=== PATIENT | female | born 1935 | race Caucasian/White ===

== ENCOUNTER → 2016-04-25 | Outpatient (CLI) | payer OTHER ==
[~2016-04-25] MED LIST: ACET650T50 PO; ALBU1AER9 INH; ASPEC81 PO; ASTN; CALC-20 PO; CYCL0.052 OP; CYCL0.052 OPB; DOCU-94 PO; DOCU100C31 PO; FLNIN NAE; FSMD/70 PO; GABA-112 PO; LCTX PO; LEVO100T7 PO; LEVO88TA3 PO; LPR25 PO; LPT40 PO; LSN20 PO; LSX20 PO; MELO7.5T5 PO; MULTTAB58 PO; NF34 TOP; ONDA4TAB46 PO; OXGN; OXYC-57 PO; POLY335019 PO; PRT/40 PO; SENN-61 PO; SLO MAG PO; TRAZ50TA35 PO
== END | disposition home or self-care (01) ==
LOC: C.RDSM 13:45
PROVIDERS: ATTEND Physical Medicine & Rehabilitation Sports Medicine
DX: M17.11 Unilateral primary osteoarthritis, right knee (principal); Z96.651 Presence of right artificial knee joint

== ENCOUNTER → 2016-07-01 | Day surgery (SDC) | payer OTHER ==
[2016-06-16 09:21] VITALS: BMI 34.0
--- NOTE | 2016-06-16 09:58 | PAT Medication Instructions ---
Service Date June 16, 2016. Current Home Medication List Albuterol (Proair Hfa), 1 PUFF INH Q4 PRN for SOB/Wheezing Alendronate/Cholecalciferol (Fosamax+D 70MG/2800 Iu), 1 TABLET PO WK Aspirin (Aspirin EC Low Dose), 81 MG PO QAM Atorvastatin (Atorvastatin Calcium), 40 MG PO QAM Azelastine Hcl (Astelin Nasal [place]), 2 SPRAYS NA TID PRN for PRN Calcium Carbonate-Vitamin D (Calcium 600 + D), 1 TAB PO BID Clobetasol Propionate (Clobetasol Propionate), 1 APPLN TOP AMHS PRN for PRN Cyclosporine (Ophth) (Restasis), 1 DROP OP BID Fluticasone Propionate (Fluticasone Propionate), 2 SPRAYS YOANDY QAM Furosemide (Furosemide), 20 MG PO QAM Gabapentin (Neurontin), 200 MG PO TID Lactobacillus Acidophilus (Lactinex), 1 TAB PO TID Levothyroxine Sodium (Levothyroxine Sodium), 1 TAB PO QAM Lisinopril (Lisinopril), 20 MG PO QAM Meloxicam (Mobic), 7.5 MG PO QAM Metoprolol Tartrate (Lopressor), 12.5 MG PO BID Multiple Vitamin (Multivitamin), 1 TAB PO QAM Ondansetron Hcl (Zofran), 8 MG PO TID PRN for Nausea Oxygen (Oxygen), 2 LITERS NA HS Pantoprazole (Pantoprazole Sodium), 40 MG PO QAM Senna (Senokot), 1 TAB PO QAM Trazodone Hcl (Trazodone), 50 MG PO HS [Slo Mag], 2 TAB PO QAM Medication Instructions For Your Scheduled Surgery - Check with surgeon for instructions: Aspirin (Aspirin EC Low Dose), 81 MG PO QAM Meloxicam (Mobic), 7.5 MG PO QAM - Continue as directed: Alendronate/Cholecalciferol (Fosamax+D 70MG/2800 Iu), 1 TABLET PO WK (Fridays) - Hold the following medications 24 hours prior to surgery: Clobetasol Propionate (Clobetasol Propionate), 1 APPLN TOP AMHS PRN for PRN - Hold the following medications the morning of surgery: [Slo Mag], 2 TAB PO QAM Senna (Senokot), 1 TAB PO QAM Multiple Vitamin (Multivitamin), 1 TAB PO QAM Lisinopril (Lisinopril), 20 MG PO QAM Lactobacillus Acidophilus (Lactinex), 1 TAB PO TID Furosemide (Furosemide), 20 MG PO QAM Calcium Carbonate-Vitamin D (Calcium 600 + D), 1 TAB PO BID - Take the following medications the morning of surgery with a sip of water: Fluticasone Propionate (Fluticasone Propionate), 2 SPRAYS YOANDY QAM Cyclosporine (Ophth) (Restasis), 1 DROP OP BID Gabapentin (Neurontin), 200 MG PO TID Levothyroxine Sodium (Levothyroxine Sodium), 1 TAB PO QAM Atorvastatin (Atorvastatin Calcium), 40 MG PO QAM Azelastine Hcl (Astelin Nasal [place]), 2 SPRAYS NA TID PRN for PRN Pantoprazole (Pantoprazole Sodium), 40 MG PO QAM Albuterol (Proair Hfa), 1 PUFF INH Q4 PRN for SOB/Wheezing\ Metoprolol Tartrate (Lopressor), 12.5 MG PO BID Ondansetron Hcl (Zofran), 8 MG PO TID PRN for Nausea - Take the following medications as scheduled the night before surgery: Lactobacillus Acidophilus (Lactinex), 1 TAB PO TID Cyclosporine (Ophth) (Restasis), 1 DROP OP BID Gabapentin (Neurontin), 200 MG PO TID Calcium Carbonate-Vitamin D (Calcium 600 + D), 1 TAB PO BID Azelastine Hcl (Astelin Nasal [place]), 2 SPRAYS NA TID PRN for PRN Oxygen (Oxygen), 2 LITERS NA HS Albuterol (Proair Hfa), 1 PUFF INH Q4 PRN for SOB/Wheezing Metoprolol Tartrate (Lopressor), 12.5 MG PO BID Ondansetron Hcl (Zofran), 8 MG PO TID PRN for Nausea Trazodone Hcl (Trazodone), 50 MG PO HS If you have any questions please call us at [phone] (Lizzie Hastings PA-C) or [phone] or [phone]
--- NOTE | 2016-06-16 10:38 | DIAGNOSTIC IMAGING REPORT ---
CHEST PREADMISSION(PA/LAT) CLINICAL HISTORY: Preoperative chest COMPARISON STUDY: 08/14/2015 FINDINGS: The cardiac and mediastinal contours are normal. There is no evidence of focal pulmonary consolidation. There is no evidence of failure. No pleural effusions are visualized.[ There is a stable calcified right middle lobe granuloma. There are stable calcified hilar and mediastinal lymph nodes. IMPRESSION: No active disease in the chest. Electronically signed by: Julio Saravia M.D. 06/16/2016 10:36 AM Dictated Date/Time: 06/16/2016 10:36 AM
[2016-06-16 10:46] LABS: URINE APPEARANCE CLEAR (CLEAR); URINE BILIRUBIN NEG (NEG); URINE COLOR YELLOW; URINE NITRITE NEG (NEG); URINE PH 7.5 (4.5-7.5); UROBILINOGEN NEG (NEG)
[2016-06-16 10:49] LABS: MANUAL MICROSCOPIC REQUIRED? NO; REVIEW REQ? NO
[2016-06-16 11:26] LABS: BASO % 0.3 %; BASO ABS # 0.03 K/uL (0-0.2); COMPLETE YES; EOS % 1.5 %; HEMATOCRIT 40.8 % (37-47); IG% 0.4 %; LYMPH % 12.6 %; LYMPH ABS # 1.39 K/uL (1.2-3.4); MEAN CELL VOLUME 98.1 fL (80-100); MEAN CORPUSCULAR HGB CONC 32.6 g/dl (32-36); MONO % 6.7 %; NEUT % 78.5 %; PLATELET COUNT 207 K/uL (130-400); RED BLOOD COUNT 4.16 M/uL (4.2-5.4); WHITE BLOOD COUNT 11.03 K/uL (4.8-10.8)
[2016-06-16 11:32] LABS: CALCIUM 9.1 mg/dl (8.5-10.1); CREATININE 0.7 mg/dl (0.60-1.20); POTASSIUM 4.1 mmol/L (3.5-5.1)
[~2016-07-01] VITALS: Ht 162.6 cm; Wt 89.9 kg
[~2016-07-01] MED LIST changes: +ACETAMINOPHEN 325 MG TAB PO PRN; +ATROPINE SULFATE 0.1 MG/ML 5ML SYR IV PRN; +BACITRACIN 50000 UNIT VIAL ONE; +BUPIVACAINE/EPINEPHRINE 0.5% MPF 1:200,000 30 ML VIAL ONE; +CEFAZOLIN 2000 MG/60 ML D5W 60 ML IV SCH; -CYCL0.052 OPB; +DEXAMETHASONE SOD INJ 4 MG/ML VIAL ONE; -DOCU-94 PO; +EpHEDrine SULFATE 50MG/5ML SYR ONE; +FENTANYL CITRATE INJ 50 MCG/1 ML 2 ML VIAL ONE; +GLYCOPYRROLATE INJ 0.2 MG/ML VIAL ONE; +HYDROmorphone INJ 1 MG/ML SYR IV PRN; +LACTATED RINGER'S 1000ML 1,000 ML IV SCH; +LIDOCAINE HCL 2% 2 ML VIAL (20MG/ML) ONE; +MIDAZOLAM HCL 1 MG/ML 2ML VIAL ONE; +NEOSTIGMINE METHYLSULFATE 1 MG/ML 10ML VIAL ONE; +ONDANSETRON INJ 2 MG/ML 2 ML VIAL IV PRN; +ONDANSETRON INJ 2 MG/ML 2 ML VIAL ONE; +OXYCODONE HCL IR 5 MG TAB (IMMEDIATE RELEASE) PO PRN; +PANT40TA2 PO; +PHENYLEPHRINE 100MCG/ML 5ML SYR ONE; +PROMETHAZINE HCL INJ 12.5 MG in SODIUM CHLORIDE 0.9% 50ML 50 ML IV PRN; +PROMETHAZINE HCL INJ 6.25 MG in SODIUM CHLORIDE 0.9% 50ML 50 ML IV PRN; +PROPOFOL IV EMULSION 10 MG/ML 20 ML VIAL IV ONE; -PRT/40 PO; +ROCURONIUM BROMIDE 10 MG/ML 5 ML VIAL ONE; +SODIUM CHLORIDE 0.9% PF 50 ML VIAL ONE
[2016-07-01 06:36] VITALS: BP 112/68; PULSE 74; TEMP 36.8; O2SAT 93; Ht 162.6 cm; Wt 89.9 kg
--- NOTE | 2016-07-01 07:23 | History & Physical Bridge Note ---
H&P Re-Evaluation Bridge Note: I have examined the patient, reviewed the History & Physical and in the interval since the performance of the History & Physical I have noted the following changes of clinical significance: No changes noted
--- NOTE | 2016-07-01 07:24 | History and Physical ---
History & Physical Date July 01, 2016. Chief Complaint SI joint pain History of Present Illness The patient is a 81 year old female with complaints of Past Medical/Surgical History Medical Problems: (1) Allergic rhinitis (2) Bronchitis (3) Carotid bruit (4) Crohn's disease (5) Diabetes (6) Diabetes mellitus type 2 (7) Diverticular disease of colon (8) Dyslipidemia (9) Gastroesophageal reflux disease (10) History of adenomatous polyp of colon (11) History of diverticulitis (12) Hypertension (13) Hypertension (14) Hypothyroidism (15) Irritable colon (16) Nocturnal hypoxemia (17) Osteoarthritis (18) Osteoporosis (19) Stomach problems Surgical Problems: (1) s/p ACL repair (2) s/p appendectomy (3) s/p breast biopsy (4) s/p cholecystectomy (5) s/p colonoscopy (6) s/p hysterectomy (7) s/p repair bladder (8) s/p repair rectocele (9) s/p repair vagina (10) s/p rhinoplasty (11) s/p right TKA (12) s/p sinus surgery (13) s/p tonsillectomy (14) Status post phlebectomy Additional History Hepatic Disease: No Endocrine Disorder: No Kidney Disease: No Hypertension: No Heart Disease: No Bleeding Tendencies: No Infectious Diseases: No Allergies Coded Allergies: Dust (Verified Allergy, Intermediate, Dust mites- nasal congestion, 06/16/16 ) Sulfa Antibiotics (Verified Allergy, Intermediate, RINGS ON SKIN, 06/16/16) Simvastatin (Verified Allergy, Mild, RED CIRCLES-HAS TOLERATED LIPITOR, 06/16/16) Pyrilamine (Verified Allergy, Unknown, VOMITING, 06/16/16) Codeine (Verified Adverse Reaction, Mild, N/V, 06/16/16) Iodinated Diagnostic Agents (Verified Adverse Reaction, Mild, BURNING AT IV SITE AND UP VEIN, 06/16/16) Morphine and Related (Verified Adverse Reaction, Mild, VOMITING, 06/16/16) Home Medications Scheduled Alendronate/Cholecalciferol (Fosamax+D 70MG/2800 Iu), 1 TABLET PO WK Aspirin (Aspirin EC Low Dose), 81 MG PO QAM Atorvastatin (Atorvastatin Calcium), 40 MG PO QAM Calcium Carbonate-Vitamin D (Calcium 600 + D), 1 TAB PO BID Cyclosporine (Ophth) (Restasis), 1 DROP OP BID Fluticasone Propionate (Fluticasone Propionate), 2 SPRAYS YOANDY QAM Furosemide (Furosemide), 20 MG PO QAM Gabapentin (Neurontin), 200 MG PO TID Lactobacillus Acidophilus (Lactinex), 1 TAB PO TID Levothyroxine Sodium (Levothyroxine Sodium), 1 TAB PO QAM Lisinopril (Lisinopril), 20 MG PO QAM Meloxicam (Mobic), 7.5 MG PO QAM Metoprolol Tartrate (Lopressor), 12.5 MG PO BID Multiple Vitamin (Multivitamin), 1 TAB PO QAM Oxygen (Oxygen), 2 LITERS NA HS Pantoprazole (Pantoprazole Sodium), 40 MG PO QAM Senna (Senokot), 1 TAB PO QAM Trazodone Hcl (Trazodone), 50 MG PO HS [Slo Mag], 2 TAB PO QAM Scheduled PRN Albuterol (Proair Hfa), 1 PUFF INH Q4 PRN for SOB/Wheezing Azelastine Hcl (Astelin Nasal [place]), 2 SPRAYS NA TID PRN for PRN Clobetasol Propionate (Clobetasol Propionate), 1 APPLN TOP AMHS PRN for PRN Ondansetron Hcl (Zofran), 8 MG PO TID PRN for Nausea Physical Examination Skin: warm/dry, no rash Eyes: normal inspection, EOMI, sclerae normal ENT: normal ENT inspection, pharynx normal Head: normocephalic, atraumatic Neck: supple, no adenopathy, trachea midline Respiratory/Chest: lungs clear, normal breath sounds, no respiratory distress Cardiovascular: regular rate, rhythm, no edema, no murmur Abdomen / GI: normal bowel sounds, non tender Back: normal inspection Extremities: normal inspection, normal range of motion Neurologic/Psych: no motor/sensory deficits, alert, normal reflexes, oriented x 3 Diagnosis sacralilitis Plan of Treatment Right SI joint fusion
--- NOTE | 2016-07-01 08:58 | Discharge Instructions ---
Discharge Instructions Date of Service July 01, 2016. Admission Reason for Admission: Sacroiliac Joint Dysfunction Discharge Discharge Diagnosis / Problem: sacralilitis Discharge Goals Goal(s): Improve function Activity Recommendations Activity Limitations: per Instructions/Follow-up section Shower/Bathe: may shower/bathe in 3 days Weightbearing Status: Right toe touch . Instructions / Follow-Up Instructions / Follow-Up follow up 2 weeks walker to ambulate Current Hospital Diet Patient's current hospital diet: Discharge Diet Recommended Diet: Regular Diet Procedures Procedures Performed: Right Sacroiliac Joint Fusion Pending Studies Studies pending at discharge: no Medical Emergencies . Who to Call and When: Medical Emergencies: If at any time you feel your situation is an emergency, please call 911 immediately. . Non-Emergent Contact Non-Emergency issues call your: Primary Care Provider . "Provider Documentation" section prepared by Ti Blanco. . VTE Core Measure Inpt VTE Proph given/why not?: Shea Chandra, SCD's
[2016-07-01] MEDS: HYDROmorphone INJ 2 MG/ML SYR/VIAL IV PRN ×3 (09:18→09:30)
--- NOTE | 2016-07-01 09:33 | DIAGNOSTIC IMAGING REPORT ---
INTRAOPERATIVE RADIOGRAPHS CLINICAL HISTORY: Right sacroiliac joint fusion. Fluoroscopy time: 154 seconds. FINDINGS: 3 spot fluoroscopic views of the right sacroiliac joint are obtained. 3 cortical lag screws transfix the right sacroiliac joint. The orthopedic hardware appears intact. Lumbar spinal fusion hardware is partially imaged. IMPRESSION: Intraoperative images from right sacroiliac joint fusion as above. Electronically signed by: Wong Childress M.D. 07/01/2016 9:32 AM Dictated Date/Time: 07/01/2016 9:31 AM
[2016-07-01 10:00] VITALS: TEMP 36
--- NOTE | 2016-07-01 10:41 | OPERATIVE REPORT ---
DATE OF OPERATION: 07/01/2016 PREOPERATIVE DIAGNOSIS: Right sacroiliitis. POSTOPERATIVE DIAGNOSIS: Same. PROCEDURE PERFORMED: Right SI joint fusion. SURGEON: Dr. Ti Blanco. EVENT SALES ASSISTANT: Zaire Gomez PA-C. Due to the complex nature of the procedure, the entire surgery was performed with the family assistant of Zaire Gomez PA-C. The investment sales assistant, under direct supervision, was involved in the actual performance of all aspects of the surgical procedure including hemostasis, tissue retraction and incision, instrument management, patient positioning, and wound closure. ANESTHESIA: General. DISPOSITION: The patient awakened and taken to PACU in stable condition. HISTORY OF PATIENT'S PROBLEMS: An 81-year-old female well known to me that presents with the above-mentioned diagnosis. After failing an extensive course of nonoperative care, elected to undergo the above-mentioned procedure. Risks, benefits, pros, cons, and alternatives were outlined in detail preoperatively. OPERATION AND FINDINGS: PROCEDURE: The patient was met with preoperatively, case discussed and all questions were addressed. At that point the patient was taken back to the operative suite and after undergoing successful general intubation by the department of anesthesia was placed in prone position on chest pad, hip bolsters on the Fritz table. All bony prominences were well padded and the right upper extremity was prepped and draped in normal sterile fashion. With the assistance of fluoroscopy in AP and lateral inlet and outlet views, we identified the right SI joint. Utilizing incision along the sacral slope along the right upper buttock approximately 3 cm incision was made. Then using a guidewire we placed the guidewire in the proximal aspect of the sacrum verifying our position with fluoroscopy. We were able to drill across the guidewire and subsequently placed a 40 mm MCNALLY coated slotted screw filled with Nilam bone grafting locally harvested morselized autograft. We then using the outrigger I placed a second screw distal to this again verifying our position with fluoroscopy. This screw was again an MCNALLY coated slotted 35 mm screw. Lastly, we placed a third screw 30 mm in length MCNALLY coated slotted filled with Nilam bone grafting locally harvested morselized autograft across the SI joint. Again, we were able to visualize our position in all planes. After this was complete, the incision was copiously irrigated, closed with subcutaneous Vicryl and Monocryl for final skin closure. Steri-Strips and sterile dressing placed. The patient was awakened and taken to PACU in stable condition. I attest to the content of the Intraoperative Record and any orders documented therein. Any exceptio ns are noted below.
--- NOTE | 2016-07-01 10:56 | Anesthesiology Progress Note ---
Anesthesia Post Op Note Date & Time July 01, 2016 at 10:56 Vital Signs Pain Intensity: 1 Vital Signs Past 12 Hours Date Time Temp Pulse Resp B/P Pulse Ox O2 Delivery O2 Flow Rate FiO2 07/01/16 09:41 127/65 07/01/16 09:37 65 16 07/01/16 09:37 63 16 100 07/01/16 09:36 125/70 07/01/16 09:32 70 16 07/01/16 09:32 71 16 99 07/01/16 09:31 125/66 07/01/16 09:30 Nasal Cannula 3 07/01/16 09:30 67 17 07/01/16 09:30 67 17 98 07/01/16 09:27 107/52 07/01/16 09:25 71 20 100 07/01/16 09:25 71 20 07/01/16 09:21 127/63 07/01/16 09:20 78 13 99 07/01/16 09:20 75 13 07/01/16 09:16 127/64 07/01/16 09:15 72 18 07/01/16 09:15 73 18 100 07/01/16 09:11 127/81 07/01/16 09:10 36.0 76 13 127/81 100 Mask 10 07/01/16 09:10 78 27 100 07/01/16 09:10 78 27 07/01/16 06:36 36.8 74 20 112/68 93 Room Air Notes Mental Status: alert / awake / arousable, participated in evaluation Pt Amnestic to Procedure: Yes Nausea / Vomiting: adequately controlled Pain: adequately controlled Airway Patency, RR, SpO2: stable & adequate BP & HR: stable & adequate Hydration State: stable & adequate Anesthetic Complications: no major complications apparent
[2016-07-01 12:20] VITALS: BP 112/56; PULSE 75; O2SAT 98
== END | disposition home or self-care (01) ==
LOC: C.ACU 05:57
PROVIDERS: ATTEND Orthopaedic Surgery Orthopaedic Surgery of the Spine
DX: M46.1 Sacroiliitis, not elsewhere classified (principal); I10 Essential (primary) hypertension; E11.9 Type 2 diabetes mellitus without complications; E78.5 Hyperlipidemia, unspecified; K21.9 Gastro-esophageal reflux disease without esophagitis; E03.9 Hypothyroidism, unspecified; M19.90 Unspecified osteoarthritis, unspecified site; Z90.89 Acquired absence of other organs; Z90.49 Acquired absence of other specified parts of digestive tract; Z90.710 Acquired absence of both cervix and uterus; Z96.651 Presence of right artificial knee joint; Z98.41 Cataract extraction status, right eye; Z98.42 Cataract extraction status, left eye; Z88.2 Allergy status to sulfonamides; Z88.5 Allergy status to narcotic agent; Z79.82 Long term (current) use of aspirin; Z79.899 Other long term (current) drug therapy; E66.9 Obesity, unspecified; Z68.34 Body mass index [BMI] 34.0-34.9, adult

== ENCOUNTER → 2016-08-10 | Outpatient (CLI) | payer OTHER ==
[~2016-08-10] MED LIST changes: -ACETAMINOPHEN 325 MG TAB PO PRN; -ATROPINE SULFATE 0.1 MG/ML 5ML SYR IV PRN; -BACITRACIN 50000 UNIT VIAL ONE; -BUPIVACAINE/EPINEPHRINE 0.5% MPF 1:200,000 30 ML VIAL ONE; -CEFAZOLIN 2000 MG/60 ML D5W 60 ML IV SCH; -DEXAMETHASONE SOD INJ 4 MG/ML VIAL ONE; -EpHEDrine SULFATE 50MG/5ML SYR ONE; -FENTANYL CITRATE INJ 50 MCG/1 ML 2 ML VIAL ONE; -GLYCOPYRROLATE INJ 0.2 MG/ML VIAL ONE; -HYDROmorphone INJ 1 MG/ML SYR IV PRN; -LACTATED RINGER'S 1000ML 1,000 ML IV SCH; -LIDOCAINE HCL 2% 2 ML VIAL (20MG/ML) ONE; -MIDAZOLAM HCL 1 MG/ML 2ML VIAL ONE; -NEOSTIGMINE METHYLSULFATE 1 MG/ML 10ML VIAL ONE; -ONDANSETRON INJ 2 MG/ML 2 ML VIAL IV PRN; -ONDANSETRON INJ 2 MG/ML 2 ML VIAL ONE; -OXYC-57 PO; -OXYCODONE HCL IR 5 MG TAB (IMMEDIATE RELEASE) PO PRN; -PANT40TA2 PO; -PHENYLEPHRINE 100MCG/ML 5ML SYR ONE; -PROMETHAZINE HCL INJ 12.5 MG in SODIUM CHLORIDE 0.9% 50ML 50 ML IV PRN; -PROMETHAZINE HCL INJ 6.25 MG in SODIUM CHLORIDE 0.9% 50ML 50 ML IV PRN; -PROPOFOL IV EMULSION 10 MG/ML 20 ML VIAL IV ONE; +PRT/40 PO; -ROCURONIUM BROMIDE 10 MG/ML 5 ML VIAL ONE; -SODIUM CHLORIDE 0.9% PF 50 ML VIAL ONE
== END | disposition home or self-care (01) ==
LOC: C.LAB 17:00
PROVIDERS: ATTEND Nurse Practitioner Adult Health
DX: R30.0 Dysuria (principal)

== ENCOUNTER 2016-08-22 15:25 | Emergency (ER) | payer OTHER ==
[~2016-08-22] VITALS: Ht 160 cm; Wt 88.1 kg
[~2016-08-22 15:25] MED LIST changes: -ACET650T50 PO; -DOCU100C31 PO; -LEVO88TA3 PO; -POLY335019 PO
[2016-08-22] MEDS ORDERED: SODIUM CHLORIDE 0.9% 500ML 500 ML IV STA (15:35)
[2016-08-22 15:47] VITALS: TEMP 36.7; Ht 160 cm; Wt 88.1 kg
[2016-08-22 15:59] LABS: BASO % 0.2 %; BASO ABS # 0.02 K/uL (0-0.2); COMPLETE YES; EOS % 1.1 %; HEMATOCRIT 44.3 % (37-47); IG% 0.3 %; LYMPH % 9.2 %; LYMPH ABS # 1.01 K/uL (1.2-3.4); MEAN CELL VOLUME 95.5 fL (80-100); MEAN CORPUSCULAR HEMOGLOBIN 31.5 pg (25-34); MEAN PLATELET VOLUME 9.6 fL (7.4-10.4); MONO % 4.8 %; NEUT % 84.4 %; PLATELET COUNT 244 K/uL (130-400); RED BLOOD COUNT 4.64 M/uL (4.2-5.4); WHITE BLOOD COUNT 10.94 K/uL (4.8-10.8)
[2016-08-22] MEDS ORDERED: LEVO88TA3 PO (16:06)
[2016-08-22 16:21] LABS: ALT/SGPT 21 U/L (12-78); BLOOD UREA NITROGEN 17 mg/dl (7-18); BUN/CREATININE RATIO 22.1 (10-20); CALCIUM 9.4 mg/dl (8.5-10.1); CARBON DIOXIDE 26 mmol/L (21-32); CHLORIDE 101 mmol/L (98-107); CREATININE 0.75 mg/dl (0.60-1.20); GLUCOSE 128 mg/dl (70-99); POTASSIUM 3.9 mmol/L (3.5-5.1); SODIUM 137 mmol/L (136-145)
[2016-08-22 16:24] LABS: ALKALINE PHOSPHATASE 104 U/L (45-117); AST/SGOT 14 U/L (15-37)
[2016-08-22] MEDS ORDERED: ACET650T50 PO (16:24)
[2016-08-22] MEDS ORDERED: DOCU100C31 PO (16:27)
[2016-08-22] MEDS ORDERED: POLY335019 PO (16:30)
--- NOTE | 2016-08-22 17:02 | DIAGNOSTIC IMAGING REPORT ---
CT SCAN OF THE ABDOMEN AND PELVIS WITHOUT CONTRAST CLINICAL HISTORY: Left lower quadrant abdominal pain COMPARISON STUDY: 11/30/2015 TECHNIQUE: CT scan of the abdomen and pelvis was performed from the lung bases to the proximal femurs. Images are reviewed in the axial, sagittal, and coronal planes. IV contrast was not administered for this examination. CT DOSE: 801.78 mGy.cm FINDINGS: Lower chest: There is a calcified right middle lobe granuloma. There are dependent atelectatic changes. There is a small hiatal hernia Liver: The unenhanced liver is normal in size, contour, and attenuation. There is no intrahepatic biliary ductal dilatation. Gallbladder: Not visualized and presumed surgically absent Spleen: Normal in size and attenuation. Pancreas: Unremarkable. Adrenal glands: Unremarkable. Kidneys: No renal, ureteral, or bladder calculi are visualized. There is a 37 mm left renal cyst. Bowel: There are no transition zones indicate bowel obstruction. There is colonic diverticulosis. There are no acute peridiverticular inflammatory changes. There are postsurgical changes of a ventral hernia with Grimm repair. There is bowing of the mesh similar to the prior study. There are no findings to indicate acute appendicitis. Peritoneum: There is no intraperitoneal free air or abdominal ascites. Vasculature: The abdominal aorta is normal in course and caliber. Adenopathy: None. Pelvic viscera: The uterus is surgically absent. Skeletal structures: There are postsurgical changes of a lumbar spinal fusion. There is a grade 2/4 spondylolisthesis of L4 and L5. There are right-sided sacral bolts. IMPRESSION: 1. No evidence of bowel obstruction. No evidence of free air 2. Small hiatal hernia 3. Diverticulosis. No evidence of acute diverticulitis 4. No renal, ureteral, or bladder calculi identified. Electronically signed by: Julio Saravia M.D. 08/22/2016 5:01 PM Dictated Date/Time: 08/22/2016 4:55 PM
[2016-08-22 17:36] LABS: URINE APPEARANCE CLEAR (CLEAR); URINE BILIRUBIN NEG (NEG); URINE COLOR YELLOW; URINE NITRITE NEG (NEG); UROBILINOGEN NEG (NEG); ZZUR CULT IF INDIC CLEAN CATCH NO
[2016-08-22 17:40] LABS: MANUAL MICROSCOPIC REQUIRED? NO; REVIEW REQ? NO
--- NOTE | 2016-08-22 18:37 | EMERGENCY ROOM VISIT NOTE ---
History Report prepared by Carmenza: Jayde Gonsales Under the Supervision of: Dr. Gurjit Paul D.O. First contact with patient: 15:28 Chief Complaint: ABDOMINAL PAIN Stated Complaint: AB PAIN History of Present Illness The patient is a 81 year old female who presents to the Emergency Room with complaints of intermittent abdominal pain beginning early this morning. The patient states that about 1 hour before arriving in the ED she had multiple diarrhea episodes. The patient states that her pain resolves after an episode of diarrhea. She is nauseous.The patient has experienced these symptoms before and she was diagnosed with C. Diff. The patient finished an antibiotic course for a UTI 2 days ago. Pt denies headache, change in vision, fevers, chest pain, shortness of breath, vomiting, pain with urination, and melena. Source of History: patient Onset: early this morning Position: abdomen Timing: intermittent Associated Symptoms: + nausea, + diarrhea, No fevers, No vomiting Review of Systems See HPI for pertinent positives & negatives. A total of 10 systems reviewed and were otherwise negative. Past Medical & Surgical Medical Problems: (1) Allergic rhinitis (2) Bronchitis (3) Carotid bruit (4) Crohn's disease (5) Diabetes (6) Diabetes mellitus type 2 (7) Diverticular disease of colon (8) Dyslipidemia (9) Gastroesophageal reflux disease (10) History of adenomatous polyp of colon (11) History of diverticulitis (12) Hypertension (13) Hypertension (14) Hypothyroidism (15) Irritable colon (16) Nocturnal hypoxemia (17) Osteoarthritis (18) Osteoporosis (19) Stomach problems Surgical Problems: (1) s/p ACL repair (2) s/p appendectomy (3) s/p breast biopsy (4) s/p cholecystectomy (5) s/p colonoscopy (6) s/p hysterectomy (7) s/p repair bladder (8) s/p repair rectocele (9) s/p repair vagina (10) s/p rhinoplasty (11) s/p right TKA (12) s/p sinus surgery (13) s/p tonsillectomy (14) Status post phlebectomy Family History Cancer Diabetes mellitus Gallbladder disease Heart disease Hypertension Stroke Social History Smoking Status: Never Smoker Alcohol Use: occasionally Drug Use: none Marital Status: Housing Status: lives with family Occupation Status: retired Current/Historical Medications Scheduled Aspirin (Aspirin EC Low Dose), 81 MG PO QAM Atorvastatin (Atorvastatin Calcium), 40 MG PO QAM Calcium Carbonate-Vitamin D (Calcium 600 + D), 1 TAB PO BID Cyclosporine (Ophth) (Restasis), 1 DROP OP BID Docusate Sodium (Docusate Sodium), 100 MG PO BID Fluticasone Propionate (Fluticasone Propionate), 2 SPRAYS YOANDY QAM Furosemide (Furosemide), 20 MG PO QAM Gabapentin (Neurontin), 100 MG PO TID Lactobacillus Acidophilus (Lactinex), 1 TAB PO TIDM Levothyroxine Sodium (Levothyroxine Sodium), 100 MCG PO QAM Levothyroxine Sodium (Levothyroxine Sodium), 88 MCG PO DAILY Lisinopril (Lisinopril), 10 MG PO QAM Meloxicam (Mobic), 7.5 MG PO QAM Metoprolol Tartrate (Lopressor), 12.5 MG PO BID Multiple Vitamin (Multivitamin), 1 TAB PO QAM Pantoprazole (Pantoprazole Sodium), 40 MG PO QAM Trazodone Hcl (Trazodone), 50 MG PO HS Scheduled PRN Acetaminophen (Apap Arthritis), 650 MG PO Q6H PRN for Pain Albuterol (Proair Hfa), 1 PUFF INH Q4 PRN for SOB/Wheezing Azelastine Hcl (Astelin Nasal [place]), 2 SPRAYS NA TID PRN for PRN Clobetasol Propionate (Clobetasol Propionate), 1 APPLN TOP DAILY PRN for UNDECIDED Ondansetron Hcl (Zofran), 8 MG PO TID PRN for Nausea Polyethylene Glycol 3350 (Miralax), 17 GM PO DAILY PRN for Constipation Allergies Coded Allergies: Dust (Verified Allergy, Intermediate, Dust mites- nasal congestion, 06/16/16 ) Sulfa Antibiotics (Verified Allergy, Intermediate, RINGS ON SKIN, 06/16/16) Simvastatin (Verified Allergy, Mild, RED CIRCLES-HAS TOLERATED LIPITOR, 06/16/16) Pyrilamine (Verified Allergy, Unknown, VOMITING, 06/16/16) Codeine (Verified Adverse Reaction, Mild, N/V, 06/16/16) Iodinated Diagnostic Agents (Verified Adverse Reaction, Mild, BURNING AT IV SITE AND UP VEIN, 06/16/16) Morphine and Related (Verified Adverse Reaction, Mild, VOMITING, 06/16/16) Physical Exam Vital Signs Date Time Temp Pulse Resp B/P (MAP) Pulse Ox O2 Delivery O2 Flow Rate FiO2 08/22/16 16:47 77 08/22/16 15:47 36.7 88 18 160/81 95 Room Air Physical Exam GENERAL: sitting up in bed, alert, well appearing, well nourished, no distress, non-toxic EYE EXAM: normal conjunctiva OROPHARYNX: no exudate, no erythema, lips, buccal mucosa, and tongue normal and mucous membranes are moist NECK: supple, no nuchal rigidity, no adenopathy, non-tender LUNGS: Clear to auscultation. Normal chest wall mechanics HEART: no murmurs, S1 normal and S2 normal ABDOMEN: abdomen soft, minimal periumbilical tenderness, normo-active bowel sounds, no masses, no rebound or guarding. BACK: Back is symmetrical on inspection and there is no deformity, no midline tenderness, no CVA tenderness. SKIN: no rashes and no bruising UPPER EXTREMITIES: upper extremities are grossly normal. LOWER EXTREMITIES: No pitting edema. NEURO EXAM: Normal sensorium, cranial nerves II-XII grossly intact, normal speech, no gross weakness of arms, no gross weakness of legs. Medical Decision & Procedures ER Provider Diagnostic Interpretation: CT result as stated below per my review and the radiologist's interpretation: CT SCAN OF THE ABDOMEN AND PELVIS WITHOUT CONTRAST CLINICAL HISTORY: Left lower quadrant abdominal pain COMPARISON STUDY: 11/30/2015 TECHNIQUE: CT scan of the abdomen and pelvis was performed from the lung bases to the proximal femurs. Images are reviewed in the axial, sagittal, and coronal planes. IV contrast was not administered for this examination. CT DOSE: 801.78 mGy.cm FINDINGS: Lower chest: There is a calcified right middle lobe granuloma. There are dependent atelectatic changes. There is a small hiatal hernia Liver: The unenhanced liver is normal in size, contour, and attenuation. There is no intrahepatic biliary ductal dilatation. Gallbladder: Not visualized and presumed surgically absent Spleen: Normal in size and attenuation. Pancreas: Unremarkable. Adrenal glands: Unremarkable. Kidneys: No renal, ureteral, or bladder calculi are visualized. There is a 37 mm left renal cyst. Bowel: There are no transition zones indicate bowel obstruction. There is colonic diverticulosis. There are no acute peridiverticular inflammatory changes. There are postsurgical changes of a ventral hernia with Grimm repair. There is bowing of the mesh similar to the prior study. There are no findings to indicate acute appendicitis. Peritoneum: There is no intraperitoneal free air or abdominal ascites. Vasculature: The abdominal aorta is normal in course and caliber. Adenopathy: None. Pelvic viscera: The uterus is surgically absent. Skeletal structures: There are postsurgical changes of a lumbar spinal fusion. There is a grade 2/4 spondylolisthesis of L4 and L5. There are right-sided sacral bolts. IMPRESSION: 1. No evidence of bowel obstruction. No evidence of free air 2. Small hiatal hernia 3. Diverticulosis. No evidence of acute diverticulitis 4. No renal, ureteral, or bladder calculi identified. Electronically signed by: Julio Saravia M.D. 08/22/2016 5:01 PM Dictated Date/Time: 08/22/2016 4:55 PM Laboratory Results 08/22/16 15:45 Red Blood Count 4.64, Mean Corpuscular Volume 95.5, Mean Corpuscular Hemoglobin 31.5, Mean Corpuscular Hemoglobin Concent 33.0, Mean Platelet Volume 9.6, Neutrophils (%) (Auto) 84.4, Lymphocytes (%) (Auto) 9.2, Monocytes (%) (Auto) 4.8, Eosinophils (%) (Auto) 1.1, Basophils (%) (Auto) 0.2, Neutrophils # (Auto) 9.24, Lymphocytes # (Auto) 1.01, Monocytes # (Auto) 0.52, Eosinophils # (Auto) 0.12, Basophils # (Auto) 0.02 08/22/16 15:45 Test 08/22/16 15:45 08/22/16 17:04 White Blood Count 10.94 K/uL (4.8-10.8) Red Blood Count 4.64 M/uL (4.2-5.4) Hemoglobin 14.6 g/dL (12.0-16.0) Hematocrit 44.3 % (37-47) Mean Corpuscular Volume 95.5 fL (80-100) Mean Corpuscular Hemoglobin 31.5 pg (25-34) Mean Corpuscular Hemoglobin Concent 33.0 g/dl (32-36) Platelet Count 244 K/uL (130-400) Mean Platelet Volume 9.6 fL (7.4-10.4) Neutrophils (%) (Auto) 84.4 % Lymphocytes (%) (Auto) 9.2 % Monocytes (%) (Auto) 4.8 % Eosinophils (%) (Auto) 1.1 % Basophils (%) (Auto) 0.2 % Neutrophils # (Auto) 9.24 K/uL (1.4-6.5) Lymphocytes # (Auto) 1.01 K/uL (1.2-3.4) Monocytes # (Auto) 0.52 K/uL (0.11-0.59) Eosinophils # (Auto) 0.12 K/uL (0-0.5) Basophils # (Auto) 0.02 K/uL (0-0.2) RDW Standard Deviation 48.9 fL (36.4-46.3) RDW Coefficient of Variation 14.1 % (11.5-14.5) Immature Granulocyte % (Auto) 0.3 % Immature Granulocyte # (Auto) 0.03 K/uL (0.00-0.02) Anion Gap 10.0 mmol/L (3-11) Est Creatinine Clear Calc Drug Dose 63.0 ml/min Estimated GFR () 87.3 Estimated GFR (Non- 75.3 BUN/Creatinine Ratio 22.1 (10-20) Calcium Level 9.4 mg/dl (8.5-10.1) Total Bilirubin 0.5 mg/dl (0.2-1) Direct Bilirubin < 0.1 mg/dl (0-0.2) Aspartate Amino Transf (AST/SGOT) 14 U/L (15-37) Alanine Aminotransferase (ALT/SGPT) 21 U/L (12-78) Alkaline Phosphatase 104 U/L (45-117) Total Protein 7.4 gm/dl (6.4-8.2) Albumin 3.7 gm/dl (3.4-5.0) Lipase 173 U/L (73-393) Laboratory results per my review. Medications Administered Medications (Trade) Dose Ordered Sig/Shona Route Start Time Stop Time Status Last Admin Dose Admin Sodium Chloride 500 ml @ 999 mls/hr Q31M STAT IV 08/22/16 15:35 08/22/16 16:05 DC 08/22/16 15:45 999 MLS/HR ED Course ED COURSE: Vital signs were reviewed and showed hypertension. The patients medical record was reviewed The above diagnostic studies were performed and reviewed. ED treatments and interventions as stated above. 1528: The patient was evaluated in room C6. A complete history and physical examination was performed. 1535: Sodium Chloride 500 ml @ 999 mls/hr IV. 1700: The patient is back from CT. A urine sample will be collected. 1810: I checked on the patient and she is doing better. 1830: Upon reevaluation, the patient is hemodynamically stable.I discussed my findings with the patient and she understands and agrees with the treatment plan. Based on the patients age, coexisting illnesses, exam and lab findings the decision to treat as an outpatient was made. The patient remained stable while under my care. The patient appeared well at the time of discharge. Medical Decision Differential diagnoses includes but is not limited to gastritis, peptic ulcer disease, GERD, gallbladder disease, pancreatitis, small bowel obstruction, acute coronary syndrome, pericarditis, ischemic bowel, irritable bowel disease, irritable bowel syndrome, appendicitis, diverticulitis, malignancy, hernia, urinary tract infection, perforation, trauma, infectious. Medication Reconciliation: I attest that I have personally reviewed the patient' s current medication list. Blood pressure screening: Patient was found to have an elevated blood pressure and was referred to their primary doctor for recheck and further treatment. The patient is a 81 year old female who presents to the ED with complaints of abdominal pain associated with persistent diarrhea. She does have a history of C. difficile and is concerned for this. Labs show a white count of 10.9 thousand. BMP along with LFTs, bilirubin and lipase are negative. UA was negative. CT of the abdomen and pelvis was negative. Obtain a stool culture but this was not run in the lab initially upon presentation. Patient was discharged and will be called if positive result. On multiple re-evaluations patient had a benign abdomen without signs peritonitis. She is comfortable. She has had this once before in the past but not recently. My clinical suspicion is not high and consequently I did not start her on any antibiotics at this time. Patient was updated bedside and discharged to follow-up with PCP. Discussed with Pt concerning signs and symptoms to watch out for. Pt was instructed to follow up with their PCP and discussed with the patient their option to return to the ED at anytime for persistent or worsening symptoms. The appropriate anticipatory guidance and out-patient management, including indications for return to the emergency department, were explained at length to the patient and understood. Impression Primary Impression: Lower abdominal pain Additional Impression: Diarrhea Scribe Attestation The scribe's documentation has been prepared under my direction and personally reviewed by me in its entirety. I confirm that the note above accurately reflects all work, treatment, procedures, and medical decision making performed by me. Departure Information Dispostion Home / Self-Care Referrals Diann Angeles M.D. (PCP) Forms HOME CARE DOCUMENTATION FORM, IMPORTANT VISIT INFORMATION Patient Instructions Abdominal Pain - [facility], ED Diarrhea Viral, My [facility] Additional Instructions Please follow up with your primary care doctor with in the next 24 hours. Any worsening of your symptoms, please return to the ED immediately. This includes fevers greater than 100.4, bloody stool, passing out, persistent nausea vomiting , or any other concerning signs or symptoms from your standpoint. Problem Qualifiers Additional Impression: Diarrhea Diarrhea type: unspecified type Qualified Codes: R19.7 - Diarrhea, unspecified
[2016-08-22 19:01] VITALS: BP 148/62; PULSE 67; O2SAT 95
== END 2016-08-22 19:02 | disposition home or self-care (01) ==
LOC: EDBD 15:25 → C.EDC 15:27
DX: R10.30 Lower abdominal pain, unspecified (principal); R19.7 Diarrhea, unspecified; I10 Essential (primary) hypertension; E03.9 Hypothyroidism, unspecified; K21.9 Gastro-esophageal reflux disease without esophagitis; E78.5 Hyperlipidemia, unspecified; E11.9 Type 2 diabetes mellitus without complications; K58.9 Irritable bowel syndrome, unspecified; K57.92 Diverticulitis of intestine, part unspecified, without perforation or abscess without bleeding; K50.90 Crohn's disease, unspecified, without complications; M81.0 Age-related osteoporosis without current pathological fracture; M19.90 Unspecified osteoarthritis, unspecified site; Z87.19 Personal history of other diseases of the digestive system; Z90.710 Acquired absence of both cervix and uterus; Z90.49 Acquired absence of other specified parts of digestive tract; Z98.890 Other specified postprocedural states; Z79.82 Long term (current) use of aspirin; Z79.899 Other long term (current) drug therapy; Z88.2 Allergy status to sulfonamides; Z88.5 Allergy status to narcotic agent; Z88.8 Allergy status to other drugs, medicaments and biological substances; Z91.041 Radiographic dye allergy status; Z80.9 Family history of malignant neoplasm, unspecified; Z83.3 Family history of diabetes mellitus; Z83.79 Family history of other diseases of the digestive system; Z82.49 Family history of ischemic heart disease and other diseases of the circulatory system; Z82.3 Family history of stroke

== ENCOUNTER 2016-10-28 15:25 | Emergency (ER) | payer OTHER ==
[~2016-10-28] VITALS: Ht 160 cm; Wt 87.0 kg
[~2016-10-28 15:25] MED LIST changes: +ACET650T50 PO; +DOCU100C31 PO; -FSMD/70 PO; +LEVO88TA3 PO; -OXGN; +POLY335019 PO; -SENN-61 PO; -SLO MAG PO
[2016-10-28 15:31] VITALS: TEMP 36.6; Ht 160 cm; Wt 87.0 kg
--- NOTE | 2016-10-28 16:16 | DIAGNOSTIC IMAGING REPORT ---
LEFT ANKLE MIN 3 VIEWS ROUTINE CLINICAL HISTORY: 81 years-old Female presenting with left lat malleolus pain after fall. TECHNIQUE: Frontal, mortise, and lateral views of the left ankle were obtained. COMPARISON: 04/15/2009. FINDINGS: Cortical compression plate and screw fixation of the first metatarsal noted, which may across the first metatarsophalangeal joint. Ankle mortise intact. Osteopenia suggested, which limits detection of nondisplaced fracture. Allowing for this limitation, no acute fracture or subluxation. Soft tissue swelling greatest over the medial malleolus, although this appears chronic. Bone spur noted at the inferior calcaneus. Multiple phleboliths noted. IMPRESSION: No acute osseous injury of the left ankle. Osteopenia suspected. Electronically signed by: Rashid Ferguson M.D. 10/28/2016 4:15 PM Dictated Date/Time: 10/28/2016 4:13 PM
--- NOTE | 2016-10-28 16:32 | EMERGENCY ROOM VISIT NOTE ---
History Report prepared by Carmenza: Eduardo Devlin Under the Supervision of: Edmundo TatumO. First contact with patient: 15:29 Chief Complaint: ANKLE PAIN Stated Complaint: ANKLE PAIN History of Present Illness The patient is a 81 year old female who presents to the Emergency Room with complaints of constant left ankle pain starting around 1430 after stepping into a hole that she did not see and falling. The patient states that she cannot walk on it due to the pain. Source of History: patient Onset: 1430 Position: ankle (left) Timing: constant Modifying Factors (Worsening): other (walking) Review of Systems See HPI for pertinent positives & negatives. A total of 10 systems reviewed and were otherwise negative. Past Medical & Surgical Medical Problems: (1) Allergic rhinitis (2) Bronchitis (3) Carotid bruit (4) Crohn's disease (5) Diabetes (6) Diabetes mellitus type 2 (7) Diverticular disease of colon (8) Dyslipidemia (9) Gastroesophageal reflux disease (10) History of adenomatous polyp of colon (11) History of diverticulitis (12) Hypertension (13) Hypertension (14) Hypothyroidism (15) Irritable colon (16) Nocturnal hypoxemia (17) Osteoarthritis (18) Osteoporosis (19) Stomach problems Surgical Problems: (1) s/p ACL repair (2) s/p appendectomy (3) s/p breast biopsy (4) s/p cholecystectomy (5) s/p colonoscopy (6) s/p hysterectomy (7) s/p repair bladder (8) s/p repair rectocele (9) s/p repair vagina (10) s/p rhinoplasty (11) s/p right TKA (12) s/p sinus surgery (13) s/p tonsillectomy (14) Status post phlebectomy Family History Cancer Diabetes mellitus Gallbladder disease Heart disease Hypertension Stroke Social History Smoking Status: Never Smoker Alcohol Use: occasionally Drug Use: none Marital Status: Housing Status: lives with family Occupation Status: retired Current/Historical Medications Scheduled Aspirin (Aspirin EC Low Dose), 81 MG PO QAM Atorvastatin (Atorvastatin Calcium), 40 MG PO QAM Calcium Carbonate-Vitamin D (Calcium 600 + D), 1 TAB PO BID Cyclosporine (Ophth) (Restasis), 1 DROP OP BID Docusate Sodium (Docusate Sodium), 100 MG PO BID Fluticasone Propionate (Fluticasone Propionate), 2 SPRAYS YOANDY QAM Furosemide (Furosemide), 20 MG PO QAM Gabapentin (Neurontin), 100 MG PO TID Lactobacillus Acidophilus (Lactinex), 1 TAB PO TIDM Levothyroxine Sodium (Levothyroxine Sodium), 100 MCG PO QAM Levothyroxine Sodium (Levothyroxine Sodium), 88 MCG PO DAILY Lisinopril (Lisinopril), 10 MG PO QAM Meloxicam (Mobic), 7.5 MG PO QAM Metoprolol Tartrate (Lopressor), 12.5 MG PO BID Multiple Vitamin (Multivitamin), 1 TAB PO QAM Pantoprazole (Pantoprazole Sodium), 40 MG PO QAM Trazodone Hcl (Trazodone), 50 MG PO HS Scheduled PRN Acetaminophen (Apap Arthritis), 650 MG PO Q6H PRN for Pain Albuterol (Proair Hfa), 1 PUFF INH Q4 PRN for SOB/Wheezing Azelastine Hcl (Astelin Nasal Couch), 2 SPRAYS NA TID PRN for PRN Clobetasol Propionate (Clobetasol Propionate), 1 APPLN TOP DAILY PRN for UNDECIDED Ondansetron Hcl (Zofran), 8 MG PO TID PRN for Nausea Polyethylene Glycol 3350 (Miralax), 17 GM PO DAILY PRN for Constipation Allergies Coded Allergies: Dust (Verified Allergy, Intermediate, Dust mites- nasal congestion, 06/16/16 ) Sulfa Antibiotics (Verified Allergy, Intermediate, RINGS ON SKIN, 06/16/16) Simvastatin (Verified Allergy, Mild, RED CIRCLES-HAS TOLERATED LIPITOR, 06/16/16) Pyrilamine (Verified Allergy, Unknown, VOMITING, 06/16/16) Codeine (Verified Adverse Reaction, Mild, N/V, 06/16/16) Iodinated Diagnostic Agents (Verified Adverse Reaction, Mild, BURNING AT IV SITE AND UP VEIN, 06/16/16) Morphine and Related (Verified Adverse Reaction, Mild, VOMITING, 06/16/16) Physical Exam Vital Signs Date Time Temp Pulse Resp B/P (MAP) Pulse Ox O2 Delivery O2 Flow Rate FiO2 10/28/16 15:31 36.6 65 138/70 95 Room Air Physical Exam CONSTITUTIONAL/VITAL SIGNS: Reviewed / noted above. GENERAL: Non-toxic in appearance. INTEGUMENTARY: Warm, dry, and [place]. HEAD: Normocephalic. EYES: without scleral icterus or trauma. ENT/OROPHARYNX: clear and moist. LYMPHADENOPATHY/NECK: Is supple without lymphadenopathy or meningismus. RESPIRATORY: Lungs clear and equal. CARDIOVASCULAR: Regular rate and rhythm. GI/ABDOMEN: Soft and nontender. No organomegaly or pulsatile mass. No rebound or guarding. Normal bowel sounds. EXTREMITIES: Tenderness to the left lateral malleolus. Minimal lateral left ankle edema. Warm and well perfused. BACK: No CVA tenderness. NEUROLOGICAL: Intact without focal deficits. PSYCHIATRIC: normal affect. MUSCULOSKELETAL: Normally developed with good muscle tone. Medical Decision & Procedures ER Provider Diagnostic Interpretation: Radiology results as stated below per my review and radiologist interpretation: LEFT ANKLE MIN 3 VIEWS ROUTINE CLINICAL HISTORY: 81 years-old Female presenting with left lat malleolus pain after fall. TECHNIQUE: Frontal, mortise, and lateral views of the left ankle were obtained. COMPARISON: 04/15/2009. FINDINGS: Cortical compression plate and screw fixation of the first metatarsal noted, which may across the first metatarsophalangeal joint. Ankle mortise intact. Osteopenia suggested, which limits detection of nondisplaced fracture. Allowing for this limitation, no acute fracture or subluxation. Soft tissue swelling greatest over the medial malleolus, although this appears chronic. Bone spur noted at the inferior calcaneus. Multiple phleboliths noted. IMPRESSION: No acute osseous injury of the left ankle. Osteopenia suspected. Electronically signed by: Rashid Ferguson M.D. 10/28/2016 4:15 PM Dictated Date/Time: 10/28/2016 4:13 PM ED Course 1529: Previous medical records were reviewed. The patient was evaluated in room C12. A complete history and physical examination was performed. 1633: On reevaluation, the patient is feeling well. I discussed the results and findings with the patient. She verbalized agreement of the treatment plan. She was discharged home. Medical Decision Differential diagnoses include: fracture and dislocation. This is a 81-year-old female who presents with a chief complaint of rolling her ankle after she stepped in a hole while she was crossing her neighbors yard. The patient presents with a chief complaint of left ankle pain. Denies any other injuries. X-ray did not show any acute fractures. Exam reveals some mild tenderness to the left lateral malleolus. No evidence of foot injury. She was told the results. She was told to use a walker. Medication Reconcilliation Current Medication List: was personally reviewed by me Blood Pressure Screening Patient's blood pressure: Normal blood pressure Impression Primary Impression: Left ankle sprain Scribe Attestation The scribe's documentation has been prepared under my direction and personally reviewed by me in its entirety. I confirm that the note above accurately reflects all work, treatment, procedures, and medical decision making performed by me. Departure Information Dispostion Home / Self-Care Referrals Diann Angeles M.D. (PCP) Forms HOME CARE DOCUMENTATION FORM, IMPORTANT VISIT INFORMATION Patient Instructions Ankle Sprain, My [facility] Additional Instructions Use a walker for support until able to walk with out significant pain. Take Tylenol for pain.
[2016-10-28 17:04] VITALS: BP 128/68; PULSE 61; O2SAT 95
== END 2016-10-28 17:05 | disposition home or self-care (01) ==
LOC: EDBD 15:25 → C.EDC 15:25
DX: S93.402A Sprain of unspecified ligament of left ankle, initial encounter (principal); W19.XXXA Unspecified fall, initial encounter; K50.90 Crohn's disease, unspecified, without complications; E11.9 Type 2 diabetes mellitus without complications; E78.5 Hyperlipidemia, unspecified; K21.9 Gastro-esophageal reflux disease without esophagitis; Z86.010 Personal history of colon polyps; I10 Essential (primary) hypertension; E03.9 Hypothyroidism, unspecified; M81.0 Age-related osteoporosis without current pathological fracture; M19.90 Unspecified osteoarthritis, unspecified site; Z90.49 Acquired absence of other specified parts of digestive tract; Z90.710 Acquired absence of both cervix and uterus; Z96.651 Presence of right artificial knee joint; Z80.9 Family history of malignant neoplasm, unspecified; Z83.3 Family history of diabetes mellitus; Z82.49 Family history of ischemic heart disease and other diseases of the circulatory system; Z82.3 Family history of stroke; Z79.82 Long term (current) use of aspirin; Z79.899 Other long term (current) drug therapy

== ENCOUNTER → 2016-11-23 | Outpatient (CLI) | payer OTHER ==
[~2016-11-23] MED LIST changes: -ALBU1AER9 INH; -FLNIN NAE
== END | disposition home or self-care (01) ==
LOC: C.LAB 13:06
PROVIDERS: ATTEND Nurse Practitioner Family
DX: N39.0 Urinary tract infection, site not specified (principal)

== ENCOUNTER → 2016-12-22 | Outpatient (CLI) | payer OTHER ==
[~2016-12-22] MED LIST changes: +PANT40TA2 PO; -PRT/40 PO
--- NOTE | 2016-12-22 14:10 | DIAGNOSTIC IMAGING REPORT ---
R KNEE 3 VIEWS CLINICAL HISTORY: RIGHT KNEE PAIN COMPARISON STUDY: Right knee 04/25/2016. FINDINGS: AP standing view of the bilateral knees, lateral view the right knee, and sunrise view of the bilateral knees were performed. There is a right total knee arthroplasty. Mild periprosthetic lucency at the femoral component medially. This measures up to 2 mm. This remains unchanged. No fracture or dislocation within the knees. Mild osteoarthritis within the medial compartment of the left knee. No right knee effusion. No significant soft tissue swelling. IMPRESSION: 1. No change compared to the prior study. 2. Right total knee arthroplasty. Mild periprosthetic lucency adjacent to the medial aspect of the femoral component remains unchanged. This may represent mild loosening. 3. Mild osteoarthritis within the left knee. Electronically signed by: Anastacio Henry M.D. 12/22/2016 2:09 PM Dictated Date/Time: 12/22/2016 2:06 PM
== END | disposition home or self-care (01) ==
LOC: C.RDSM 13:39
PROVIDERS: ATTEND Physician Assistant
DX: M25.561 Pain in right knee (principal)

== ENCOUNTER → 2017-05-04 | Outpatient (CLI) | payer OTHER ==
[~2017-05-04] MED LIST changes: -ACET650T50 PO; +[UNRECOGNIZED DRUG - CODE] PO
== END | disposition home or self-care (01) ==
LOC: C.RDSM 13:11
PROVIDERS: ATTEND Physical Medicine & Rehabilitation Sports Medicine
DX: Z96.651 Presence of right artificial knee joint (principal)

== ENCOUNTER 2021-02-23 15:02 | Inpatient (IN) ==
--- NOTE | 2021-02-23 15:52 | Emergency Department Note ---
Impression & Plan Diverticulitis, Sepsis ED Provider Note CHIEF COMPLAINT: Weakness HISTORY OF PRESENT ILLNESS: Iwona Skaggs is an 85 year old female with history including but not limited to HTN, DLD, DM2, hypothyroidism, diverticulitis, GERD, osteoporosis among others listed below who presents to the Emergency Department via EMS for evaluation of generalized weakness which has been worsening over the past few weeks. Today, the patient states that she had taken a bath and when she was done she was unable to get up out of the tub by herself as she was too weak to do so. She denies having suffered a fall or injuring herself in any way. The patient's was unable to help her up so he called EMS for assistance. Upon their arrival, they noted that she was "unsteady" and recommended that she come to the ED to be checked out. The patient states that she did not want to come as she denied having any symptoms, but agreed due to their recommendations. She does state that she has had some abdominal discomfort due to a known hernia and some diarrhea but otherwise denies recent fevers, headaches, lightheadedness, dizziness, chest pain, palpitations, shortness of breath, nausea, vomiting, or urinary symptoms. No other acute complaints. REVIEW OF SYSTEMS: 10 systems were reviewed and were negative unless otherwise stated in HPI as above PHYSICAL EXAM: VITALS: Vitals are noted on the nurse's note and reviewed by myself. Hypertensive and tachycardic, additional vital signs stable. General: Resting in bed, no acute distress HEENT: Normocephalic, atraumatic, PERRL, EOMI, mucous membranes moist, oropharynx clear Neck: No cervical lymphadenopathy, ROM intact without pain Resp: Good inspiratory effort on room air, lung sounds clear bilaterally CV: Tachycardic rate regular rhythm, peripheral pulses palpated Back: No midline tenderness to the thoracic spine, no midline tenderness to the lumbar spine, no obvious step-offs or deformities Abd: Large ventral hernia, soft, mild generalized tenderness to palpation MSK: No obvious long bone deformities. Moving all extremities with strength 5/5 throughout, sensation and peripheral pulses intact Neuro: Awake, alert and oriented x 3, interacting and answering questions appropriately Differential diagnosis includes acute coronary syndrome, myocardial infarction, CVA, TIA, anemia, infection, pneumonia, UTI, pyelonephritis, poor nutrition, dehydration, electrolyte disturbance,hypoglycemia among others were considered EMERGENCY DEPARTMENT COURSE: Patient appears to have generalized weakness which has been worsening over the past few weeks as described above. She states that she was unable to get herself out of the bathtub today secondary to this weakness. She denies sustaining any falls or injuries. Physical exam and history were performed. Nursing triage notes, EMR, and medication list were personally reviewed. Vital signs were reviewed. She was noted to be hypertensive at 153/73 and tachycardic at 116. Afebrile at 36.8 C. Maintaining oxygen saturations at 95% on room air with respirations 16/min. EKG was obtained and reviewed by myself as below. This did show sinus tachycardia at 110 bpm with left axis deviation, age-indeterminate inferior infarct and possible age-indeterminate anterior infarct, changes are new compared to previous study on 08/05/2019. Chest x-ray was obtained and reviewed by radiology myself as below. This did show decreased inspiratory effort, otherwise no acute chest disease. Labs were obtained and reviewed by myself as below. Of note, she was noted to have leukocytosis with a WBC of 16.89 and neutropenic shift at 14.71. Slight anemia with hemoglobin 11.8. Mild hyponatremia at 132 and hypokalemia at 3.3. Renal indices stable. Glucose elevated at 150. Troponin not elevated at 0.03. Given the patient's leukocytosis in the setting of abdominal discomfort, diarrhea, weakness and tachycardia, I do feel that additional imaging is necessary to assess for infectious source. The patient did note an allergy to iodine contrast. She states that she remembers developing hives after receiving the dye, however no intraoral swelling or respiratory difficulties. She did agree to take Benadryl and Solu-Medrol prior to receiving the contrast to help prevent development of this. After given Benadryl 12.5 mg and Solu-Medrol 40 mg, the patient did undergo CT abdomen/pelvis with contrast. Images were reviewed by radiologist and myself as below. Images did show evidence for acute diverticulitis without evidence of perforation or abscess. I discussed the above results with the patient at bedside as well as my attending, Dr. Hamilton, who was involved throughout the patient's course of care. Given the above findings, we feel that she would benefit from continued care in the hospital. I did contact Dr. Varela of [facility] hospitalist group who agreed to evaluate the patient. I did discuss with him about starting specific antibiotics, however he stated that he would place orders for this. The patient verbalized understanding and agreement with the treatment plan as above. The chart was completed utilizing [employer] Speech Voice Recognition Software. Grammatical errors, random word insertions, pronoun errors, and incomplete sentences are an occasional consequence of this system due to software limitations, ambient noise, and hardware issues. Any formal questions or concerns about the content, text, or information contained within the body of this dictation should be directly addressed to the provider for clarification. Past Med/Surg History Medical History Arthritis Crohn's disease Cystitis 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 Dyslipidemia Gastroesophageal reflux disease History of adenomatous polyp of colon History of diverticulitis Hypercholesterolemia Hypertension Hypertension Hypothyroidism Osteoarthritis Osteoporosis Surgical History History of incisional hernia repair History of repair of rectocele S/P laparoscopic hernia repair Total knee replacement status Social History Smoking Status: Never smoker Hx Alcohol Use: Yes Alcohol type: wine Hx Substance Use: No Preferred Language: [place] Citizen Communication Ability: Effective Director Of Consumer Marketing Required: No Beliefs That Will Affect Care: None Current Living Situation: Spouse Other Information That Helps Us Care for You: No Feels Safe at Home: Yes Safety Concerns: Feels Safe At This Time Assistive Devices: Walker Allergies Allergies Allergy/AdvReac Type Severity Reaction Status Date / Time Sulfa (Sulfonamide Allergy Intermediate RINGS ON Verified 02/23/21 17:24 Antibiotics) SKIN simvastatin Allergy Mild RED Verified 02/23/21 17:24 CIRCLES-HAS TOLERATED LIPITOR pyrilamine Allergy Unknown VOMITING Verified 02/23/21 17:24 ether AdvReac Intermediate NAUSEA/VOMI Verified 02/23/21 17:24 TING tramadol AdvReac Intermediate NAUSEA/VOMI Verified 02/23/21 17:24 TING codeine AdvReac Mild N/V Verified 02/23/21 17:24 Iodinated Contrast Media AdvReac Mild HIVES/BURNING Verified 02/23/21 17:24 AT IV SITE AND UP VEIN morphine AdvReac Mild VOMITING Verified 02/23/21 17:24 Home Meds Home Medications Medication Instructions Recorded Confirmed Oxygen Home #1 ea 09/20/18 12/26/18 atorvastatin 40 mg tablet 40 mg PO DAILY tab 09/20/18 02/23/21 azelastine 137 mcg (0.1 %) nasal 2 sprays INTRANASAL BID PRN ml 09/20/18 02/23/21 spray aerosol clobetasol 0.05 % topical cream 1 appln TOPICAL UD PRN gm 09/20/18 02/23/21 fluticasone propionate 50 1 sprays INTRANASAL DAILY gm 09/20/18 02/23/21 mcg/actuation nasal spray,suspension furosemide 20 mg tablet 20 mg PO DAILY tab 09/20/18 02/23/21 levothyroxine 100 mcg tablet 100 mcg PO DAILY tab 09/20/18 02/23/21 meloxicam 7.5 mg tablet 7.5 mg PO DAILY tab 09/20/18 02/23/21 metoprolol tartrate 25 mg tablet 12.5 mg PO BID tab 09/20/18 02/23/21 multivitamin (One Daily 1 tab PO DAILY 09/20/18 02/23/21 Multivitamin) pantoprazole 40 mg tablet,delayed 40 mg PO DAILY tab 09/20/18 02/23/21 release trazodone 50 mg tablet 50 mg PO HS tab 09/20/18 02/23/21 Lactobacillus acidoph-L.bulgaricus 1 tab PO TIDM 01/22/19 02/23/21 1 million cell chewable tablet (Lactinex) alendronate 70 mg tablet (Fosamax) 70 mg PO WK 01/22/19 02/23/21 aspirin 81 mg tablet,delayed 81 mg PO DAILY 01/22/19 02/23/21 release (Aspirin Low Dose) budesonide-formoterol HFA 80 1 puff INHALATION BID PRN 01/22/19 02/23/21 mcg-4.5 mcg/actuation aerosol inhaler (Symbicort) loratadine 10 mg tablet (Claritin) 10 mg PO DAILY 01/22/19 02/23/21 losartan 25 mg tablet (Cozaar) 25 mg PO DAILY 01/22/19 02/23/21 montelukast 10 mg tablet 10 mg PO DAILY 01/22/19 02/23/21 (Singulair) polyethylene glycol 3350 17 17 g PO DAILY PRN 01/22/19 02/23/21 gram/dose oral powder (Miralax) sennosides 8.6 mg tablet (Senna 8.6 mg PO TID 01/22/19 02/23/21 Laxative) Prevagen 1 tab PO DAILY 02/23/21 02/23/21 Slow Magnesium/Calcium 1 tab PO DAILY 02/23/21 02/23/21 acetaminophen 325 mg tablet 650 mg PO Q6H PRN 02/23/21 02/23/21 (Tylenol) cyclosporine 0.05 % eye drops in a 1 drp OPHTHALMIC (EYE) Q12H 02/23/21 02/23/21 dropperette (Restasis) docusate sodium 100 mg capsule 100 mg PO BID 02/23/21 02/23/21 gabapentin 300 mg capsule 300 mg PO BID 02/23/21 02/23/21 hydrocortisone 2.5 % topical cream 1 applic TOPICAL BID PRN 02/23/21 02/23/21 meclizine 12.5 mg tablet 12.5 mg PO TID PRN 02/23/21 02/23/21 Results & Data (ED) Vital Signs Vital Signs - 24 hr 02/23/21 20:23 Pulse Rate [Apical] 79 Respiratory Rate 18 Blood Pressure [Right Arm] 182/86 H Blood Pressure Mean [Right Arm] 118 Pulse Oximetry 98 Laboratory Data Result diagrams: 02/24/21 05:47 02/24/21 05:47 Lab Results 02/23/21 02/23/21 02/23/21 Range/Units 16:20 16:41 16:41 WBC 16.89 H (4.8-10.8) K/uL RBC 3.78 L (4.2-5.4) M/uL Hgb 11.8 L (12.0-16.0) g/dL Hct 36.0 L (37-47) % MCV 95.2 (80-100) fL MCH 31.2 (25-34) pg MCHC 32.8 (32-36) g/dL RDW Std Deviation 51.2 H (36.4-46.3) fL RDW Coeff of Jluis 14.6 H (11.5-14.5) % Plt Count 284 (130-400) K/uL MPV 8.9 (7.4-10.4) fL Immature Gran % (Auto) 0.4 % Neut % (Auto) 87.1 % Lymph % (Auto) 4.7 % [place] % (Auto) 7.6 % Eos % (Auto) 0.1 % Baso % (Auto) 0.1 % Neut # (Auto) 14.71 H (1.4-6.5) K/uL Lymph # (Auto) 0.80 L (1.2-3.4) K/uL [place] # (Auto) 1.29 H (0.11-0.59) K/uL Eos # (Auto) 0.01 (0-0.5) K/uL Baso # (Auto) 0.02 (0-0.2) K/uL Immature Gran # (Auto) 0.06 H (0.00-0.02) K/uL Sodium 132 L (136-145) mmol/L Potassium 3.3 L (3.5-5.1) mmol/L Chloride 101 (98-107) mmol/L Carbon Dioxide 21 (21-32) mmol/L Anion Gap 10 (3-11) BUN 14 (6-23) mg/dl Creatinine 0.50 L (0.6-1.2) mg/dl Est Cr Clr Drug Dosing Not Reportable Est GFR ( Amer) 103.0 ml/min Est GFR (Non-Af Amer) 88.9 ml/min Fasting Glucose 130 H (70-99) mg/dl Calcium 8.5 (8.5-10.1) mg/dl Troponin I 0.03 (0-0.04) ng/ml Urine Color Dark Yellow Urine Appearance Clear (Clear) Urine pH 6.5 (4.5-7.5) Ur Specific [place] 1.017 (1.000-1.030) Urine Protein 1+ H (Negative) Urine Glucose (UA) Negative (Negative) Urine Ketones 2+ H (Negative) Urine Blood Trace H (Negative) Urine Nitrite Negative (Negative) Urine Bilirubin Negative (Negative) Urine Urobilinogen Negative (Negative) Ur Leukocyte Esterase Trace H (Negative) Urine WBC (Auto) 1-5 (0-5) /hpf Urine RBC (Auto) 0-4 (0-4) /hpf U Hyaline Cast (Auto) 1-5 (0-5) /lpf U Epithel Cells (Auto) >30 H (0-5) /lpf Urine Bacteria (Auto) 1+ H (Negative) SARS-CoV-2, RNA, NAAT (NEGATIVE) 02/23/21 Range/Units 18:11 WBC (4.8-10.8) K/uL RBC (4.2-5.4) M/uL Hgb (12.0-16.0) g/dL Hct (37-47) % MCV (80-100) fL MCH (25-34) pg MCHC (32-36) g/dL RDW Std Deviation (36.4-46.3) fL RDW Coeff of Jluis (11.5-14.5) % Plt Count (130-400) K/uL MPV (7.4-10.4) fL Immature Gran % (Auto) % Neut % (Auto) % Lymph % (Auto) % [place] % (Auto) % Eos % (Auto) % Baso % (Auto) % Neut # (Auto) (1.4-6.5) K/uL Lymph # (Auto) (1.2-3.4) K/uL [place] # (Auto) (0.11-0.59) K/uL Eos # (Auto) (0-0.5) K/uL Baso # (Auto) (0-0.2) K/uL Immature Gran # (Auto) (0.00-0.02) K/uL Sodium (136-145) mmol/L Potassium (3.5-5.1) mmol/L Chloride (98-107) mmol/L Carbon Dioxide (21-32) mmol/L Anion Gap (3-11) BUN (6-23) mg/dl Creatinine (0.6-1.2) mg/dl Est Cr Clr Drug Dosing Est GFR ( Amer) ml/min Est GFR (Non-Af Amer) ml/min Fasting Glucose (70-99) mg/dl Calcium (8.5-10.1) mg/dl Troponin I (0-0.04) ng/ml Urine Color Urine Appearance (Clear) Urine pH (4.5-7.5) Ur Specific [place] (1.000-1.030) Urine Protein (Negative) Urine Glucose (UA) (Negative) Urine Ketones (Negative) Urine Blood (Negative) Urine Nitrite (Negative) Urine Bilirubin (Negative) Urine Urobilinogen (Negative) Ur Leukocyte Esterase (Negative) Urine WBC (Auto) (0-5) /hpf Urine RBC (Auto) (0-4) /hpf U Hyaline Cast (Auto) (0-5) /lpf U Epithel Cells (Auto) (0-5) /lpf Urine Bacteria (Auto) (Negative) SARS-CoV-2, RNA, NAAT NEGATIVE (NEGATIVE) Administered Medications Alendronate Sodium (Alendronate Sodium 70 Mg Tab) 70 mg PO We TRUPTI Stop: 03/26/21 06:29 Last Admin: 02/24/21 05:40 Dose: 70 mg Documented by: [id number] Aspirin (Aspirin 81 Mg Ectab) 81 mg PO DAILY TRUPTI Stop: 03/26/21 08:59 Last Admin: 02/24/21 08:16 Dose: 81 mg Documented by: [id number] Atorvastatin Calcium (Atorvastatin 40 Mg Tab) 40 mg PO DAILY TRUPTI Stop: 03/26/21 08:59 Last Admin: 02/24/21 08:16 Dose: 40 mg Documented by: [id number] Fluticasone Propionate (Fluticasone Propionate Na Spr 16 Gm Btl) 1 sprays NA DAILY TRUPTI Stop: 03/26/21 08:59 Last Admin: 02/24/21 08:17 Dose: 1 sprays Documented by: [id number] Furosemide (Furosemide 20 Mg Tab) 20 mg PO DAILY TRUPTI Stop: 03/26/21 08:59 Last Admin: 02/24/21 08:16 Dose: 20 mg Documented by: [id number] Gabapentin (Gabapentin 300 Mg Cap) 300 mg PO BID TRUPTI Stop: 03/25/21 23:01 Last Admin: 02/24/21 08:16 Dose: 300 mg Documented by: [id number] Admin: 02/24/21 00:27 Dose: 300 mg Documented by: [id number] Piperacillin Sod/Tazobactam (Sod 3.375 gm/ Dextrose) 115 mls @ 28.75 mls/hr IV Q8H [facility], [facility]; Protocol Stop: 03/06/21 05:59 Last Admin: 02/24/21 13:23 Dose: 28.8 mls/hr Documented by: [id number] Infusion: 02/24/21 09:45 Dose: 0 mls/hr Documented by: [id number] Admin: 02/24/21 05:37 Dose: 28.8 mls/hr Documented by: [id number] Pantoprazole Sodium 40 mg/ (Syringe) 10 mls @ 5 mls/min IV DAILY@1100 [facility], [facility]–1983 Stop: 03/26/21 10:59 Last Admin: 02/24/21 11:51 Dose: 5 mls/min Documented by: [id number] Potassium Chloride/Sodium Chloride (Normal Saline W/20 Meq Kcl) 20 meq in 1,000 mls @ 75 mls/hr IV .[id number] [facility], 1928–1983; Protocol Stop: 02/25/21 13:39 Last Admin: 02/24/21 11:50 Dose: 75 mls/hr Documented by: [id number] Insulin Aspart (Insulin Aspart Per Unit) 0 units SC ACHS [facility], [facility]–1983 Stop: 03/26/21 05:59 Last Admin: 02/24/21 13:23 Dose: 1 units Documented by: [id number] Cosigned by: [id number] Lactobacillus Acidoph/Casei/Rhamnos (Advanced Probiotic 1250 Mg Capsule) 2 cap PO DAILY [facility], [facility]1983 Stop: 03/26/21 08:59 Last Admin: 02/24/21 08:16 Dose: 2 cap Documented by: [id number] Levothyroxine Sodium (Levothyroxine Sodium 100 Mcg Tablet) 100 mcg PO DAILYBB [facility], 1928–1983 Stop: 03/26/21 06:29 Last Admin: 02/24/21 05:40 Dose: 100 mcg Documented by: [id number] Loratadine (Loratadine 10 Mg Tab) 10 mg PO DAILY [facility]1983 Stop: 03/26/21 08:59 Last Admin: 02/24/21 08:16 Dose: 10 mg Documented by: [id number] Losartan Potassium (Losartan Potassium 25 Mg Tab) 25 mg PO DAILY [facility]1983 Stop: 03/26/21 08:59 Last Admin: 02/24/21 08:16 Dose: 25 mg Documented by: [id number] Metoprolol Tartrate (Metoprolol Tartrate 25 Mg Tab) 12.5 mg PO BID [facility]1983 Stop: 03/25/21 23:01 Last Admin: 02/24/21 08:17 Dose: 12.5 mg Documented by: [id number] Admin: 02/24/21 00:26 Dose: 12.5 mg Documented by: [id number] Miscellaneous (Restasis~Order Awaiting Action) 1 ea N/A QS [facility]–1983 Stop: 03/26/21 00:00 Last Admin: 02/24/21 15:02 Dose: Not Given Documented by: [id number] Admin: 02/24/21 07:02 Dose: Not Given Documented by: [id number] Admin: 02/24/21 00:49 Dose: Not Given Documented by: [id number] Montelukast Sodium (Montelukast Sodium 10 Mg Tablet) 10 mg PO DAILY TRUPTI Stop: 03/26/21 08:59 Last Admin: 02/24/21 08:17 Dose: 10 mg Documented by: [id number] Multivitamins (Multivitamin Tab) 1 tab PO QAM TRUPTI Stop: 03/26/21 08:59 Last Admin: 02/24/21 08:16 Dose: 1 tab Documented by: [id number] Discontinued Medications Diphenhydramine HCl (Diphenhydramine 50 Mg/Ml Vial) 12.5 mg IV NOW STA Stop: 02/23/21 18:20 Last Admin: 02/23/21 18:45 Dose: 12.5 mg Documented by: [id number] Dextrose/Sodium Chloride (D5w And Nss) 1,000 mls @ 75 mls/hr IV .[id number] [facility], [facility]–1983 Stop: 02/25/21 01:41 Last Infusion: 02/24/21 11:50 Dose: 0 mls/hr Documented by: [id number] Infusion: 02/24/21 00:19 Dose: 75 mls/hr Documented by: [id number] Infusion: 02/23/21 23:44 Dose: 0 mls/hr Documented by: [id number] Admin: 02/23/21 23:42 Dose: 75 mls/hr Documented by: [id number] Piperacillin Sod/Tazobactam (Sod 3.375 gm/ Dextrose) 115 mls @ 230 mls/hr IV ONE ONE; Protocol Stop: 02/24/21 00:14 Last Infusion: 02/24/21 01:03 Dose: 0 mls/hr Documented by: [id number] Admin: 02/24/21 00:20 Dose: 230 mls/hr Documented by: [id number] Potassium Chloride (K [place] / Wtr) 10 meq in 100 mls @ 100 mls/hr IV Q1H TRUPTI; Protocol Stop: 02/24/21 13:29 Last Infusion: 02/24/21 12:28 Dose: 0 mls/hr Documented by: [id number] Infusion: 02/24/21 12:18 Dose: 0 mls/hr Documented by: [id number] Admin: 02/24/21 11:49 Dose: 100 mls/hr Documented by: [id number] Insulin Aspart (Insulin Aspart Per Unit) 0 units SC Q6 TRUPTI Stop: 03/26/21 05:59 Last Admin: 02/24/21 06:20 Dose: Not Given Documented by: [id number] Ioversol (Optiray 320 100ml) 93 ml IV ONCE ONE Stop: 02/23/21 19:30 Last Admin: 02/23/21 19:32 Dose: 93 ml Documented by: [id number] Methylprednisolone (Methylprednisolone 40 Mg/Ml Vial) 40 mg IV NOW STA Stop: 02/23/21 18:20 Last Admin: 02/23/21 18:45 Dose: 40 mg Documented by: [id number] Potassium Chloride (Potassium Chloride Crtab 20 Meq Tabcr) 40 meq PO NOW STA Stop: 02/23/21 22:33 Last Admin: 02/23/21 23:27 Dose: 40 meq Documented by: [id number] Potassium Chloride (Potassium Chloride Crtab 20 Meq Tabcr) 20 meq PO ONE ONE Stop: 02/24/21 13:16 Last Admin: 02/24/21 13:23 Dose: 20 meq Documented by: [id number] Imaging Data Radiologist's Impression: Chest X-Ray 02/23/21 15:41 XR chest 1V portable CLINICAL HISTORY: Tachycardia. COMPARISON STUDY: 08/05/2019 TECHNIQUE: 1 view of the chest FINDINGS: Single frontal view of the chest demonstrates the cardiomediastinal silhouette to be within normal limits. There is a decreased inspiratory effort with el evation of the hemidiaphragms and crowding of the bronchovascular markings at the lung bases and centrally. The lungs are clear of alveolar opacities. There is no evidence for pleural effusion. There is no evidence for vascular congestion. There is no acute osseous pathology. IMPRESSION: There is a decreased inspiratory effort with otherwise no acute chest disease. ACT 112: Negative or not required by law. Electronically signed by: Karan Stark M.D. 02/23/2021 4:23 PM Abdomen/Pelvis CT 02/23/21 17:42 CT abd pelvis IV con only CLINICAL HISTORY: known hernia, abd pain, leukocytosis TECHNIQUE: Helical axial images of the abdomen and pelvis were obtained and displayed. Automated dose lowering techniques and/or adjustment according to patient size were utilized for this exam. This exam was performed with intravenous contrast. COMPARISON: Comparison is made to CT chest 08/05/2019 FINDINGS: Lower chest: No acute abnormality Liver: Unremarkable. No focal lesions are seen. Gallbladder and biliary tree: Patient is status post cholecystectomy. Physiologic prominence of the biliary ducts is noted. Pancreas: Unremarkable, no focal lesions. Spleen: Calcifications are noted in the spleen compatible with prior granulomatous disease. Adrenals: Unremarkable. Kidneys and ureters: Previously noted renal cysts are stable. Bladder: Unremarkable. Reproductive organs: Patient is status post hysterectomy. Bowel: Multiple diverticula are seen. There is wall thickening and fat stranding about the sigmoid colon. Lymph nodes Retroperitoneal: Unremarkable. Mesenteric: Unremarkable. Pelvic: Unremarkable. Peritoneum: Normal Vessels: Unremarkable. Abdominal wall: There is a hernia in the lower midline of the abdomen contains fat and loops of bowel without evidence of acute abnormality. Bones: Degenerative changes in the visualized spine. Postsurgical changes are seen in the lumbosacral spine and right sacroiliac joint. Cement arthroplasty is seen in the upper lumbar spine. IMPRESSION: 1. Findings are compatible with acute diverticulitis without evidence of perforation or abscess. 2. Additional findings as above. No evidence of obstruction in the region of the lower abdominal hernia. ACT 112: Negative or not required by law. Electronically signed by: Miguel Saavedra M.D. 02/23/2021 7:50 PM Discharge Plan Visit Data Chief Complaint: Weakness Stated Complaint: fall ED Provider: Handy Hamilton ED Midlevel Provider: Destiny Suarez Discharge Problem: Diverticulitis, Sepsis Patient Disposition: Admitted As Inpatient Discharge Instructions Interventions: ED Discharge Assessment Last Done: 02/23/21 22:26
--- NOTE | 2021-02-23 16:25 | XRay Report ---
XR chest 1V portable CLINICAL HISTORY: Tachycardia. COMPARISON STUDY: 08/05/2019 TECHNIQUE: 1 view of the chest FINDINGS: Single frontal view of the chest demonstrates the cardiomediastinal silhouette to be within normal li mits. There is a decreased inspiratory effort with elevation of the hemidiaphragms and crowding of th e bronchovascular markings at the lung bases and centrally. The lungs are clear of alveolar opacities . There is no evidence for pleural effusion. There is no evidence for vascular congestion. There is n o acute osseous pathology. IMPRESSION: There is a decreased inspiratory effort with otherwise no acute chest disease. ACT 112: Negative or not required by law. Electronically signed by: Karan Stark M.D. 02/23/2021 4:23 PM
[2021-02-23 16:43] LABS: Appearance Urine Clear (Clear); Bacteria Urine Automated 1+ (Negative); Bilirubin Urine Negative (Negative); Blood Urine Trace (Negative); Color Urine Dark Yellow; Epithelial Cell Urine Auto >30 /lpf (0-5); Glucose Urine UA Negative (Negative); Ketones Urine 2+ (Negative); Leukocyte Esterase Urine Trace (Negative); Nitrite Urine Negative (Negative); Protein Urine 1+ (Negative); RBC Urine Automated 0-4 /hpf (0-4); Specific Gravity Urine 1.017 (1.000-1.030); Urobilinogen Urine Negative (Negative); pH Urine 6.5 (4.5-7.5)
[2021-02-23 16:55] LABS: Basophils # (auto) 0.02 K/uL (0-0.2); Basophils % (auto) 0.1 %; Eosinophils # (auto) 0.01 K/uL (0-0.5); Eosinophils % (auto) 0.1 %; Hemoglobin 11.8 g/dL (12.0-16.0); Immature Granulocytes # (auto) 0.06 K/uL (0.00-0.02); Immature Granulocytes % (auto) 0.4 %; Lymphocytes % (auto) 4.7 %; Mean Corpuscular Hemoglobin 31.2 pg (25-34); Mean Corpuscular Hgb Conc 32.8 g/dL (32-36); Mean Corpuscular Volume 95.2 fL (80-100); Mean Platelet Volume 8.9 fL (7.4-10.4); Monocytes # (auto) 1.29 K/uL (0.11-0.59); Monocytes % (auto) 7.6 %; Neutrophils # (auto) 14.71 K/uL (1.4-6.5); Neutrophils % (auto) 87.1 %; Platelet Count 284 K/uL (130-400); RDW Coefficient of Variation 14.6 % (11.5-14.5); RDW Standard Deviation 51.2 fL (36.4-46.3); Red Blood Count 3.78 M/uL (4.2-5.4); White Blood Count 16.89 K/uL (4.8-10.8)
[2021-02-23 17:18] LABS: Troponin I 0.03 ng/ml (0-0.04)
[2021-02-23 17:23] LABS: Anion Gap 10 (3-11); Blood Urea Nitrogen 14 mg/dl (6-23); Calcium 8.5 mg/dl (8.5-10.1); Carbon Dioxide 21 mmol/L (21-32); Chloride 101 mmol/L (98-107); Est GFR (Non-African American) 88.9 ml/min; Glucose Fasting 130 mg/dl (70-99); Potassium 3.3 mmol/L (3.5-5.1); Sodium 132 mmol/L (136-145)
[2021-02-23] MEDS ORDERED: diphenhydrAMINE 50 MG/ML VIAL IV STA (18:19)
[2021-02-23] MEDS ORDERED: OPTIRAY 320 100ml IV ONE (19:29)
--- NOTE | 2021-02-23 19:52 | CT Scan Report ---
CT abd pelvis IV con only CLINICAL HISTORY: known hernia, abd pain, leukocytosis TECHNIQUE: Helical axial images of the abdomen and pelvis were obtained and displayed. Automated dose lowering techniques and/or adjustment according to patient size were utilized for this exam. This e xam was performed with intravenous contrast. COMPARISON: Comparison is made to CT chest 08/05/2019 FINDINGS: Lower chest: No acute abnormality Liver: Unremarkable. No focal lesions are seen. Gallbladder and biliary tree: Patient is status post cholecystectomy. Physiologic prominence of the b iliary ducts is noted. Pancreas: Unremarkable, no focal lesions. Spleen: Calcifications are noted in the spleen compatible with prior granulomatous disease. Adrenals: Unremarkable. Kidneys and ureters: Previously noted renal cysts are stable. Bladder: Unremarkable. Reproductive organs: Patient is status post hysterectomy. Bowel: Multiple diverticula are seen. There is wall thickening and fat stranding about the sigmoid co rima. Lymph nodes Retroperitoneal: Unremarkable. Mesenteric: Unremarkable. Pelvic: Unremarkable. Peritoneum: Normal Vessels: Unremarkable. Abdominal wall: There is a hernia in the lower midline of the abdomen contains fat and loops of bowel without evidence of acute abnormality. Bones: Degenerative changes in the visualized spine. Postsurgical changes are seen in the lumbosacral spine and right sacroiliac joint. Cement arthroplasty is seen in the upper lumbar spine. IMPRESSION: 1. Findings are compatible with acute diverticulitis without evidence of perforation or abscess. 2. Additional findings as above. No evidence of obstruction in the region of the lower abdominal her maria l. ACT 112: Negative or not required by law. Electronically signed by: Miguel Saavedra M.D. 02/23/2021 7:50 PM
[2021-02-23] MEDS ORDERED: POTASSIUM CHLORIDE CRTAB 20 MEQ TABCR PO STA (22:32)
[2021-02-23 22:53] LABS: Influenza A virus by PCR Negative (Neg); Influenza B virus by PCR Negative (Neg); RSV by PCR Negative (Neg); SARS CoV2 RNA(COVID-19) InHosp NEGATIVE (Negative)
[2021-02-23] MEDS ORDERED: POLYETHYLENE (MIRALAX) 17 GM PACK PO PRN (23:02)
[2021-02-23] MEDS ORDERED: MECLIZINE 12.5 MG TAB PO PRN (23:02)
[2021-02-23] MEDS ORDERED: PIPERACILL/TAZOBAC CONSULT ACTIVE PRN (23:02)
[2021-02-23] MEDS ORDERED: CLOBETASOL PROPIONATE 0.05% OINT 15 GM TUBE EXT PRN (23:02)
[2021-02-23] MEDS ORDERED: D5W AND NSS 1,000 ML IV SCH (23:02)
[2021-02-23] MEDS ORDERED: HYDROCORTISONE 2.5% CR 30 GM TUBE EXT PRN (23:02)
[2021-02-23] MEDS ORDERED: AZELASTINE HCL 0.1% NASAL 200 SPRAYS/27,400 MCG BTL PRN (23:02)
[2021-02-23] MEDS ORDERED: ONDANSETRON INJ 2 MG/ML 2 ML VIAL IV PRN (23:02)
[2021-02-23] MEDS ORDERED: ACETAMINOPHEN 325 MG TAB PO PRN (23:02)
[2021-02-23] MEDS ORDERED: FLUTICASONE/VILANTEROL 100/25MCG 14 PUFFS/INHALER INH PRN (23:17)
[2021-02-23] MEDS ORDERED: PIPERACILLIN/TAZOBACTAM 3.375 GM in DEXTROSE 5% 100 ML IV ONE (23:45)
--- NOTE | 2021-02-24 00:16 | History and Physical Report ---
DATE OF ADMISSION: 02/23/2021. CHIEF COMPLAINT: Weakness. HISTORY OF PRESENT ILLNESS: This is an 85-year-old female with past medical history significant for type 2 diabetes, hypothyroidism, hyperlipidemia, chronic seasonal allergic rhinitis, nocturnal hypoxemia, mild persistent asthma without complication, atherosclerosis of aorta, lymphedema, varicosities of lower extremities, hypertension, atherosclerotic cardiovascular disease, GERD, irritable bowel syndrome with both constipation and diarrhea, urinary incontinence, recurrent UTI, senile osteoporosis, trigger finger of the right hand, tenosynovitis, history of compression fracture of T12 vertebra, sensorineural hearing loss bilateral, history of diverticulitis, history of C. diff, history of incisional hernia without obstruction, who lives at home with her , comes because of weakness. Apparently, the patient was in the bath tub and she was not able to get up and EMS was called and she was weak and she was brought in here and found to have acute diverticulitis. The patient states she has a cough for the last few days, she has abdominal pain for the last couple of weeks and diarrhea for a couple of weeks and she says she noticed some blood in the stools, mucosy blood. Has some ongoing runny nose, cough for a couple of days. Denies any fever. Appetite is good. No dysphagia. No headache, no chest pain, no shortness of breath. No nausea currently. Has chronic lower extremity edema. Ambulates with a walker at home. She lives with her , daughter lives in the town. ALLERGIES: SULFA ANTIBIOTICS, SIMVASTATIN, PYRILAMINE, ETHER, TRAMADOL, CODEINE, IODINATED CONTRAST MEDIA, MORPHINE, DUST. PAST MEDICAL HISTORY: As mentioned above. PAST SURGICAL HISTORY: Right knee arthroplasty, left breast biopsy, colonoscopy, RGSV laser ablation of right lower extremity stab phlebectomies, esophagoscopy, foot and toe surgery, graft ear cartilage to ear, right incision of the tendon sheath, partial hysterectomy with removal of one ovary at age 31, reconstruction of nose septum, appendectomy, cholecystectomy, repair of bladder and vaginal cystocele, repair of incisional ventral hernia, repair of nasal septum, repair of vagina, repair of rectocele, sinus surgery, upper endoscopy. MEDICATIONS: The patient is on Tylenol 650 mg p.o. q. 6 hours p.r.n., Fosamax 70 mg p.o. weekly, aspirin 81 mg p.o. daily, atorvastatin 40 mg p.o. daily, azelastine 137 mcg nasal spray 2 sprays intranasal b.i.d. p.r.n., Symbicort 1 puff b.i.d., clobetasol topical p.r.n., cyclosporine one drop ophthalmic in eyes b.i.d., Colace 100 mg p.o. b.i.d., Flonase p.r.n., Lasix 20 mg p.o. daily, gabapentin 300 mg p.o. b.i.d., lactobacillus 1 tablet p.o. t.i.d., levothyroxine 100 mcg p.o. daily, loratadine 10 mg p.o. daily, Cozaar 25 mg p.o. daily, meclizine 12.5 mg p.o. t.i.d. p.r.n., meloxicam 7.5 mg p.o. daily, metoprolol tartrate 12.5 mg p.o. b.i.d., Singulair 10 mg p.o. daily, multivitamin one tablet daily, Protonix 40 mg daily, MiraLax 17 g daily p.r.n., Privigen one tablet p.o. daily, slow magnesium and calcium 1 tablet p.o. daily, trazodone 50 mg p.o. at bedtime. FAMILY HISTORY: Significant for father has hypertension, stroke, at age of 49; sister has sleep apnea; mother has dementia and diabetes; maternal grandfather had lung cancer, heavy smoker; maternal grandmother had breast cancer. SOCIAL HISTORY: , no smoking. Alcohol occasionally. No drug use. REVIEW OF SYSTEMS: As per HPI. Rest of the review of systems is negative. PHYSICAL EXAMINATION: GENERAL: The patient is old and frail, not in acute distress. VITAL SIGNS: Temperature 36.8, pulse 79, respiratory rate 18, blood pressure 182/86, oxygen 98% on room air. HEENT: Pupils equal, round and reactive to light. Oral mucosa moist. NECK: No JVD, no neck masses. CARDIOVASCULAR: S1 and S2 heard. Regular rate and rhythm. No murmur, no gallop. RESPIRATORY SYSTEM: Normal AP diameter. No accessory muscle use. No wheezing, no crackles. ABDOMEN: Soft, bowel sounds present. Tenderness in the umbilical hernia region. Mild guarding, no rigidity, no distention. CENTRAL NERVOUS SYSTEM: Cranial nerves II-XII grossly intact and nonfocal. Alert and oriented x3, somewhat difficult with the current date, but able to tell month and year. No facial droop. Obeys simple commands. Moves extremities. EXTREMITIES: Bilateral lower extremity edema present, no erythema seen. LABORATORY DATA: WBC 16.8, hemoglobin 11.8, hematocrit 36, platelets 284. Sodium 132, potassium 3.3, chloride 101, bicarbonate 21, BUN 14, creatinine 0.5, serum glucose 130, calcium 8.4, troponin 0.03. Urinalysis, trace leukocyte esterase, +1 urine bacteria. SARS-CoV-2 initial test negative. IMAGING DATA: CT of the abdomen and pelvis is showing compatibility with acute diverticulitis without evidence of perforation or abscess. Chest x-ray, no acute chest disease. EKG: Sinus tachycardia at a rate of 110, left axis deviation, nonspecific ST changes seen. ASSESSMENT AND PLAN: This is an 85-year-old female who presents with weakness and found to have acute diverticulitis. 1. Acute diverticulitis: The patient has history of diverticulitis, started on Zosyn, gentle fluids, surgical consult. With full liquid diet for now. Monitor in the medical floor. 2. History of Clostridium difficile colitis: Continue her home probiotics. Since the patient has some diarrhea, also check stool for C. diff. 3. History of asthma and allergic rhinitis: Continue her home medication and home inhalers. 4. History of hypertension: Continue losartan. Will monitor the blood pressure. 5. Hyperlipidemia: Continue statin. 6.Possible UTI. Abx as above. Follow cultures. 7. Blood in stool. Hemepositive stool. NPO, Fluids, GI consult. Follow labs. 8. Hypothyroidism: Continue Synthroid. 9. Gastroesophageal reflux disease: Continue Protonix. 10. Type 2 diabetes: Not on any medications. Will follow HbA1c levels. Follow the blood sugars. 11. Deep venous thrombosis prophylaxis: Heparin subcutaneously and sequential compression devices. DISPOSITION: Closely monitor in the medical floor. PT, OT prior to discharge. Social service to help with discharge planning. Level 1 full code. Job ID: [id number] [facility]
[2021-02-24] MEDS: METOPROLOL TARTRATE 25 MG TAB PO SCH ×3 (00:26→20:54)
[2021-02-24] MEDS: GABAPENTIN 300 MG CAP PO SCH ×3 (00:27→20:51)
[2021-02-24] MEDS: RESTASIS~ORDER AWAITING ACTION SCH ×4 (00:49→22:21)
[2021-02-24] MEDS ORDERED: Nursing to Pharmacy Communication SCH ×2 (04:30→10:00)
[2021-02-24] MEDS: PIPERACILLIN/TAZOBACTAM 3.375 GM in DEXTROSE 5% 100 ML IV SCH ×3 (05:37→22:15)
[2021-02-24] MEDS: LEVOTHYROXINE SODIUM 100 MCG TABLET PO SCH (05:40)
[2021-02-24] MEDS ORDERED: INSULIN ASPART PER UNIT SC SCH ×2 (06:00→07:30)
[2021-02-24 06:03] LABS: Basophils # (auto) 0.01 K/uL (0-0.2); Basophils % (auto) 0.1 %; Hematocrit (blood only) 37.4 % (37-47); Immature Granulocytes # (auto) 0.07 K/uL (0.00-0.02); Immature Granulocytes % (auto) 0.5 %; Lymphocytes # (auto) 0.67 K/uL (1.2-3.4); Lymphocytes % (auto) 4.8 %; Mean Corpuscular Hemoglobin 30.9 pg (25-34); Mean Corpuscular Hgb Conc 32.1 g/dL (32-36); Mean Corpuscular Volume 96.4 fL (80-100); Monocytes # (auto) 0.29 K/uL (0.11-0.59); Monocytes % (auto) 2.1 %; Neutrophils # (auto) 12.84 K/uL (1.4-6.5); Neutrophils % (auto) 92.5 %; Platelet Count 305 K/uL (130-400); RDW Coefficient of Variation 14.7 % (11.5-14.5); RDW Standard Deviation 52.1 fL (36.4-46.3); Red Blood Count 3.88 M/uL (4.2-5.4); White Blood Count 13.88 K/uL (4.8-10.8)
[2021-02-24 06:24] LABS: BUN Creatinine Ratio 21.8 (10-20); Calcium 8.5 mg/dl (8.5-10.1); Creatinine Clr Calc Pharmacy 76.4 ml/min; Est GFR (African American) 99.8 ml/min; Est GFR (Non-African American) 86.1 ml/min; Magnesium 1.9 mg/dl (1.7-2.4); Phosphorus 2.3 mg/dl (2.5-4.9); Potassium 3.4 mmol/L (3.5-5.1)
[2021-02-24] MEDS ORDERED: ALENDRONATE SODIUM 70 MG TAB PO SCH (06:30)
--- NOTE | 2021-02-24 07:00 | Gastrointestinal Consultation ---
Date of Consultation February 24, 2021 Assessment & Plan (1) Diverticulitis large intestine: Cont. broad spectrum antibiotics for a total of 10 days, on zosyn now, may change to Cipro/Flagyl po at time of discharge. Would defer f/u colonoscopy due to age and becuase she has undergone colonoscopy several times in the past, most recently April 2019. (2) Anal fissure: I spoke with pharmacy, We are unable to provide this med as an IP, but at the time of DC, please provide the pt with a prescription for tx of anal fissure, to be compounded/filled at [facility]: Cardizem 2% rectal ointment. Apply a small amt to anus BID. Avoid constipation. Supervising Physician Co-Signing Physician Notes Attg add (late entry): I interviewed and examined pt, reviewed chart and labs. Pt presented with weakness, found to have sigmoid tic-itis on CT. Cscopy 2020 unremarkable except for tics. She also has anal pain and scant blood. On exam, she has tenderness to light palp in LLQ without r/g. She has an acute appearing post midline fissure. RECS: abx for 7 days for tic-itis, diet as tolerated. No need repeat cscopy given recent unremrakable exam. Regarding fissure - miralax, sitz baths as inpt; cardizem ointment and surgery f/u as outpt. Please reconsult as needed. History of Present Illness Reason for Consultation: Rectal Bleed, hem + Requesting Physician: Dr. Varela Attending Physician: Heron Cameron MD History of Present Illness Ms. Iwona Skaggs is an 85 yr old female pt of Dr. Diann Angeles with a hx of DM-2, prior diverticulitis and other as below who presented to the ED yesterday for weakness. On arrival, CT with acute uncomplicated sigmoid diverticulitis. She reports having had anal pain on defecation, then blood tinged mucous on the toilet paper after passing BMs, but specifies that there has not been blood in the BMs. BM after arrival was documented as brown (though Hem positive) and her Hb is stable at 12, BUN also normal at 12. She denies any constipation or diarrhea and verifies that BMs are soft. Though she initially denied abd pain, she was moderately tender at the site of known ventral hernia (right mid abd) and very tender in the LLQ. Abd is soft, non distended. She is awake, alert, oriented, afebrile and hemodynamically stable. Her most recent colonoscopy was in April 2019 for rectal bleeding with findings of int/external hemorrhoids, sigmoid and descending colon diverticulosis- Non- thrombosed external hemorrhoids found on perianal exam. Two small polyps were also removed, largest 5mm. Regarding the pt report of Crohn's disease, this was not seen on her most recent colonoscopy. Pt tells me that she was told by GI prior to moving to [place] that she has Crohn's but she has never taken tx for the Crohn's. Allergies Allergy/AdvReac Type Severity Reaction Status Date / Time Sulfa (Sulfonamide Allergy Intermediate RINGS ON Verified 02/23/21 17:24 Antibiotics) SKIN simvastatin Allergy Mild RED Verified 02/23/21 17:24 CIRCLES-HAS TOLERATED LIPITOR pyrilamine Allergy Unknown VOMITING Verified 02/23/21 17:24 ether AdvReac Intermediate NAUSEA/VOMI Verified 02/23/21 17:24 TING tramadol AdvReac Intermediate NAUSEA/VOMI Verified 02/23/21 17:24 TING codeine AdvReac Mild N/V Verified 02/23/21 17:24 Iodinated Contrast Media AdvReac Mild HIVES/BURNING Verified 02/23/21 17:24 AT IV SITE AND UP VEIN morphine AdvReac Mild VOMITING Verified 02/23/21 17:24 Home Medications Medication Instructions Recorded Confirmed Type Oxygen Home #1 ea 09/20/18 12/26/18 History atorvastatin 40 mg tablet 40 mg PO DAILY tab 09/20/18 02/23/21 History azelastine 137 mcg (0.1 %) nasal 2 sprays INTRANASAL BID PRN ml 09/20/18 02/23/21 History spray aerosol clobetasol 0.05 % topical cream 1 appln TOPICAL UD PRN gm 09/20/18 02/23/21 History fluticasone propionate 50 1 sprays INTRANASAL DAILY gm 09/20/18 02/23/21 History mcg/actuation nasal spray,suspension furosemide 20 mg tablet 20 mg PO DAILY tab 09/20/18 02/23/21 History levothyroxine 100 mcg tablet 100 mcg PO DAILY tab 09/20/18 02/23/21 History meloxicam 7.5 mg tablet 7.5 mg PO DAILY tab 09/20/18 02/23/21 History metoprolol tartrate 25 mg tablet 12.5 mg PO BID tab 09/20/18 02/23/21 History multivitamin (One Daily 1 tab PO DAILY 09/20/18 02/23/21 History Multivitamin) pantoprazole 40 mg tablet,delayed 40 mg PO DAILY tab 09/20/18 02/23/21 History release trazodone 50 mg tablet 50 mg PO HS tab 09/20/18 02/23/21 History Lactobacillus acidoph-L.bulgaricus 1 tab PO TIDM 01/22/19 02/23/21 History 1 million cell chewable tablet (Lactinex) alendronate 70 mg tablet (Fosamax) 70 mg PO WK 01/22/19 02/23/21 History aspirin 81 mg tablet,delayed 81 mg PO DAILY 01/22/19 02/23/21 History release (Aspirin Low Dose) budesonide-formoterol HFA 80 1 puff INHALATION BID PRN 01/22/19 02/23/21 History mcg-4.5 mcg/actuation aerosol inhaler (Symbicort) loratadine 10 mg tablet (Claritin) 10 mg PO DAILY 01/22/19 02/23/21 History losartan 25 mg tablet (Cozaar) 25 mg PO DAILY 01/22/19 02/23/21 History montelukast 10 mg tablet 10 mg PO DAILY 01/22/19 02/23/21 History (Singulair) polyethylene glycol 3350 17 17 g PO DAILY PRN 01/22/19 02/23/21 History gram/dose oral powder (Miralax) sennosides 8.6 mg tablet (Senna 8.6 mg PO TID 01/22/19 02/23/21 History Laxative) Prevagen 1 tab PO DAILY 02/23/21 02/23/21 History Slow Magnesium/Calcium 1 tab PO DAILY 02/23/21 02/23/21 History acetaminophen 325 mg tablet 650 mg PO Q6H PRN 02/23/21 02/23/21 History (Tylenol) cyclosporine 0.05 % eye drops in a 1 drp OPHTHALMIC (EYE) Q12H 02/23/21 02/23/21 History dropperette (Restasis) docusate sodium 100 mg capsule 100 mg PO BID 02/23/21 02/23/21 History gabapentin 300 mg capsule 300 mg PO BID 02/23/21 02/23/21 History hydrocortisone 2.5 % topical cream 1 applic TOPICAL BID PRN 02/23/21 02/23/21 History meclizine 12.5 mg tablet 12.5 mg PO TID PRN 02/23/21 02/23/21 History Patient History Medical History Arthritis Crohn's disease Cystitis 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 Dyslipidemia Gastroesophageal reflux disease History of adenomatous polyp of colon History of diverticulitis Hypercholesterolemia Hypertension Hypertension Hypothyroidism Osteoarthritis Osteoporosis Surgical History History of incisional hernia repair History of repair of rectocele S/P laparoscopic hernia repair Total knee replacement status Social History Smoking Status: Never smoker Hx Alcohol Use: Yes Alcohol type: wine Hx Substance Use: No Preferred Language: Belarusian Communication Ability: Effective In Home Aide Required: No Beliefs That Will Affect Care: None Current Living Situation: Spouse Other Information That Helps Us Care for You: No Feels Safe at Home: Yes Safety Concerns: Feels Safe At This Time Assistive Devices: Oxygen - at Night and Walker Review of Systems Review of Systems: ROS: Gen: + weakness, No fevers, No unexplained weight loss Eyes: No eye redness, or pain, no recent vision changes Resp: No SOB, no cough Cardio: No palpitations/irregular beats, no chest pain GI: + abdominal pain; No nausea/vomiting : Denies pain on urination Skin: No jaundice, itching or new rashes Physical Exam Constitutional: well developed, + thin and cooperative Eyes: PERRL, conjunctivae normal, anicteric sclerae ENMT: external ear and nose normal, oropharynx normal Neck: trachea midline, no thyromegaly Respiratory: normal respiratory effort, lungs clear to auscultation Cardiovascular: RRR, no murmur, no edema Gastrointestinal (Abdomen): Percussion/Palpation: + abdomen tender (tender at the mid right abd reducible hernia; very tender in the LLQ) and abdomen soft; no guarding and abdomen not rigid anal exam with evidence of a small, superficial anal fissure, visbile or palpable hemorrhoids Skin: no rashes, warm and dry normal turgor Neurologic: PERRL, EOMI, accommodation nl, no face palsy, no dysarthria Psychiatric: A+Ox3, euthymic affect Lymphatic: no cervical or axillary lymphadenopathy Results & Data ([facility]) Vital Signs (Past 12 Hours) Vital Signs Temp Pulse Pulse Pulse Pulse Resp BP 02/23/21 23:07 36.6 C 95 H 16 02/23/21 22:46 36.6 C 95 H 20 02/23/21 22:26 83 18 146/76 H 02/23/21 20:23 79 18 BP Pulse Ox 02/23/21 23:07 159/77 H 96 02/23/21 22:46 159/77 H 96 02/23/21 22:26 96 02/23/21 20:23 182/86 H 98 Laboratory Results WBC 13.8, Hb 12, Hct 37, Plts 305, Na 135, K 3.4, Cl 103, BUN 12, Cr 0.5, glu cose 175. Diagnostic Findings CTAP w IV contrast 02/23/21: 1. Findings are compatible with acute diverticulitis without evidence of perforation or abscess. 2. Additional findings as above. No evidence of obstruction in the region of the lower abdominal hernia.
[2021-02-24 08:02] LABS: Estimated Average Glucose 140 mg/dl; Hemoglobin A1C 6.5 % (4.5-5.6)
--- NOTE | 2021-02-24 08:02 | Electrocardiogram Report ---
Test Reason : Blood Pressure : / mmHG Vent. Rate : 110 BPM Atrial Rate : 110 BPM P-R Int : 160 ms QRS Dur : 076 ms QT Int : 344 ms P-R-T Axes : 033 -34 050 degrees QTc Int : 465 ms Sinus tachycardia Incomplete right bundle branch block Left axis deviation Low voltage QRS Possible Old Inferior infarct Poor R wave progression, consider anterior NM vs. lead placement vs. LVH Abnormal ECG When compared with ECG of 05-AUG-2019 22:15, QRS axis Shifted left Loss of precordial R wave voltage Borderline Criteria for Inferior infarct now present Confirmed by Marco Golden ([id number]) on 02/24/2021 8:02:23 AM Referred By: REFERRED SELF Confirmed By:Marco Golden
--- NOTE | 2021-02-24 08:11 | Hospitalist Progress Note ---
Date of Service February 24, 2021 Assessment & Plan Admission and Anticipated Discharge Date Admission Date: February 23, 2021 Subjective DVT px Scds as hemepositive stool. thank you Results & Data Results & Data ([facility]) Vital Signs (Past 12 Hours) Vital Signs Temp Pulse Pulse Pulse Pulse Resp BP 02/24/21 07:11 36.6 C 72 12 02/23/21 23:07 36.6 C 95 H 16 02/23/21 22:46 36.6 C 95 H 20 02/23/21 22:26 83 18 146/76 H 02/23/21 20:23 79 18 BP Pulse Ox 02/24/21 07:11 136/72 93 02/23/21 23:07 159/77 H 96 02/23/21 22:46 159/77 H 96 02/23/21 22:26 96 02/23/21 20:23 182/86 H 98
[2021-02-24] MEDS: ATORVASTATIN 40 MG TAB PO SCH (08:16)
[2021-02-24] MEDS: MULTIVITAMIN TAB PO SCH (08:16)
[2021-02-24] MEDS: FUROSEMIDE 20 MG TAB PO SCH (08:16)
[2021-02-24] MEDS: ADVANCED PROBIOTIC 1250 MG CAPSULE PO SCH (08:16)
[2021-02-24] MEDS: LOSARTAN POTASSIUM 25 MG TAB PO SCH (08:16)
[2021-02-24] MEDS: ASPIRIN 81 MG ECTAB PO SCH (08:16)
[2021-02-24] MEDS: LORATADINE 10 MG TAB PO SCH (08:16)
[2021-02-24] MEDS: MONTELUKAST SODIUM 10 MG TABLET PO SCH (08:17)
[2021-02-24] MEDS: FLUTICASONE PROPIONATE NA SPR 16 GM BTL SCH (08:17)
--- NOTE | 2021-02-24 08:24 | Surgery Consultation ---
Date of Consultation February 24, 2021 Assessment & Plan (1) Diverticulitis large intestine: (2) Anal fissure: (3) History of incisional hernia repair: 85 year old female who presented to emergency department for weakness found to have uncomplicated sigmoid diverticulitis on CT scan as well as anal fissure on rectal examination for Hemoccult stools and pink/tinged bloody/mucous after bowel movements. Also has abdominal wall hernia containing bowel with no evidence of obstruction. Plan: No acute surgical intervention required at this time. Continue current management of her acute sigmiod diverticulitis with IV Zosyn, bowel rest, pain management as needed, IV fluids while NPO. GI recommendations for anal fissure and recommend deferring colonoscopy in 2 months given age and recent c-scope in 2019. Low fiber diet for next 4-6 weeks and then high fiber diet following for diverticulitis As for the recurrent incisional hernia, patient could follow up with Dr. Lopez as outpatient to discuss surgical correction if she is interested in this. will follow along Dr. Lopez has seen and examined pt, agrees with above. History of Present Illness Reason for Consultation: Diverticulitis Requesting Physician: Dr. Varela Attending Physician: Heron Cameron MD History of Present Illness Iwona is a 85 year old female with medical history of hypothyroidism, hypertension, hypercholesterolemia, GERD, DM II, Crohn's disease, allergic rhinitis, osteoporosis, who presented to emergency room yesterday with complaint of weakness. She has also had diarrhea and abdominal pain with some bloody/mucous stools. CT scan showed stable lower abdominal wall hernia con taining bowel but no evidence of obstruction and acute sigmoid diverticulitis without signs of perforation or abscess. Leukocytosis was 16k. Our services consulted for diverticulitis. She has had stool testing for c. diff which was negative but did have hemoccult positive stools. GI was consulted. Evaluation by GI showed anal fissure and recommended outpatient treatment with Cardizem ointment. They also would defer colonoscopy in 2 months given her age and recent colonoscopy in 2019. Iwona states she is still having abdominal pain. Mostly in the left lower abdomen. No nausea or vomiting. No fevers. States she has a large hernia in her right abdomen that has been stable for some time now. Believes this was repaired about [address] Sellers. Allergies Allergy/AdvReac Type Severity Reaction Status Date / Time Sulfa (Sulfonamide Allergy Intermediate RINGS ON Verified 02/23/21 17:24 Antibiotics) SKIN simvastatin Allergy Mild RED Verified 02/23/21 17:24 CIRCLES-HAS TOLERATED LIPITOR pyrilamine Allergy Unknown VOMITING Verified 02/23/21 17:24 ether AdvReac Intermediate NAUSEA/VOMI Verified 02/23/21 17:24 TING tramadol AdvReac Intermediate NAUSEA/VOMI Verified 02/23/21 17:24 TING codeine AdvReac Mild N/V Verified 02/23/21 17:24 Iodinated Contrast Media AdvReac Mild HIVES/BURNING Verified 02/23/21 17:24 AT IV SITE AND UP VEIN morphine AdvReac Mild VOMITING Verified 02/23/21 17:24 Home Medications Medication Instructions Recorded Confirmed Type Oxygen Home #1 ea 09/20/18 12/26/18 History atorvastatin 40 mg tablet 40 mg PO DAILY tab 09/20/18 02/23/21 History azelastine 137 mcg (0.1 %) nasal 2 sprays INTRANASAL BID PRN ml 09/20/18 02/23/21 History spray aerosol clobetasol 0.05 % topical cream 1 appln TOPICAL UD PRN gm 09/20/18 02/23/21 History fluticasone propionate 50 1 sprays INTRANASAL DAILY gm 09/20/18 02/23/21 History mcg/actuation nasal spray,suspension furosemide 20 mg tablet 20 mg PO DAILY tab 09/20/18 02/23/21 History levothyroxine 100 mcg tablet 100 mcg PO DAILY tab 09/20/18 02/23/21 History meloxicam 7.5 mg tablet 7.5 mg PO DAILY tab 09/20/18 02/23/21 History metoprolol tartrate 25 mg tablet 12.5 mg PO BID tab 09/20/18 02/23/21 History multivitamin (One Daily 1 tab PO DAILY 09/20/18 02/23/21 History Multivitamin) pantoprazole 40 mg tablet,delayed 40 mg PO DAILY tab 09/20/18 02/23/21 History release trazodone 50 mg tablet 50 mg PO HS tab 09/20/18 02/23/21 History Lactobacillus acidoph-L.bulgaricus 1 tab PO TIDM 01/22/19 02/23/21 History 1 million cell chewable tablet (Lactinex) alendronate 70 mg tablet (Fosamax) 70 mg PO WK 01/22/19 02/23/21 History aspirin 81 mg tablet,delayed 81 mg PO DAILY 01/22/19 02/23/21 History release (Aspirin Low Dose) budesonide-formoterol HFA 80 1 puff INHALATION BID PRN 01/22/19 02/23/21 History mcg-4.5 mcg/actuation aerosol inhaler (Symbicort) loratadine 10 mg tablet (Claritin) 10 mg PO DAILY 01/22/19 02/23/21 History losartan 25 mg tablet (Cozaar) 25 mg PO DAILY 01/22/19 02/23/21 History montelukast 10 mg tablet 10 mg PO DAILY 01/22/19 02/23/21 History (Singulair) polyethylene glycol 3350 17 17 g PO DAILY PRN 01/22/19 02/23/21 History gram/dose oral powder (Miralax) sennosides 8.6 mg tablet (Senna 8.6 mg PO TID 01/22/19 02/23/21 History Laxative) Prevagen 1 tab PO DAILY 02/23/21 02/23/21 History Slow Magnesium/Calcium 1 tab PO DAILY 02/23/21 02/23/21 History acetaminophen 325 mg tablet 650 mg PO Q6H PRN 02/23/21 02/23/21 History (Tylenol) cyclosporine 0.05 % eye drops in a 1 drp OPHTHALMIC (EYE) Q12H 02/23/21 02/23/21 History dropperette (Restasis) docusate sodium 100 mg capsule 100 mg PO BID 02/23/21 02/23/21 History gabapentin 300 mg capsule 300 mg PO BID 02/23/21 02/23/21 History hydrocortisone 2.5 % topical cream 1 applic TOPICAL BID PRN 02/23/21 02/23/21 History meclizine 12.5 mg tablet 12.5 mg PO TID PRN 02/23/21 02/23/21 History Patient History Medical History Arthritis Crohn's disease Cystitis 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 Dyslipidemia Gastroesophageal reflux disease History of adenomatous polyp of colon History of diverticulitis Hypercholesterolemia Hypertension Hypertension Hypothyroidism Osteoarthritis Osteoporosis Surgical History History of incisional hernia repair History of repair of rectocele S/P laparoscopic hernia repair Total knee replacement status Social History Smoking Status: Never smoker Hx Alcohol Use: Yes Alcohol type: wine Hx Substance Use: No Preferred Language: Yakut Communication Ability: Effective 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 Beliefs That Will Affect Care: None Current Living Situation: Spouse Other Information That Helps Us Care for You: No Feels Safe at Home: Yes Safety Concerns: Feels Safe At This Time Assistive Devices: Walker Review of Systems Review of Systems: All systems reviewed & are unremarkable except as noted in HPI & below Physical Exam Constitutional: WD/WN, vitals as above no acute distress and not ill appearing Neck: normal visual inspection and trachea midline Respiratory: normal respiratory effort; no respiratory distress, no labored breathing and no retractions Gastrointestinal (Abdomen): Inspection/Auscultation: + visible herniation (infraumbilical and to the right lower abdomen, soft mildly tender one exam.); abdomen not distended Percussion/Palpation: + abdomen tender (LLQ on deep palpation) and abdomen soft; no guarding and abdomen not rigid Skin: no rashes, warm and dry Psychiatric: Orientation: alert and oriented x 3 Results & Data ([facility]) Vital Signs (Past 12 Hours) Vital Signs Temp Pulse Pulse Pulse Resp BP BP 02/24/21 07:11 36.6 C 72 12 136/72 02/23/21 23:07 36.6 C 95 H 16 159/77 H 02/23/21 22:46 36.6 C 95 H 20 159/77 H 02/23/21 22:26 83 18 146/76 H Pulse Ox 02/24/21 07:11 93 02/23/21 23:07 96 02/23/21 22:46 96 02/23/21 22:26 96 Laboratory Results 02/24/21 02/24/21 02/24/21 Range/Units 06:19 05:47 05:47 WBC 13.88 H (4.8-10.8) K/uL RBC 3.88 L (4.2-5.4) M/uL Hgb 12.0 (12.0-16.0) g/dL Hct 37.4 (37-47) % MCV 96.4 (80-100) fL MCH 30.9 (25-34) pg MCHC 32.1 (32-36) g/dL RDW Std Deviation 52.1 H (36.4-46.3) fL RDW Coeff of Jluis 14.7 H (11.5-14.5) % Plt Count 305 (130-400) K/uL MPV 9.0 (7.4-10.4) fL Immature Gran % (Auto) 0.5 % Neut % (Auto) 92.5 % Lymph % (Auto) 4.8 % Mckean % (Auto) 2.1 % Eos % (Auto) 0.0 % Baso % (Auto) 0.1 % Neut # (Auto) 12.84 H (1.4-6.5) K/uL Lymph # (Auto) 0.67 L (1.2-3.4) K/uL Mckean # (Auto) 0.29 (0.11-0.59) K/uL Eos # (Auto) 0.00 (0-0.5) K/uL Baso # (Auto) 0.01 (0-0.2) K/uL Immature Gran # (Auto) 0.07 H (0.00-0.02) K/uL Sodium (136-145) mmol/L Potassium (3.5-5.1) mmol/L Chloride (98-107) mmol/L Carbon Dioxide (21-32) mmol/L Anion Gap (3-11) BUN (6-23) mg/dl Creatinine (0.6-1.2) mg/dl Est Cr Clr Drug Dosing Est GFR ( Amer) ml/min Est GFR (Non-Af Amer) ml/min BUN/Creatinine Ratio (10-20) Glucose (70-99) mg/dl POC Glucose 177 H (70-99) mg/dl Fasting Glucose (70-99) mg/dl Estimat Average Glucose 140 mg/dl Hemoglobin A1c 6.5 H (4.5-5.6) % Calcium (8.5-10.1) mg/dl Phosphorus (2.5-4.9) mg/dl Magnesium (1.7-2.4) mg/dl Troponin I (0-0.04) ng/ml Urine Color Urine Appearance (Clear) Urine pH (4.5-7.5) Ur Specific [place] (1.000-1.030) Urine Protein (Negative) Urine Glucose (UA) (Negative) Urine Ketones (Negative) Urine Blood (Negative) Urine Nitrite (Negative) Urine Bilirubin (Negative) Urine Urobilinogen (Negative) Ur Leukocyte Esterase (Negative) Urine WBC (Auto) (0-5) /hpf Urine RBC (Auto) (0-4) /hpf U Hyaline Cast (Auto) (0-5) /lpf U Epithel Cells (Auto) (0-5) /lpf Urine Bacteria (Auto) (Negative) Stool Occult Bld Scrn (Negative) Stl C. diff Tox B Gene (Neg) SARS-CoV-2 (PCR) (Negative) Influenza Type A (PCR) (Neg) Influenza Type B (PCR) (Neg) RSV (RT-PCR) (Neg) SARS-CoV-2, RNA, NAAT (NEGATIVE) 02/24/21 02/24/21 02/24/21 Range/Units 05:47 00:00 00:00 WBC (4.8-10.8) K/uL RBC (4.2-5.4) M/uL Hgb (12.0-16.0) g/dL Hct (37-47) % MCV (80-100) fL MCH (25-34) pg MCHC (32-36) g/dL RDW Std Deviation (36.4-46.3) fL RDW Coeff of Jluis (11.5-14.5) % Plt Count (130-400) K/uL MPV (7.4-10.4) fL Immature Gran % (Auto) % Neut % (Auto) % Lymph % (Auto) % Mckean % (Auto) % Eos % (Auto) % Baso % (Auto) % Neut # (Auto) (1.4-6.5) K/uL Lymph # (Auto) (1.2-3.4) K/uL Mckean # (Auto) (0.11-0.59) K/uL Eos # (Auto) (0-0.5) K/uL Baso # (Auto) (0-0.2) K/uL Immature Gran # (Auto) (0.00-0.02) K/uL Sodium 135 L (136-145) mmol/L Potassium 3.4 L (3.5-5.1) mmol/L Chloride 103 (98-107) mmol/L Carbon Dioxide 24 (21-32) mmol/L Anion Gap 8 (3-11) BUN 12 (6-23) mg/dl Creatinine 0.55 L (0.6-1.2) mg/dl Est Cr Clr Drug Dosing 76.4 Est GFR ( Amer) 99.8 ml/min Est GFR (Non-Af Amer) 86.1 ml/min BUN/Creatinine Ratio 21.8 H (10-20) Glucose 175 H (70-99) mg/dl POC Glucose (70-99) mg/dl Fasting Glucose (70-99) mg/dl Estimat Average Glucose mg/dl Hemoglobin A1c (4.5-5.6) % Calcium 8.5 (8.5-10.1) mg/dl Phosphorus 2.3 L (2.5-4.9) mg/dl Magnesium 1.9 (1.7-2.4) mg/dl Troponin I (0-0.04) ng/ml Urine Color Urine Appearance (Clear) Urine pH (4.5-7.5) Ur Specific [place] (1.000-1.030) Urine Protein (Negative) Urine Glucose (UA) (Negative) Urine Ketones (Negative) Urine Blood (Negative) Urine Nitrite (Negative) Urine Bilirubin (Negative) Urine Urobilinogen (Negative) Ur Leukocyte Esterase (Negative) Urine WBC (Auto) (0-5) /hpf Urine RBC (Auto) (0-4) /hpf U Hyaline Cast (Auto) (0-5) /lpf U Epithel Cells (Auto) (0-5) /lpf Urine Bacteria (Auto) (Negative) Stool Occult Bld Scrn Positive A (Negative) Stl C. diff Tox B Gene Negative Cdiff Gene (Neg) SARS-CoV-2 (PCR) (Negative) Influenza Type A (PCR) (Neg) Influenza Type B (PCR) (Neg) RSV (RT-PCR) (Neg) SARS-CoV-2, RNA, NAAT (NEGATIVE) 02/23/21 02/23/21 02/23/21 Range/Units 22:46 21:40 18:11 WBC (4.8-10.8) K/uL RBC (4.2-5.4) M/uL Hgb (12.0-16.0) g/dL Hct (37-47) % MCV (80-100) fL MCH (25-34) pg MCHC (32-36) g/dL RDW Std Deviation (36.4-46.3) fL RDW Coeff of Jluis (11.5-14.5) % Plt Count (130-400) K/uL MPV (7.4-10.4) fL Immature Gran % (Auto) % Neut % (Auto) % Lymph % (Auto) % Mckean % (Auto) % Eos % (Auto) % Baso % (Auto) % Neut # (Auto) (1.4-6.5) K/uL Lymph # (Auto) (1.2-3.4) K/uL Mckean # (Auto) (0.11-0.59) K/uL Eos # (Auto) (0-0.5) K/uL Baso # (Auto) (0-0.2) K/uL Immature Gran # (Auto) (0.00-0.02) K/uL Sodium (136-145) mmol/L Potassium (3.5-5.1) mmol/L Chloride (98-107) mmol/L Carbon Dioxide (21-32) mmol/L Anion Gap (3-11) BUN (6-23) mg/dl Creatinine (0.6-1.2) mg/dl Est Cr Clr Drug Dosing Est GFR ( Amer) ml/min Est GFR (Non-Af Amer) ml/min BUN/Creatinine Ratio (10-20) Glucose (70-99) mg/dl POC Glucose 150 H (70-99) mg/dl Fasting Glucose (70-99) mg/dl Estimat Average Glucose mg/dl Hemoglobin A1c (4.5-5.6) % Calcium (8.5-10.1) mg/dl Phosphorus (2.5-4.9) mg/dl Magnesium (1.7-2.4) mg/dl Troponin I (0-0.04) ng/ml Urine Color Urine Appearance (Clear) Urine pH (4.5-7.5) Ur Specific [place] (1.000-1.030) Urine Protein (Negative) Urine Glucose (UA) (Negative) Urine Ketones (Negative) Urine Blood (Negative) Urine Nitrite (Negative) Urine Bilirubin (Negative) Urine Urobilinogen (Negative) Ur Leukocyte Esterase (Negative) Urine WBC (Auto) (0-5) /hpf Urine RBC (Auto) (0-4) /hpf U Hyaline Cast (Auto) (0-5) /lpf U Epithel Cells (Auto) (0-5) /lpf Urine Bacteria (Auto) (Negative) Stool Occult Bld Scrn (Negative) Stl C. diff Tox B Gene (Neg) SARS-CoV-2 (PCR) NEGATIVE (Negative) Influenza Type A (PCR) Negative (Neg) Influenza Type B (PCR) Negative (Neg) RSV (RT-PCR) Negative (Neg) SARS-CoV-2, RNA, NAAT NEGATIVE (NEGATIVE) 02/23/21 02/23/21 02/23/21 Range/Units 16:41 16:41 16:20 WBC 16.89 H (4.8-10.8) K/uL RBC 3.78 L (4.2-5.4) M/uL Hgb 11.8 L (12.0-16.0) g/dL Hct 36.0 L (37-47) % MCV 95.2 (80-100) fL MCH 31.2 (25-34) pg MCHC 32.8 (32-36) g/dL RDW Std Deviation 51.2 H (36.4-46.3) fL RDW Coeff of Jluis 14.6 H (11.5-14.5) % Plt Count 284 (130-400) K/uL MPV 8.9 (7.4-10.4) fL Immature Gran % (Auto) 0.4 % Neut % (Auto) 87.1 % Lymph % (Auto) 4.7 % Mckean % (Auto) 7.6 % Eos % (Auto) 0.1 % Baso % (Auto) 0.1 % Neut # (Auto) 14.71 H (1.4-6.5) K/uL Lymph # (Auto) 0.80 L (1.2-3.4) K/uL Mckean # (Auto) 1.29 H (0.11-0.59) K/uL Eos # (Auto) 0.01 (0-0.5) K/uL Baso # (Auto) 0.02 (0-0.2) K/uL Immature Gran # (Auto) 0.06 H (0.00-0.02) K/uL Sodium 132 L (136-145) mmol/L Potassium 3.3 L (3.5-5.1) mmol/L Chloride 101 (98-107) mmol/L Carbon Dioxide 21 (21-32) mmol/L Anion Gap 10 (3-11) BUN 14 (6-23) mg/dl Creatinine 0.50 L (0.6-1.2) mg/dl Est Cr Clr Drug Dosing Not Reportable Est GFR ( Amer) 103.0 ml/min Est GFR (Non-Af Amer) 88.9 ml/min BUN/Creatinine Ratio (10-20) Glucose (70-99) mg/dl POC Glucose (70-99) mg/dl Fasting Glucose 130 H (70-99) mg/dl Estimat Average Glucose mg/dl Hemoglobin A1c (4.5-5.6) % Calcium 8.5 (8.5-10.1) mg/dl Phosphorus (2.5-4.9) mg/dl Magnesium (1.7-2.4) mg/dl Troponin I 0.03 (0-0.04) ng/ml Urine Color Dark Yellow Urine Appearance Clear (Clear) Urine pH 6.5 (4.5-7.5) Ur Specific [place] 1.017 (1.000-1.030) Urine Protein 1+ H (Negative) Urine Glucose (UA) Negative (Negative) Urine Ketones 2+ H (Negative) Urine Blood Trace H (Negative) Urine Nitrite Negative (Negative) Urine Bilirubin Negative (Negative) Urine Urobilinogen Negative (Negative) Ur Leukocyte Esterase Trace H (Negative) Urine WBC (Auto) 1-5 (0-5) /hpf Urine RBC (Auto) 0-4 (0-4) /hpf U Hyaline Cast (Auto) 1-5 (0-5) /lpf U Epithel Cells (Auto) >30 H (0-5) /lpf Urine Bacteria (Auto) 1+ H (Negative) Stool Occult Bld Scrn (Negative) Stl C. diff Tox B Gene (Neg) SARS-CoV-2 (PCR) (Negative) Influenza Type A (PCR) (Neg) Influenza Type B (PCR) (Neg) RSV (RT-PCR) (Neg) SARS-CoV-2, RNA, NAAT (NEGATIVE) Diagnostic Findings CT abd pelvis IV con only CLINICAL HISTORY: known hernia, abd pain, leukocytosis TECHNIQUE: Helical axial images of the abdomen and pelvis were obtained and displayed. Automated dose lowering techniques and/or adjustment according to patient size were utilized for this exam. This exam was performed with intravenous contrast. COMPARISON: Comparison is made to CT chest 08/05/2019 FINDINGS: Lower chest: No acute abnormality Liver: Unremarkable. No focal lesions are seen. Gallbladder and biliary tree: Patient is status post cholecystectomy. Physiologic prominence of the biliary ducts is noted. Pancreas: Unremarkable, no focal lesions. Spleen: Calcifications are noted in the spleen compatible with prior granulomatous disease. Adrenals: Unremarkable. Kidneys and ureters: Previously noted renal cysts are stable. Bladder: Unremarkable. Reproductive organs: Patient is status post hysterectomy. Bowel: Multiple diverticula are seen. There is wall thickening and fat stranding about the sigmoid colon. Lymph nodes Retroperitoneal: Unremarkable. Mesenteric: Unremarkable. Pelvic: Unremarkable. Peritoneum: Normal Vessels: Unremarkable. Abdominal wall: There is a hernia in the lower midline of the abdomen contains fat and loops of bowel without evidence of acute abnormality. Bones: Degenerative changes in the visualized spine. Postsurgical changes are seen in the lumbosacral spine and right sacroiliac joint. Cement arthroplasty is seen in the upper lumbar spine. IMPRESSION: 1. Findings are compatible with acute diverticulitis without evidence of perforation or abscess. 2. Additional findings as above. No evidence of obstruction in the region of the lower abdominal hernia.
[2021-02-24] MEDS ORDERED: PANTOprazole 40 MG TAB PO SCH (09:00)
[2021-02-24] MEDS ORDERED: NON-FORMULARY MEDICATION (Prevagen 1 TAB) PO SCH (09:00)
[2021-02-24] MEDS ORDERED: CALCIUM PO SCH (09:00)
[2021-02-24] MEDS ORDERED: HEPARIN SOD 5,000 UNIT/0.5 ML VIAL SQ SCH (09:00)
[2021-02-24] MEDS ORDERED: SLOW MAGNESIUM PO SCH (09:00)
[2021-02-24] MEDS ORDERED: PANTOprazole 40 MG in SYRINGE 0 ML IV SCH (11:00)
[2021-02-24] MEDS ORDERED: POTASSIUM CHLORIDE / WTR 10 MEQ/100 ML PLCT IV SCH (11:30)
[2021-02-24] MEDS: NSS + 20MEQ KCL 20 MEQ/1,000 ML BAG IV SCH (11:50)
[2021-02-24] MEDS ORDERED: DILTIAZEM 2% PR SCH (12:30)
[2021-02-24] MEDS ORDERED: POTASSIUM CHLORIDE CRTAB 20 MEQ TABCR PO ONE (13:15)
[2021-02-24] MEDS: INSULIN ASPART PER UNIT SC SCH ×3 (13:23→20:56)
--- NOTE | 2021-02-24 15:18 | Emergency Department Note ---
ED Visit Note Patient was seen and evaluated at the bedside w/ Roseline Suarez PA-C. Please see their note for history, physical, details, and disposition. Patient did present with weakness and abdominal discomfort. White count of 16. CT abdomen pelvis did show diverticulitis. Given patient's white count, source, and tachycardia was suggested the patient be admitted given she qualifies for sepsis. Patient was comfortable with this plan of care. Patient was subsequently admitted to the medicine service. .
--- NOTE | 2021-02-24 19:54 | Hospitalist Progress Note ---
Date of Service February 24, 2021 Assessment & Plan (1) Diverticulitis: Plan: Patient is an 85 yr female who presents with weakness and found to have acute diverticulitis. Acute diverticulitis: -CT ABD:Findings are compatible with acute diverticulitis without evidence of perforation or abscess. Additional findings as above. No evidence of obstruction in the region of the lower abdominal hernia. No acute surgical intervention needed as per surgery Continue IV Zosyn Received IV fluids Needs to complete 10-day course of antibiotics Appreciate GI input Anal Fissure Avoid constipation Management as per GI Recurrent incisional hernia Needs follow-up with surgery as outpatient H/O Clostridium difficile colitis: Continue her home probiotics. Check stool for C. diff. Asthma and allergic rhinitis: No signs of exacerbation Continue home medications Hypertension: Continue losartan. Hyperlipidemia: Continue statin. Possible UTI. Follow-up cultures Continue antibiotics as above Hemepositive stool Plan for colonoscopy currently Appreciate GI input Monitor CBC Hypothyroidism: Continue Levothyroxine GERD Continue Protonix. DM II HbA1c 6.5 Currently not on medications DVT Px: SCDs for now CODE STATUS Full code Admission and Anticipated Discharge Date Admission Date: February 23, 2021 Subjective Patient is seen and examined at bedside Reports chronic diarrhea Denies any significant abdominal pain Also denies any chest pain, shortness of breath, dizziness, nausea Review of Systems Review of Systems: All systems reviewed & are unremarkable except as noted in Subjective Physical Exam Physical Exam: Physical Exam: Vitals signs as noted above General Appearance:Moderately built and nourished, no apparent distress Head: normocephalic, Atraumatic Eyes: normal inspection, EOMI Neck: supple, Trachea midline Respiratory/Chest: Normal breath sounds, CTA Cardiovascular: S1, S2, No murmur Abdomen/GI:Soft, +Umbilical hernia, +tender, Bowel sounds present Extremities/Musculoskeletal:normal inspection, no edema Neurologic/Psych:AAOX3, grossly no focal neurological deficits Skin: normal color, warm Results & Data Results & Data ([facility]) Vital Signs (Past 12 Hours) Vital Signs Temp Pulse Resp BP Pulse Ox 02/24/21 15:36 36.4 C L 84 14 119/62 98 Laboratory Results Short CBC 02/24/21 Range/Units 05:47 WBC 13.88 H (4.8-10.8) K/uL Hgb 12.0 (12.0-16.0) g/dL Hct 37.4 (37-47) % Plt Count 305 (130-400) K/uL BMP 02/24/21 05:47 Sodium 135 L Potassium 3.4 L Chloride 103 Carbon Dioxide 24 BUN 12 Creatinine 0.55 L Glucose 175 H Calcium 8.5
[2021-02-24] MEDS: traZODone HCL 50 MG TAB PO SCH (20:51)
[2021-02-25] MEDS: NSS + 20MEQ KCL 20 MEQ/1,000 ML BAG IV SCH (02:16)
[2021-02-25] MEDS: PIPERACILLIN/TAZOBACTAM 3.375 GM in DEXTROSE 5% 100 ML IV SCH ×3 (06:01→21:59)
[2021-02-25] MEDS: LEVOTHYROXINE SODIUM 100 MCG TABLET PO SCH (06:02)
[2021-02-25 07:09] LABS: Hematocrit (blood only) 33.7 % (37-47); Hemoglobin 10.5 g/dL (12.0-16.0); Mean Corpuscular Hemoglobin 30.5 pg (25-34); Mean Corpuscular Hgb Conc 31.2 g/dL (32-36); Mean Platelet Volume 8.9 fL (7.4-10.4); Platelet Count 233 K/uL (130-400); RDW Coefficient of Variation 15.2 % (11.5-14.5); RDW Standard Deviation 54.5 fL (36.4-46.3); Red Blood Count 3.44 M/uL (4.2-5.4); White Blood Count 7.74 K/uL (4.8-10.8)
[2021-02-25] MEDS: RESTASIS~ORDER AWAITING ACTION SCH ×3 (07:22→22:02)
[2021-02-25 07:31] LABS: Calcium 7.8 mg/dl (8.5-10.1); Est GFR (Non-African American) 88.9 ml/min; Potassium 3.4 mmol/L (3.5-5.1)
[2021-02-25] MEDS: INSULIN ASPART PER UNIT SC SCH ×4 (08:24→20:49)
[2021-02-25] MEDS: ATORVASTATIN 40 MG TAB PO SCH (08:40)
[2021-02-25] MEDS: FUROSEMIDE 20 MG TAB PO SCH (08:40)
[2021-02-25] MEDS: GABAPENTIN 300 MG CAP PO SCH ×2 (08:40→19:54)
[2021-02-25] MEDS: METOPROLOL TARTRATE 25 MG TAB PO SCH ×2 (08:40→19:54)
[2021-02-25] MEDS: MONTELUKAST SODIUM 10 MG TABLET PO SCH (08:40)
[2021-02-25] MEDS: FLUTICASONE PROPIONATE NA SPR 16 GM BTL SCH (08:40)
[2021-02-25] MEDS: MULTIVITAMIN TAB PO SCH (08:40)
[2021-02-25] MEDS: LORATADINE 10 MG TAB PO SCH (08:40)
[2021-02-25] MEDS: LOSARTAN POTASSIUM 25 MG TAB PO SCH (08:40)
[2021-02-25] MEDS: ASPIRIN 81 MG ECTAB PO SCH (08:40)
[2021-02-25] MEDS: ADVANCED PROBIOTIC 1250 MG CAPSULE PO SCH (08:41)
[2021-02-25] MEDS: PANTOprazole 40 MG TAB PO SCH (10:34)
[2021-02-25] MEDS ORDERED: POTASSIUM CHLORIDE CRTAB 20 MEQ TABCR PO ONE (12:02)
--- NOTE | 2021-02-25 12:35 | Surgery Progress Note ---
Date of Service February 25, 2021 Assessment & Plan (1) Diverticulitis large intestine: (2) Anal fissure: (3) History of incisional hernia repair: Plan: 85 year old female who presented to emergency department for weakness found to have uncomplicated sigmoid diverticulitis on CT scan as well as anal fissure on rectal examination for Hemoccult stools and pink/tinged bloody/mucous after bowel movements. Also has abdominal wall hernia containing bowel with no evide nce of obstruction. 02/25/2021: afebrile, vss leukocytosis resolved LLQ pain improved now with RLQ pain on palpation, no rigidity or peritonitis Plan: No acute surgical intervention required at this time. Continue current management of her acute sigmiod diverticulitis with IV Zosyn, pain management as needed. Advance diet as tolerated to low fiber GI recommendations for anal fissure and recommend deferring colonoscopy in 2 months given age and recent c-scope in 2019. Low fiber diet for next 4-6 weeks and then high fiber diet following for diverticulitis As for the recurrent incisional hernia, patient could follow up with Dr. Lopez as outpatient to discuss surgical correction if she is interested in this. Dr. Lopez has seen patient and agrees with above. Admission and Anticipated Discharge Date Admission Date: February 23, 2021 Subjective feeling better in regards to abdominal pain, more pain on right side today but not at hernia site mostly pain in rectum due to fissure loose stool no n/v tolerated clear liquids Physical Exam Constitutional: WD/WN, vitals as above no acute distress and not ill appearing Neck: normal visual inspection and trachea midline Respiratory: normal respiratory effort; no respiratory distress, no labored breathing and no retractions Gastrointestinal (Abdomen): Inspection/Auscultation: + visible herniation (right mid abdomen, reducible, nontender) and + abdominal surgical scar (midline laparotomy scar); abdomen not distended Percussion/Palpation: + abdomen tender (RLQ on mild palpation, LLQ pain improved), + guarding (RLQ), abdomen soft and + hernia (right mid abdomen, reducible); abdomen not rigid Skin: no rashes, warm and dry Psychiatric: A+Ox3, euthymic affect Results & Data ([facility]) Vital Signs (Past 12 Hours) Vital Signs Temp Pulse Resp BP Pulse Ox 02/25/21 07:49 36.6 C 79 17 155/71 H 96 Laboratory Results 02/25/21 02/25/21 02/25/21 Range/Units 12:08 08:18 06:29 WBC (4.8-10.8) K/uL RBC (4.2-5.4) M/uL Hgb (12.0-16.0) g/dL Hct (37-47) % MCV (80-100) fL MCH (25-34) pg MCHC (32-36) g/dL RDW Std Deviation (36.4-46.3) fL RDW Coeff of Jluis (11.5-14.5) % Plt Count (130-400) K/uL MPV (7.4-10.4) fL Sodium 139 (136-145) mmol/L Potassium 3.4 L (3.5-5.1) mmol/L Chloride 110 H (98-107) mmol/L Carbon Dioxide 23 (21-32) mmol/L Anion Gap 6 (3-11) BUN 8 (6-23) mg/dl Creatinine 0.50 L (0.6-1.2) mg/dl Est Cr Clr Drug Dosing 84.0 ml/min Est GFR ( Amer) 103.0 ml/min Est GFR (Non-Af Amer) 88.9 ml/min BUN/Creatinine Ratio 16.0 (10-20) Glucose 113 H (70-99) mg/dl POC Glucose 127 H 114 H (70-99) mg/dl Calcium 7.8 L (8.5-10.1) mg/dl 02/25/21 02/24/21 02/24/21 Range/Units 06:29 20:34 17:32 WBC 7.74 (4.8-10.8) K/uL RBC 3.44 L (4.2-5.4) M/uL Hgb 10.5 L (12.0-16.0) g/dL Hct 33.7 L (37-47) % MCV 98.0 (80-100) fL MCH 30.5 (25-34) pg MCHC 31.2 L (32-36) g/dL RDW Std Deviation 54.5 H (36.4-46.3) fL RDW Coeff of Jluis 15.2 H (11.5-14.5) % Plt Count 233 (130-400) K/uL MPV 8.9 (7.4-10.4) fL Sodium (136-145) mmol/L Potassium (3.5-5.1) mmol/L Chloride (98-107) mmol/L Carbon Dioxide (21-32) mmol/L Anion Gap (3-11) BUN (6-23) mg/dl Creatinine (0.6-1.2) mg/dl Est Cr Clr Drug Dosing ml/min Est GFR ( Amer) ml/min Est GFR (Non-Af Amer) ml/min BUN/Creatinine Ratio (10-20) Glucose (70-99) mg/dl POC Glucose 203 H 104 H (70-99) mg/dl Calcium (8.5-10.1) mg/dl
--- NOTE | 2021-02-25 16:22 | Hospitalist Progress Note ---
Date of Service February 25, 2021 Assessment & Plan (1) Diverticulitis: Plan: This is an 85-year-old female with past medical history significant for type 2 diabetes, hypothyroidism, hyperlipidemia, chronic seasonal allergic rhinitis, nocturnal hypoxemia, mild persistent asthma without complication, atherosclerosis of aorta, lymphedema, varicosities of lower extremities, hypertension, atherosclerotic cardiovascular disease, GERD, irritable bowel syndrome with both constipation and diarrhea, urinary incontinence, recurrent UTI, senile osteoporosis, trigger finger of the right hand, tenosynovitis, history of compression fracture of T12 vertebra, sensorineural hearing loss bilateral, history of diverticulitis, history of C. diff, history of incisional hernia without obstruction, who lives at home with her , comes because of weakness. Found to have acute diverticulitis. Acute diverticulitis CT ABD:Findings are compatible with acute diverticulitis without evidence of perforation or abscess. No evidence of obstruction in the region of the lower abdominal hernia. No acute surgical intervention needed as per surgery Continue IV Zosyn, Needs to complete 10-day course of antibiotics Received IV fluids Tolerating clear liquids, will advance diet today. Low fiber diet for next 4-6 weeks and then high fiber diet following for diverticulitis Per GI - Would defer f/u colonoscopy due to age and because she has undergone colonoscopy several times in the past, most recently April 2019. Anal Fissure Avoid constipation Per GI - provide the pt with a prescription for tx of anal fissure, to be compounded/filled at [facility]: Cardizem 2% rectal ointment. Apply a small amt to anus BID. Recurrent incisional hernia Needs follow-up with surgery as outpatient Abnormal UA Urine culture negative Hemepositive stool In the setting of anal fissure and diverticulitis No plan for colonoscopy at this time Hgb stable 10.5 H/O Clostridium difficile colitis: Continue her home probiotics. Stool negative for C. difficile Asthma and allergic rhinitis: No signs of exacerbation Continue home medications Hypertension: BP controlled, continue losartan, metoprolol, furosemide Hyperlipidemia: Continue statin. Hypothyroidism: Continue Levothyroxine GERD Continue Protonix. DM II HbA1c 6.5 Currently not on medications, would allow for more labile control due to advanced age DVT Px: SCDs due to heme positive stool Dispo -likely discharge home tomorrow Admission and Anticipated Discharge Date Admission Date: February 23, 2021 Supervising Physician Co-Signing Physician Notes Patient is seen and examined at bedside. States having diarrhea, anal fissure pain. Denies any nausea, vomiting, abdominal pain, chest pain, dyspnea. Tolerating diet. On exam patient is moderately built and nourished, no apparent distress, normocephalic atraumatic, EOMI, normal breath sounds, clear to auscultation, S1-S2, no murmur, abdomen soft, left lower quadrant tender,+ umbilical hernia, no pedal edema, grossly no focal deficits. Continue IV Zosyn for acute diverticulitis. Advance diet as tolerated. Needs follow-up with GI and surgery upon discharge. Stool for C. difficile is negative. Continue probiotics. I personally reviewed the record. Patient is interviewed and examined at bedside. Patient's care is coordinated with Halina Davis NP. Please refer to the documentation above for details of patient's presentation and for discussion of other issues. Subjective Patient seen and examined. Follow-up for diverticulitis and anal fissure. Patient reports she is tolerating clear liquids. No nausea abdominal pain. Stools are soft/loose. Denies chest pain and shortness of breath. Remains afebrile. Review of Systems Review of Systems: ROS per HPI, all other systems reviewed and negative Physical Exam Constitutional: no acute distress Respiratory: normal respiratory effort, lungs clear to auscultation Cardiovascular: Rate/Rhythm: regular rate and regular rhythm Vessels: normal peripheral pulses Extremities: no edema Gastrointestinal (Abdomen): Inspection/Auscultation: abdomen not distended Percussion/Palpation: abdomen soft; abdomen nontender Skin: no rashes, warm and dry Neurologic: no focal motor deficits Psychiatric: A+Ox3, euthymic affect Results & Data Results & Data ([facility]) Vital Signs (Past 12 Hours) Vital Signs Temp Pulse Resp BP Pulse Ox 02/25/21 15:16 36.7 C 101 H 17 125/74 98 02/25/21 07:49 36.6 C 79 17 155/71 H 96 Laboratory Results Short CBC 02/25/21 Range/Units 06:29 WBC 7.74 (4.8-10.8) K/uL Hgb 10.5 L (12.0-16.0) g/dL Hct 33.7 L (37-47) % Plt Count 233 (130-400) K/uL BMP 02/25/21 06:29 Sodium 139 Potassium 3.4 L Chloride 110 H Carbon Dioxide 23 BUN 8 Creatinine 0.50 L Glucose 113 H Calcium 7.8 L
[2021-02-25] MEDS: traZODone HCL 50 MG TAB PO SCH (19:54)
[2021-02-26] MEDS: LEVOTHYROXINE SODIUM 100 MCG TABLET PO SCH (05:56)
[2021-02-26] MEDS: PIPERACILLIN/TAZOBACTAM 3.375 GM in DEXTROSE 5% 100 ML IV SCH (05:57)
[2021-02-26 08:21] LABS: Hemoglobin 11.6 g/dL (12.0-16.0); Mean Corpuscular Hemoglobin 30.6 pg (25-34); Mean Corpuscular Hgb Conc 31.4 g/dL (32-36); Mean Corpuscular Volume 97.6 fL (80-100); Mean Platelet Volume 9.1 fL (7.4-10.4); Platelet Count 265 K/uL (130-400); RDW Coefficient of Variation 15.2 % (11.5-14.5); RDW Standard Deviation 54.5 fL (36.4-46.3); Red Blood Count 3.79 M/uL (4.2-5.4)
[2021-02-26] MEDS: FLUTICASONE PROPIONATE NA SPR 16 GM BTL SCH (08:33)
[2021-02-26] MEDS: INSULIN ASPART PER UNIT SC SCH ×4 (08:33→20:51)
[2021-02-26] MEDS: LACTOBACILLUS ACIDOPHILUS 1 GM PACK PO SCH ×3 (08:34→17:23)
[2021-02-26] MEDS: RESTASIS~ORDER AWAITING ACTION SCH ×2 (08:34→17:22)
[2021-02-26] MEDS: METOPROLOL TARTRATE 25 MG TAB PO SCH ×2 (08:34→19:25)
[2021-02-26] MEDS: GABAPENTIN 300 MG CAP PO SCH ×2 (08:34→19:24)
[2021-02-26] MEDS: PANTOprazole 40 MG TAB PO SCH (08:35)
[2021-02-26] MEDS: ASPIRIN 81 MG ECTAB PO SCH (08:35)
[2021-02-26] MEDS: MULTIVITAMIN TAB PO SCH (08:36)
[2021-02-26] MEDS: ATORVASTATIN 40 MG TAB PO SCH (08:36)
[2021-02-26] MEDS: LOSARTAN POTASSIUM 25 MG TAB PO SCH (08:36)
[2021-02-26] MEDS: FUROSEMIDE 20 MG TAB PO SCH (08:36)
[2021-02-26] MEDS: MONTELUKAST SODIUM 10 MG TABLET PO SCH (08:36)
[2021-02-26] MEDS: LORATADINE 10 MG TAB PO SCH (08:36)
[2021-02-26 08:42] LABS: BUN Creatinine Ratio 10.6 (10-20); Calcium 7.9 mg/dl (8.5-10.1); Creatinine Clr Calc Pharmacy 89.3 ml/min; Est GFR (African American) 105.1 ml/min; Est GFR (Non-African American) 90.7 ml/min; Potassium 3.2 mmol/L (3.5-5.1)
--- NOTE | 2021-02-26 09:58 | Surgery Progress Note ---
Date of Service February 26, 2021 Assessment & Plan (1) Diverticulitis large intestine: (2) Anal fissure: (3) History of incisional hernia repair: Plan: 85 year old female who presented to emergency department for weakness found to have uncomplicated sigmoid diverticulitis on CT scan as well as anal fissure on rectal examination for Hemoccult stools and pink/tinged bloody/mucous after bowel movements. Also has abdominal wall hernia containing bowel with no evide nce of obstruction. 02/26/2021: afebrile, vss leukocytosis resolved abdominal pain more in RLQ only on examination Plan: No acute surgical intervention required at this time. Transition to oral abx on discharge GI recommendations for anal fissure and recommend deferring colonoscopy in 2 months given age and recent c-scope in 2019. Low fiber diet for next 4-6 weeks and then high fiber diet following for diverticulitis As for the recurrent incisional hernia, patient could follow up with Dr. Lopez as outpatient to discuss surgical correction if she is interested in this. our services signing off Dr. Lopez has seen patient and agrees with above. Admission and Anticipated Discharge Date Admission Date: February 23, 2021 Subjective feeling better today pain in abdomen only when pressed upon, no pain with sitting, moving diet advanced to low fiber and tolerated well no n,v pain complaint in the rectal/anal pain from fissure Physical Exam Constitutional: WD/WN, vitals as above no acute distress and not ill appearing Neck: normal visual inspection and trachea midline Respiratory: normal respiratory effort; no respiratory distress, no labored breathing and no retractions Gastrointestinal (Abdomen): Inspection/Auscultation: abdomen normal to inspection, + visible herniation and + abdominal surgical scar; abdomen not distended Percussion/Palpation: + abdomen tender (RLQ and at site of hernia but hernia reducible), abdomen soft and + hernia (lower abdominal hernia, reducible); no guarding and abdomen not rigid Skin: no rashes, warm and dry Psychiatric: Orientation: alert and oriented x 3 Results & Data ([facility]) Vital Signs (Past 12 Hours) Vital Signs Temp Pulse Resp BP Pulse Ox 02/26/21 07:44 36.4 C L 85 18 145/74 H 97 02/25/21 22:02 36.6 C 78 19 123/71 96 Laboratory Results 02/26/21 02/26/2122 Range/Units 08:05 08:00 08:00 WBC 8.10 (4.8-10.8) K/uL RBC 3.79 L (4.2-5.4) M/uL Hgb 11.6 L (12.0-16.0) g/dL Hct 37.0 (37-47) % MCV 97.6 (80-100) fL MCH 30.6 (25-34) pg MCHC 31.4 L (32-36) g/dL RDW Std Deviation 54.5 H (36.4-46.3) fL RDW Coeff of Jluis 15.2 H (11.5-14.5) % Plt Count 265 (130-400) K/uL MPV 9.1 (7.4-10.4) fL Sodium 138 (136-145) mmol/L Potassium 3.2 L (3.5-5.1) mmol/L Chloride 106 (98-107) mmol/L Carbon Dioxide 26 (21-32) mmol/L Anion Gap 6 (3-11) BUN 5 L (6-23) mg/dl Creatinine 0.47 L (0.6-1.2) mg/dl Est Cr Clr Drug Dosing 89.3 ml/min Est GFR ( Amer) 105.1 ml/min Est GFR (Non-Af Amer) 90.7 ml/min BUN/Creatinine Ratio 10.6 (10-20) Glucose 108 H (70-99) mg/dl POC Glucose 96 (70-99) mg/dl Calcium 7.9 L (8.5-10.1) mg/dl 02/25/21 02/25/21 02/25/21 Range/Units 20:22 17:07 12:08 WBC (4.8-10.8) K/uL RBC (4.2-5.4) M/uL Hgb (12.0-16.0) g/dL Hct (37-47) % MCV (80-100) fL MCH (25-34) pg MCHC (32-36) g/dL RDW Std Deviation (36.4-46.3) fL RDW Coeff of Jluis (11.5-14.5) % Plt Count (130-400) K/uL MPV (7.4-10.4) fL Sodium (136-145) mmol/L Potassium (3.5-5.1) mmol/L Chloride (98-107) mmol/L Carbon Dioxide (21-32) mmol/L Anion Gap (3-11) BUN (6-23) mg/dl Creatinine (0.6-1.2) mg/dl Est Cr Clr Drug Dosing ml/min Est GFR ( Amer) ml/min Est GFR (Non-Af Amer) ml/min BUN/Creatinine Ratio (10-20) Glucose (70-99) mg/dl POC Glucose 152 H 188 H 127 H (70-99) mg/dl Calcium (8.5-10.1) mg/dl
[2021-02-26] MEDS ORDERED: POTASSIUM CHLORIDE CRTAB 20 MEQ TABCR PO STA (09:59)
--- NOTE | 2021-02-26 14:14 | Hospitalist Progress Note ---
Date of Service February 26, 2021 Assessment & Plan (1) Diverticulitis: Plan: This is an 85-year-old female with past medical history significant for type 2 diabetes, hypothyroidism, hyperlipidemia, chronic seasonal allergic rhinitis, nocturnal hypoxemia, mild persistent asthma without complication, atherosclerosis of aorta, lymphedema, varicosities of lower extremities, hypertension, atherosclerotic cardiovascular disease, GERD, irritable bowel syndrome with both constipation and diarrhea, urinary incontinence, recurrent UTI, senile osteoporosis, trigger finger of the right hand, tenosynovitis, history of compression fracture of T12 vertebra, sensorineural hearing loss bilateral, history of diverticulitis, history of C. diff, history of incisional hernia without obstruction, who lives at home with her , comes because of weakness. Found to have acute diverticulitis. Acute diverticulitis CT ABD:Findings are compatible with acute diverticulitis without evidence of perforation or abscess. No evidence of obstruction in the region of the lower abdominal hernia. No acute surgical intervention needed as per surgery Received IV Zosyn 02/24 - 02/26 Due to reports of nausea, abdominal cramping, diarrhea, will transition patient to p.o. Augmentin today. Will need a 10-day course of antibiotics. Probiotic started yesterday. Change diet back to clear liquids. Recheck for C. difficile. Received IV fluids Low fiber diet for next 4-6 weeks and then high fiber diet following for diverticulitis Per GI - Would defer f/u colonoscopy due to age and because she has undergone colonoscopy several times in the past, most recently April 2019. Anal Fissure Avoid constipation Per GI - provide the pt with a prescription for tx of anal fissure, to be compounded/filled at [facility]: Cardizem 2% rectal ointment. Apply a small amt to anus BID. Recurrent incisional hernia Needs follow-up with surgery as outpatient Abnormal UA Urine culture negative Hemepositive stool In the setting of anal fissure and diverticulitis No plan for colonoscopy at this time Hgb stable 11.6 H/O Clostridium difficile colitis: Continue her home probiotics. Stool negative for C. difficile Asthma and allergic rhinitis: No signs of exacerbation Continue home medications Hypertension: BP controlled, continue losartan, metoprolol, furosemide Hyperlipidemia: Continue statin. Hypothyroidism: Continue Levothyroxine GERD Continue Protonix. DM II HbA1c 6.5 Currently not on medications, would allow for more labile control due to advanced age DVT Px: SCDs due to heme positive stool Dispo -likely discharge home tomorrow Admission and Anticipated Discharge Date Admission Date: February 23, 2021 Supervising Physician Co-Signing Physician Notes Patient is seen and examined at bedside. Patient states having abdominal discomfort associated with diarrhea today. Diet changed to clear liquid today. On exam patient is moderately built and nourished, no apparent distress, normocephalic atraumatic, EOMI, normal breath sounds, clear to auscultation, S1- S2, no murmur, abdomen soft, left lower quadrant tender,+ umbilical hernia, no pedal edema, grossly no focal deficits. We will recheck stool for C. difficile if continues to have diarrhea. Consider changing IV antibiotics to p.o. Needs follow-up with GI and surgery upon discharge. Continue probiotics. I personally reviewed the record. Patient is interviewed and examined at bedside. Patient's care is coordinated with Halina Davis CALL OUT OPERATOR. Please refer to the documentation above for details of patient's presentation and for discussion of other issues. Subjective Patient seen and examined. Follow-up for acute diverticulitis and anal fissure. Patient reports increased abdominal cramping and diarrhea this morning. Also has some mild associated nausea, no vomiting. Denies chest pain and shortness of breath. Remains afebrile. Review of Systems Review of Systems: ROS per HPI, all other systems reviewed and negative Physical Exam Constitutional: Appears uncomfortable however in no acute distress Respiratory: normal respiratory effort, lungs clear to auscultation Cardiovascular: Rate/Rhythm: regular rate and regular rhythm Vessels: normal peripheral pulses Extremities: no edema Gastrointestinal (Abdomen): Inspection/Auscultation: abdomen not distended Percussion/Palpation: + abdomen tender (Generalized tenderness to palpation) and abdomen soft Skin: no rashes, warm and dry Neurologic: no focal motor deficits Psychiatric: A+Ox3, euthymic affect Results & Data Results & Data ([facility]) Vital Signs (Past 12 Hours) Vital Signs Temp Pulse Resp BP Pulse Ox 02/26/21 07:44 36.4 C L 85 18 145/74 H 97 Laboratory Results Short CBC 02/26/21 Range/Units 08:00 WBC 8.10 (4.8-10.8) K/uL Hgb 11.6 L (12.0-16.0) g/dL Hct 37.0 (37-47) % Plt Count 265 (130-400) K/uL BMP 02/26/21 08:00 Sodium 138 Potassium 3.2 L Chloride 106 Carbon Dioxide 26 BUN 5 L Creatinine 0.47 L Glucose 108 H Calcium 7.9 L
[2021-02-26] MEDS ORDERED: AMOXICILLIN/CLAVULANATE 875 MG TAB PO SCH (16:00)
[2021-02-26] MEDS ORDERED: PIPERACILL/TAZOBAC CONSULT ACTIVE PRN (17:57)
[2021-02-26] MEDS ORDERED: PIPERACILLIN/TAZOBACTAM 3.375 GM in DEXTROSE 5% 100 ML IV SCH (18:00)
[2021-02-26] MEDS ORDERED: PIPERACILLIN/TAZOBACTAM 3.375 GM in DEXTROSE 5% 100 ML IV ONE (18:15)
[2021-02-26] MEDS: traZODone HCL 50 MG TAB PO SCH (19:25)
[2021-02-27] MEDS: RESTASIS~ORDER AWAITING ACTION SCH ×2 (00:03→08:11)
[2021-02-27] MEDS: PIPERACILLIN/TAZOBACTAM 3.375 GM in DEXTROSE 5% 100 ML IV SCH ×2 (00:25→08:02)
[2021-02-27] MEDS: LEVOTHYROXINE SODIUM 100 MCG TABLET PO SCH (05:42)
[2021-02-27 06:42] LABS: Hematocrit (blood only) 34.3 % (37-47); Mean Corpuscular Hemoglobin 30.9 pg (25-34); Mean Corpuscular Hgb Conc 32.1 g/dL (32-36); Mean Corpuscular Volume 96.3 fL (80-100); Mean Platelet Volume 9.1 fL (7.4-10.4); Platelet Count 244 K/uL (130-400); RDW Coefficient of Variation 14.9 % (11.5-14.5); RDW Standard Deviation 53.1 fL (36.4-46.3); Red Blood Count 3.56 M/uL (4.2-5.4); White Blood Count 9.64 K/uL (4.8-10.8)
[2021-02-27 07:19] LABS: BUN Creatinine Ratio 9.3 (10-20); Calcium 7.8 mg/dl (8.5-10.1); Creatinine Clr Calc Pharmacy 97.7 ml/min; Est GFR (African American) 108.3 ml/min; Est GFR (Non-African American) 93.4 ml/min; Magnesium 1.3 mg/dl (1.7-2.4); Potassium 3.2 mmol/L (3.5-5.1)
[2021-02-27] MEDS: ATORVASTATIN 40 MG TAB PO SCH (08:10)
[2021-02-27] MEDS: LORATADINE 10 MG TAB PO SCH (08:12)
[2021-02-27] MEDS: METOPROLOL TARTRATE 25 MG TAB PO SCH (08:12)
[2021-02-27] MEDS: FUROSEMIDE 20 MG TAB PO SCH (08:12)
[2021-02-27] MEDS: MULTIVITAMIN TAB PO SCH (08:12)
[2021-02-27] MEDS: ASPIRIN 81 MG ECTAB PO SCH (08:12)
[2021-02-27] MEDS: MONTELUKAST SODIUM 10 MG TABLET PO SCH (08:12)
[2021-02-27] MEDS: PANTOprazole 40 MG TAB PO SCH (08:12)
[2021-02-27] MEDS: LOSARTAN POTASSIUM 25 MG TAB PO SCH (08:13)
[2021-02-27] MEDS: GABAPENTIN 300 MG CAP PO SCH (08:13)
[2021-02-27] MEDS: FLUTICASONE PROPIONATE NA SPR 16 GM BTL SCH (08:13)
[2021-02-27] MEDS: LACTOBACILLUS ACIDOPHILUS 1 GM PACK PO SCH ×2 (08:34→13:17)
[2021-02-27] MEDS ORDERED: POTASSIUM CHLORIDE CRTAB 20 MEQ TABCR PO ONE (09:11)
[2021-02-27] MEDS ORDERED: MAGNESIUM CHLORIDE 64MG DELAYED REL TAB PO SCH (09:15)
[2021-02-27] MEDS: INSULIN ASPART PER UNIT SC SCH ×2 (09:46→13:19)
--- NOTE | 2021-02-27 14:11 | Hospitalist Progress Note ---
Date of Service February 27, 2021 Assessment & Plan (1) Diverticulitis: Plan: This is an 85-year-old female with past medical history significant for type 2 diabetes, hypothyroidism, hyperlipidemia, chronic seasonal allergic rhinitis, nocturnal hypoxemia, mild persistent asthma without complication, atherosclerosis of aorta, lymphedema, varicosities of lower extremities, hypertension, atherosclerotic cardiovascular disease, GERD, irritable bowel syndrome with both constipation and diarrhea, urinary incontinence, recurrent UTI, senile osteoporosis, trigger finger of the right hand, tenosynovitis, history of compression fracture of T12 vertebra, sensorineural hearing loss bilateral, history of diverticulitis, history of C. diff, history of incisional hernia without obstruction, who lives at home with her , comes because of weakness. Found to have acute diverticulitis. Acute diverticulitis CT ABD:Findings are compatible with acute diverticulitis without evidence of perforation or abscess. No evidence of obstruction in the region of the lower abdominal hernia. No acute surgical intervention needed as per surgery Received IV Zosyn 02/24 - 02/27 Due to reports of nausea, abdominal cramping, diarrhea, will transition patient to p.o. Augmentin today. Will need a 10-day course of antibiotics. Recheck for C. difficile--negative Received IV fluids Tolerated low fiber diet Per GI - Would defer f/u colonoscopy due to age and because she has undergone colonoscopy several times in the past, most recently April 2019. Transition to Augmentin upon discharge Anal Fissure Avoid constipation Per GI - provide the pt with a prescription for tx of anal fissure, to be compounded/filled at [facility]: Cardizem 2% rectal ointment. Apply a small amt to anus BID. Recurrent incisional hernia Needs follow-up with surgery as outpatient Abnormal UA Urine culture negative Hemepositive stool In the setting of anal fissure and diverticulitis No plan for colonoscopy at this time Hgb stable H/O Clostridium difficile colitis: Continue her home probiotics. Stool negative for C. difficile X 2 Asthma and allergic rhinitis: No signs of exacerbation Continue home medications Hypertension: BP controlled, continue losartan, metoprolol, furosemide Hyperlipidemia: Continue statin. Hypothyroidism: Continue Levothyroxine GERD Continue Protonix. DM II HbA1c 6.5 Currently not on medications, would allow for more labile control due to advanced age DVT Px: SCDs due to heme positive stool Dispo -home Admission and Anticipated Discharge Date Admission Date: February 23, 2021 Subjective Patient seen and examined at bedside States feeling well today Diarrhea much improved Tolerated low fiber diet Denies any abdominal pain, chest pain and shortness of breath. No other complaints Review of Systems Review of Systems: All systems reviewed & are unremarkable except as noted in Subjective Physical Exam Physical Exam: Physical Exam: Vitals signs as noted above General Appearance:Moderately built and nourished, no apparent distress Head: normocephalic, Atraumatic Eyes: normal inspection, EOMI Neck: supple, Trachea midline Respiratory/Chest: Normal breath sounds, CTA Cardiovascular: S1, S2, No murmur Abdomen/GI:Soft, +Umbilical hernia, non tender, Bowel sounds present Extremities/Musculoskeletal:normal inspection, no edema Neurologic/Psych:AAOX3, grossly no focal neurological deficits Skin: normal color, warm Results & Data Results & Data ([facility]) Vital Signs (Past 12 Hours) Vital Signs Temp Pulse Resp BP Pulse Ox 02/27/21 07:10 36.7 C 81 18 147/73 H 96 Laboratory Results Short CBC 02/27/21 Range/Units 06:02 WBC 9.64 (4.8-10.8) K/uL Hgb 11.0 L (12.0-16.0) g/dL Hct 34.3 L (37-47) % Plt Count 244 (130-400) K/uL BMP 02/27/21 06:02 Sodium 138 Potassium 3.2 L Chloride 104 Carbon Dioxide 28 BUN 4 L Creatinine 0.43 L Glucose 112 H Calcium 7.8 L
--- NOTE | 2021-02-27 14:43 | Discharge Summary ---
Date of Service February 27, 2021 Admission HPI Per Admitting Provider CHIEF COMPLAINT: Weakness. 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 diff, history of incisional hernia without obstruction, who lives at home with her , comes because of weakness. Apparently, the patient was in the bath tub and she was not able to get up and EMS was called and she was weak and she was brought in here and found to have acute diverticulitis. The patient states she has a cough for the last few days, she has abdominal pain for the last couple of weeks and diarrhea for a couple of weeks and she says she noticed some blood in the stools, mucosy blood. Has some ongoing runny nose, cough for a couple of days. Denies any fever. Appetite is good. No dysphagia. No headache, no chest pain, no shortness of breath. No nausea currently. Has chronic lower extremity edema. Ambulates with a walker at home. She lives with her , daughter lives in the town. Admission Exam Per Admitting Provider PHYSICAL EXAMINATION: GENERAL: The patient is old and frail, not in acute distress. VITAL SIGNS: Temperature 36.8, pulse 79, respiratory rate 18, blood pressure 182/86, oxygen 98% on room air. HEENT: Pupils equal, round and reactive to light. Oral mucosa moist. NECK: No JVD, no neck masses. CARDIOVASCULAR: S1 and S2 heard. Regular rate and rhythm. No murmur, no gallop. RESPIRATORY SYSTEM: Normal AP diameter. No accessory muscle use. No wheezing, no crackles. ABDOMEN: Soft, bowel sounds present. Tenderness in the umbilical hernia region. Mild guarding, no rigidity, no distention. CENTRAL NERVOUS SYSTEM: Cranial nerves II-XII grossly intact and nonfocal. Alert and oriented x3, somewhat difficult with the current date, but able to tell month and year. No facial droop. Obeys simple commands. Moves extremities. EXTREMITIES: Bilateral lower extremity edema present, no erythema seen. Principal Diagnosis Acute diverticulitis Anal Fissure Recurrent incisional hernia Discharge Data Allergies Allergy/AdvReac Type Severity Reaction Status Date / Time Sulfa (Sulfonamide Allergy Intermediate RINGS ON Verified 02/23/21 17:24 Antibiotics) SKIN simvastatin Allergy Mild RED Verified 02/23/21 17:24 CIRCLES-HAS TOLERATED LIPITOR pyrilamine Allergy Unknown VOMITING Verified 02/23/21 17:24 ether AdvReac Intermediate NAUSEA/VOMI Verified 02/23/21 17:24 TING tramadol AdvReac Intermediate NAUSEA/VOMI Verified 02/23/21 17:24 TING codeine AdvReac Mild N/V Verified 02/23/21 17:24 Iodinated Contrast Media AdvReac Mild HIVES/BURNING Verified 02/23/21 17:24 AT IV SITE AND UP VEIN morphine AdvReac Mild VOMITING Verified 02/23/21 17:24 Consultations 02/23/21 20:48 ED Decision to Admit Stat 02/24/21 08:00 Consult Gastroenterology Routine Consult General Surgery Routine Ordered Studies 02/23/21 17:42 CT abd pelvis IV con only Stat Hospital Course (1) Diverticulitis: This is an 85-year-old female with past medical history significant for type 2 diabetes, hypothyroidism, hyperlipidemia, chronic seasonal allergic rhinitis, nocturnal hypoxemia, mild persistent asthma without complication, atherosclerosis of aorta, lymphedema, varicosities of lower extremities, hypertension, atherosclerotic cardiovascular disease, GERD, irritable bowel syndrome with both constipation and diarrhea, urinary incontinence, recurrent UTI, senile osteoporosis, trigger finger of the right hand, tenosynovitis, history of compression fracture of T12 vertebra, sensorineural hearing loss bilateral, history of diverticulitis, history of C. diff, history of incisional hernia without obstruction, who lives at home with her , comes because of weakness. Found to have acute diverticulitis. Acute diverticulitis CT ABD:Findings are compatible with acute diverticulitis without evidence of perforation or abscess. No evidence of obstruction in the region of the lower abdominal hernia. No acute surgical intervention needed as per surgery Received IV Zosyn 02/24 - 02/27 Due to reports of nausea, abdominal cramping, diarrhea, will transition patient to p.o. Augmentin today. Will need a 10-day course of antibiotics. Recheck for C. difficile--negative Received IV fluids Tolerated low fiber diet Per GI - Would defer f/u colonoscopy due to age and because she has undergone colonoscopy several times in the past, most recently April 2019. Transition to Augmentin upon discharge Anal Fissure Avoid constipation Per GI - provide the pt with a prescription for tx of anal fissure, to be compounded/filled at [facility]: Cardizem 2% rectal ointment. Apply a small amt to anus BID. Recurrent incisional hernia Needs follow-up with surgery as outpatient Abnormal UA Urine culture negative Hemepositive stool In the setting of anal fissure and diverticulitis No plan for colonoscopy at this time Hgb stable H/O Clostridium difficile colitis: Continue her home probiotics. Stool negative for C. difficile X 2 Asthma and allergic rhinitis: No signs of exacerbation Continue home medications Hypertension: BP controlled, continue losartan, metoprolol, furosemide Hyperlipidemia: Continue statin. Hypothyroidism: Continue Levothyroxine GERD Continue Protonix. DM II HbA1c 6.5 Currently not on medications, would allow for more labile control due to advanced age DVT Px: SCDs due to heme positive stool Dispo -home Total Time Total Time Spent Total Time Spent (In Minutes): 45 minutes Discharge Plan Discharge Items Patient Disposition: Home - Self-Care Reason For Visit: WEAKNESS, DIARRHEA Discharge Diagnosis: Acute diverticulitis Anal Fissure Recurrent incisional hernia Activity: Per Instructions section Exercise/Sports: Wait until after follow-up appointment Non-emergency contact: Primary Care Provider, Surgeon and Evaluation Advisor Call non-emergency contact if: you have any medication questions, your symptoms worsen, your pain is concerning for you and you have a fever Follow-up/Referrals: [facility] [Other] (The [facility] will call you with an appointment date and time. [facility] [address] [place] [address] ) Diann Angeles MD [Primary Care Provider] - (Date & Time 03/03/2021 10:00 AM Provider Diann Angeles MD Department General Internal Medicine [facility] ) Joy Lopez MD [Physician] - (Date & Time 03/01/2021 3:00 PM Provider Joy Lopez MD Department General Surgery, [facility] ) Diet: Heart Healthy and Low Fiber Addtl Attending Provider Instructions: Follow-up with your primary care physician on 03/03/2021 10:00 AM Follow-up with your surgeon on 03/01/2021 3:00 PM Follow-up with your conduit bender as advised. Please call for appointment. --- Complete antibiotic course as prescribed. --Continue Low fiber diet for next 4-6 weeks until follow up with your surgeon. Further recommendations as per your surgeon. --Do not take group of medications belonging to NSAIDs group -can increase your risk for bleeding List Of these medications includes but not limited to: Diclofenac Ibuprofen, Motrin, Advil Toradol,ketorolac Naproxen, Aleve, Naprosyn You can take Tylenol as needed for pain or fever When buying [id number] pain medications please consult with pharmacy if you are not sure regarding ingredients, as a lot of the pain medications have combination of NSAIDs and Tylenol. Seek immediate medical attention if your symptoms reoccur or worsen Please take all medications as instructed on discharge list below. Please call if you have any questions or problems. You can reach a [facility] hospitalist on duty at [facility] 24 hours a day by calling [phone] Pending Studies at Discharge: No Stand-Alone Forms: My [facility], Smoking Cessation Medications and DC Order Prescriptions: New amoxicillin-pot clavulanate [Augmentin] 875-125 mg Tablet 1 tab PO BIDM Qty: 14 RF: 0 magnesium chloride 64 mg magnesium tablet 64 mg PO BID Qty: 60 RF: 0 Continued azelastine 137 mcg (0.1 %) aerosol,spray 2 sprays intranasal BID PRN (Reason: Congestion) RF: 0 atorvastatin 40 mg tablet 40 mg PO DAILY RF: 0 clobetasol 0.05 % cream 1 appln topical UD PRN (Reason: Itching) RF: 0 fluticasone propionate 50 mcg/actuation spray,suspension 1 sprays intranasal DAILY RF: 0 furosemide 20 mg tablet 20 mg PO DAILY RF: 0 levothyroxine 100 mcg tablet 100 mcg PO DAILY RF: 0 metoprolol tartrate 25 mg tablet 12.5 mg PO BID RF: 0 multivitamin [One Daily Multivitamin] tablet 1 tab PO DAILY RF: 0 (DME) Oxygen Home Liters Per Minute See Dose Instructions .ROUTE .MEDSUPPLY Qty: 1 RF: 0 pantoprazole 40 mg tablet,delayed release (DR/EC) 40 mg PO DAILY RF: 0 trazodone 50 mg tablet 50 mg PO HS RF: 0 alendronate [Fosamax] 70 mg tablet 70 mg PO WK RF: 0 aspirin [Aspirin Low Dose] 81 mg Tablet,Delayed Release (Dr/Ec) 81 mg PO DAILY RF: 0 losartan [Cozaar] 25 mg tablet 25 mg PO DAILY RF: 0 montelukast [Singulair] 10 mg tablet 10 mg PO DAILY RF: 0 loratadine [Claritin] 10 mg tablet 10 mg PO DAILY RF: 0 budesonide-formoterol [Symbicort] 80-4.5 mcg/actuation HFA aerosol inhaler 1 puff INHALATION BID PRN (Reason: Shortness Of Breath) RF: 0 Lactinex 1 million cell Tablet,Chewable 1 tab PO TIDM RF: 0 sennosides [Senna Laxative] 8.6 mg tablet 8.6 mg PO TID RF: 0 polyethylene glycol 3350 [Miralax] 17 gram/dose Powder 17 g PO DAILY PRN (Reason: Constipation) RF: 0 acetaminophen [Tylenol] 325 mg Tablet 650 mg PO Q6H PRN (Reason: Pain) RF: 0 meclizine 12.5 mg Tablet 12.5 mg PO TID PRN (Reason: Dizziness) RF: 0 docusate sodium 100 mg Capsule 100 mg PO BID RF: 0 gabapentin 300 mg capsule 300 mg PO BID RF: 0 hydrocortisone 2.5 % Cream 1 applic TOPICAL BID PRN (Reason: Hemorrhoids) RF: 0 Restasis 0.05 % Dropperette 1 drp OPHTHALMIC (EYE) Q12H RF: 0 Prevagen 1 tab PO DAILY RF: 0 Discontinued meloxicam 7.5 mg tablet 7.5 mg PO DAILY RF: 0 Slow Magnesium/Calcium 1 tab PO DAILY RF: 0 Discharge Orders: Discharge Order (Routine); Ordered 02/27/21 Ordered By: Heron lAvarez/Other Patient Handouts: Low-Fiber Diet Admission Data Admit Date/Time: 02/23/21 21:36 Attending Provider: Heron Cameron Admit Provider: Fuentes Varela Primary Care Provider: Diann Angeles Other Providers: Fuentes Varela ; Matt Chavez ; Sam Santiago ; Lani Apodaca ; Stacia Van ; Ramez Singh ; Zaire Harrison ; Fay Kraus ; Lakshmi Estrada ; Francesco Pierre Jr ; Joy Lopez ; Nole Gould ; Marie Peacock ; Joy Webber
== END 2021-02-27 17:28 | disposition home or self-care (01) | DRG 378 ==
LOC: ED 15:02 → 3N 21:36

== ENCOUNTER 2021-03-27 09:56 | Inpatient (IN) ==
--- NOTE | 2021-03-27 10:59 | Emergency Department Note ---
History of Present Illness General Chief complaint: Rectal Pain Source: patient Mode of arrival: EMS Limitations: no limitations History of Present Illness Provider Complaint: + other (rectal mass) Onset (ago): month(s) Pain Consistency: + constant Severity: moderate Maximum Pain Intensity: 6 Context: + other (tumor? rectal fistula) Associated symptoms: + other (weakness, per home health unable to care for self.) Treatments Prior to Arrival: + none (gabapentin, Sitz bath) HPI Narrative: h/o rectal mass and fistula incontinent of liquidy stool, no blood. weak and unable to continue to care for self, 88 yo . 1 daughter in the area, not much contact. 1 daughter in [place] that homehealth contacted. Pt states she is not longer able to be at home but her can't be there alone, he is unwilling to go to a SNF. Pt states "just let me rest" after cleaning her up after rectal exam. No pain meds except gabapentin as "allergic to everything." Home Medications Medication Instructions Recorded Confirmed Type Oxygen Home #1 ea 09/20/18 12/26/18 History atorvastatin 40 mg tablet 40 mg PO HS tab 09/20/18 03/27/21 History azelastine 137 mcg (0.1 %) nasal 2 sprays INTRANASAL BID ml 09/20/18 03/27/21 History spray aerosol furosemide 20 mg tablet 20 mg PO DAILY tab 09/20/18 03/27/21 History levothyroxine 100 mcg tablet 100 mcg PO DAILYBB tab 09/20/18 03/27/21 History metoprolol tartrate 25 mg tablet 25 mg PO BID tab 09/20/18 03/27/21 History pantoprazole 40 mg tablet,delayed 40 mg PO DAILY tab 09/20/18 03/27/21 History release trazodone 50 mg tablet 50 mg PO HS tab 09/20/18 03/27/21 History Lactobacillus acidoph-L.bulgaricus 1 tab PO TIDM 01/22/19 03/27/21 History 1 million cell chewable tablet (Lactinex) alendronate 70 mg tablet (Fosamax) 70 mg PO WK 01/22/19 03/27/21 History loratadine 10 mg tablet (Claritin) 10 mg PO QAM 01/22/19 03/27/21 History losartan 25 mg tablet (Cozaar) 25 mg PO DAILY 01/22/19 03/27/21 History montelukast 10 mg tablet 10 mg PO HS 01/22/19 03/27/21 History (Singulair) acetaminophen 325 mg tablet 650 mg PO Q6H PRN 02/23/21 03/27/21 History (Tylenol) cyclosporine 0.05 % eye drops in a 1 drp OPHTHALMIC (EYE) Q12H 02/23/21 03/27/21 History dropperette (Restasis) gabapentin 300 mg capsule 300 mg PO BID 02/23/21 03/27/21 History magnesium chloride 64 mg PO BID #60 tab 02/27/21 03/27/21 Rx aspirin 81 mg tablet,delayed 81 mg PO DAILY 03/27/21 03/27/21 History release Allergies Allergy/AdvReac Type Severity Reaction Status Date / Time Iodinated Contrast Media Allergy Intermediate HIVES/BURNING Verified 03/27/21 15:25 AT IV SITE AND UP VEIN pyrilamine Allergy Intermediate VOMITING Verified 03/27/21 15:25 Sulfa (Sulfonamide Allergy Intermediate RINGS ON Verified 03/27/21 15:25 Antibiotics) SKIN simvastatin Allergy Mild RED Verified 03/27/21 15:25 CIRCLES-HAS TOLERATED LIPITOR amoxicillin AdvReac Intermediate CAUSED Verified 03/27/21 15:25 DIARRHEA PER [facility] MED LIST codeine AdvReac Intermediate N/V Verified 03/27/21 15:25 ether AdvReac Intermediate NAUSEA/VOMI Verified 03/27/21 15:25 TING morphine AdvReac Intermediate VOMITING Verified 03/27/21 15:25 tramadol AdvReac Intermediate NAUSEA/VOMI Verified 03/27/21 15:25 TING Past Med/Surg History Medical History Arthritis Crohn's disease Cystitis 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 Dyslipidemia Gastroesophageal reflux disease History of adenomatous polyp of colon History of diverticulitis Hypercholesterolemia Hypertension Hypertension Hypothyroidism Osteoarthritis Osteoporosis Surgical History History of incisional hernia repair History of repair of rectocele S/P laparoscopic hernia repair Total knee replacement status Family History Father , 48 Hypertension Stroke Social History Smoking Status: Never smoker Second Hand Exposure: No; Do You Dip or Chew Tobacco: No; Tobacco Cessation Education Requested by Patient: No Hx Alcohol Use: Yes Alcohol type: wine Hx Substance Use: No Preferred Language: Congolese Communication Ability: Effective Prosthetic Lab Technician Required: No Beliefs That Will Affect Care: None marital status: Current Living Situation: Spouse How many Children do You have: 1 Other Information That Helps Us Care for You: No Feels Safe at Home: Yes Safety Concerns: Feels Safe At This Time Assistive Devices: Cane and Walker Review of Systems See HPI for pertinent positives & negatives. and A total of 10 systems reviewed and were otherwise negative Physical Exam Vital Signs: Vital Signs - 24 hr 03/27/21 09:47 03/27/21 10:11 03/27/21 10:20 Temperature 36.7 C Temperature Source Oral Pulse Rate 86 90 88 Pulse Rate from Sp O2 Sensor 90 88 Pulse Rhythm Regular Pulse Strength Normal Respiratory Rate 20 25 H 28 H Respiratory Effort / Characteristics Non-Labored Respiratory Depth Normal Blood Pressure 157/68 H Blood Pressure Luma n 97 Pulse Oximetry 97 93 96 Oxygen Delivery Me thod Room Air Sepsis Recent Feve r Within 48 Hours No Sepsis New/Unexpla ined Change in Men wally Status N/A Sepsis Action Take n by Nursing No Action Required 03/27/21 10:30 03/27/21 10:40 03/27/21 12:49 Temperature Temperature Source Pulse Rate 86 86 Pulse Rate from Sp O2 Sensor 87 87 Pulse Rhythm Pulse Strength Respiratory Rate 29 H 27 H Respiratory Effort / Characteristics Respiratory Depth Blood Pressure 154/68 H Blood Pressure Luma n 96 Pulse Oximetry 97 96 95 Oxygen Delivery Me thod Room Air Sepsis Recent Feve r Within 48 Hours Sepsis New/Unexpla ined Change in Men wally Status Sepsis Action Take n by Nursing Physical Exam: Vital signs reviewed. General: Chronically ill-appearing 85-year-old female, in no significant distress. HEENT: No scleral icterus, PERRLA, neck supple. Atraumatic. Cardiovascular: Regular rate and rhythm, no extra sounds. Pulmonary: Clear to auscultation bilaterally, normal work of breathing. Abdomen: Soft, nontender, nondistended, positive bowel sounds. Musculoskeletal: Atraumatic, no peripheral edema. Rectal: Perirectal excoriation with exquisite tenderness. Patient was unable to tolerate internal exam. There is no bleeding appreciated or external hemorrhoids. Liquidy/mucousy brown stool that is guaiac negative, patient incontinent. Neurologic: Patient awake alert and oriented x 3 Skin: Warm, dry, see above. Course Administered Medications Acetaminophen (Acetaminophen 325 Mg Tab) 650 mg PO Q4H PRN PRN Reason: pain/fever Stop: 04/26/21 16:52 Last Admin: 03/28/21 01:12 Dose: 650 mg Documented by: [id number] Admin: 03/27/21 17:56 Dose: 650 mg Documented by: [id number] Aspirin (Aspirin 81 Mg Ectab) 81 mg PO DAILY TRUPTI Stop: 04/27/21 08:59 Last Admin: 03/28/21 08:49 Dose: 81 mg Documented by: [id number] Atorvastatin Calcium (Atorvastatin 40 Mg Tab) 40 mg PO HS TRUPTI Stop: 04/26/21 20:59 Last Admin: 03/27/21 21:35 Dose: 40 mg Documented by: [id number] Azelastine HCl (Azelastine Hcl 0.1% Nasal 200 Sprays/27,400 Mcg Btl) 2 sprays NA BID TRUPTI Stop: 04/26/21 20:59 Last Admin: 03/28/21 08:54 Dose: 2 sprays Documented by: [id number] Admin: 03/27/21 21:34 Dose: 2 sprays Documented by: [id number] Petrolatum 45 appln/Hydrocortisone 45 appln/ Al Hydrox/Mg Hydrox/Simethicone 15 ml/ BARCODE IDENTIFIER 1 ea 0 appln TOP QS TRUPTI Stop: 04/26/21 15:59 Last Admin: 03/28/21 08:49 Dose: 1 appln Documented by: [id number] Admin: 03/27/21 23:59 Dose: 1 appln Documented by: [id number] Admin: 03/27/21 19:42 Dose: 1 appln Documented by: [id number] Furosemide (Furosemide 20 Mg Tab) 20 mg PO DAILY TRUPTI Stop: 04/27/21 08:59 Last Admin: 03/28/21 08:53 Dose: Not Given Documented by: [id number] Gabapentin (Gabapentin 300 Mg Cap) 300 mg PO BID TURPTI Stop: 04/26/21 20:59 Last Admin: 03/28/21 08:49 Dose: 300 mg Documented by: [id number] Admin: 03/27/21 21:34 Dose: 300 mg Documented by: [id number] Ciprofloxacin (Cipro / D5w) 400 mg in 200 mls @ 100 mls/hr IV Q12H [facility]; Protocol Stop: 04/06/21 19:29 Last Infusion: 03/28/21 11:13 Dose: 0 mls/hr Documented by: [id number] Admin: 03/28/21 08:50 Dose: 100 mls/hr Documented by: [id number] Infusion: 03/27/21 22:25 Dose: 0 mls/hr Documented by: [id number] Admin: 03/27/21 20:17 Dose: 100 mls/hr Documented by: [id number] Lactobacillus Acidophilus (Advanced Probiotic 1250 Mg Capsule) 2 cap PO DAILY [facility] Stop: 04/27/21 12:29 Last Admin: 03/28/21 13:41 Dose: 2 cap Documented by: [id number] Levothyroxine Sodium (Levothyroxine Sodium 100 Mcg Tablet) 100 mcg PO DAILYBB [facility] Stop: 04/27/21 06:29 Last Admin: 03/28/21 05:58 Dose: 100 mcg Documented by: [id number] Loratadine (Loratadine 10 Mg Tab) 10 mg PO QAM [facility] Stop: 04/27/21 08:59 Last Admin: 03/28/21 08:49 Dose: 10 mg Documented by: [id number] Losartan Potassium (Losartan Potassium 25 Mg Tab) 25 mg PO DAILY [facility] Stop: 04/27/21 08:59 Last Admin: 03/28/21 08:53 Dose: Not Given Documented by: [id number] Magnesium Chloride (Magnesium Chloride 64mg Delayed Rel Tab) 64 mg PO BID [facility] Stop: 04/26/21 20:59 Last Admin: 03/28/21 08:49 Dose: 64 mg Documented by: [id number] Admin: 03/27/21 21:34 Dose: 64 mg Documented by: [id number] Metoprolol Tartrate (Metoprolol Tartrate 25 Mg Tab) 25 mg PO BID [facility] Stop: 04/26/21 20:59 Last Admin: 03/28/21 08:53 Dose: Not Given Documented by: [id number] Admin: 03/27/21 21:53 Dose: Not Given Documented by: [id number] Metronidazole (Metronidazole 500 Mg Tab) 500 mg PO Q8 [facility] Stop: 04/06/21 19:14 Last Admin: 03/28/21 13:42 Dose: 500 mg Documented by: [id number] Admin: 03/28/21 05:58 Dose: 500 mg Documented by: [id number] Admin: 03/27/21 21:33 Dose: 500 mg Documented by: [id number] Miscellaneous (Restasis: Order Awaiting Action) 1 ea N/A QS [facility] Stop: 04/27/21 00:00 Last Admin: 03/28/21 08:52 Dose: Not Given Documented by: [id number] Admin: 03/27/21 23:29 Dose: Not Given Documented by: [id number] Montelukast Sodium (Montelukast Sodium 10 Mg Tablet) 10 mg PO [facility] Stop: 04/26/21 20:59 Last Admin: 03/27/21 21:34 Dose: 10 mg Documented by: [id number] Pantoprazole Sodium (Pantoprazole 40 Mg Tab) 40 mg PO DAILY [facility] Stop: 04/27/21 08:59 Last Admin: 03/28/21 08:49 Dose: 40 mg Documented by: [id number] Trazodone HCl (Trazodone Hcl 50 Mg Tab) 50 mg PO HS [facility] Stop: 04/26/21 20:59 Last Admin: 03/27/21 21:34 Dose: 50 mg Documented by: [id number] Discontinued Medications Sodium Chloride (Nss 1000ml) 1,000 mls @ 125 mls/hr IV .Q8H [facility] Stop: 03/27/21 19:44 Last Infusion: 03/27/21 17:29 Dose: 0 mls/hr Documented by: [id number] Admin: 03/27/21 12:37 Dose: 125 mls/hr Documented by: [id number] Potassium Chloride (K Carmelo / Wtr) 10 meq in 100 mls @ 100 mls/hr IV Q1H [facility]; Protocol Stop: 03/27/21 15:29 Last Infusion: 03/27/21 23:58 Dose: 0 mls/hr Documented by: [id number] Admin: 03/27/21 21:35 Dose: 50 mls/hr Documented by: [id number] Infusion: 03/27/21 15:32 Dose: 0 mls/hr Documented by: [id number] Admin: 03/27/21 14:12 Dose: 100 mls/hr Documented by: [id number] Magnesium Sulfate/Dextrose (Magnesium Sulfate / D5w) 1 gm in 100 mls @ 100 mls/hr IV NOW STA Stop: 03/27/21 16:11 Last Infusion: 03/27/21 21:25 Dose: 0 mls/hr Documented by: [id number] Admin: 03/27/21 18:53 Dose: 100 mls/hr Documented by: [id number] Potassium Chloride (K Carmelo / Wtr) 10 meq in 100 mls @ 100 mls/hr IV Q1H [facility]; Protocol Stop: 03/27/21 17:14 Last Infusion: 03/27/21 21:53 Dose: 0 mls/hr Documented by: [id number] Admin: 03/27/21 19:58 Dose: 100 mls/hr Documented by: [id number] Infusion: 03/27/21 19:53 Dose: 50 mls/hr Documented by: [id number] Admin: 03/27/21 18:53 Dose: 100 mls/hr Documented by: [id number] Sodium Chloride (Nss 1000ml) 1,000 mls @ 125 mls/hr IV .Q8H [facility] Stop: 03/28/21 03:14 Last Infusion: 03/28/21 06:25 Dose: 0 mls/hr Documented by: [id number] Infusion: 03/27/21 23:27 Dose: 125 mls/hr Documented by: [id number] Infusion: 03/27/21 19:49 Dose: 50 mls/hr Documented by: [id number] Admin: 03/27/21 19:41 Dose: 125 mls/hr Documented by: [id number] Ketorolac Tromethamine (Ketorolac Tromethamine 15 Mg/Ml Vial) 15 mg IV NOW ONE Stop: 03/27/21 18:51 Last Admin: 03/27/21 19:41 Dose: 15 mg Documented by: [id number] Lidocaine HCl (Lidocaine 2% Jelly 5 Ml Tube) 20 ml EXT NOW ONE Stop: 03/27/21 14:25 Last Admin: 03/27/21 14:53 Dose: 5 ml Documented by: [id number] Loperamide HCl (Loperamide Hcl 2 Mg Cap) 2 mg PO NOW STA Stop: 03/27/21 18:52 Last Admin: 03/27/21 19:41 Dose: 2 mg Documented by: [id number] Nystatin (Nystatin Powder 15gm Btl) 1 appln EXT NOW STA Stop: 03/27/21 11:44 Last Admin: 03/27/21 14:11 Dose: 1 appln Documented by: [id number] Potassium Chloride (Potassium Chloride Crtab 20 Meq Tabcr) 40 meq PO NOW STA Stop: 03/27/21 13:30 Last Admin: 03/27/21 14:08 Dose: 40 meq Documented by: [id number] Potassium Chloride (Potassium Chloride Crtab 20 Meq Tabcr) 40 meq PO ONE ONE Stop: 03/27/21 16:01 Last Admin: 03/27/21 18:54 Dose: 40 meq Documented by: [id number] Potassium Chloride (Potassium Chloride Crtab 20 Meq Tabcr) 40 meq PO ONE ONE Stop: 03/28/21 12:24 Last Admin: 03/28/21 13:41 Dose: 40 meq Documented by: [id number] Medical Decision Making Differential Diagnosis Infection, dehydration, metabolic abnormality, hypo/hyperglycemia, electrolyte disturbance, anemia, hypoxia, cardiac sources, intracerebral event, toxicologic, neurologic, as well as other pathologies. Medical Records Attestation: I reviewed the patient's medical records. Home Medications Current Medication List: was personally reviewed by me Laboratory Data Attestation: I reviewed the patient's lab results. Result diagrams: 03/27/21 12:40 03/28/21 09:42 Lab Results 03/27/21 03/27/21 03/27/21 Range/Units 12:15 12:40 12:40 WBC 8.33 (4.8-10.8) K/uL RBC 3.34 L (4.2-5.4) M/uL Hgb 10.0 L (12.0-16.0) g/dL Hct 31.6 L (37-47) % MCV 94.6 (80-100) fL MCH 29.9 (25-34) pg MCHC 31.6 L (32-36) g/dL RDW Std Deviation 53.8 H (36.4-46.3) fL RDW Coeff of Jluis 15.7 H (11.5-14.5) % Plt Count 252 (130-400) K/uL MPV 9.1 (7.4-10.4) fL Immature Gran % (Auto) 0.2 % Neut % (Auto) 78.8 % Lymph % (Auto) 6.4 % [place] % (Auto) 14.3 % Eos % (Auto) 0.2 % Baso % (Auto) 0.1 % Neut # (Auto) 6.56 H (1.4-6.5) K/uL Lymph # (Auto) 0.53 L (1.2-3.4) K/uL [place] # (Auto) 1.19 H (0.11-0.59) K/uL Eos # (Auto) 0.02 (0-0.5) K/uL Baso # (Auto) 0.01 (0-0.2) K/uL Immature Gran # (Auto) 0.02 (0.00-0.02) K/uL Sodium 135 L (136-145) mmol/L Potassium 2.5 L* (3.5-5.1) mmol/L Chloride 100 (98-107) mmol/L Carbon Dioxide 28 (21-32) mmol/L Anion Gap 7 (3-11) BUN 10 (6-23) mg/dl Creatinine 0.46 L (0.6-1.2) mg/dl Est Cr Clr Drug Dosing Not Reportable Est GFR ( Amer) 105.9 ml/min Est GFR (Non-Af Amer) 91.3 ml/min BUN/Creatinine Ratio 21.7 H (10-20) Glucose 134 H (70-99(Fasting)) mg/dl Calcium 8.0 L (8.5-10.1) mg/dl Magnesium 1.7 (1.7-2.4) mg/dl Total Bilirubin 0.9 (0.2-1.0) mg/dl AST 14 (13-39) U/L ALT 12 (7-52) U/L Alkaline Phosphatase 63 (34-104) U/L Troponin I 0.04 (0-0.04) ng/ml Total Protein 5.7 L (6.0-8.3) gm/dl Albumin 2.9 L (3.4-5.0) gm/dl Globulin 2.8 (2.5-4.0) gm/dl Albumin/Globulin Ratio 1.0 (0.9-2) TSH (0.300-4.500) uIu/ml Stl C. cayetanensis PCR (NotDetected) Stool Rotavirus A PCR (NotDetected) Stl Adenov F 40/41 PCR (NotDetected) Stool Astrovirus (PCR) (NotDetected) Stool Campylobacter PCR (NotDetected) Stl C. diff Tox A/B PCR (NotDetected) Stool Cryptosporidium PCR (NotDetected) Stl E.coli Shiga Tox PCR (NotDetected) Stl Enterotoxigenic E PCR (NotDetected) Stool EPEC (PCR) (NotDetected) Stool EAEC (PCR) (NotDetected) Stl E. histolytica PCR (NotDetected) Stool Giardia Lamblia PCR (NotDetected) Stool Salmonella PCR (NotDetected) Stool Sapovirus (PCR) (NotDetected) Stl P. shigelloides PCR (NotDetected) Stl Shigella/EIEC PCR (NotDetected) St Y.enterocolitica PCR (NotDetected) Stool Vibrio (PCR) (NotDetected) Stl Vibrio cholerae PCR (NotDetected) Stl Norovirus GI/GII PCR (NotDetected) SARS-CoV-2, RNA, NAAT NEGATIVE (NEGATIVE) 03/27/21 03/27/21 Range/Units 12:40 13:35 WBC (4.8-10.8) K/uL RBC (4.2-5.4) M/uL Hgb (12.0-16.0) g/dL Hct (37-47) % MCV (80-100) fL MCH (25-34) pg MCHC (32-36) g/dL RDW Std Deviation (36.4-46.3) fL RDW Coeff of Jluis (11.5-14.5) % Plt Count (130-400) K/uL MPV (7.4-10.4) fL Immature Gran % (Auto) % Neut % (Auto) % Lymph % (Auto) % [place] % (Auto) % Eos % (Auto) % Baso % (Auto) % Neut # (Auto) (1.4-6.5) K/uL Lymph # (Auto) (1.2-3.4) K/uL [place] # (Auto) (0.11-0.59) K/uL Eos # (Auto) (0-0.5) K/uL Baso # (Auto) (0-0.2) K/uL Immature Gran # (Auto) (0.00-0.02) K/uL Sodium (136-145) mmol/L Potassium (3.5-5.1) mmol/L Chloride (98-107) mmol/L Carbon Dioxide (21-32) mmol/L Anion Gap (3-11) BUN (6-23) mg/dl Creatinine (0.6-1.2) mg/dl Est Cr Clr Drug Dosing Est GFR ( Amer) ml/min Est GFR (Non-Af Amer) ml/min BUN/Creatinine Ratio (10-20) Glucose (70-99(Fasting)) mg/dl Calcium (8.5-10.1) mg/dl Magnesium (1.7-2.4) mg/dl Total Bilirubin (0.2-1.0) mg/dl AST (13-39) U/L ALT (7-52) U/L Alkaline Phosphatase (34-104) U/L Troponin I (0-0.04) ng/ml Total Protein (6.0-8.3) gm/dl Albumin (3.4-5.0) gm/dl Globulin (2.5-4.0) gm/dl Albumin/Globulin Ratio (0.9-2) TSH 1.480 (0.300-4.500) uIu/ml Stl C. cayetanensis PCR Not Detected (NotDetected) Stool Rotavirus A PCR Not Detected (NotDetected) Stl Adenov F 40/41 PCR Not Detected (NotDetected) Stool Astrovirus (PCR) Not Detected (NotDetected) Stool Campylobacter PCR Not Detected (NotDetected) Stl C. diff Tox A/B PCR Not Detected (NotDetected) Stool Cryptosporidium PCR Not Detected (NotDetected) Stl E.coli Shiga Tox PCR Not Detected (NotDetected) Stl Enterotoxigenic E PCR Not Detected (NotDetected) Stool EPEC (PCR) Not Detected (NotDetected) Stool EAEC (PCR) Not Detected (NotDetected) Stl E. histolytica PCR Not Detected (NotDetected) Stool Giardia Lamblia PCR Not Detected (NotDetected) Stool Salmonella PCR Not Detected (NotDetected) Stool Sapovirus (PCR) Not Detected (NotDetected) Stl P. shigelloides PCR Not Detected (NotDetected) Stl Shigella/EIEC PCR Not Detected (NotDetected) St Y.enterocolitica PCR Not Detected (NotDetected) Stool Vibrio (PCR) Not Detected (NotDetected) Stl Vibrio cholerae PCR Not Detected (NotDetected) Stl Norovirus GI/GII PCR Not Detected (NotDetected) SARS-CoV-2, RNA, NAAT (NEGATIVE) Imaging Data Radiologist's Impression: Chest X-Ray 03/27/21 11:42 XR chest 1V portable HISTORY: weakness COMPARISON: Chest 02/23/2021. FINDINGS: No pneumothorax. No pleural effusions. The cardiac silhouette remains mildly enlarged. Vertebroplasty is noted within the lower thoracic spine. This remains unchanged. Calcified granuloma again noted within the right lung base. Mild chronic interstitial thickening remains unchanged. No new focal lung cons olidations to suggest pneumonia. No evidence for pulmonary edema. Calcified right hilar lymph nodes. Advanced degenerative changes within the shoulders. IMPRESSION: No significant change compared to the prior study. No acute process. ACT 112: Negative or not required by law. Electronically signed by: Anastacio Henry M.D. 03/27/2021 12:30 PM Blood Pressure Blood Pressure Findings: Normal blood pressure Blood Pressure Disposition: did not require urgent referral MDM Narrative This patient was evaluated and appeared to be in no significant distress. IV access was obtained and laboratory work was drawn. Patient was placed on environmental monitoring specialist and noted to be in a normal sinus rhythm. Physical examination was performed and the patient has a large amount of excoriation to the buttocks and is incontinent of a mucousy/watery stool. There is no gross blood and Hemoccult is negative. Patient seems to have significant pain to any palpation of the peroneal area. She states she is unable to care for herself at home, which is reiterated by her home health service. She also states that her is not able to be at home by himself but they do not have any support. She does not believe that her will be willing to go into a alf. Case management was engaged and asked to contact the patient's daughter. The hospitalist service has been contacted for admission and further management. Impression & Plan Unable to care for self, Rectal mass, Rectal pain, Fecal incontinence, Irritation of perirectal skin Discharge Plan Visit Data Chief Complaint: Rectal Pain ED Provider: Siobhan Zambrano Discharge Problem: Unable to care for self, Rectal mass, Rectal pain, Fecal incontinence, I rritation of perirectal skin Patient Disposition: Admitted As Inpatient Discharge Instructions Interventions: ED Discharge Assessment Last Done: 03/27/21 15:43 Discharge Problem: Fecal incontinence Qualifiers: Fecal incontinence type: unspecified Qualified Code(s): R15.9 - Full incontinence of feces
[2021-03-27] MEDS ORDERED: NYSTATIN POWDER 15GM BTL EXT STA (11:43)
[2021-03-27] MEDS ORDERED: SODIUM CHLORIDE 0.9% 1000ML 1,000 ML IV SCH ×2 (11:45→19:15)
--- NOTE | 2021-03-27 12:31 | XRay Report ---
XR chest 1V portable HISTORY: weakness COMPARISON: Chest 02/23/2021. FINDINGS: No pneumothorax. No pleural effusions. The cardiac silhouette remains mildly enlarged. Vert ebroplasty is noted within the lower thoracic spine. This remains unchanged. Calcified granuloma agai n noted within the right lung base. Mild chronic interstitial thickening remains unchanged. No new fo leela lung consolidations to suggest pneumonia. No evidence for pulmonary edema. Calcified right hilar lymph nodes. Advanced degenerative changes within the shoulders. IMPRESSION: No significant change compared to the prior study. No acute process. ACT 112: Negative or not required by law. Electronically signed by: Anastacio Henry M.D. 03/27/2021 12:30 PM
[2021-03-27 12:50] LABS: Basophils # (auto) 0.01 K/uL (0-0.2); Basophils % (auto) 0.1 %; Eosinophils # (auto) 0.02 K/uL (0-0.5); Eosinophils % (auto) 0.2 %; Hematocrit (blood only) 31.6 % (37-47); Immature Granulocytes # (auto) 0.02 K/uL (0.00-0.02); Immature Granulocytes % (auto) 0.2 %; Lymphocytes # (auto) 0.53 K/uL (1.2-3.4); Lymphocytes % (auto) 6.4 %; Mean Corpuscular Hemoglobin 29.9 pg (25-34); Mean Corpuscular Hgb Conc 31.6 g/dL (32-36); Mean Corpuscular Volume 94.6 fL (80-100); Mean Platelet Volume 9.1 fL (7.4-10.4); Monocytes # (auto) 1.19 K/uL (0.11-0.59); Monocytes % (auto) 14.3 %; Neutrophils # (auto) 6.56 K/uL (1.4-6.5); Neutrophils % (auto) 78.8 %; Platelet Count 252 K/uL (130-400); RDW Coefficient of Variation 15.7 % (11.5-14.5); RDW Standard Deviation 53.8 fL (36.4-46.3); Red Blood Count 3.34 M/uL (4.2-5.4); White Blood Count 8.33 K/uL (4.8-10.8)
[2021-03-27 13:19] LABS: Alanine Aminotransferase 12 U/L (7-52); Albumin Level 2.9 gm/dl (3.4-5.0); Alkaline Phosphatase 63 U/L (34-104); Anion Gap 7 (3-11); Aspartate Aminotransferase 14 U/L (13-39); BUN Creatinine Ratio 21.7 (10-20); Bilirubin,Total 0.9 mg/dl (0.2-1.0); Blood Urea Nitrogen 10 mg/dl (6-23); Carbon Dioxide 28 mmol/L (21-32); Chloride 100 mmol/L (98-107); Est GFR (African American) 105.9 ml/min; Est GFR (Non-African American) 91.3 ml/min; Globulin 2.8 gm/dl (2.5-4.0); Glucose 134 mg/dl (70-99(Fasting)); Magnesium 1.7 mg/dl (1.7-2.4); Potassium 2.5 mmol/L (3.5-5.1); Sodium 135 mmol/L (136-145); Total Protein 5.7 gm/dl (6.0-8.3); Troponin I 0.04 ng/ml (0-0.04)
[2021-03-27] MEDS ORDERED: POTASSIUM CHLORIDE CRTAB 20 MEQ TABCR PO STA (13:29)
--- NOTE | 2021-03-27 14:04 | History & Physical Report ---
Date of Service March 27, 2021 History of Present Illness Primary Care Provider: Diann Angeles MD Iwona is an 85-year-old female with past medical history of chronic anemia, diverticulitis, hypertension, laparoscopic hernia repair, total knee replacement , hypothyroidism, hyper cholesterolemia, adenomatous colon polyps, GERD, DM2, Crohn's disease, dermatitis who presents on referral from home health nursing for inability to care at home and requiring placement. On admission she is noted to have a potassium of 2.5 with a history of rectal fistula Allergies Allergy/AdvReac Type Severity Reaction Status Date / Time Iodinated Contrast Media Allergy Intermediate HIVES/BURNING Verified 03/23/21 16:13 AT IV SITE AND UP VEIN pyrilamine Allergy Intermediate VOMITING Verified 03/23/21 16:13 Sulfa (Sulfonamide Allergy Intermediate RINGS ON Verified 03/23/21 16:13 Antibiotics) SKIN simvastatin Allergy Mild RED Verified 03/23/21 16:13 CIRCLES-HAS TOLERATED LIPITOR amoxicillin AdvReac Intermediate CAUSED Verified 03/23/21 16:13 DIARRHEA PER [facility] MED LIST codeine AdvReac Intermediate N/V Verified 03/23/21 16:13 ether AdvReac Intermediate NAUSEA/VOMI Verified 03/23/21 16:13 TING morphine AdvReac Intermediate VOMITING Verified 03/23/21 16:13 tramadol AdvReac Intermediate NAUSEA/VOMI Verified 03/23/21 16:13 TING Home Medications Medication Instructions Recorded Confirmed Type Oxygen Home #1 ea 09/20/18 12/26/18 History atorvastatin 40 mg tablet 40 mg PO HS tab 09/20/18 03/23/21 History azelastine 137 mcg (0.1 %) nasal 2 sprays INTRANASAL BID ml 09/20/18 03/23/21 History spray aerosol furosemide 20 mg tablet 20 mg PO DAILY tab 09/20/18 03/23/21 History levothyroxine 100 mcg tablet 100 mcg PO DAILYBB tab 09/20/18 03/23/21 History metoprolol tartrate 25 mg tablet 25 mg PO BID tab 09/20/18 03/23/21 History pantoprazole 40 mg tablet,delayed 40 mg PO DAILY tab 09/20/18 03/23/21 History release trazodone 50 mg tablet 50 mg PO HS tab 09/20/18 03/23/21 History Lactobacillus acidoph-L.bulgaricus 1 tab PO TIDM 01/22/19 03/23/21 History 1 million cell chewable tablet (Lactinex) alendronate 70 mg tablet (Fosamax) 70 mg PO WK 01/22/19 03/23/21 History loratadine 10 mg tablet (Claritin) 10 mg PO QAM 01/22/19 03/23/21 History losartan 25 mg tablet (Cozaar) 25 mg PO DAILY 01/22/19 03/23/21 History montelukast 10 mg tablet 10 mg PO HS 01/22/19 03/23/21 History (Singulair) sennosides 8.6 mg tablet (Senna 8.6 mg PO BID 01/22/19 03/23/21 History Laxative) acetaminophen 325 mg tablet 650 mg PO Q6H PRN 02/23/21 03/23/21 History (Tylenol) cyclosporine 0.05 % eye drops in a 1 drp OPHTHALMIC (EYE) Q12H 02/23/21 03/23/21 History dropperette (Restasis) gabapentin 300 mg capsule 300 mg PO BID 02/23/21 03/23/21 History magnesium chloride 64 mg PO BID #60 tab 02/27/21 03/23/21 Rx cefdinir 300 mg capsule 300 mg PO BID 7 Days #14 cap 03/23/21 Rx Past Med/Surg History Medical History Arthritis Crohn's disease Cystitis 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 Dyslipidemia Gastroesophageal reflux disease History of adenomatous polyp of colon History of diverticulitis Hypercholesterolemia Hypertension Hypertension Hypothyroidism Osteoarthritis Osteoporosis Surgical History History of incisional hernia repair History of repair of rectocele S/P laparoscopic hernia repair Total knee replacement status Social History Smoking Status: Never smoker Hx Alcohol Use: Yes Alcohol type: wine Hx Substance Use: No Preferred Language: Bolivian Communication Ability: Effective Tablet Tester Required: No Beliefs That Will Affect Care: None Current Living Situation: Spouse Feels Safe at Home: Yes Assistive Devices: Walker Results & Data Results & Data ([facility]) Vital Signs (Past 12 Hours) Vital Signs Temp Pulse Resp BP Pulse Ox 03/27/21 12:49 95 03/27/21 10:40 86 27 H 96 03/27/21 10:30 86 29 H 154/68 H 97 03/27/21 10:20 88 28 H 96 03/27/21 10:11 90 25 H 93 03/27/21 09:47 36.7 C 86 20 157/68 H 97 PG Care Time/CCT Total # of Minutes Spent Total Time Spent with Patient: Total time spent is greater than 50% in coordination of care (as documented) at patient's floor/unit and/or counseling patient: Coding
[2021-03-27] MEDS: POTASSIUM CHLORIDE / WTR 10 MEQ/100 ML PLCT IV SCH ×4 (14:12→21:35)
[2021-03-27] MEDS ORDERED: LIDOCAINE 2% JELLY 5 ML TUBE EXT ONE (14:24)
[2021-03-27] MEDS ORDERED: MAGNESIUM SULFATE / D5W 1 GM/100 ML BAG IV STA (15:12)
--- NOTE | 2021-03-27 15:26 | History & Physical Report ---
Date of Service March 27, 2021 Assessment & Plan (1) Rectal mass: (2) Bloody diarrhea: (3) Hypokalemia: (4) Ambulatory dysfunction: (5) Fall: (6) Diabetes mellitus type 2 in nonobese: (7) Rectal pain: (8) Colitis: Plan: This is a 85-year-old female who has significant past medical history of T2DM, HTN, HLD, mild persistent asthma, arteriosclerotic cardiovascular disease, GERD, IBS, history of diverticulitis, history of C. difficile, lymphedema, incisional hernia who presents to ED due to inability to care for self at home. Recent admission 02/24-02/27 for acute diveriticulitis, ? anal fissure Persistent rectal pain, liquid brown/blood stool Seen and evaluated by Dr. Hanh Lainez General Surgery, WENDY revealing concern for circumferential rectal mass, plan for anoscopy and biopsy under anesthesia on 03/26 which patient canceled Continues to have persistent rectal pain, stool incontinence with bloody brown liquid fecal discharge/diarrhea Since being discharged home has been followed by home health, found today covered in feces and feels unable to care for self at home so sent to ED. Ambulatory dysfunction Unable to care for self at home Fall w/o known injury admit to med/surg consult PT/OT case management consulted Rectal Mass Blood diarrhea Known Large Incisional Hernia hx of Cdiff seen and evaluated by OP general surgery, rectal mass noted on WENDY, pt needs to reschedule anoscopy and biopsy if wishes to pursue Stool sample obtained in ED for enteric pathogens and cdiff obtain CT a/p w/o contrast will hold on formal gen surg/GI consults but consider depending on hospital course hold on further antibiotics at this point, afebrile, wbc wnl, hx of cdiff hx of c-scope 04/2019 Hypokalemia replete, repeat at 20:00 and in a.m. Anemia hgb stable at 10.0 monitor hgb likely in setting of chronic loss if + rectal mass/blood diarrhea Perineal Excoriation 2/2 to incontinence Desitin cream bid consult wound nurse HTN Continue losartan, Toprol, Lasix BP stable HLD Continue statin Hypothyroidism Continue levothyroxine T2DM A1c 6.5 on 02/24/2021 Accu-Cheks, hold on sliding scale this time Monitor blood sugar, if consistently greater than 180 will add coverage Otherwise liberal control given age Nocturnal Hypoxemia O2 at HS GERD Continue PPI DVT prophylaxis: SCD/teds 2/2 to reported blood rectal drainage/diarrhea DNR/DNI Dispo: med/surg, CM consulted, likely to need placement PCP: Dr. Angeles Pt was seen and examined in collaboration with Dr. Enamorado, please see addendum The chart was completed utilizing [email or web address] Speech voice recognition software. Grammatical errors, random word insertions, pronoun errors, and incomplete sentences are an occasional consequence of this system due to software limitations, ambient noise, and hardware issues. Any formal questions or concerns about the content, text, or information contained within the body of this dictation should be directly addressed to the provider for clarification. History of Present Illness Chief Complaint: Unable to care for self at home. Primary Care Provider: Diann Angeles MD This is a 85-year-old female who has significant past medical history of T2DM, HTN, HLD, mild persistent asthma, arteriosclerotic cardiovascular disease, GERD, IBS, history of diverticulitis, history of C. difficile, lymphedema, incisional hernia who presents to ED due to inability to care for self at home. [facility] patient was recently hospitalized on 02/24-02/27 secondary to acute diverticulitis. During her hospitalization she was seen by general surgery and GI. She continued to complain of rectal pain along with bloody diarrhea. It was felt to be secondary to diverticulitis as well as possible anal fissure. She was prescribed Cardizem topical compound, but does not remember if she picked this up. She was seen and evaluated by her PCP who set her up with general surgery. She was seen and evaluated on 03/22 and digital rectal exam was concerning for fixed and hard anus with irregular mass nearly circumferentially which was incredibly painful. 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 She has had testing for diarrhea which was negative for C. difficile. She comes in the ER today after being seen by [facility] and feels to be unsafe at home. She was found covered in feces and urine. She was seen and evaluated twice by home health and was felt unsafe and sent in via EMS. She currently lives at home with her who is, "88." Currently she complains of constant rectal pain. Pain currently is a 7 out of 10. She also complains of frequent liquid bloody stool and diarrhea. She states she has 2 episodes a day. She is incontinent of stool and occasional urine. She also has occasional abdominal pain secondary to hernia but denies any abdominal pain at this point in time. She denies any fever, chills, sweats, lightheadedness, dizziness, chest pain, shortness of breath, cough, nausea, vomiting. She is unsure if she has been eating and drinking well. She is u nsure if she is any change in her weight. She does have chronic lower extremity swelling is unsure if this is changed. She states she did have a fall 2 days ago at the edge of her bed in which her had to help pull her up. She denies striking her head or losing consciousness. She also denies any injury. In ED patient remained hemodynamically stable. Per discussion with provider in ED patient was covered in feces and she helped clean patient up. Patient screamed and was very unpleasant. Labwork notable for significant hypokalemia at 2.5. Her hemoglobin is stable at 10.0 and 31.6. Given unable to return home due to unable to care for self patient is recommended for admission, PT OT evaluation and possible placement. Does have 2 daughters, 1 that lives in [place] and 1 that lives in [place] who apparently is not involved in patient's care. Allergies Allergy/AdvReac Type Severity Reaction Status Date / Time Iodinated Contrast Media Allergy Intermediate HIVES/BURNING Verified 03/27/21 15:25 AT IV SITE AND UP VEIN pyrilamine Allergy Intermediate VOMITING Verified 03/27/21 15:25 Sulfa (Sulfonamide Allergy Intermediate RINGS ON Verified 03/27/21 15:25 Antibiotics) SKIN simvastatin Allergy Mild RED Verified 03/27/21 15:25 CIRCLES-HAS TOLERATED LIPITOR amoxicillin AdvReac Intermediate CAUSED Verified 03/27/21 15:25 DIARRHEA PER [facility] MED LIST codeine AdvReac Intermediate N/V Verified 03/27/21 15:25 ether AdvReac Intermediate NAUSEA/VOMI Verified 03/27/21 15:25 TING morphine AdvReac Intermediate VOMITING Verified 03/27/21 15:25 tramadol AdvReac Intermediate NAUSEA/VOMI Verified 03/27/21 15:25 TING Home Medications Medication Instructions Recorded Confirmed Type Oxygen Home #1 ea 09/20/18 12/26/18 History atorvastatin 40 mg tablet 40 mg PO HS tab 09/20/18 03/27/21 History azelastine 137 mcg (0.1 %) nasal 2 sprays INTRANASAL BID ml 09/20/18 03/27/21 History spray aerosol furosemide 20 mg tablet 20 mg PO DAILY tab 09/20/18 03/27/21 History levothyroxine 100 mcg tablet 100 mcg PO DAILYBB tab 09/20/18 03/27/21 History metoprolol tartrate 25 mg tablet 25 mg PO BID tab 09/20/18 03/27/21 History pantoprazole 40 mg tablet,delayed 40 mg PO DAILY tab 09/20/18 03/27/21 History release trazodone 50 mg tablet 50 mg PO HS tab 09/20/18 03/27/21 History Lactobacillus acidoph-L.bulgaricus 1 tab PO TIDM 01/22/19 03/27/21 History 1 million cell chewable tablet (Lactinex) alendronate 70 mg tablet (Fosamax) 70 mg PO WK 01/22/19 03/27/21 History loratadine 10 mg tablet (Claritin) 10 mg PO QAM 01/22/19 03/27/21 History losartan 25 mg tablet (Cozaar) 25 mg PO DAILY 01/22/19 03/27/21 History montelukast 10 mg tablet 10 mg PO HS 01/22/19 03/27/21 History (Singulair) acetaminophen 325 mg tablet 650 mg PO Q6H PRN 02/23/21 03/27/21 History (Tylenol) cyclosporine 0.05 % eye drops in a 1 drp OPHTHALMIC (EYE) Q12H 02/23/21 03/27/21 History dropperette (Restasis) gabapentin 300 mg capsule 300 mg PO BID 02/23/21 03/27/21 History magnesium chloride 64 mg PO BID #60 tab 02/27/21 03/27/21 Rx aspirin 81 mg tablet,delayed 81 mg PO DAILY 03/27/21 03/27/21 History release Past Med/Surg History Medical History Arthritis Crohn's disease Cystitis 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 Dyslipidemia Gastroesophageal reflux disease History of adenomatous polyp of colon History of diverticulitis Hypercholesterolemia Hypertension Hypertension Hypothyroidism Osteoarthritis Osteoporosis Surgical History History of incisional hernia repair History of repair of rectocele S/P laparoscopic hernia repair Total knee replacement status Family History Father , 48 Hypertension Stroke Social History (Updated 03/27/21 @ 15:22 by Cheryl Vivas PA-C) Smoking Status: Never smoker Second Hand Exposure: No; Do You Dip or Chew Tobacco: No; Tobacco Cessation Education Requested by Patient: No Hx Alcohol Use: Yes Alcohol type: wine Hx Substance Use: No Preferred Language: Slovenian Communication Ability: Effective Assistance Representative Required: No Beliefs That Will Affect Care: None marital status: Current Living Situation: Spouse Other Information That Helps Us Care for You: No Feels Safe at Home: Yes Safety Concerns: Feels Safe At This Time Assistive Devices: Walker Review of Systems Review of Systems: All systems reviewed & are unremarkable except as noted in HPI & below Physical Exam Physical Exam: Constitutional: Elderly, female, alert and oriented x3 to basics, answers questions appropriately, WN, vitals as above, NAD, sitting up in bed, Head: Normocephalic, Atraumatic Eyes: PERRL, conjunctivae normal, anicteric sclerae ENMT: external ear and nose normal, oropharynx normal Neck: trachea midline, no thyromegaly normal visual inspection Respiratory: normal respiratory effort, lungs clear to auscultation, no wheeze, rales, rhonchi. Normal insp/exp effort, no accessory muscle use Cardiovascular: RRR, 1/6 JOAO noted RUSB, bilateral lower extremity lymphedema, no surrounding erythema, negative Homans Vessels: no JVD or carotid bruit Chest: normal inspection of chest Abdomen: Large umbilical hernia noted, no pain to palpation, normal bowel sounds, soft, nontender, no hepatosplenomegaly Musculoskeletal: no cyanosis or clubbing, e Skin: no rashes, warm and dry normal turgor Neurologic: PERRL, EOMI, accommodation nl, no face palsy, no dysarthria CN's II-XI intact bilaterally and moves all extremities Psychiatric: A+Ox3 to basics dysthymic affect Lymphatic: no cervical or axillary lymphadenopathy : deferred Results & Data Results & Data ([facility]) Vital Signs (Past 12 Hours) Vital Signs Temp Pulse Pulse Resp BP BP Pulse Ox 03/27/21 14:33 92 H 16 134/57 L 99 03/27/21 14:17 891 H 16 146/57 H 99 03/27/21 12:49 95 03/27/21 10:40 86 27 H 96 03/27/21 10:30 86 29 H 154/68 H 97 03/27/21 10:20 88 28 H 96 03/27/21 10:11 90 25 H 93 03/27/21 09:47 36.7 C 86 20 157/68 H 97 Diagnostic Findings Chest X-Ray 03/27/21 11:42 XR chest 1V portable HISTORY: weakness COMPARISON: Chest 02/23/2021. FINDINGS: No pneumothorax. No pleural effusions. The cardiac silhouette remains mildly enlarged. Vertebroplasty is noted within the lower thoracic spine. This remains unchanged. Calcified granuloma again noted within the right lung base. Mild chronic interstitial thickening remains unchanged. No new focal lung consol idations to suggest pneumonia. No evidence for pulmonary edema. Calcified right hilar lymph nodes. Advanced degenerative changes within the shoulders. IMPRESSION: No significant change compared to the prior study. No acute process. ACT 112: Negative or not required by law. Electronically signed by: Anastacio Henry M.D. 03/27/2021 12:[address] a/p from 03/13/21: IMPRESSION: 1. Colonic diverticulosis. Wall thickening of the sigmoid colon with mild pericolonic stranding is similar to the prior study. Findings may represent acute diverticulitis versus a nonspecific colitis. Correlation with colonoscopy is recommended to exclude a mucosal lesion. 2. No evidence of perforation or abscess. 3. Mildly prominent subcentimeter lymph nodes of the sigmoid mesocolon. 4. Additional findings as above. Medications Administered Medication List Sodium Chloride (Nss 1000ml) 1,000 mls @ 125 mls/hr IV .Q8H TRUPTI Stop: 03/27/21 19:44 Last Admin: 03/27/21 12:37 Dose: 125 mls/hr Documented by: [id number] Potassium Chloride (K Carmelo / Wtr) 10 meq in 100 mls @ 100 mls/hr IV Q1H TRUPTI; Protocol Stop: 03/27/21 15:29 Last Admin: 03/27/21 14:12 Dose: 100 mls/hr Documented by: [id number] Discontinued Medications Lidocaine HCl (Lidocaine 2% Jelly 5 Ml Tube) 20 ml EXT NOW ONE Stop: 03/27/21 14:25 Last Admin: 03/27/21 14:53 Dose: 5 ml Documented by: [id number] Nystatin (Nystatin Powder 15gm Btl) 1 appln EXT NOW STA Stop: 03/27/21 11:44 Last Admin: 03/27/21 14:11 Dose: 1 appln Documented by: [id number] Potassium Chloride (Potassium Chloride Crtab 20 Meq Tabcr) 40 meq PO NOW STA Stop: 03/27/21 13:30 Last Admin: 03/27/21 14:08 Dose: 40 meq Documented by: [id number] COVID-19 Results Results COVID-19 Adm Lab Results: RBC 3.34 M/uL (4.2-5.4) L 03/27/21 WBC 8.33 K/uL (4.8-10.8) 03/27/21 Hgb 10.0 g/dL (12.0-16.0) L 03/27/21 Hct 31.6 % (37-47) L 03/27/21 Plt Count 252 K/uL (130-400) 03/27/21 Neutrophils (%) (Auto) 78.8 % 03/27/21 Lymphocytes (%) (Auto) 6.4 % 03/27/21 Monocytes # (Auto) 1.19 K/uL (0.11-0.59) H 03/27/21 Eosinophils # (Auto) 0.02 K/uL (0-0.5) 03/27/21 Immature Granulocyte % (Auto) 0.2 % 03/27/21 Neutrophils # (Auto) 6.56 K/uL (1.4-6.5) H 03/27/21 Lymphocytes # (Auto) 0.53 K/uL (1.2-3.4) L 03/27/21 Monocytes # (Auto) 1.19 K/uL (0.11-0.59) H 03/27/21 Eosinophils # (Auto) 0.02 K/uL (0-0.5) 03/27/21 Basophils # (Auto) 0.01 K/uL (0-0.2) 03/27/21 Immature Granulocyte # (Auto) 0.02 K/uL (0.00-0.02) 03/27/21 Na 134 mmol/L (136-145) L 03/27/21 K 3.2 mmol/L (3.5-5.1) L 03/27/21 Cl 100 mmol/L (98-107) 03/27/21 CO2 26 mmol/L (21-32) 03/27/21 Anion Gap 8 (3-11) 03/27/21 BUN 10 mg/dl (6-23) 03/27/21 Creatinine 0.38 mg/dl (0.6-1.2) L 03/27/21 BUN/Creatinine Ratio 26.3 (10-20) H 03/27/21 Glucose Level 134 mg/dl (70-99(Fasting)) H 03/27/21 Ca 7.8 mg/dl (8.5-10.1) L 03/27/21 Total Bilirubin 0.9 mg/dl (0.2-1.0) 03/27/21 AST/SGOT 14 U/L (13-39) 03/27/21 ALT/SGPT 12 U/L (7-52) 03/27/21 Alkaline Phosphatase 63 U/L (34-104) 03/27/21 Total Protein 5.7 gm/dl (6.0-8.3) L 03/27/21 Albumin 2.9 gm/dl (3.4-5.0) L 03/27/21 Globulin 2.8 gm/dl (2.5-4.0) 03/27/21 Albumin/Globulin Ratio 1.0 (0.9-2) 03/27/21 Troponin I 0.04 ng/ml (0-0.04) 03/27/21 SARS-CoV-2, RNA, NAAT NEGATIVE (NEGATIVE) 03/27/21 Chest X-Ray 03/27/21 Code Status & VTE Plan Code Status DNR/DNI VTE Prophylaxis Plan VTE Prophylaxis will be ordered: Yes Supervising Physician Co-Signing Physician Notes I have seen and examined the patient and have discussed the case with the provider above. I agree with the assessment and plan as stated. 85 yo F presented to the hospital after being sent in by her home health nurse. Daughter is at bedside and states she was unaware the state of mental and physi leela health that both her parents were in, and she hasn't been told about various health issues from her mother. She states that mom's memory is failing and she hasn't been taking any of her prescribed pills since the home health nurse found them still in the pill sorter box. It is doubtful that she took the remaining 7 days of Augmentin which she was sent home with from the hospital a couple of weeks ago to complete the treatment for her diverticulitis. She presents today with rectal pain with significant excoriation of the rectal area, a red jelly appearance to the stool, stool and urinary incontinence, diarrhea. She hasn't been eating much 2/2 low appetite. She has some tenderness in her anterior hernia. She is asking for broth and does feel dehydrated so IVF were started overnight. K was 2.5 and replacement was given today. Physical reveals an elderly WNWD female in NAD. Although she is answering questions appropriately, she has flashes of anger and will grit her teeth. This will be immediately followed by a smiling and agreeable reaction one minute later. She is able to answer orientation questions roughly and is upset that she is being asked. She feels the dessitin butt paste is starting to help some of her pain. Abdominal tenderness in suprapubic area is noted on exam. She has clear lungs to auscultation throughout and a 3/6 JOAO with S1/2 heard and no peripheral edema. She has a normal WBC count, however, this was 17K on 03/23 when she came into the ER with bloody diarrhea and a UTI and she took a couple doses of antibiotics since that time. She has anemia likely related to the acute GI blood loss. K 2.5 and repeat after replacement was 3.2. Stool culture and c diff toxin were negative. CT a/p without contrast showing nonspecific colitis of signoid colon and the rectum. Agree with plans to involve GI at this point with a partially treated colitis vs diverticulitis. Pt also states she has a h/o Chrons disease and is not on treatment because she cannot tolerate it. She was placed on cipro/flagyl. ne dose of imodium given. Cont clear liquid diet and DEssitin for her rectal discomfort. Was supposed to see CRC in [facility] for biopsy of her rectal mass yesterday, however, she missed her appointment. Daughter is requesting SNF [facility]amorado [facility]
[2021-03-27 15:37] LABS: Appearance Urine Clear (Clear); Bacteria Urine Automated Negative (Negative); Bilirubin Urine Negative (Negative); Blood Urine Negative (Negative); Color Urine Dark Yellow; Glucose Urine UA Negative (Negative); Ketones Urine 1+ (Negative); Leukocyte Esterase Urine Negative (Negative); Nitrite Urine Negative (Negative); Protein Urine 2+ (Negative); Specific Gravity Urine 1.016 (1.000-1.030); Urobilinogen Urine Negative (Negative)
[2021-03-27 15:43] LABS: Adenovirus F 40/41 PCR Not Detected (NotDetected); Astrovirus PCR Not Detected (NotDetected); Campylobacter PCR Not Detected (NotDetected); Clostridium diff Toxin A/B PCR Not Detected (NotDetected); Cryptosporidium PCR Not Detected (NotDetected); Cyclospora cayetanensis PCR Not Detected (NotDetected); Entamoeba histolytica PCR Not Detected (NotDetected); Enteroaggregative E.coli(EAEC) Not Detected (NotDetected); Enteropathogenic E.coli (EPEC) Not Detected (NotDetected); Enterotoxigenic E.coli (ETEC) Not Detected (NotDetected); Giardia lamblia PCR Not Detected (NotDetected); Norovirus GI/GII PCR Not Detected (NotDetected); Plesiomonas shigelloides PCR Not Detected (NotDetected); Rotavirus A PCR Not Detected (NotDetected); Salmonella PCR Not Detected (NotDetected); Sapovirus PCR Not Detected (NotDetected); Shiga-like Toxin E.coli (STEC) Not Detected (NotDetected); Shigella/Enteroinvasive E.coli Not Detected (NotDetected); Vibrio cholerae PCR Not Detected (NotDetected); Vibrio species PCR Not Detected (NotDetected); Yersinia enterocolitica PCR Not Detected (NotDetected)
[2021-03-27] MEDS ORDERED: POTASSIUM CHLORIDE CRTAB 20 MEQ TABCR PO ONE (16:00)
[2021-03-27] MEDS ORDERED: GLUCOSE 10 TABS/TUBE PO PRN (16:53)
[2021-03-27] MEDS ORDERED: ALUMINUM/MAGNESIUM SUSP 30 ML UDC PO PRN (16:53)
[2021-03-27] MEDS ORDERED: GLUCAGON FOR INJ 1 MG VIAL SQ PRN (16:53)
[2021-03-27] MEDS ORDERED: ONDANSETRON INJ 2 MG/ML 2 ML VIAL IV PRN (16:53)
[2021-03-27] MEDS ORDERED: CARBOHYDRATES FOR HYPOGLYCEMIA PO PRN (16:53)
[2021-03-27] MEDS ORDERED: DEXTROSE 50% 50 ML SYRINGE IV PRN (16:53)
[2021-03-27] MEDS ORDERED: GLUCOSE 40% GEL 15 GM TUBE PO PRN (16:53)
[2021-03-27] MEDS ORDERED: MAGNESIUM HYDROXIDE SUSP 30 ML UDC PO PRN (16:53)
[2021-03-27] MEDS ORDERED: [UNRECOGNIZED DRUG - OTHER] PO SCH (17:00)
[2021-03-27] MEDS: ACETAMINOPHEN 325 MG TAB PO PRN (17:56)
--- NOTE | 2021-03-27 18:32 | CT Scan Report ---
ABDOMEN AND PELVIS CT WITHOUT CONTRAST CT DOSE: 579.42 mGy.cm HISTORY: Rectal pain. TECHNIQUE: Multiaxial CT images of the abdomen and pelvis were performed without contrast. A dose lo wering technique was utilized adhering to the principles of ALARA. COMPARISON STUDY: Abdomen and pelvis CT 03/13/2021. FINDINGS: Calcific granuloma within the right middle lobe and mild chronic interstitial thickening ag ain noted at the lung bases. No pneumoperitoneum. No pneumatosis. Right sacroiliac bolts are again no kenia. Posterior fusion hardware seen within the lower lumbar spine. Vertebroplasty is noted at the low er thoracic spine. Coronary artery and mitral annulus calcifications. There is a small hiatus hernia. Prior mesh repair of a ventral hernia. Calcified granulomas noted within the liver and spleen. Prior cholecystectomy. The unenhanced pancreas and adrenal glands are unremarkable. No renal stones or hyd ronephrosis. Bilateral renal hypodense lesions remain stable and favor cysts. Calcified plaque within the normal caliber abdominal aorta. No retroperitoneal lymphadenopathy. No bladder wall thickening. Prior hysterectomy. Inej-zk-chrovxyd bowel wall thickening involving the sigmoid colon and rectum. Th is has slightly progressed. There are few prominent pericolonic lymph nodes and mild pericolonic fat stranding at these locations. Trace pelvic free fluid. Multiple colonic diverticula are noted within the sigmoid colon. Moderate well-formed stool within the proximal colon. No dilated loops of small amado wel to suggest an obstruction. The appendix is surgically absent. IMPRESSION: 1. Slight progression of the the [id number] bowel wall thickening involving the sigmoid colon a nd rectum with pericolonic fat stranding and a few prominent pericolonic lymph nodes. No perforation or abscess identified at this time. This could represent a nonspecific colitis or diverticulitis. 2. Additional findings as described above. ACT 112: Negative or not required by law. Electronically signed by: Anastacio Henry M.D. 03/27/2021 6:30 PM
[2021-03-27] MEDS ORDERED: KETOROLAC TROMETHAMINE 15 MG/ML VIAL IV ONE (18:50)
[2021-03-27] MEDS ORDERED: LOPERAMIDE HCL 2 MG CAP PO STA (18:51)
[2021-03-27] MEDS ORDERED: PROMETHAZINE HCL 25 MG TAB PO PRN (19:16)
[2021-03-27] MEDS: ZINC OXIDE 16% 45 APPLN, HYDROCORTISONE 1% 45 APPLN, ALUMINUM/MAGNESIUM SUSP 15 ML, BAR... TOP SCH ×2 (19:42→23:59)
[2021-03-27 20:15] LABS: BUN Creatinine Ratio 26.3 (10-20); Calcium 7.8 mg/dl (8.5-10.1); Creatinine Clr Calc Pharmacy 106.2 ml/min; Est GFR (African American) 112.7 ml/min; Est GFR (Non-African American) 97.3 ml/min; Potassium 3.2 mmol/L (3.5-5.1)
[2021-03-27] MEDS: CIPROFLOXACIN / D5W 400 MG/200 ML BAG IV SCH (20:17)
[2021-03-27] MEDS ORDERED: ZINC OXIDE 16% 45 APPLN, HYDROCORTISONE 1% 45 APPLN, ALUMINUM/MAGNESIUM SUSP 15 ML, BAR... TOP SCH (21:00)
[2021-03-27] MEDS ORDERED: AZELASTINE HCL 0.1% NASAL 200 SPRAYS/27,400 MCG BTL SCH (21:00)
[2021-03-27] MEDS: metroNIDAZOLE 500 MG TAB PO SCH (21:33)
[2021-03-27] MEDS: MONTELUKAST SODIUM 10 MG TABLET PO SCH (21:34)
[2021-03-27] MEDS: GABAPENTIN 300 MG CAP PO SCH (21:34)
[2021-03-27] MEDS: MAGNESIUM CHLORIDE 64MG DELAYED REL TAB PO SCH (21:34)
[2021-03-27] MEDS: AZELASTINE HCL 0.1% NASAL 200 SPRAYS/27,400 MCG BTL SCH (21:34)
[2021-03-27] MEDS: traZODone HCL 50 MG TAB PO SCH (21:34)
[2021-03-27] MEDS: ATORVASTATIN 40 MG TAB PO SCH (21:35)
[2021-03-27] MEDS: METOPROLOL TARTRATE 25 MG TAB PO SCH (21:53)
[2021-03-27] MEDS: RESTASIS: ORDER AWAITING ACTION SCH (23:29)
[2021-03-28] MEDS: ACETAMINOPHEN 325 MG TAB PO PRN ×3 (01:12→22:37)
[2021-03-28] MEDS ORDERED: traMADol HCL 50 MG TABLET PO PRN (01:24)
[2021-03-28] MEDS: LEVOTHYROXINE SODIUM 100 MCG TABLET PO SCH (05:58)
[2021-03-28] MEDS: metroNIDAZOLE 500 MG TAB PO SCH ×3 (05:58→21:52)
[2021-03-28] MEDS: MAGNESIUM CHLORIDE 64MG DELAYED REL TAB PO SCH ×2 (08:49→21:54)
[2021-03-28] MEDS: LORATADINE 10 MG TAB PO SCH (08:49)
[2021-03-28] MEDS: PANTOprazole 40 MG TAB PO SCH (08:49)
[2021-03-28] MEDS: ZINC OXIDE 16% 45 APPLN, HYDROCORTISONE 1% 45 APPLN, ALUMINUM/MAGNESIUM SUSP 15 ML, BAR... TOP SCH ×2 (08:49→16:24)
[2021-03-28] MEDS: GABAPENTIN 300 MG CAP PO SCH ×2 (08:49→21:52)
[2021-03-28] MEDS: CIPROFLOXACIN / D5W 400 MG/200 ML BAG IV SCH ×2 (08:50→19:12)
[2021-03-28] MEDS: RESTASIS: ORDER AWAITING ACTION SCH ×2 (08:52→16:25)
[2021-03-28] MEDS: METOPROLOL TARTRATE 25 MG TAB PO SCH ×2 (08:53→21:53)
[2021-03-28] MEDS: AZELASTINE HCL 0.1% NASAL 200 SPRAYS/27,400 MCG BTL SCH ×2 (08:54→21:51)
[2021-03-28] MEDS ORDERED: ASPIRIN 81 MG ECTAB PO SCH (09:00)
[2021-03-28] MEDS ORDERED: LOSARTAN POTASSIUM 25 MG TAB PO SCH (09:00)
[2021-03-28] MEDS ORDERED: FUROSEMIDE 20 MG TAB PO SCH (09:00)
[2021-03-28 10:17] LABS: BUN Creatinine Ratio 22.2 (10-20); Calcium 7.5 mg/dl (8.5-10.1); Creatinine Clr Calc Pharmacy 89.7 ml/min; Est GFR (African American) 106.6 ml/min; Potassium 3.3 mmol/L (3.5-5.1)
--- NOTE | 2021-03-28 12:08 | Gastrointestinal Consultation ---
Date of Consultation March 28, 2021 Assessment & Plan (1) Rectal mass: Plan for Flex sig tomorrow to evaluate and biopsy the anorectal area and ? colitis seen on CT scan, DDx Malignancy Vs inflammation. NPO after midnight. Continue Cipro/Flagyl. Give tap water enema tomorrow at 6 AM. (2) Rectal pain: (3) Bloody diarrhea: (4) Colitis: History of Present Illness Reason for Consultation: Anorectal mass and bloody diarrhea Attending Physician: Heron Cameron MD History of Present Illness 85 years old female patient admitted due to bloody diarrhea. Patient started having anorectal pain few weeks ago, seen by general surgery then [place] [facility] [place] found to have an anorectal mass and planned for exam with biopsy under sedation last week but got canceled due to fever and runny nose with concern for COVID however later her COVID test came back negative. She now presented with worsening anal pain and diarrhea with intermittent rectal bleeding. Stool culture and c diff toxin were negative. CT a/p without contrast showing nonspecific colitis of sigmoid colon and the rectum. She denies any abdo emery pain, nausea or vomiting. No fever or chills. Last few weeks was given ABx for ?diverticulitis. Last colonoscopy 2 years ago by showed diverticulosis and hemorrhoids. Allergies Allergy/AdvReac Type Severity Reaction Status Date / Time Iodinated Contrast Media Allergy Intermediate HIVES/BURNING Verified 03/27/21 15 :25 AT IV SITE AND UP VEIN pyrilamine Allergy Intermediate VOMITING Verified 03/27/21 15:25 Sulfa (Sulfonamide Allergy Intermediate RINGS ON Verified 03/27/21 15:25 Antibiotics) SKIN simvastatin Allergy Mild RED Verified 03/27/21 15:25 CIRCLES-HAS TOLERATED LIPITOR amoxicillin AdvReac Intermediate CAUSED Verified 03/27/21 15:25 DIARRHEA PER [facility] MED LIST codeine AdvReac Intermediate N/V Verified 03/27/21 15:25 ether AdvReac Intermediate NAUSEA/VOMI Verified 03/27/21 15:25 TING morphine AdvReac Intermediate VOMITING Verified 03/27/21 15:25 tramadol AdvReac Intermediate NAUSEA/VOMI Verified 03/27/21 15:25 TING Home Medications Medication Instructions Recorded Confirmed Type Oxygen Home #1 ea 09/20/18 12/26/18 History atorvastatin 40 mg tablet 40 mg PO HS tab 09/20/18 03/27/21 History azelastine 137 mcg (0.1 %) nasal 2 sprays INTRANASAL BID ml 09/20/18 03/27/21 History spray aerosol furosemide 20 mg tablet 20 mg PO DAILY tab 09/20/18 03/27/21 History levothyroxine 100 mcg tablet 100 mcg PO DAILYBB tab 09/20/18 03/27/21 History metoprolol tartrate 25 mg tablet 25 mg PO BID tab 09/20/18 03/27/21 History pantoprazole 40 mg tablet,delayed 40 mg PO DAILY tab 09/20/18 03/27/21 History release trazodone 50 mg tablet 50 mg PO HS tab 09/20/18 03/27/21 History Lactobacillus acidoph-L.bulgaricus 1 tab PO TIDM 01/22/19 03/27/21 History 1 million cell chewable tablet (Lactinex) alendronate 70 mg tablet (Fosamax) 70 mg PO WK 01/22/19 03/27/21 History loratadine 10 mg tablet (Claritin) 10 mg PO QAM 01/22/19 03/27/21 History losartan 25 mg tablet (Cozaar) 25 mg PO DAILY 01/22/19 03/27/21 History montelukast 10 mg tablet 10 mg PO HS 01/22/19 03/27/21 History (Singulair) acetaminophen 325 mg tablet 650 mg PO Q6H PRN 02/23/21 03/27/21 History (Tylenol) cyclosporine 0.05 % eye drops in a 1 drp OPHTHALMIC (EYE) Q12H 02/23/21 03/27/21 History dropperette (Restasis) gabapentin 300 mg capsule 300 mg PO BID 02/23/21 03/27/21 History magnesium chloride 64 mg PO BID #60 tab 02/27/21 03/27/21 Rx aspirin 81 mg tablet,delayed 81 mg PO DAILY 03/27/21 03/27/21 History release Patient History Medical History Arthritis Crohn's disease Cystitis 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 Dyslipidemia Gastroesophageal reflux disease History of adenomatous polyp of colon History of diverticulitis Hypercholesterolemia Hypertension Hypertension Hypothyroidism Osteoarthritis Osteoporosis Surgical History History of incisional hernia repair History of repair of rectocele S/P laparoscopic hernia repair Total knee replacement status Family History Father , 48 Hypertension Stroke Social History Smoking Status: Never smoker Second Hand Exposure: No; Do You Dip or Chew Tobacco: No; Tobacco Cessation Education Requested by Patient: No Hx Alcohol Use: Yes Alcohol type: wine Hx Substance Use: No Preferred Language: Estonian Communication Ability: Effective 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 Beliefs That Will Affect Care: None marital status: Current Living Situation: Spouse Other Information That Helps Us Care for You: No Feels Safe at Home: Yes Safety Concerns: Feels Safe At This Time Assistive Devices: Oxygen - at Night and Walker Review of Systems Constitutional: no fever, no chills, no fatigue and no weight loss Eyes: no eye pain and no worsening vision Ear, Nose, Mouth, Throat: no tinnitus, no dizziness, no nasal discharge and no epistaxis Respiratory: no cough, no dyspnea, no dyspnea on exertion and no wheezing Cardiovascular: no chest pain, no orthopnea, no palpitations and no edema Gastrointestinal: as per Subjective / HPI Genitourinary: no dysuria, no urinary frequency, no urinary incontinence and no hematuria Musculoskeletal: no stiffness and no myalgia Neurologic: no localized weakness, no paralysis, no tremor(s) and no headache(s) Endocrine: no polydipsia and no polyuria Hematologic / Lymphatic: no easy bleeding and no night sweats Physical Exam Constitutional: + well hydrated, cooperative and comfortable Eyes: PERRL, conjunctivae normal, anicteric sclerae ENMT: external ear and nose normal, oropharynx normal Neck: normal visual inspection and trachea midline Respiratory: normal respiratory effort, lungs clear to auscultation Auscultation: no wheezes Cardiovascular: RRR, no murmur, no edema Gastrointestinal (Abdomen): normal bowel sounds, soft, nontender, no hepatosplenomegaly Musculoskeletal: no cyanosis or clubbing, extremities motor strength 5/5 Skin: no rashes, warm and dry Neurologic: awake; no focal motor deficits Motor/Sensory: no tremor Results & Data ([facility] [place]) Vital Signs (Past 12 Hours) Vital Signs Temp Pulse Resp BP Pulse Ox 03/28/21 07:29 36.9 C 89 18 93/50 L 97 Laboratory Results Laboratory Results - last 24 hr 03/27/21 03/27/21 03/27/21 12:15 12:40 12:40 WBC 8.33 RBC 3.34 L Hgb 10.0 L Hct 31.6 L MCV 94.6 MCH 29.9 MCHC 31.6 L RDW Std Deviation 53.8 H RDW Coeff of Jluis 15.7 H Plt Count 252 MPV 9.1 Immature Gran % (Auto) 0.2 Neut % (Auto) 78.8 Lymph % (Auto) 6.4 [place] % (Auto) 14.3 Eos % (Auto) 0.2 Baso % (Auto) 0.1 Neut # (Auto) 6.56 H Lymph # (Auto) 0.53 L [place] # (Auto) 1.19 H Eos # (Auto) 0.02 Baso # (Auto) 0.01 Immature Gran # (Auto) 0.02 Sodium 135 L Potassium 2.5 L* Chloride 100 Carbon Dioxide 28 Anion Gap 7 BUN 10 Creatinine 0.46 L Est Cr Clr Drug Dosing Not Reportable Est GFR ( Amer) 105.9 Est GFR (Non-Af Amer) 91.3 BUN/Creatinine Ratio 21.7 H Glucose 134 H POC Glucose Calcium 8.0 L Magnesium 1.7 Total Bilirubin 0.9 AST 14 ALT 12 Alkaline Phosphatase 63 Troponin I 0.04 Total Protein 5.7 L Albumin 2.9 L Globulin 2.8 Albumin/Globulin Ratio 1.0 TSH Urine Color Urine Appearance Urine pH Ur Specific [place] Urine Protein Urine Glucose (UA) Urine Ketones Urine Blood Urine Nitrite Urine Bilirubin Urine Urobilinogen Ur Leukocyte Esterase Urine WBC (Auto) Urine RBC (Auto) U Hyaline Cast (Auto) U Epithel Cells (Auto) Urine Bacteria (Auto) Stl C. cayetanensis PCR Stool Rotavirus A PCR Stl Adenov F 40/ PCR Stool Astrovirus (PCR) Stool Campylobacter PCR Stl C. diff Tox A/B PCR Stool Cryptosporidium PCR Stl E.coli Shiga Tox PCR Stl Enterotoxigenic E PCR Stool EPEC (PCR) Stool EAEC (PCR) Stl E. histolytica PCR Stool Giardia Lamblia PCR Stool Salmonella PCR Stool Sapovirus (PCR) Stl P. shigelloides PCR Stl Shigella/EIEC PCR St Y.enterocolitica PCR Stool Vibrio (PCR) Stl Vibrio cholerae PCR Stl Norovirus GI/GII PCR SARS-CoV-2, RNA, NAAT NEGATIVE 03/27/21 03/27/21 03/27/21 12:40 13:35 15:00 WBC RBC Hgb Hct MCV MCH MCHC RDW Std Deviation RDW Coeff of Jluis Plt Count MPV Immature Gran % (Auto) Neut % (Auto) Lymph % (Auto) [place] % (Auto) Eos % (Auto) Baso % (Auto) Neut # (Auto) Lymph # (Auto) [place] # (Auto) Eos # (Auto) Baso # (Auto) Immature Gran # (Auto) Sodium Potassium Chloride Carbon Dioxide Anion Gap BUN Creatinine Est Cr Clr Drug Dosing Est GFR ( Amer) Est GFR (Non-Af Amer) BUN/Creatinine Ratio Glucose POC Glucose Calcium Magnesium Total Bilirubin AST ALT Alkaline Phosphatase Troponin I Total Protein Albumin Globulin Albumin/Globulin Ratio TSH 1.480 Urine Color Dark Yellow Urine Appearance Clear Urine pH 7.0 Ur Specific [place] 1.016 Urine Protein 2+ H Urine Glucose (UA) Negative Urine Ketones 1+ H Urine Blood Negative Urine Nitrite Negative Urine Bilirubin Negative Urine Urobilinogen Negative Ur Leukocyte Esterase Negative Urine WBC (Auto) 1-5 Urine RBC (Auto) 5-10 H U Hyaline Cast (Auto) 1-5 U Epithel Cells (Auto) 10-20 H Urine Bacteria (Auto) Negative Stl C. cayetanensis PCR Not Detected Stool Rotavirus A PCR Not Detected Stl Adenov F 40/41 PCR Not Detected Stool Astrovirus (PCR) Not Detected Stool Campylobacter PCR Not Detected Stl C. diff Tox A/B PCR Not Detected Stool Cryptosporidium PCR Not Detected Stl E.coli Shiga Tox PCR Not Detected Stl Enterotoxigenic E PCR Not Detected Stool EPEC (PCR) Not Detected Stool EAEC (PCR) Not Detected Stl E. histolytica PCR Not Detected Stool Giardia Lamblia PCR Not Detected Stool Salmonella PCR Not Detected Stool Sapovirus (PCR) Not Detected Stl P. shigelloides PCR Not Detected Stl Shigella/EIEC PCR Not Detected St Y.enterocolitica PCR Not Detected Stool Vibrio (PCR) Not Detected Stl Vibrio cholerae PCR Not Detected Stl Norovirus GI/GII PCR Not Detected SARS-CoV-2, RNA, NAAT 02/12/22 02/12/22 02/12/22 16:51 19:45 20:46 WBC RBC Hgb Hct MCV MCH MCHC RDW Std Deviation RDW Coeff of Jluis Plt Count MPV Immature Gran % (Auto) Neut % (Auto) Lymph % (Auto) [place] % (Auto) Eos % (Auto) Baso % (Auto) Neut # (Auto) Lymph # (Auto) [place] # (Auto) Eos # (Auto) Baso # (Auto) Immature Gran # (Auto) Sodium 134 L Potassium 3.2 L D Chloride 100 Carbon Dioxide 26 Anion Gap 8 BUN 10 Creatinine 0.38 L Est Cr Clr Drug Dosing 106.2 Est GFR ( Amer) 112.7 Est GFR (Non-Af Amer) 97.3 BUN/Creatinine Ratio 26.3 H Glucose 134 H POC Glucose 118 H 246 H Calcium 7.8 L Magnesium Total Bilirubin AST ALT Alkaline Phosphatase Troponin I Total Protein Albumin Globulin Albumin/Globulin Ratio TSH Urine Color Urine Appearance Urine pH Ur Specific [place] Urine Protein Urine Glucose (UA) Urine Ketones Urine Blood Urine Nitrite Urine Bilirubin Urine Urobilinogen Ur Leukocyte Esterase Urine WBC (Auto) Urine RBC (Auto) U Hyaline Cast (Auto) U Epithel Cells (Auto) Urine Bacteria (Auto) Stl C. cayetanensis PCR Stool Rotavirus A PCR Stl Adenov F 40/41 PCR Stool Astrovirus (PCR) Stool Campylobacter PCR Stl C. diff Tox A/B PCR Stool Cryptosporidium PCR Stl E.coli Shiga Tox PCR Stl Enterotoxigenic E PCR Stool EPEC (PCR) Stool EAEC (PCR) Stl E. histolytica PCR Stool Giardia Lamblia PCR Stool Salmonella PCR Stool Sapovirus (PCR) Stl P. shigelloides PCR Stl Shigella/EIEC PCR St Y.enterocolitica PCR Stool Vibrio (PCR) Stl Vibrio cholerae PCR Stl Norovirus GI/GII PCR SARS-CoV-2, RNA, NAAT 03/28/21 03/28/21 08:11 09:42 WBC RBC Hgb Hct MCV MCH MCHC RDW Std Deviation RDW Coeff of Jluis Plt Count MPV Immature Gran % (Auto) Neut % (Auto) Lymph % (Auto) [place] % (Auto) Eos % (Auto) Baso % (Auto) Neut # (Auto) Lymph # (Auto) [place] # (Auto) Eos # (Auto) Baso # (Auto) Immature Gran # (Auto) Sodium 133 L Potassium 3.3 L Chloride 103 Carbon Dioxide 24 Anion Gap 6 BUN 10 Creatinine 0.45 L Est Cr Clr Drug Dosing 89.7 Est GFR ( Amer) 106.6 Est GFR (Non-Af Amer) 92.0 BUN/Creatinine Ratio 22.2 H Glucose 245 H POC Glucose 116 H Calcium 7.5 L Magnesium Total Bilirubin AST ALT Alkaline Phosphatase Troponin I Total Protein Albumin Globulin Albumin/Globulin Ratio TSH Urine Color Urine Appearance Urine pH Ur Specific [place] Urine Protein Urine Glucose (UA) Urine Ketones Urine Blood Urine Nitrite Urine Bilirubin Urine Urobilinogen Ur Leukocyte Esterase Urine WBC (Auto) Urine RBC (Auto) U Hyaline Cast (Auto) U Epithel Cells (Auto) Urine Bacteria (Auto) Stl C. cayetanensis PCR Stool Rotavirus A PCR Stl Adenov F 40/ PCR Stool Astrovirus (PCR) Stool Campylobacter PCR Stl C. diff Tox A/B PCR Stool Cryptosporidium PCR Stl E.coli Shiga Tox PCR Stl Enterotoxigenic E PCR Stool EPEC (PCR) Stool EAEC (PCR) Stl E. histolytica PCR Stool Giardia Lamblia PCR Stool Salmonella PCR Stool Sapovirus (PCR) Stl P. shigelloides PCR Stl Shigella/EIEC PCR St Y.enterocolitica PCR Stool Vibrio (PCR) Stl Vibrio cholerae PCR Stl Norovirus GI/GII PCR SARS-CoV-2, RNA, NAAT
[2021-03-28] MEDS ORDERED: POTASSIUM CHLORIDE CRTAB 20 MEQ TABCR PO ONE (12:23)
[2021-03-28] MEDS: ADVANCED PROBIOTIC 1250 MG CAPSULE PO SCH (13:41)
[2021-03-28] MEDS ORDERED: SODIUM CHLORIDE 0.9% 1000ML 1,000 ML IV ONE (15:21)
--- NOTE | 2021-03-28 15:35 | Hospitalist Progress Note ---
Date of Service March 28, 2021 Assessment & Plan (1) Rectal mass: (2) Bloody diarrhea: (3) Hypokalemia: (4) Ambulatory dysfunction: (5) Fall: (6) Diabetes mellitus type 2 in nonobese: (7) Rectal pain: (8) Colitis: Plan: Patient is an 85 yr female with H/O DM II, HTN, HLD, mild persistent asthma, arteriosclerotic cardiovascular disease, GERD, IBS, history of diverticulitis, history of C. difficile, lymphedema, incisional hernia who presents to ED due to inability to care for self at home. Recent admission 02/24-02/27 for acute diveriticulitis, ? anal fissure. Patient did not complete antibiotic course upon discharge as advised (Due to memory issues as per patient) Persistent rectal pain, liquid brown/blood stool Seen and evaluated by Dr. Hanh Lainez [facility], [facility] revealing concern for circumferential rectal mass, plan for anoscopy and biopsy under anesthesia on 03/26 which patient canceled Continues to have persistent rectal pain, stool incontinence with bloody brown liquid fecal discharge/diarrhea Since being discharged home has been followed by home health, found today covered in feces and feels unable to care for self at home so sent to ED. Rectal Mass R/O Malignancy Vs Colitis/Diverticulitis Suspected GI Bleed H/O Large Incisional Hernia H/O Cdiff --CT ABD:light progression of the the [id number] bowel wall thickening involving the sigmoid colon and rectum with pericolonic fat stranding and a few prominent pericolonic lymph nodes. No perforation or abscess identified at this time. This could represent a nonspecific colitis or diverticulitis. -Stool Studies: Negative Continue Flag Nelliyl Appreciate GI input Plan for flexible sigmoidoscopy tomorrow Up after midnight Consider surgical evaluation if needed Hypokalemia replete as needed Ambulatory dysfunction Unable to care for self at home Fall w/o known injury admit to med/surg PT/OT Case management to help with discharge planning Anemia of chronic disease hgb stable monitor CBC Perineal Excoriation Secondary to Stool incontinence Desitin cream bid consult wound nurse HTN BP low today Hold losartan, Lasix Continue Metoprolol with holding parameters HLD Continue statin Hypothyroidism Continue levothyroxine DM II A1c 6.5 on 02/24/2021 Accu-Cheks, hold on sliding scale this time Monitor blood sugar, if consistently greater than 180 will add coverage Otherwise liberal control given age Nocturnal Hypoxemia O2 at HS GERD Continue PPI DVT prophylaxis: SCD/teds due to reported bloody rectal drainage Code Status DNR/DNI Disposition PT/OT prior to discharge Admission and Anticipated Discharge Date Admission Date: March 27, 2021 Subjective Patient is seen and examined at bedside States having rectal pain associated with diarrhea Also has right lower quadrant abdominal tenderness Offers no other complaints Denies any chest pain, shortness of breath, nausea, vomiting, dizziness Discussed with GI today Review of Systems Review of Systems: All systems reviewed & are unremarkable except as noted in Subjective Physical Exam Physical Exam: Physical Exam: Vitals signs as noted above General Appearance:Moderately built and nourished, no apparent distress Head: normocephalic, Atraumatic Eyes: normal inspection, EOMI Neck: supple, Trachea midline Respiratory/Chest: Normal breath sounds, CTA Cardiovascular: S1, S2, No murmur Abdomen/GI:Soft, +Umbilical hernia, RLQ tender, Bowel sounds present Extremities/Musculoskeletal:normal inspection, B/L LE edema Neurologic/Psych:AAOX3, grossly no focal neurological deficits Skin: normal color, warm Results & Data Results & Data ([facility]) Vital Signs (Past 12 Hours) Vital Signs Temp Pulse Resp BP Pulse Ox 03/28/21 07:29 36.9 C 89 18 93/50 L 97 Laboratory Results [facility] 03/27/21 03/28/21 19:45 09:42 Sodium 134 L 133 L Potassium 3.2 L D 3.3 L Chloride 100 103 Carbon Dioxide 26 24 BUN 10 10 Creatinine 0.38 L 0.45 L Glucose 134 H 245 H Calcium 7.8 L 7.5 L Urine 03/27/21 Range/Units 15:00 Urine Color Dark Yellow Urine Appearance Clear (Clear) Urine pH 7.0 (4.5-7.5) Ur Specific [place] 1.016 (1.000-1.030) Urine Protein 2+ H (Negative) Urine Glucose (UA) Negative (Negative)
[2021-03-28] MEDS ORDERED: SODIUM CHLORIDE 0.9% 250 ML IV PRN (17:48)
--- NOTE | 2021-03-28 17:50 | Communication Note ---
Date of Service: March 28, 2021 RN reported that patient had passed large blood clots. Will monitor H&H and transfuse PRBCs as needed. Will keep her NPO.
[2021-03-28 18:17] LABS: Hematocrit (blood only) 33.6 % (37-47); Hemoglobin 10.7 g/dL (12.0-16.0)
[2021-03-28] MEDS: MONTELUKAST SODIUM 10 MG TABLET PO SCH (21:53)
[2021-03-28] MEDS: traZODone HCL 50 MG TAB PO SCH (21:53)
[2021-03-28] MEDS: ATORVASTATIN 40 MG TAB PO SCH (21:54)
[2021-03-29] MEDS: ZINC OXIDE 16% 45 APPLN, HYDROCORTISONE 1% 45 APPLN, ALUMINUM/MAGNESIUM SUSP 15 ML, BAR... TOP SCH ×3 (00:02→17:49)
[2021-03-29] MEDS: RESTASIS: ORDER AWAITING ACTION SCH ×3 (00:04→17:49)
[2021-03-29 00:28] LABS: Hematocrit (blood only) 24.4 % (37-47); Hemoglobin 7.7 g/dL (12.0-16.0)
[2021-03-29] MEDS ORDERED: SODIUM CHLORIDE 0.9% 250 ML IV PRN (01:09)
[2021-03-29] MEDS: LEVOTHYROXINE SODIUM 100 MCG TABLET PO SCH (05:59)
[2021-03-29] MEDS: metroNIDAZOLE 500 MG TAB PO SCH ×3 (05:59→21:15)
[2021-03-29 06:26] LABS: Hematocrit (blood only) 31.8 % (37-47); Hemoglobin 10.1 g/dL (12.0-16.0); Mean Corpuscular Hemoglobin 29.8 pg (25-34); Mean Corpuscular Hgb Conc 31.8 g/dL (32-36); Mean Corpuscular Volume 93.8 fL (80-100); Mean Platelet Volume 9.4 fL (7.4-10.4); Platelet Count 250 K/uL (130-400); RDW Coefficient of Variation 15.9 % (11.5-14.5); RDW Standard Deviation 54.9 fL (36.4-46.3); Red Blood Count 3.39 M/uL (4.2-5.4); White Blood Count 13.24 K/uL (4.8-10.8)
[2021-03-29 06:46] LABS: BUN Creatinine Ratio 21.6 (10-20); Calcium 7.1 mg/dl (8.5-10.1); Creatinine Clr Calc Pharmacy 107.3 ml/min; Est GFR (African American) 113.7 ml/min; Est GFR (Non-African American) 98.1 ml/min; Magnesium 1.7 mg/dl (1.7-2.4); Potassium 3.5 mmol/L (3.5-5.1)
--- NOTE | 2021-03-29 08:17 | Gastroenterology Progress Note ---
Date of Service March 29, 2021 Assessment & Plan (1) Rectal mass: Plan: 85 year old female NPO for flexsig for evaluation of anorectal area and ? colitis seen on CT scan, DDx Malignancy Vs inflammation. Tap water enema Continue Cipro/Flagyl FlexSig today Thank you for allowing us to participate in the care of this patient. Please call with any acute changes, questions or concerns. Please see addendum below with additional recommendation from my supervising physician. (2) Rectal pain: (3) Bloody diarrhea: (4) Colitis: Admission and Anticipated Discharge Date Admission Date: March 27, 2021 Supervising Physician Co-Signing Physician Notes I saw and evaluated the patient. Based on the patient's history and imaging I wonder if we may be best off doing a full colonoscopy for evaluation of her imaging findings. Would recommend a liquid diet today and bowel preparation this afternoon and evening for a colonoscopy tomorrow. Subjective Pt was seen and evaluated, chart reviewed. NPO for FlexSig. Notes intermittent hematochezia Review of Systems Review of Systems: All systems reviewed & are unremarkable except as noted in HPI & below Physical Exam Constitutional: WD/WN, vitals as above Neck: trachea midline, no thyromegaly Respiratory: normal respiratory effort, lungs clear to auscultation Cardiovascular: Rate/Rhythm: regular rate and regular rhythm Gastrointestinal (Abdomen): normal bowel sounds, soft, nontender, no hepatosplenomegaly Skin: no rashes, warm and dry Results & Data ([facility]) Vital Signs (Past 12 Hours) Vital Signs Temp Pulse Pulse Resp BP BP Pulse Ox 03/29/21 07:55 37.1 C 101 H 18 149/74 H 99 03/29/21 04:24 36.5 C 88 18 111/62 97 03/29/21 03:58 36.5 C 85 22 106/60 97 03/29/21 02:58 36.5 C 90 25 H 102/60 97 03/29/21 02:28 36.5 C 92 H 20 110/76 97 03/29/21 02:13 36.5 C 78 18 95/55 L 97 03/29/21 01:55 37.0 C 82 20 109/59 L 94 03/29/21 00:07 36.7 C 87 20 101/60 97 03/28/21 21:50 36.4 C L 97 H 20 119/69 97 Laboratory Results 03/29/21 03/29/21 03/29/21 Range/Units 07:22 05:52 05:52 WBC 13.24 H (4.8-10.8) K/uL RBC 3.39 L (4.2-5.4) M/uL Hgb 10.1 L (12.0-16.0) g/dL Hct 31.8 L (37-47) % MCV 93.8 (80-100) fL MCH 29.8 (25-34) pg MCHC 31.8 L (32-36) g/dL RDW Std Deviation 54.9 H (36.4-46.3) fL RDW Coeff of Jluis 15.9 H (11.5-14.5) % Plt Count 250 (130-400) K/uL MPV 9.4 (7.4-10.4) fL Sodium 131 L (136-145) mmol/L Potassium 3.5 (3.5-5.1) mmol/L Chloride 104 (98-107) mmol/L Carbon Dioxide 23 (21-32) mmol/L Anion Gap 4 (3-11) BUN 8 (6-23) mg/dl Creatinine 0.37 L (0.6-1.2) mg/dl Est Cr Clr Drug Dosing 107.3 ml/min Est GFR ( Amer) 113.7 ml/min Est GFR (Non-Af Amer) 98.1 ml/min BUN/Creatinine Ratio 21.6 H (10-20) Glucose 130 H (70-99(Fasting)) mg/dl POC Glucose 132 H (70-99) mg/dl Calcium 7.1 L (8.5-10.1) mg/dl Magnesium 1.7 (1.7-2.4) mg/dl Blood Type Antibody Screen Crossmatch 03/28/21 03/28/21 03/28/21 Range/Units 23:36 22:33 17:59 WBC (4.8-10.8) K/uL RBC (4.2-5.4) M/uL Hgb 7.7 L D (12.0-16.0) g/dL Hct 24.4 L (37-47) % MCV (80-100) fL MCH (25-34) pg MCHC (32-36) g/dL RDW Std Deviation (36.4-46.3) fL RDW Coeff of Jluis (11.5-14.5) % Plt Count (130-400) K/uL MPV (7.4-10.4) fL Sodium (136-145) mmol/L Potassium (3.5-5.1) mmol/L Chloride (98-107) mmol/L Carbon Dioxide (21-32) mmol/L Anion Gap (3-11) BUN (6-23) mg/dl Creatinine (0.6-1.2) mg/dl Est Cr Clr Drug Dosing ml/min Est GFR ( Amer) ml/min Est GFR (Non-Af Amer) ml/min BUN/Creatinine Ratio (10-20) Glucose (70-99(Fasting)) mg/dl POC Glucose 143 H (70-99) mg/dl Calcium (8.5-10.1) mg/dl Magnesium (1.7-2.4) mg/dl Blood Type O Negative Antibody Screen NEGATIVE Crossmatch See Detail 03/28/21 03/28/21 03/28/21 Range/Units 17:59 16:51 12:08 WBC (4.8-10.8) K/uL RBC (4.2-5.4) M/uL Hgb 10.7 L (12.0-16.0) g/dL Hct 33.6 L (37-47) % MCV (80-100) fL MCH (25-34) pg MCHC (32-36) g/dL RDW Std Deviation (36.4-46.3) fL RDW Coeff of Jluis (11.5-14.5) % Plt Count (130-400) K/uL MPV (7.4-10.4) fL Sodium (136-145) mmol/L Potassium (3.5-5.1) mmol/L Chloride (98-107) mmol/L Carbon Dioxide (21-32) mmol/L Anion Gap (3-11) BUN (6-23) mg/dl Creatinine (0.6-1.2) mg/dl Est Cr Clr Drug Dosing ml/min Est GFR ( Amer) ml/min Est GFR (Non-Af Amer) ml/min BUN/Creatinine Ratio (10-20) Glucose (70-99(Fasting)) mg/dl POC Glucose 93 151 H (70-99) mg/dl Calcium (8.5-10.1) mg/dl Magnesium (1.7-2.4) mg/dl Blood Type Antibody Screen Crossmatch 03/28/21 03/28/21 Range/Units 09:42 08:11 WBC (4.8-10.8) K/uL RBC (4.2-5.4) M/uL Hgb (12.0-16.0) g/dL Hct (37-47) % MCV (80-100) fL MCH (25-34) pg MCHC (32-36) g/dL RDW Std Deviation (36.4-46.3) fL RDW Coeff of Jluis (11.5-14.5) % Plt Count (130-400) K/uL MPV (7.4-10.4) fL Sodium 133 L (136-145) mmol/L Potassium 3.3 L (3.5-5.1) mmol/L Chloride 103 (98-107) mmol/L Carbon Dioxide 24 (21-32) mmol/L Anion Gap 6 (3-11) BUN 10 (6-23) mg/dl Creatinine 0.45 L (0.6-1.2) mg/dl Est Cr Clr Drug Dosing 89.7 ml/min Est GFR ( Amer) 106.6 ml/min Est GFR (Non-Af Amer) 92.0 ml/min BUN/Creatinine Ratio 22.2 H (10-20) Glucose 245 H (70-99(Fasting)) mg/dl POC Glucose 116 H (70-99) mg/dl Calcium 7.5 L (8.5-10.1) mg/dl Magnesium (1.7-2.4) mg/dl Blood Type Antibody Screen Crossmatch
[2021-03-29] MEDS: METOPROLOL TARTRATE 25 MG TAB PO SCH ×2 (08:42→21:16)
[2021-03-29] MEDS: CIPROFLOXACIN / D5W 400 MG/200 ML BAG IV SCH (08:44)
[2021-03-29] MEDS: AZELASTINE HCL 0.1% NASAL 200 SPRAYS/27,400 MCG BTL SCH ×2 (10:14→21:12)
[2021-03-29] MEDS: GABAPENTIN 300 MG CAP PO SCH ×2 (10:16→21:14)
[2021-03-29] MEDS: ADVANCED PROBIOTIC 1250 MG CAPSULE PO SCH (10:17)
[2021-03-29] MEDS: LORATADINE 10 MG TAB PO SCH (10:17)
[2021-03-29] MEDS: PANTOprazole 40 MG TAB PO SCH (10:18)
[2021-03-29] MEDS: MAGNESIUM CHLORIDE 64MG DELAYED REL TAB PO SCH ×2 (10:18→21:16)
[2021-03-29] MEDS ORDERED: POTASSIUM CHLORIDE CRTAB 20 MEQ TABCR PO STA (12:38)
[2021-03-29] MEDS: MAGNESIUM SULFATE / D5W 1 GM/100 ML BAG IV SCH ×2 (13:35→15:37)
--- NOTE | 2021-03-29 13:43 | Hospitalist Progress Note ---
Date of Service March 29, 2021 Assessment & Plan (1) Rectal mass: Plan: -plan for colonoscopy tomorrow (2) Bloody diarrhea: Plan: s/p 1 unit pRBC 03/28 with appropriate response -Hb remains stable since -per nursing no further recurrence in bloody BM (3) Hypokalemia: Plan: replete PRN (4) Ambulatory dysfunction: (5) Fall: (6) Diabetes mellitus type 2 in nonobese: Plan: continue basal/bolus insulin as ordered (7) Rectal pain: (8) Colitis: Plan: -stool studies negative Plan: DVT PPX -SCD. No AC for now with recent lower GI bleed Disposition -will need PT evaluation after colonoscopy Admission and Anticipated Discharge Date Admission Date: March 27, 2021 Subjective Procedure got deferred to tomorrow for full colonoscopy Patient reports ongoing diarrhea, about 2-3 times today so far Feels tired from frequent stools "I feel washed out" Physical Exam Constitutional: no acute distress, non toxic, appears fatigued and tired ENMT: mucous membrane dry Respiratory: breathing comfortably on room air, no wheezing/rhonchi/rales Cardiovascular: regular rate and rhythm, no murmurs/rubs/s/gallops Gastrointestinal (Abdomen): soft, hyperactive Musculoskeletal: no edema Neurologic: awake, alert, spontaneously moving extremities Results & Data Results & Data ([facility]) Vital Signs (Past 12 Hours) Vital Signs Temp Pulse Pulse Resp BP BP Pulse Ox 03/29/21 11:02 37.8 C H 97 H 16 139/87 97 03/29/21 07:55 37.1 C 101 H 18 149/74 H 99 03/29/21 04:24 36.5 C 88 18 111/62 97 03/29/21 03:58 36.5 C 85 22 106/60 97 03/29/21 02:58 36.5 C 90 25 H 102/60 97 03/29/21 02:28 36.5 C 92 H 20 110/76 97 03/29/21 02:13 36.5 C 78 18 95/55 L 97 03/29/21 01:55 37.0 C 82 20 109/59 L 94 Laboratory Results Short CBC 03/28/21 03/28/21 03/29/21 Range/Units 17:59 23:36 05:52 WBC 13.24 H (4.8-10.8) K/uL Hgb 10.7 L 7.7 L D 10.1 L (12.0-16.0) g/dL Hct 33.6 L 24.4 L 31.8 L (37-47) % Plt Count 250 (130-400) K/uL [facility] 03/29/21 05:52 Sodium 131 L Potassium 3.5 Chloride 104 Carbon Dioxide 23 BUN 8 Creatinine 0.37 L Glucose 130 H Calcium 7.1 L Medications Administered Current Inpatient Medications Acetaminophen (Acetaminophen 325 Mg Tab) 650 mg PO Q4H PRN PRN Reason: pain/fever Stop: 04/26/21 16:52 Last Admin: 03/28/21 22:37 Dose: 650 mg Documented by: Al Hydrox/Mg Hydrox/Simethicone (Aluminum/Magnesium Susp 30 Ml Udc) 30 ml PO Q6H PRN PRN Reason: Dyspepsia Stop: 04/26/21 16:52 Aspirin (Aspirin 81 Mg Ectab) 81 mg PO DAILY TRUPTI Stop: 04/27/21 08:59 Last Admin: 03/28/21 08:49 Dose: 81 mg Documented by: Atorvastatin Calcium (Atorvastatin 40 Mg Tab) 40 mg PO HS TRUPTI Stop: 04/26/21 20:59 Last Admin: 03/28/21 21:54 Dose: 40 mg Documented by: Azelastine HCl (Azelastine Hcl 0.1% Nasal 200 Sprays/27,400 Mcg Btl) 2 sprays NA BID TRUPTI Stop: 04/26/21 20:59 Last Admin: 03/29/21 10:14 Dose: 2 sprays Documented by: Petrolatum 45 appln/Hydrocortisone 45 appln/ Al Hydrox/Mg Hydrox/Simethicone 15 ml/ BARCODE IDENTIFIER 1 ea 0 appln TOP QS TRUPTI Stop: 04/26/21 15:59 Last Admin: 03/29/21 10:13 Dose: 1 appln Documented by: Dextrose (Dextrose 50% 50 Ml Syringe) 25 - 50 ml IV UD PRN; Protocol PRN Reason: Hypoglycemia Protocol Stop: 04/26/21 16:52 Furosemide (Furosemide 20 Mg Tab) 20 mg PO DAILY TRUPTI Stop: 04/27/21 08:59 Last Admin: 03/28/21 08:53 Dose: Not Given Documented by: Gabapentin (Gabapentin 300 Mg Cap) 300 mg PO BID TRUPTI Stop: 04/26/21 20:59 Last Admin: 03/29/21 10:16 Dose: 300 mg Documented by: Glucagon (Glucagon For Inj 1 Mg Vial) 1 mg SQ UD PRN; Protocol PRN Reason: Hypoglycemia Protocol Stop: 04/26/21 16:52 Glucose (Glucose 10 Tabs/Tube) 4 - 8 tabs PO UD PRN; Protocol PRN Reason: Hypoglycemia Protocol Stop: 04/26/21 16:52 Glucose (Glucose 40% Gel 15 Gm Tube) 15 - 30 gm PO UD PRN; Protocol PRN Reason: Hypoglycemia Protocol Stop: 04/26/21 16:52 Ciprofloxacin (Cipro / D5w) 400 mg in 200 mls @ 100 mls/hr IV Q12H TRUPTI; Protocol Stop: 04/06/21 19:29 Last Infusion: 03/29/21 10:44 Dose: Infused Documented by: Magnesium Sulfate/Dextrose (Magnesium Sulfate / D5w) 1 gm in 100 mls @ 50 mls/hr IV Q2H TRUPTI Stop: 03/29/21 16:44 Last Admin: 03/29/21 13:35 Dose: 50 mls/hr Documented by: Lactobacillus Acidophilus (Advanced Probiotic 1250 Mg Capsule) 2 cap PO DAILY TRUPTI Stop: 04/27/21 12:29 Last Admin: 03/29/21 10:17 Dose: 2 cap Documented by: Levothyroxine Sodium (Levothyroxine Sodium 100 Mcg Tablet) 100 mcg PO DAILYBB [facility] Stop: 04/27/21 06:29 Last Admin: 03/29/21 05:59 Dose: 100 mcg Documented by: Loratadine (Loratadine 10 Mg Tab) 10 mg PO QAM TRUPTI Stop: 04/27/21 08:59 Last Admin: 03/29/21 10:17 Dose: 10 mg Documented by: Losartan Potassium (Losartan Potassium 25 Mg Tab) 25 mg PO DAILY TRUPTI Stop: 04/27/21 08:59 Last Admin: 03/28/21 08:53 Dose: Not Given Documented by: Magnesium Chloride (Magnesium Chloride 64mg Delayed Rel Tab) 64 mg PO BID [facility] Stop: 04/26/21 20:59 Last Admin: 03/29/21 10:18 Dose: 64 mg Documented by: Magnesium Hydroxide (Magnesium Hydroxide Susp 30 Ml Udc) 30 ml PO Q6H PRN PRN Reason: Constipation Stop: 04/26/21 16:52 Metoprolol Tartrate (Metoprolol Tartrate 25 Mg Tab) 25 mg PO BID [facility] Stop: 04/26/21 20:59 Last Admin: 03/29/21 08:42 Dose: 25 mg Documented by: Metronidazole (Metronidazole 500 Mg Tab) 500 mg PO Q8 [facility] Stop: 04/06/21 19:14 Last Admin: 03/29/21 05:59 Dose: 500 mg Documented by: Miscellaneous (Carbohydrates For Hypoglycemia ) 15 - 30 gm PO UD PRN PRN Reason: Hypoglycemia Protocol Stop: 04/26/21 16:52 Miscellaneous (Restasis: Order Awaiting Action) 1 ea N/A QS [facility] Stop: 04/27/21 00:00 Last Admin: 03/29/21 10:13 Dose: Not Given Documented by: Montelukast Sodium (Montelukast Sodium 10 Mg Tablet) 10 mg PO HS [facility] Stop: 04/26/21 20:59 Last Admin: 03/28/21 21:53 Dose: 10 mg Documented by: Pantoprazole Sodium (Pantoprazole 40 Mg Tab) 40 mg PO DAILY TRUPTI Stop: 04/27/21 08:59 Last Admin: 03/29/21 10:18 Dose: 40 mg Documented by: Polyethylene Glycol/Electrolytes (Lavage Solution 4000ml) 1 dose PO TODAY@1600 [facility] Stop: 04/28/21 15:59 Promethazine HCl (Promethazine Hcl 25 Mg Tab) 25 mg PO Q6H PRN PRN Reason: Nausea And Vomiting Stop: 04/26/21 19:15 Tramadol HCl (Tramadol Hcl 50 Mg Tablet) 25 - 50 mg PO Q4H PRN PRN Reason: Pain Stop: 04/27/21 01:23 Trazodone HCl (Trazodone Hcl 50 Mg Tab) 50 mg PO HS [facility] Stop: 04/26/21 20:59 Last Admin: 03/28/21 21:53 Dose: 50 mg Documented by:
[2021-03-29] MEDS: ceFAZolin 2000MG 2,000 MG/15 ML SYR IV SCH ×2 (15:48→23:47)
[2021-03-29] MEDS: LAVAGE SOLUTION 4000ML PO SCH (17:46)
[2021-03-29] MEDS: ATORVASTATIN 40 MG TAB PO SCH (21:14)
[2021-03-29] MEDS: MONTELUKAST SODIUM 10 MG TABLET PO SCH (21:15)
[2021-03-29] MEDS: ACETAMINOPHEN 325 MG TAB PO PRN (21:19)
[2021-03-29] MEDS: traZODone HCL 50 MG TAB PO SCH (21:19)
--- NOTE | 2021-03-29 21:38 | Electrocardiogram Report ---
Test Reason : Blood Pressure : / mmHG Vent. Rate : 090 BPM Atrial Rate : 090 BPM P-R Int : 168 ms QRS Dur : 078 ms QT Int : 382 ms P-R-T Axes : 037 000 054 degrees QTc Int : 467 ms Sinus rhythm with Premature atrial complexes Nonspecific ST abnormality Abnormal ECG When compared with ECG of 23-MAR-2021 17:19, Premature atrial complexes are now Present No significant change Confirmed by Bienvenido Cleveland ([id number]) on 03/29/2021 9:38:15 PM Referred By: REFERRED SELF Confirmed By:Bienvenido Cleveland
[2021-03-30] MEDS: RESTASIS: ORDER AWAITING ACTION SCH ×3 (01:05→15:07)
[2021-03-30] MEDS: ZINC OXIDE 16% 45 APPLN, HYDROCORTISONE 1% 45 APPLN, ALUMINUM/MAGNESIUM SUSP 15 ML, BAR... TOP SCH ×3 (01:06→15:08)
[2021-03-30 05:32] LABS: Hematocrit (blood only) 29.6 % (37-47); Hemoglobin 9.4 g/dL (12.0-16.0); Mean Corpuscular Hgb Conc 31.8 g/dL (32-36); Mean Corpuscular Volume 94.6 fL (80-100); Mean Platelet Volume 8.8 fL (7.4-10.4); Platelet Count 248 K/uL (130-400); RDW Standard Deviation 54.9 fL (36.4-46.3); Red Blood Count 3.13 M/uL (4.2-5.4); White Blood Count 9.81 K/uL (4.8-10.8)
[2021-03-30] MEDS: metroNIDAZOLE 500 MG TAB PO SCH ×3 (06:10→21:18)
[2021-03-30] MEDS: LEVOTHYROXINE SODIUM 100 MCG TABLET PO SCH (06:11)
[2021-03-30 06:14] LABS: BUN Creatinine Ratio 13.5 (10-20); Creatinine Clr Calc Pharmacy 107.3 ml/min; Est GFR (African American) 113.7 ml/min; Est GFR (Non-African American) 98.1 ml/min; Potassium 3.3 mmol/L (3.5-5.1)
[2021-03-30 06:24] LABS: Magnesium 1.9 mg/dl (1.7-2.4); Phosphorus 1.4 mg/dl (2.5-4.9)
[2021-03-30] MEDS ORDERED: POTASSIUM PHOS 3 MMOL/1 ML INFUSION IV STA (06:44)
[2021-03-30] MEDS ORDERED: POTASSIUM CHLORIDE CRTAB 20 MEQ TABCR PO STA ×2 (06:45→14:04)
[2021-03-30] MEDS ORDERED: MAGNESIUM SULFATE / D5W 1 GM/100 ML BAG IV ONE (06:45)
[2021-03-30] MEDS ORDERED: POTASSIUM PHOSPHATE 30 MMOL in SODIUM CHLORIDE 0.9% 500 ML IV ONE (07:30)
[2021-03-30] MEDS: METOPROLOL TARTRATE 25 MG TAB PO SCH ×2 (08:15→20:19)
[2021-03-30] MEDS ORDERED: PROPOFOL IV EMULSION 10 MG/ML 20 ML VIAL IV ONE (08:18)
[2021-03-30] MEDS: ceFAZolin 2000MG 2,000 MG/15 ML SYR IV SCH ×3 (08:22→23:50)
--- NOTE | 2021-03-30 08:30 | Anesthesiology Consultation ---
Date of Service March 30, 2021 Assessment & Plan (1) Encounter for pre-operative examination: Chart Review Chart Review: Acceptable Risk for Surgery History Surgery Operation Date: 03/29/21 17:00 Proposed Procedures p Flexible Sigmoidoscopy Dr Rehan Van, DO s Colonoscopy Dr Rehan Van, Operation Date: 03/30/21 16:30 Proposed Procedures p Flexible Sigmoidoscopy Dr Rehan Van, DO s Colonoscopy Dr Rehan Van, DO Height/Weight Height: 5 ft 3 in Weight: 72.3 kg Allergies Allergy/AdvReac Type Severity Reaction Status Date / Time Iodinated Contrast Media Allergy Intermediate HIVES/BURNING Verified 03/27/21 15:25 AT IV SITE AND UP VEIN pyrilamine Allergy Intermediate VOMITING Verified 03/27/21 15:25 Sulfa (Sulfonamide Allergy Intermediate RINGS ON Verified 03/27/21 15:25 Antibiotics) SKIN simvastatin Allergy Mild RED Verified 03/27/21 15:25 CIRCLES-HAS TOLERATED LIPITOR amoxicillin AdvReac Intermediate CAUSED Verified 03/27/21 15:25 DIARRHEA PER [facility] MED LIST codeine AdvReac Intermediate N/V Verified 03/27/21 15:25 ether AdvReac Intermediate NAUSEA/VOMI Verified 03/27/21 15:25 TING morphine AdvReac Intermediate VOMITING Verified 03/27/21 15:25 tramadol AdvReac Intermediate NAUSEA/VOMI Verified 03/27/21 15:25 TING Medications Home Medications Medication Instructions Recorded Confirmed Last Taken Oxygen Home #1 ea 09/20/18 12/26/18 Unknown atorvastatin 40 mg tablet 40 mg PO HS tab 09/20/18 03/27/21 03/22/21 azelastine 137 mcg (0.1 %) nasal 2 sprays INTRANASAL BID ml 09/20/18 03/27/21 03/23/21 08:00 spray aerosol furosemide 20 mg tablet 20 mg PO DAILY tab 09/20/18 03/27/21 03/23/21 levothyroxine 100 mcg tablet 100 mcg PO DAILYBB tab 09/20/18 03/27/21 03/23/21 metoprolol tartrate 25 mg tablet 25 mg PO BID tab 09/20/18 03/27/21 03/23/21 08:00 pantoprazole 40 mg tablet,delayed 40 mg PO DAILY tab 09/20/18 03/27/21 03/23/21 release trazodone 50 mg tablet 50 mg PO HS tab 09/20/18 03/27/21 03/22/21 Lactobacillus acidoph-L.bulgaricus 1 tab PO TIDM 01/22/19 03/27/21 03/23/21 12:00 1 million cell chewable tablet (Lactinex) alendronate 70 mg tablet (Fosamax) 70 mg PO WK 01/22/19 03/27/21 03/17/21 loratadine 10 mg tablet (Claritin) 10 mg PO QAM 01/22/19 03/27/21 03/23/21 losartan 25 mg tablet (Cozaar) 25 mg PO DAILY 01/22/19 03/27/21 03/23/21 montelukast 10 mg tablet 10 mg PO HS 01/22/19 03/27/21 03/22/21 (Singulair) acetaminophen 325 mg tablet 650 mg PO Q6H PRN 02/23/21 03/27/21 Unknown (Tylenol) cyclosporine 0.05 % eye drops in a 1 drp OPHTHALMIC (EYE) Q12H 02/23/21 03/27/21 03/23/21 08:00 dropperette (Restasis) gabapentin 300 mg capsule 300 mg PO BID 02/23/21 03/27/21 03/23/21 08:00 magnesium chloride 64 mg PO BID #60 tab 02/27/21 03/27/21 03/23/21 08:00 aspirin 81 mg tablet,delayed 81 mg PO DAILY 03/27/21 03/27/21 Unknown release Active Medications Generic Name Dose Route Start Last Admin Trade Name Freq PRN Reason Stop Dose Admin Acetaminophen 650 mg 03/27/21 16:53 03/29/21 21:19 Acetaminophen 325 Mg Tab PO 04/26/21 16:52 650 mg Q4H PRN Administration pain/fever Aspirin 81 mg 03/28/21 09:00 03/28/21 08:49 Aspirin 81 Mg Ectab PO 04/27/21 08:59 81 mg DAILY TRUPTI Administration Atorvastatin Calcium 40 mg 03/27/21 21:00 03/29/21 21:14 Atorvastatin 40 Mg Tab PO 04/26/21 20:59 40 mg HS TRUPTI Administration Azelastine HCl 2 sprays 03/27/21 21:00 03/29/21 21:12 Azelastine Hcl 0.1% Nasal 200 Sprays/27,400 Mcg Btl NA 04/26/21 20:59 2 sprays BID TRUPTI Administration Petrolatum 45 appln/ 0 appln 03/27/21 16:00 03/30/21 01:06 Hydrocortisone 45 appln/ Al TOP 04/26/21 15:59 1 appln Hydrox/Mg Hydrox/Simethicone QS TRUPTI Administration 15 ml/ BARCODE IDENTIFIER 1 ea Furosemide 20 mg 03/28/21 09:00 03/28/21 08:53 Furosemide 20 Mg Tab PO 04/27/21 08:59 Not Given DAILY TRUPTI Gabapentin 300 mg 03/27/21 21:00 03/29/21 21:14 Gabapentin 300 Mg Cap PO 04/26/21 20:59 300 mg BID TRUPTI Administration Cefazolin Sodium 2,000 mg in 15 mls @ 3.75 mls/min 03/29/21 15:00 03/30/21 08:22 Ancef 2000mg IV 04/08/21 14:59 3.75 mls/min Q8H TRUPTI Administration Magnesium Sulfate/Dextrose 1 gm in 100 mls @ 50 mls/hr 03/30/21 06:45 08:15 Magnesium Sulfate / D5w IV 03/30/21 08:44 50 mls/hr ONE ONE Administration Lactobacillus Acidophilus 2 cap 03/28/21 12:30 03/29/21 10:17 Advanced Probiotic 1250 Mg Capsule PO 04/27/21 12:29 2 cap DAILY TRUPTI Administration Levothyroxine Sodium 100 mcg 03/28/21 06:30 03/30/21 06:11 Levothyroxine Sodium 100 Mcg Tablet PO 04/27/21 06:29 100 mcg DAILYBB TRUPTI Administration Loratadine 10 mg 03/28/21 09:00 03/29/21 10:17 Loratadine 10 Mg Tab PO 04/27/21 08:59 10 mg QAM TRUPTI Administration Losartan Potassium 25 mg 03/28/21 09:00 03/28/21 08:53 Losartan Potassium 25 Mg Tab PO 04/27/21 08:59 Not Given DAILY TRUPTI Magnesium Chloride 64 mg 03/27/21 21:00 03/29/21 21:16 Magnesium Chloride 64mg Delayed Rel Tab PO 04/26/21 20:59 64 mg BID TRUPTI Administration Metoprolol Tartrate 25 mg 03/27/21 21:00 03/30/21 08:15 Metoprolol Tartrate 25 Mg Tab PO 04/26/21 20:59 25 mg BID TRUPTI Administration Metronidazole 500 mg 03/27/21 19:15 03/30/21 06:10 Metronidazole 500 Mg Tab PO 04/06/21 19:14 500 mg Q8 TRUPTI Administration Miscellaneous 1 ea 03/28/21 00:00 03/30/21 01:05 Restasis: Order Awaiting Action N/A 04/27/21 00:00 Not Given QS TRUPTI Montelukast Sodium 10 mg 03/27/21 21:00 03/29/21 21:15 Montelukast Sodium 10 Mg Tablet PO 04/26/21 20:59 10 mg HS TRUPTI Administration Pantoprazole Sodium 40 mg 03/28/21 09:00 03/29/21 10:18 Pantoprazole 40 Mg Tab PO 04/27/21 08:59 40 mg DAILY TRUPTI Administration Polyethylene Glycol/Electrolytes 1 dose 03/29/21 16:00 03/29/21 17:46 Lavage Solution 4000ml PO 04/28/21 15:59 1 dose TODAY@1600 TRUPTI Administration Trazodone HCl 50 mg 03/27/21 21:00 03/29/21 21:19 Trazodone Hcl 50 Mg Tab PO 04/26/21 20:59 50 mg HS TRUPTI Administration Past Medical History Medical History (Updated 03/30/21 @ 08:29 by Mook Mcclendon MD) Anemia Arthritis Crohn's disease Cystitis 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 Dyslipidemia Gastroesophageal reflux disease History of adenomatous polyp of colon History of diverticulitis Hypercholesterolemia Hypertension Hypertension Hypothyroidism Osteoarthritis Osteoporosis Past Family History Family History Father , 48 Hypertension Stroke Past Surgical History Surgical History History of incisional hernia repair History of repair of rectocele S/P laparoscopic hernia repair Total knee replacement status Social History Smoking Status: Never smoker Do You Dip or Chew Tobacco: No Hx Alcohol Use: Yes Alcohol type: wine alcohol intake frequency: holidays/special occasions only Hx Substance Use: No Physical Exam Vital Signs Last Vital Signs Temp 37.3 C 03/30/21 07:26 Pulse 101 H 03/30/21 07:26 Resp 18 02/15/22 07:26 BP 118/66 03/30/21 07:26 Pulse Ox 99 03/30/21 07:26 Testing Laboratory Results 03/30/21 05:21 03/30/21 05:21 Urine Color Dark Yellow 03/27/21 15:00 Urine Appearance Clear (Clear) 03/27/21 15:00 Urine pH 7.0 (4.5-7.5) 03/27/21 15:00 Ur Specific [place] 1.016 (1.000-1.030) 03/27/21 15:00 Urine Protein 2+ (Negative) H 03/27/21 15:00 Urine Glucose (UA) Negative (Negative) 03/27/21 15:00 Urine Ketones 1+ (Negative) H 03/27/21 15:00 Urine Nitrite Negative (Negative) 03/27/21 15:00 Ur Leukocyte Esterase Negative (Negative) 03/27/21 15:00 Urine WBC (Auto) 1-5 /hpf (0-5) 03/27/21 15:00 Urine RBC (Auto) 5-10 /hpf (0-4) H 03/27/21 15:00 U Hyaline Cast (Auto) 1-5 /lpf (0-5) 03/27/21 15:00 U Epithel Cells (Auto) 10-20 /lpf (0-5) H 03/27/21 15:00 Urine Bacteria (Auto) Negative (Negative) 03/27/21 15:00 Blood Type O Negative 03/28/21 17:59 Antibody Screen NEGATIVE 03/28/21 17:59 03/30/21 03/29/21 07:31 20:33 POC Glucose 114 H 152 H Electrocardiogram Date: 03/27/21 Findings: + NSR @ (90) and + NSST changes
--- NOTE | 2021-03-30 08:44 | History & Physical Report ---
Date of Service March 30, 2021 Assessment & Plan (1) Abnormal abdominal CT scan: Plan: stable for colo Admission and Anticipated Discharge Date Admission Date: March 27, 2021 History of Present Illness Chief Complaint: abnormal CT Primary Care Provider: Diann Angeles MD pt needs colo for abnormal CT Allergies Allergy/AdvReac Type Severity Reaction Status Date / Time Iodinated Contrast Media Allergy Intermediate HIVES/BURNING Verified 03/27/21 15:25 AT IV SITE AND UP VEIN pyrilamine Allergy Intermediate VOMITING Verified 03/27/21 15:25 Sulfa (Sulfonamide Allergy Intermediate RINGS ON Verified 03/27/21 15:25 Antibiotics) SKIN simvastatin Allergy Mild RED Verified 03/27/21 15:25 CIRCLES-HAS TOLERATED LIPITOR amoxicillin AdvReac Intermediate CAUSED Verified 03/27/21 15:25 DIARRHEA PER [facility] MED LIST codeine AdvReac Intermediate N/V Verified 03/27/21 15:25 ether AdvReac Intermediate NAUSEA/VOMI Verified 03/27/21 15:25 TING morphine AdvReac Intermediate VOMITING Verified 03/27/21 15:25 tramadol AdvReac Intermediate NAUSEA/VOMI Verified 03/27/21 15:25 TING Home Medications Medication Instructions Recorded Confirmed Type Oxygen Home #1 ea 09/20/18 12/26/18 History atorvastatin 40 mg tablet 40 mg PO HS tab 09/20/18 03/27/21 History azelastine 137 mcg (0.1 %) nasal 2 sprays INTRANASAL BID ml 09/20/18 03/27/21 History spray aerosol furosemide 20 mg tablet 20 mg PO DAILY tab 09/20/18 03/27/21 History levothyroxine 100 mcg tablet 100 mcg PO DAILYBB tab 09/20/18 03/27/21 History metoprolol tartrate 25 mg tablet 25 mg PO BID tab 09/20/18 03/27/21 History pantoprazole 40 mg tablet,delayed 40 mg PO DAILY tab 09/20/18 03/27/21 History release trazodone 50 mg tablet 50 mg PO HS tab 09/20/18 03/27/21 History Lactobacillus acidoph-L.bulgaricus 1 tab PO TIDM 01/22/19 03/27/21 History 1 million cell chewable tablet (Lactinex) alendronate 70 mg tablet (Fosamax) 70 mg PO WK 01/22/19 03/27/21 History loratadine 10 mg tablet (Claritin) 10 mg PO QAM 01/22/19 03/27/21 History losartan 25 mg tablet (Cozaar) 25 mg PO DAILY 01/22/19 03/27/21 History montelukast 10 mg tablet 10 mg PO HS 01/22/19 03/27/21 History (Singulair) acetaminophen 325 mg tablet 650 mg PO Q6H PRN 02/23/21 03/27/21 History (Tylenol) cyclosporine 0.05 % eye drops in a 1 drp OPHTHALMIC (EYE) Q12H 02/23/21 03/27/21 History dropperette (Restasis) gabapentin 300 mg capsule 300 mg PO BID 02/23/21 03/27/21 History magnesium chloride 64 mg PO BID #60 tab 02/27/21 03/27/21 Rx aspirin 81 mg tablet,delayed 81 mg PO DAILY 03/27/21 03/27/21 History release Past Med/Surg History Medical History (Updated 03/30/21 @ 08:43 by Chidi Polanco MD) Anemia Arthritis Crohn's disease Cystitis 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 Dyslipidemia Gastroesophageal reflux disease History of adenomatous polyp of colon History of diverticulitis Hypercholesterolemia Hypertension Hypertension Hypothyroidism Osteoarthritis Osteoporosis Surgical History History of incisional hernia repair History of repair of rectocele S/P laparoscopic hernia repair Total knee replacement status Family History Father , 48 Hypertension Stroke Social History Smoking Status: Never smoker Second Hand Exposure: No; Do You Dip or Chew Tobacco: No; Tobacco Cessation Education Requested by Patient: No Hx Alcohol Use: Yes Alcohol type: wine Hx Substance Use: No Preferred Language: Slovak Communication Ability: Effective 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 Beliefs That Will Affect Care: None marital status: Current Living Situation: Spouse How many Children do You have: 1 Other Information That Helps Us Care for You: No Feels Safe at Home: Yes Safety Concerns: Feels Safe At This Time Assistive Devices: None Physical Exam Constitutional: WD/WN, vitals as above Respiratory: normal respiratory effort, lungs clear to auscultation Cardiovascular: RRR, no murmur, no edema Gastrointestinal (Abdomen): normal bowel sounds, soft, nontender, no hepatosplenomegaly Results & Data ([facility]) Vital Signs (Past 12 Hours) Vital Signs Temp Pulse Pulse Resp BP Pulse Ox 03/30/21 07:26 37.3 C 101 H 18 118/66 99 03/29/21 23:54 37.3 C 92 H 16 120/62 98 03/29/21 23:15 92 H 03/29/21 21:11 100 H 155/80 H Code Status & VTE Plan VTE Prophylaxis Plan VTE Prophylaxis will be ordered: Yes
--- NOTE | 2021-03-30 09:41 | GI REPORT ---
Patient Name: Iwona Skaggs Procedure Date: 03/30/2021 8:46 AM Date of : 1935 Admit Type: Inpatient Age: 85 Gender: Female Attending MD: Chidi Polanco MD Procedure: Colonoscopy Providers: Chidi Polanco MD Referring MD: Trevon Sin Md, Shanda Van DO Indications: Abnormal CT of the GI tract Medicines: See the Anesthesia note for documentation of the administered medications Complications: No immediate complications. Estimated Blood Loss: Estimated blood loss was minimal. Procedure: Pre-Anesthesia Assessment: - Prior to the procedure, a History and Physical was performed, and patient medications, allergies and sensitivities were reviewed. The patient's tolerance of previous anesthesia was reviewed. - The risks and benefits of the procedure and the sedation options and risks were discussed with the patient. All questions were answered and informed consent was obtained. - Patient identification and proposed procedure were verified prior to the procedure by the physician and the nurse. The procedure was verified in the pre-procedure area. - Pre-procedure physical examination revealed no contraindications to sedation. - After reviewing the risks and benefits, the patient was deemed in satisfactory condition to undergo the procedure. After I obtained informed consent, the scope was passed under direct vision. Throughout the procedure, the patient's blood pressure, pulse, and oxygen saturations were monitored continuously. The Colonoscope was introduced through the anus with the intention of advancing to the cecum. The scope was advanced to the descending colon before the procedure was aborted. Medications were given. The colonoscopy was performed without difficulty. The patient tolerated the procedure well. The quality of the bowel preparation was poor. Findings: Hemorrhoids were found on perianal exam. Multiple ulcers were found in the sigmoid colon. No bleeding was present. Biopsies were taken with a cold forceps for histology. Verification of patient identification for the specimen was done by the physician and nurse using the patient's name and medical record number. Estimated blood loss was minimal. The exam was otherwise without abnormality. Impression: - Preparation of the colon was poor. - Scope only advanced to about 40 cms due to stool. - Hemorrhoids found on perianal exam. - Multiple punched out ulcers in the sigmoid colon and descending colon of unclear etiology ( viral,ischemic,inflammatory). Biopsied. - The examination was otherwise normal. Recommendation: - Await pathology results. - [facility] patient to [facility] for ongoing care. Chidi Polanco M.D. Chidi Polanco MD 03/30/2021 9:41:39 AM This report has been signed electronically. Note Initiated On: 03/30/2021 8:46 AM Number of Addenda: 0 I attest to the content of the Intraoperative Record and orders documented therein, exceptions below {[id number]}
--- NOTE | 2021-03-30 10:08 | Anesthesiology Progress Note ---
Date of Service March 30, 2021 Anesthesia Post Procedure Vital Signs Vital Signs: Temp Pulse Pulse Pulse Resp BP Pulse Ox 03/30/21 09:50 89 16 136/60 95 03/30/21 09:38 91 H 16 135/63 97 03/30/21 09:22 36.7 C 87 12 112/65 96 03/30/21 08:42 37 C 90 18 155/69 H 97 03/30/21 07:41 100 H 03/30/21 07:26 37.3 C 101 H 18 118/66 99 03/29/21 23:54 37.3 C 92 H 16 120/62 98 03/29/21 23:15 92 H 03/29/21 21:11 100 H 155/80 H 03/29/21 20:05 37.4 C 98 H 18 149/78 H 97 03/29/21 15:32 37.3 C 103 H 16 149/78 H 98 03/29/21 11:02 37.8 C H 97 H 16 139/87 97 Pain Intensity Rectal: Pain Intensity: 6 Transfer of Care Handoff Completed per policy Notes Mental Status: alert / awake / arousable Patient Amnestic to Procedure: Yes Nausea / Vomiting: adequately controlled Pain: adequately controlled Airway Patency, RR, SpO2: stable & adequate BP & HR: stable & adequate Hydration State: stable & adequate Anesthetic Complications: no major complications apparent Notes: continues to cough as preop, helped a little with water
[2021-03-30] MEDS: AZELASTINE HCL 0.1% NASAL 200 SPRAYS/27,400 MCG BTL SCH ×2 (10:42→20:20)
[2021-03-30] MEDS: MAGNESIUM CHLORIDE 64MG DELAYED REL TAB PO SCH ×2 (10:43→20:18)
[2021-03-30] MEDS: PANTOprazole 40 MG TAB PO SCH (10:43)
[2021-03-30] MEDS: LORATADINE 10 MG TAB PO SCH (10:43)
[2021-03-30] MEDS: GABAPENTIN 300 MG CAP PO SCH ×2 (10:43→20:19)
[2021-03-30] MEDS: ADVANCED PROBIOTIC 1250 MG CAPSULE PO SCH (10:47)
[2021-03-30] MEDS: LAVAGE SOLUTION 4000ML PO SCH (15:07)
[2021-03-30] MEDS: POT PHOSPHATE MONOBASIC W/ SOD TAB PO SCH ×2 (17:19→20:19)
--- NOTE | 2021-03-30 18:26 | Hospitalist Progress Note ---
Date of Service March 30, 2021 Assessment & Plan (1) Rectal mass: Plan: -felt during rectal exam previously -colonoscopy today negative for mass but showed hemorrhoids and ulcerations. Ulcerations were biopsied (2) Bloody diarrhea: Plan: s/p 1 unit pRBC 03/28 with appropriate response -Hb remains stable since -infectious workup negative so far. will discontinue further antibiotics -can give imodium PRN for ongoing diarrhea (3) Hypokalemia: Plan: replete PRN (4) Ambulatory dysfunction: Plan: -will need rehab at discharge (5) Fall: (6) Diabetes mellitus type 2 in nonobese: Plan: continue basal/bolus insulin as ordered (7) Rectal pain: (8) Colitis: Plan: -stool studies negative. will discontinue antibiotics Plan: DVT PPX -SCD. No AC for now with recent lower GI bleed Admission and Anticipated Discharge Date Admission Date: March 27, 2021 Subjective Went for colonoscopy today Denies abdominal pain or chest pain Some loose stools Physical Exam Physical Exam: Appears weak, no acute distress, pleasant Respiratory: breathing comfortably on room air, no wheezing/rhonchi Cardiovascular: regular rate and rhythm, no murmurs/rubs/gallops Gastrointestinal (Abdomen): soft, non tender Musculoskeletal: no edema Neurologic: awake, spontaneously moving extremities Results & Data Results & Data ([facility]) Vital Signs (Past 12 Hours) Vital Signs Temp Pulse Pulse Pulse Resp BP Pulse Ox 03/30/21 16:00 36.9 C 90 16 130/64 98 03/30/21 10:51 37.2 C 94 H 19 147/76 H 97 03/30/21 09:50 89 16 136/60 95 03/30/21 09:38 91 H 16 135/63 97 03/30/21 09:22 36.7 C 87 12 112/65 96 03/30/21 08:42 37 C 90 18 155/69 H 97 03/30/21 07:41 100 H 03/30/21 07:26 37.3 C 101 H 18 118/66 99 Laboratory Results Short CBC 03/30/21 Range/Units 05:21 WBC 9.81 (4.8-10.8) K/uL Hgb 9.4 L (12.0-16.0) g/dL Hct 29.6 L (37-47) % Plt Count 248 (130-400) K/uL [facility] 03/30/21 05:21 Sodium 134 L Potassium 3.3 L Chloride 105 Carbon Dioxide 24 BUN 5 L Creatinine 0.37 L Glucose 131 H Calcium 7.0 L Medications Administered Current Inpatient Medications Acetaminophen (Acetaminophen 325 Mg Tab) 650 mg PO Q4H PRN PRN Reason: pain/fever Stop: 04/26/21 16:52 Last Admin: 03/29/21 21:19 Dose: 650 mg Documented by: Aspirin (Aspirin 81 Mg Ectab) 81 mg PO DAILY [facility] Stop: 04/27/21 08:59 Last Admin: 03/28/21 08:49 Dose: 81 mg Documented by: Atorvastatin Calcium (Atorvastatin 40 Mg Tab) 40 mg PO HS [facility] Stop: 04/26/21 20:59 Last Admin: 03/29/21 21:14 Dose: 40 mg Documented by: Azelastine HCl (Azelastine Hcl 0.1% Nasal 200 Sprays/27,400 Mcg Btl) 2 sprays NA BID [facility] Stop: 04/26/21 20:59 Last Admin: 03/30/21 10:42 Dose: Not Given Documented by: Petrolatum 45 appln/Hydrocortisone 45 appln/ Al Hydrox/Mg Hydrox/Simethicone 15 ml/ BARCODE IDENTIFIER 1 ea 0 appln TOP QS [facility] Stop: 04/26/21 15:59 Last Admin: 03/30/21 15:08 Dose: 1 appln Documented by: Dextrose (Dextrose 50% 50 Ml Syringe) 25 - 50 ml IV UD PRN; Protocol PRN Reason: Hypoglycemia Protocol Stop: 04/26/21 16:52 Furosemide (Furosemide 20 Mg Tab) 20 mg PO DAILY [facility] Stop: 04/27/21 08:59 Last Admin: 03/28/21 08:53 Dose: Not Given Documented by: Gabapentin (Gabapentin 300 Mg Cap) 300 mg PO BID [facility] Stop: 04/26/21 20:59 Last Admin: 03/30/21 10:43 Dose: 300 mg Documented by: Glucagon (Glucagon For Inj 1 Mg Vial) 1 mg SQ UD PRN; Protocol PRN Reason: Hypoglycemia Protocol Stop: 04/26/21 16:52 Glucose (Glucose 10 Tabs/Tube) 4 - 8 tabs PO UD PRN; Protocol PRN Reason: Hypoglycemia Protocol Stop: 04/26/21 16:52 Glucose (Glucose 40% Gel 15 Gm Tube) 15 - 30 gm PO UD PRN; Protocol PRN Reason: Hypoglycemia Protocol Stop: 04/26/21 16:52 Cefazolin Sodium (Ancef 2000mg) 2,000 mg in 15 mls @ 3.75 mls/min IV Q8H [facility] Stop: 04/08/21 14:59 Last Admin: 03/30/21 15:07 Dose: 3.75 mls/min Documented by: Lactobacillus Acidophilus (Advanced Probiotic 1250 Mg Capsule) 2 cap PO DAILY [facility] Stop: 04/27/21 12:29 Last Admin: 03/30/21 10:47 Dose: Not Given Documented by: Levothyroxine Sodium (Levothyroxine Sodium 100 Mcg Tablet) 100 mcg PO DAILYBB [facility] Stop: 04/27/21 06:29 Last Admin: 03/30/21 06:11 Dose: 100 mcg Documented by: Loratadine (Loratadine 10 Mg Tab) 10 mg PO QAM [facility] Stop: 04/27/21 08:59 Last Admin: 03/30/21 10:43 Dose: 10 mg Documented by: Losartan Potassium (Losartan Potassium 25 Mg Tab) 25 mg PO DAILY [facility] Stop: 04/27/21 08:59 Last Admin: 03/28/21 08:53 Dose: Not Given Documented by: Magnesium Chloride (Magnesium Chloride 64mg Delayed Rel Tab) 64 mg PO BID [facility] Stop: 04/26/21 20:59 Last Admin: 03/30/21 10:43 Dose: 64 mg Documented by: Metoprolol Tartrate (Metoprolol Tartrate 25 Mg Tab) 25 mg PO BID [facility] Stop: 04/26/21 20:59 Last Admin: 03/30/21 08:15 Dose: 25 mg Documented by: Metronidazole (Metronidazole 500 Mg Tab) 500 mg PO Q8 [facility] Stop: 04/06/21 19:14 Last Admin: 03/30/21 15:07 Dose: 500 mg Documented by: Miscellaneous (Carbohydrates For Hypoglycemia ) 15 - 30 gm PO UD PRN PRN Reason: Hypoglycemia Protocol Stop: 04/26/21 16:52 Miscellaneous (Restasis: Order Awaiting Action) 1 ea N/A QS [facility] Stop: 04/27/21 00:00 Last Admin: 03/30/21 15:07 Dose: Not Given Documented by: Montelukast Sodium (Montelukast Sodium 10 Mg Tablet) 10 mg PO HS [facility] Stop: 04/26/21 20:59 Last Admin: 03/29/21 21:15 Dose: 10 mg Documented by: Pantoprazole Sodium (Pantoprazole 40 Mg Tab) 40 mg PO DAILY [facility] Stop: 04/27/21 08:59 Last Admin: 03/30/21 10:43 Dose: 40 mg Documented by: Polyethylene Glycol/Electrolytes (Lavage Solution 4000ml) 1 dose PO TODAY@1600 [facility] Stop: 04/28/21 15:59 Last Admin: 03/30/21 15:07 Dose: Not Given Documented by: Potassium Phosphate (Pot Phosphate Monobasic W/ Sod Tab) 2 tab PO QID [facility] Stop: 04/01/21 16:59 Last Admin: 03/30/21 17:19 Dose: 2 tab Documented by: Promethazine HCl (Promethazine Hcl 25 Mg Tab) 25 mg PO Q6H PRN PRN Reason: Nausea And Vomiting Stop: 04/26/21 19:15 Tramadol HCl (Tramadol Hcl 50 Mg Tablet) 25 - 50 mg PO Q4H PRN PRN Reason: Pain Stop: 04/27/21 01:23 Trazodone HCl (Trazodone Hcl 50 Mg Tab) 50 mg PO [facility] Stop: 04/26/21 20:59 Last Admin: 03/29/21 21:19 Dose: 50 mg Documented by:
[2021-03-30] MEDS: MONTELUKAST SODIUM 10 MG TABLET PO SCH (20:18)
[2021-03-30] MEDS: ATORVASTATIN 40 MG TAB PO SCH (20:18)
[2021-03-30] MEDS: LOPERAMIDE HCL 2 MG CAP PO PRN (21:18)
[2021-03-30] MEDS: traZODone HCL 50 MG TAB PO SCH (21:18)
[2021-03-31] MEDS: RESTASIS: ORDER AWAITING ACTION SCH ×3 (01:03→15:48)
[2021-03-31] MEDS: ZINC OXIDE 16% 45 APPLN, HYDROCORTISONE 1% 45 APPLN, ALUMINUM/MAGNESIUM SUSP 15 ML, BAR... TOP SCH ×3 (01:04→16:34)
[2021-03-31 05:46] LABS: Hematocrit (blood only) 30.5 % (37-47); Hemoglobin 9.5 g/dL (12.0-16.0); Mean Corpuscular Hemoglobin 29.7 pg (25-34); Mean Corpuscular Hgb Conc 31.1 g/dL (32-36); Mean Corpuscular Volume 95.3 fL (80-100); Mean Platelet Volume 9.2 fL (7.4-10.4); Platelet Count 224 K/uL (130-400); RDW Coefficient of Variation 16.3 % (11.5-14.5); RDW Standard Deviation 56.6 fL (36.4-46.3); White Blood Count 6.86 K/uL (4.8-10.8)
[2021-03-31] MEDS: LEVOTHYROXINE SODIUM 100 MCG TABLET PO SCH (06:00)
[2021-03-31] MEDS: metroNIDAZOLE 500 MG TAB PO SCH (06:01)
[2021-03-31] MEDS: ceFAZolin 2000MG 2,000 MG/15 ML SYR IV SCH (06:03)
[2021-03-31 06:09] LABS: BUN Creatinine Ratio 15.6 (10-20); Creatinine Clr Calc Pharmacy 121.9 ml/min; Est GFR (African American) 119.3 ml/min; Est GFR (Non-African American) 102.9 ml/min; Potassium 3.9 mmol/L (3.5-5.1)
[2021-03-31] MEDS: LORATADINE 10 MG TAB PO SCH (08:20)
[2021-03-31] MEDS: ADVANCED PROBIOTIC 1250 MG CAPSULE PO SCH (08:20)
[2021-03-31] MEDS: POT PHOSPHATE MONOBASIC W/ SOD TAB PO SCH ×4 (08:41→20:15)
[2021-03-31] MEDS: AZELASTINE HCL 0.1% NASAL 200 SPRAYS/27,400 MCG BTL SCH ×2 (08:42→20:11)
[2021-03-31] MEDS: METOPROLOL TARTRATE 25 MG TAB PO SCH ×2 (08:42→20:15)
[2021-03-31] MEDS: GABAPENTIN 300 MG CAP PO SCH ×2 (08:42→20:15)
[2021-03-31] MEDS: MAGNESIUM CHLORIDE 64MG DELAYED REL TAB PO SCH ×2 (08:42→20:11)
[2021-03-31] MEDS: PANTOprazole 40 MG TAB PO SCH (08:42)
--- NOTE | 2021-03-31 09:41 | Hospitalist Progress Note ---
Date of Service March 31, 2021 Assessment & Plan (1) Rectal mass: Plan: -felt during rectal exam previously -colonoscopy 03/30 negative for mass but showed hemorrhoids and ulcerations. Ulcerations were biopsied (2) Bloody diarrhea: Plan: -patient with self reported history of Crohn's disease but not on medications s/p 1 unit pRBC 03/28 with appropriate response -Hb remains stable since -infectious workup negative so far. will discontinue further antibiotics -can give imodium PRN for ongoing diarrhea -check ESR, CRP with AM labs -discussed with GI, will await labwork (3) Hypokalemia: Plan: replete PRN Hypophosphatemia -repleted (4) Ambulatory dysfunction: Plan: -will need rehab at discharge (5) Fall: (6) Diabetes mellitus type 2 in nonobese: Plan: continue basal/bolus insulin as ordered (7) Rectal pain: (8) Colitis: Plan: -stool studies negative. will discontinue antibiotics Plan: DVT PPX -SCD. No AC previously due to episodes of bloody BM over the weekend -she is at increased risk for VTE with her prolonged hospital course. will start SQ heparin and monitor closely Admission and Anticipated Discharge Date Admission Date: March 27, 2021 Subjective "i feel so tired" Did not sleep well bc of neighbor Still having diarrhea Remains afebrile Physical Exam Physical Exam: appears weak, tired Respiratory: breathing comfortably on room air, no wheezing/rhonchi Cardiovascular: regular rate and rhythm, no murmurs/rubs/gallops Gastrointestinal (Abdomen): soft, non tender Musculoskeletal: no edema Neurologic: awake, alert, generalized weakness Results & Data Results & Data ([facility]) Vital Signs (Past 12 Hours) Vital Signs Temp Pulse Pulse Resp BP BP Pulse Ox 03/31/21 07:50 36.9 C 94 H 18 154/77 H 97 03/31/21 04:22 37.2 C 93 H 22 137/70 100 03/31/21 00:45 83 03/31/21 00:05 36.7 C 90 18 147/73 H 100 Laboratory Results Short CBC 03/31/21 Range/Units 05:26 WBC 6.86 (4.8-10.8) K/uL Hgb 9.5 L (12.0-16.0) g/dL Hct 30.5 L (37-47) % Plt Count 224 (130-400) K/uL BMP 03/31/21 05:26 Sodium 135 L Potassium 3.9 Chloride 105 Carbon Dioxide 25 BUN 5 L Creatinine 0.32 L Glucose 111 H Calcium 7.0 L Medications Administered Current Inpatient Medications Acetaminophen (Acetaminophen 325 Mg Tab) 650 mg PO Q4H PRN PRN Reason: pain/fever Stop: 04/26/21 16:52 Last Admin: 03/29/21 21:19 Dose: 650 mg Documented by: Aspirin (Aspirin 81 Mg Ectab) 81 mg PO DAILY [facility] Stop: 04/27/21 08:59 Last Admin: 03/28/21 08:49 Dose: 81 mg Documented by: Atorvastatin Calcium (Atorvastatin 40 Mg Tab) 40 mg PO HS [facility] Stop: 04/26/21 20:59 Last Admin: 03/30/21 20:18 Dose: 40 mg Documented by: Azelastine HCl (Azelastine Hcl 0.1% Nasal 200 Sprays/27,400 Mcg Btl) 2 sprays NA BID [facility] Stop: 04/26/21 20:59 Last Admin: 03/31/21 08:42 Dose: 2 sprays Documented by: Petrolatum 45 appln/Hydrocortisone 45 appln/ Al Hydrox/Mg Hydrox/Simethicone 15 ml/ BARCODE IDENTIFIER 1 ea 0 appln TOP QS [facility] Stop: 04/26/21 15:59 Last Admin: 03/31/21 08:19 Dose: 1 appln Documented by: Dextrose (Dextrose 50% 50 Ml Syringe) 25 - 50 ml IV UD PRN; Protocol PRN Reason: Hypoglycemia Protocol Stop: 04/26/21 16:52 Furosemide (Furosemide 20 Mg Tab) 20 mg PO DAILY [facility] Stop: 04/27/21 08:59 Last Admin: 03/28/21 08:53 Dose: Not Given Documented by: Gabapentin (Gabapentin 300 Mg Cap) 300 mg PO BID [facility] Stop: 04/26/21 20:59 Last Admin: 03/31/21 08:42 Dose: 300 mg Documented by: Glucagon (Glucagon For Inj 1 Mg Vial) 1 mg SQ UD PRN; Protocol PRN Reason: Hypoglycemia Protocol Stop: 04/26/21 16:52 Glucose (Glucose 10 Tabs/Tube) 4 - 8 tabs PO UD PRN; Protocol PRN Reason: Hypoglycemia Protocol Stop: 04/26/21 16:52 Glucose (Glucose 40% Gel 15 Gm Tube) 15 - 30 gm PO UD PRN; Protocol PRN Reason: Hypoglycemia Protocol Stop: 04/26/21 16:52 Lactobacillus Acidophilus (Advanced Probiotic 1250 Mg Capsule) 2 cap PO DAILY [facility] Stop: 04/27/21 12:29 Last Admin: 03/31/21 08:20 Dose: 2 cap Documented by: Levothyroxine Sodium (Levothyroxine Sodium 100 Mcg Tablet) 100 mcg PO DAILYBB [facility] Stop: 04/27/21 06:29 Last Admin: 03/31/21 06:00 Dose: 100 mcg Documented by: Loperamide HCl (Loperamide Hcl 2 Mg Cap) 2 mg PO Q2HWA PRN PRN Reason: Diarrhea Stop: 04/29/21 18:29 Last Admin: 03/30/21 21:18 Dose: 2 mg Documented by: Loratadine (Loratadine 10 Mg Tab) 10 mg PO QAM [facility] Stop: 04/27/21 08:59 Last Admin: 03/31/21 08:20 Dose: 10 mg Documented by: Losartan Potassium (Losartan Potassium 25 Mg Tab) 25 mg PO DAILY [facility] Stop: 04/27/21 08:59 Last Admin: 03/28/21 08:53 Dose: Not Given Documented by: Magnesium Chloride (Magnesium Chloride 64mg Delayed Rel Tab) 64 mg PO BID [facility] Stop: 04/26/21 20:59 Last Admin: 03/31/21 08:42 Dose: 64 mg Documented by: Metoprolol Tartrate (Metoprolol Tartrate 25 Mg Tab) 25 mg PO BID [facility] Stop: 04/26/21 20:59 Last Admin: 03/31/21 08:42 Dose: 25 mg Documented by: Miscellaneous (Carbohydrates For Hypoglycemia ) 15 - 30 gm PO UD PRN PRN Reason: Hypoglycemia Protocol Stop: 04/26/21 16:52 Miscellaneous (Restasis: Order Awaiting Action) 1 ea N/A QS [facility] Stop: 04/27/21 00:00 Last Admin: 03/31/21 08:51 Dose: Not Given Documented by: Montelukast Sodium (Montelukast Sodium 10 Mg Tablet) 10 mg PO HS [facility] Stop: 04/26/21 20:59 Last Admin: 03/30/21 20:18 Dose: 10 mg Documented by: Pantoprazole Sodium (Pantoprazole 40 Mg Tab) 40 mg PO DAILY [facility] Stop: 04/27/21 08:59 Last Admin: 03/31/21 08:42 Dose: 40 mg Documented by: Polyethylene Glycol/Electrolytes (Lavage Solution 4000ml) 1 dose PO TODAY@1600 [facility] Stop: 04/28/21 15:59 Last Admin: 03/30/21 15:07 Dose: Not Given Documented by: Potassium Phosphate (Pot Phosphate Monobasic W/ Sod Tab) 2 tab PO QID [facility] Stop: 04/01/21 16:59 Last Admin: 03/31/21 08:41 Dose: 2 tab Documented by: Promethazine HCl (Promethazine Hcl 25 Mg Tab) 25 mg PO Q6H PRN PRN Reason: Nausea And Vomiting Stop: 04/26/21 19:15 Tramadol HCl (Tramadol Hcl 50 Mg Tablet) 25 - 50 mg PO Q4H PRN PRN Reason: Pain Stop: 04/27/21 01:23 Trazodone HCl (Trazodone Hcl 50 Mg Tab) 50 mg PO HS [facility] Stop: 04/26/21 20:59 Last Admin: 03/30/21 21:18 Dose: 50 mg Documented by:
[2021-03-31] MEDS: LOPERAMIDE HCL 2 MG CAP PO PRN (16:01)
[2021-03-31] MEDS: ACETAMINOPHEN 325 MG TAB PO PRN ×2 (16:01→20:16)
[2021-03-31] MEDS ORDERED: DIPHENOXYLATE/ATROPINE 2.5/0.025MG TAB PO PRN (16:10)
[2021-03-31] MEDS ORDERED: SODIUM CHLORIDE 0.9% 500 ML IV SCH (16:15)
[2021-03-31] MEDS: LOPERAMIDE HCL 2 MG CAP PO SCH ×2 (17:58→20:21)
[2021-03-31] MEDS: HEPARIN SOD 5,000 UNIT/0.5 ML VIAL SQ SCH (20:12)
[2021-03-31] MEDS: traZODone HCL 50 MG TAB PO SCH (20:15)
[2021-03-31] MEDS: ATORVASTATIN 40 MG TAB PO SCH (20:15)
[2021-03-31] MEDS: MONTELUKAST SODIUM 10 MG TABLET PO SCH (20:16)
[2021-03-31] MEDS: SODIUM CHLORIDE 0.9% 1000ML 1,000 ML IV SCH (21:41)
[2021-04-01] MEDS: ZINC OXIDE 16% 45 APPLN, HYDROCORTISONE 1% 45 APPLN, ALUMINUM/MAGNESIUM SUSP 15 ML, BAR... TOP SCH ×3 (01:12→17:26)
[2021-04-01] MEDS: RESTASIS: ORDER AWAITING ACTION SCH ×3 (01:13→17:25)
[2021-04-01] MEDS: LEVOTHYROXINE SODIUM 100 MCG TABLET PO SCH (06:03)
[2021-04-01] MEDS: SODIUM CHLORIDE 0.9% 1000ML 1,000 ML IV SCH ×2 (07:45→17:24)
[2021-04-01 07:46] LABS: Basophils # (auto) 0.01 K/uL (0-0.2); Basophils % (auto) 0.1 %; Eosinophils # (auto) 0.09 K/uL (0-0.5); Eosinophils % (auto) 1.3 %; Hematocrit (blood only) 30.9 % (37-47); Hemoglobin 9.6 g/dL (12.0-16.0); Immature Granulocytes # (auto) 0.07 K/uL (0.00-0.02); Lymphocytes # (auto) 0.63 K/uL (1.2-3.4); Lymphocytes % (auto) 9.3 %; Mean Corpuscular Hemoglobin 29.4 pg (25-34); Mean Corpuscular Hgb Conc 31.1 g/dL (32-36); Mean Corpuscular Volume 94.8 fL (80-100); Mean Platelet Volume 9.3 fL (7.4-10.4); Monocytes # (auto) 0.68 K/uL (0.11-0.59); Neutrophils # (auto) 5.33 K/uL (1.4-6.5); Neutrophils % (auto) 78.3 %; Platelet Count 210 K/uL (130-400); RDW Coefficient of Variation 16.2 % (11.5-14.5); RDW Standard Deviation 56.5 fL (36.4-46.3); Red Blood Count 3.26 M/uL (4.2-5.4); White Blood Count 6.81 K/uL (4.8-10.8)
[2021-04-01 08:07] LABS: BUN Creatinine Ratio 14.3 (10-20); C Reactive Protein 4.97 mg/dl (0-0.5); Calcium 7.1 mg/dl (8.5-10.1); Creatinine Clr Calc Pharmacy 111.7 ml/min; Est GFR (African American) 115.8 ml/min; Est GFR (Non-African American) 99.9 ml/min; Magnesium 1.7 mg/dl (1.7-2.4); Phosphorus 2.4 mg/dl (2.5-4.9); Potassium 3.3 mmol/L (3.5-5.1)
[2021-04-01] MEDS: AZELASTINE HCL 0.1% NASAL 200 SPRAYS/27,400 MCG BTL SCH ×2 (08:51→22:06)
[2021-04-01] MEDS: GABAPENTIN 300 MG CAP PO SCH ×2 (08:55→22:07)
[2021-04-01] MEDS: LORATADINE 10 MG TAB PO SCH (08:55)
[2021-04-01] MEDS: ADVANCED PROBIOTIC 1250 MG CAPSULE PO SCH (08:55)
[2021-04-01] MEDS: HEPARIN SOD 5,000 UNIT/0.5 ML VIAL SQ SCH ×2 (08:55→22:09)
[2021-04-01] MEDS: POT PHOSPHATE MONOBASIC W/ SOD TAB PO SCH ×4 (08:56→22:10)
[2021-04-01] MEDS: PANTOprazole 40 MG TAB PO SCH (08:56)
[2021-04-01] MEDS: MAGNESIUM CHLORIDE 64MG DELAYED REL TAB PO SCH (08:56)
[2021-04-01] MEDS: METOPROLOL TARTRATE 25 MG TAB PO SCH ×2 (08:56→22:08)
[2021-04-01] MEDS: LOPERAMIDE HCL 2 MG CAP PO SCH ×4 (08:57→22:10)
--- NOTE | 2021-04-01 09:19 | Communication Note ---
Date of Service: April 01, 2021 GI asked to review pathology. Pt was seen and evaluated, chart reviewed. Continued rectal pain and diarrhea. She notes history of crohn's disease dating back 20+ years diagnosed in [place]. Pathology 2021: Ulcer. Non-specific chronic active colitis. No viral cytopathic effect is identified. Cytomegalovirus and HSV 1/2 immunohistochemistry stains ar e negative. Discussed with attending, Dr. Polanco. Given her history of crohn's disease, will start therapy with PO prednisone 40 mg daily x 2 weeks then decrease by 5 mg weekly. She will need OP follow up with colorectal for evaluation and OP GI follow up. As she is being discharged to [facility], can arrange telephonic or televideo in 1-2 weeks Thank you for allowing us to participate in the care of this patient. Please call with any acute changes, questions or concerns. Please see addendum below with additional recommendation from my supervising physician.
[2021-04-01] MEDS ORDERED: MAGNESIUM SULFATE / D5W 1 GM/100 ML BAG IV ONE (12:30)
[2021-04-01] MEDS: predniSONE 20 MG TAB PO SCH (13:15)
[2021-04-01] MEDS: POTASSIUM CHLORIDE 20 MEQ/15 ML UDC PO SCH ×2 (13:15→22:10)
--- NOTE | 2021-04-01 13:52 | Hospitalist Progress Note ---
Date of Service April 01, 2021 Assessment & Plan (1) Bloody diarrhea: Plan: Acute blood loss anemia -patient with self reported history of Crohn's disease but not on medications s/p 1 unit pRBC 03/28 with appropriate response -Hb remains stable since -infectious workup negative so far. antibiotics discontinued -results of pathology reviewed. Discussed with GI--will start steroids. -patient will need to follow up with colorectal surgery and GI outpatient -diarrhea improved with imodium--will continue TID, also continue lomotil PRN -CRP elevated (2) Hypokalemia: Plan: replete PRN Hypophosphatemia -repleted (3) Ambulatory dysfunction: Plan: -will need rehab at discharge (4) Fall: (5) Diabetes mellitus type 2 in nonobese: Plan: continue basal/bolus insulin as ordered (6) Rectal pain: (7) Colitis: Plan: -stool studies negative. will discontinue antibiotics Plan: DVT PPX -SQ heparin resumed 03/31 Anticipate patient will be medically stable for discharge to SNF 04/02 Admission and Anticipated Discharge Date Admission Date: March 27, 2021 Anticipated date of discharge: 04/02/21 Subjective Diarrhea improved. Still feels very weak Physical Exam Physical Exam: Laying in bed, appears weak but no acute distress ENMT: normocephalic, atraumatic Respiratory: breathing comfortably on room air, no wheezing/rhonchi/rales Cardiovascular: regular rate and rhythm, no murmurs/rubs/gallops Gastrointestinal (Abdomen): soft,non tender Musculoskeletal: no edema Neurologic: awake, forgetful, spontaneously moving extremities Results & Data Results & Data ([facility]) Vital Signs (Past 12 Hours) Vital Signs Temp Pulse Pulse Resp BP BP Pulse Ox 04/01/21 11:03 36.9 C 94 H 18 147/73 H 100 04/01/21 07:36 37.2 C 95 H 20 153/77 H 100 04/01/21 07:27 92 H 04/01/21 04:11 36.7 C 85 18 132/66 99 Laboratory Results Short CBC 04/01/21 Range/Units 07:12 WBC 6.81 (4.8-10.8) K/uL Hgb 9.6 L (12.0-16.0) g/dL Hct 30.9 L (37-47) % Plt Count 210 (130-400) K/uL BMP 04/01/21 07:12 Sodium 136 Potassium 3.3 L Chloride 106 Carbon Dioxide 27 BUN 5 L Creatinine 0.35 L Glucose 104 H Calcium 7.1 L Medications Administered Current Inpatient Medications Acetaminophen (Acetaminophen 325 Mg Tab) 650 mg PO Q4H PRN PRN Reason: pain/fever Stop: 04/26/21 16:52 Last Admin: 03/31/21 20:16 Dose: 650 mg Documented by: Aspirin (Aspirin 81 Mg Ectab) 81 mg PO DAILY [facility] Stop: 04/27/21 08:59 Last Admin: 03/28/21 08:49 Dose: 81 mg Documented by: Atorvastatin Calcium (Atorvastatin 40 Mg Tab) 40 mg PO HS [facility] Stop: 04/26/21 20:59 Last Admin: 03/31/21 20:15 Dose: 40 mg Documented by: Azelastine HCl (Azelastine Hcl 0.1% Nasal 200 Sprays/27,400 Mcg Btl) 2 sprays NA BID [facility] Stop: 04/26/21 20:59 Last Admin: 04/01/21 08:51 Dose: 2 sprays Documented by: Petrolatum 45 appln/Hydrocortisone 45 appln/ Al Hydrox/Mg Hydrox/Simethicone 15 ml/ BARCODE IDENTIFIER 1 ea 0 appln TOP QS [facility] Stop: 04/26/21 15:59 Last Admin: 04/01/21 08:50 Dose: 1 appln Documented by: Dextrose (Dextrose 50% 50 Ml Syringe) 25 - 50 ml IV UD PRN; Protocol PRN Reason: Hypoglycemia Protocol Stop: 04/26/21 16:52 Diphenoxylate HCl/Atropine (Diphenoxylate/Atropine 2.5/0.025mg Tab) 1 tab PO TID PRN PRN Reason: Diarrhea Stop: 04/30/21 16:09 Furosemide (Furosemide 20 Mg Tab) 20 mg PO DAILY [facility] Stop: 04/27/21 08:59 Last Admin: 03/28/21 08:53 Dose: Not Given Documented by: Gabapentin (Gabapentin 300 Mg Cap) 300 mg PO BID [facility] Stop: 04/26/21 20:59 Last Admin: 04/01/21 08:55 Dose: 300 mg Documented by: Glucagon (Glucagon For Inj 1 Mg Vial) 1 mg SQ UD PRN; Protocol PRN Reason: Hypoglycemia Protocol Stop: 04/26/21 16:52 Glucose (Glucose 10 Tabs/Tube) 4 - 8 tabs PO UD PRN; Protocol PRN Reason: Hypoglycemia Protocol Stop: 04/26/21 16:52 Glucose (Glucose 40% Gel 15 Gm Tube) 15 - 30 gm PO UD PRN; Protocol PRN Reason: Hypoglycemia Protocol Stop: 04/26/21 16:52 Heparin Sodium (Porcine) (Heparin Sod 5,000 Unit/0.5 Ml Vial) 5,000 units SQ Q12 [facility] Stop: 04/30/21 20:59 Last Admin: 04/01/21 08:55 Dose: 5,000 units Documented by: Sodium Chloride (Nss 1000ml) 1,000 mls @ 100 mls/hr IV .Q10H [facility] Stop: 04/30/21 16:45 Last Admin: 04/01/21 07:45 Dose: 100 mls/hr Documented by: Magnesium Sulfate/Dextrose (Magnesium Sulfate / D5w) 1 gm in 100 mls @ 50 mls/hr IV 1230 ONE Stop: 04/01/21 14:29 Last Admin: 04/01/21 13:14 Dose: 50 mls/hr Documented by: Lactobacillus Acidophilus (Advanced Probiotic 1250 Mg Capsule) 2 cap PO DAILY [facility] Stop: 04/27/21 12:29 Last Admin: 04/01/21 08:55 Dose: 2 cap Documented by: Levothyroxine Sodium (Levothyroxine Sodium 100 Mcg Tablet) 100 mcg PO DAILYBB [facility] Stop: 04/27/21 06:29 Last Admin: 04/01/21 06:03 Dose: 100 mcg Documented by: Loperamide HCl (Loperamide Hcl 2 Mg Cap) 2 mg PO QID [facility] Stop: 04/30/21 16:59 Last Admin: 04/01/21 13:19 Dose: 2 mg Documented by: Loratadine (Loratadine 10 Mg Tab) 10 mg PO QAM [facility] Stop: 04/27/21 08:59 Last Admin: 04/01/21 08:55 Dose: 10 mg Documented by: Losartan Potassium (Losartan Potassium 25 Mg Tab) 25 mg PO DAILY [facility] Stop: 04/27/21 08:59 Last Admin: 03/28/21 08:53 Dose: Not Given Documented by: Magnesium Chloride (Magnesium Chloride 64mg Delayed Rel Tab) 64 mg PO BID [facility] Stop: 04/26/21 20:59 Last Admin: 04/01/21 08:56 Dose: 64 mg Documented by: Metoprolol Tartrate (Metoprolol Tartrate 25 Mg Tab) 25 mg PO BID [facility] Stop: 04/26/21 20:59 Last Admin: 04/01/21 08:56 Dose: 25 mg Documented by: Miscellaneous (Carbohydrates For Hypoglycemia ) 15 - 30 gm PO UD PRN PRN Reason: Hypoglycemia Protocol Stop: 04/26/21 16:52 Miscellaneous (Restasis: Order Awaiting Action) 1 ea N/A QS [facility] Stop: 04/27/21 00:00 Last Admin: 04/01/21 08:03 Dose: Not Given Documented by: Montelukast Sodium (Montelukast Sodium 10 Mg Tablet) 10 mg PO HS [facility] Stop: 04/26/21 20:59 Last Admin: 03/31/21 20:16 Dose: 10 mg Documented by: Pantoprazole Sodium (Pantoprazole 40 Mg Tab) 40 mg PO DAILY [facility] Stop: 04/27/21 08:59 Last Admin: 04/01/21 08:56 Dose: 40 mg Documented by: Potassium Chloride (Potassium Chloride 20 Meq/15 Ml Udc) 20 meq PO BID [facility] Stop: 05/01/21 12:29 Last Admin: 04/01/21 13:15 Dose: 20 meq Documented by: Potassium Phosphate (Pot Phosphate Monobasic W/ Sod Tab) 2 tab PO QID [facility] Stop: 04/03/21 16:59 Last Admin: 04/01/21 13:20 Dose: 2 tab Documented by: Prednisone (Prednisone 20 Mg Tab) 40 mg PO DAILY [facility] Stop: 05/01/21 12:29 Last Admin: 04/01/21 13:15 Dose: 40 mg Documented by: Promethazine HCl (Promethazine Hcl 25 Mg Tab) 25 mg PO Q6H PRN PRN Reason: Nausea And Vomiting Stop: 04/26/21 19:15 Tramadol HCl (Tramadol Hcl 50 Mg Tablet) 25 - 50 mg PO Q4H PRN PRN Reason: Pain Stop: 04/27/21 01:23 Trazodone HCl (Trazodone Hcl 50 Mg Tab) 50 mg PO HS [facility] Stop: 04/26/21 20:59 Last Admin: 03/31/21 20:15 Dose: 50 mg Documented by:
[2021-04-01] MEDS: MONTELUKAST SODIUM 10 MG TABLET PO SCH (22:07)
[2021-04-01] MEDS: traZODone HCL 50 MG TAB PO SCH (22:07)
[2021-04-01] MEDS: ATORVASTATIN 40 MG TAB PO SCH (22:08)
[2021-04-02] MEDS: RESTASIS: ORDER AWAITING ACTION SCH ×2 (01:36→09:24)
[2021-04-02] MEDS: ZINC OXIDE 16% 45 APPLN, HYDROCORTISONE 1% 45 APPLN, ALUMINUM/MAGNESIUM SUSP 15 ML, BAR... TOP SCH ×2 (01:37→09:24)
[2021-04-02] MEDS: SODIUM CHLORIDE 0.9% 1000ML 1,000 ML IV SCH (04:00)
[2021-04-02] MEDS: LEVOTHYROXINE SODIUM 100 MCG TABLET PO SCH (05:38)
[2021-04-02] MEDS: AZELASTINE HCL 0.1% NASAL 200 SPRAYS/27,400 MCG BTL SCH (09:24)
[2021-04-02] MEDS: GABAPENTIN 300 MG CAP PO SCH (09:25)
[2021-04-02] MEDS: ADVANCED PROBIOTIC 1250 MG CAPSULE PO SCH (09:25)
[2021-04-02] MEDS: HEPARIN SOD 5,000 UNIT/0.5 ML VIAL SQ SCH (09:25)
[2021-04-02] MEDS: METOPROLOL TARTRATE 25 MG TAB PO SCH (09:26)
[2021-04-02] MEDS: LORATADINE 10 MG TAB PO SCH (09:26)
[2021-04-02] MEDS: PANTOprazole 40 MG TAB PO SCH (09:26)
[2021-04-02] MEDS: POT PHOSPHATE MONOBASIC W/ SOD TAB PO SCH (09:26)
[2021-04-02] MEDS: predniSONE 20 MG TAB PO SCH (09:27)
[2021-04-02] MEDS: POTASSIUM CHLORIDE 20 MEQ/15 ML UDC PO SCH (09:27)
[2021-04-02] MEDS: LOPERAMIDE HCL 2 MG CAP PO SCH (09:29)
[2021-04-02 09:40] LABS: BUN Creatinine Ratio 17.1 (10-20); Calcium 7.4 mg/dl (8.5-10.1); Creatinine Clr Calc Pharmacy 112.4 ml/min; Est GFR (African American) 115.8 ml/min; Est GFR (Non-African American) 99.9 ml/min; Magnesium 1.7 mg/dl (1.7-2.4); Phosphorus 3.1 mg/dl (2.5-4.9); Potassium 4.1 mmol/L (3.5-5.1)
[2021-04-02] MEDS ORDERED: MAGNESIUM SULFATE / D5W 1 GM/100 ML BAG IV ONE (10:30)
--- NOTE | 2021-04-02 10:34 | Discharge Summary ---
Date of Service April 02, 2021 Admission HPI Per Admitting Provider This is a 85-year-old female who has significant past medical history of T2DM, HTN, HLD, mild persistent asthma, arteriosclerotic cardiovascular disease, GERD, IBS, history of diverticulitis, history of C. difficile, lymphedema, incisional hernia who presents to ED due to inability to care for self at home. Recent admission 02/24-02/27 for acute diveriticulitis, ? anal fissure Persistent rectal pain, liquid brown/blood stool Seen and evaluated by Dr. Hanh Lainez [facility] revealing concern for circumferential rectal mass, plan for anoscopy and biopsy under anesthesia on 03/26 which patient canceled Continues to have persistent rectal pain, stool incontinence with bloody brown liquid fecal discharge/diarrhea Since being discharged home has been followed by home health, found today covered in feces and feels unable to care for self at home so sent to ED. Principal Diagnosis Colitis, possibly Crohn's flare Hypokalemia Hypomagnesemia Hypophosphatemia Debility, weakness Discharge Exam Reports diarrhea frequency has reduced to 1-2 episodes/ day. Still feels very weak. Gen- appears well Abd- soft, non tender CV- regular rate and rhythm Pulm- breathing comfortably Extr- no edema Discharge Data Allergies Allergy/AdvReac Type Severity Reaction Status Date / Time Iodinated Contrast Media Allergy Intermediate HIVES/BURNING Verified 03/27/21 15:25 AT IV SITE AND UP VEIN pyrilamine Allergy Intermediate VOMITING Verified 03/27/21 15:25 Sulfa (Sulfonamide Allergy Intermediate RINGS ON Verified 03/27/21 15:25 Antibiotics) SKIN simvastatin Allergy Mild RED Verified 03/27/21 15:25 CIRCLES-HAS TOLERATED LIPITOR amoxicillin AdvReac Intermediate CAUSED Verified 03/27/21 15:25 DIARRHEA PER [facility] MED LIST codeine AdvReac Intermediate N/V Verified 03/27/21 15:25 ether AdvReac Intermediate NAUSEA/VOMI Verified 03/27/21 15:25 TING morphine AdvReac Intermediate VOMITING Verified 03/27/21 15:25 tramadol AdvReac Intermediate NAUSEA/VOMI Verified 03/27/21 15:25 TING Consultations 03/27/21 14:24 ED Decision to Admit Stat 03/27/21 19:11 Consult Gastroenterology Routine Procedures Performed Operation Date: 03/29/21 17:00 <No data on this case meets the specified criteria> Operation Date: 03/30/21 16:30 Actual Procedures p Colonoscopy Biopsy Cytology(Not Applicable) - Chidi Polanco MD Ordered Studies 03/27/21 15:12 CT abd pelvis wo con Routine Hospital Course This is a 85-year-old female who has significant past medical history of T2DM, HTN, HLD, mild persistent asthma, arteriosclerotic cardiovascular disease, GERD, IBS, history of diverticulitis, history of C. difficile, lymphedema, incisional hernia who presents to ED due to inability to care for self at home. Upon further investigation, patient has a reported history of Crohn's diagnosed decades ago in [place]. She has not followed up with GI or received management for her Crohn's. Patient reports having "trouble with her stools" for the past 1 year, per her daughter--she was having continuous diarrhea at least for 1 month before she sought care. She was seen recently by colorectal surgery and had a rectal exam which was concerning for a rectal mass. She was supposed to have an anoscopy with biopsy but she cancelled. Since then, she has had difficulty caring for herself due to constant diarrhea so she presented to the ER. Here, she had a colonoscopy 03/30/2021 which was limited due to poor prep but revealed sigmoid and descending colonic ulcerations which were biopsied. Pathology from biopsy was negative for CMV, HSV and showed chronic active inflammation. Her stool studies were negative for infection. CRP was elevated With her reported history of Crohn's she was started on prednisone (40mg daily x 2 weeks and decrease by 5mg weekly thereafter). She received lomotil and imodium while here which helped her diarrhea subside. She received IVF and electrolyte repletions while here. After discharge, she will need to follow up with GI in 1-2 weeks and colorectal surgery. Total Time Total Time Spent Total Time Spent (In Minutes): 40 Discharge Plan Discharge Items Patient Disposition: Transfer Care Home Fac Reason For Visit: UNABLE TO CARE FOR SELF Discharge Diagnosis: Colitis, presumed Crohn's flare Hypokalemia Hypophosphatemia Hypomagnesemia Condition on Discharge: Good Health Concerns: Follow up with GI and Colorectal surgery Activity: Resume your previous activity Bathing: No limitations Exercise/Sports: As tolerated Driving/Machine Use: Resume 3 days after discharge Weightbearing: Full weightbearing Non-emergency contact: Primary Care Provider and Specialist Call non-emergency contact if: you have any medication questions and your symptoms worsen Follow-up/Referrals: Diann Angeles MD [Primary Care Provider] - Diet: Regular Addtl Attending Provider Instructions: Repeat BMP, Mg and Phos in 3 days Prednisone 40mg daily x 2 weeks then reduce by 5mg weekly. Oral magnesium discontinued since this can cause diarrhea Patient needs to follow up with GI in 1-2 weeks and her colorectal surgeon in 2- 3 weeks Pending Studies at Discharge: No Stand-Alone Forms: My [facility] Skilled Items Patient informed of condition?: Yes DNR: Yes Discharge Level of Care: Skilled Communicable Disease: No Discharge Prognosis: Stable Lines: None Urinary Catheter: No Medications and DC Order Prescriptions: New prednisone 20 mg Tablet 40 mg PO DAILY 14 Days Qty: 28 RF: 0 diphenoxylate-atropine 2.5-0.025 mg Tablet 1 tab PO TID PRN (Reason: diarrhea) 7 Days Qty: 30 RF: 0 Advanced Probiotic 625 mg (10 billion cell) Capsule 2 cap PO DAILY 14 Days Qty: 28 RF: 0 Continued azelastine 137 mcg (0.1 %) aerosol,spray 2 sprays intranasal BID RF: 0 atorvastatin 40 mg tablet 40 mg PO HS RF: 0 furosemide 20 mg tablet 20 mg PO DAILY RF: 0 levothyroxine 100 mcg tablet 100 mcg PO DAILYBB RF: 0 metoprolol tartrate 25 mg tablet 25 mg PO BID RF: 0 (DME) Oxygen Home Liters Per Minute See Dose Instructions .ROUTE .MEDSUPPLY Qty: 1 RF: 0 pantoprazole 40 mg tablet,delayed release (DR/EC) 40 mg PO DAILY RF: 0 trazodone 50 mg tablet 50 mg PO HS RF: 0 alendronate [Fosamax] 70 mg tablet 70 mg PO WK RF: 0 losartan [Cozaar] 25 mg tablet 25 mg PO DAILY RF: 0 montelukast [Singulair] 10 mg tablet 10 mg PO HS RF: 0 loratadine [Claritin] 10 mg tablet 10 mg PO QAM RF: 0 Lactinex 1 million cell Tablet,Chewable 1 tab PO TIDM RF: 0 acetaminophen [Tylenol] 325 mg Tablet 650 mg PO Q6H PRN (Reason: Pain) RF: 0 gabapentin 300 mg capsule 300 mg PO BID RF: 0 Restasis 0.05 % Dropperette 1 drp OPHTHALMIC (EYE) Q12H RF: 0 aspirin 81 mg Tablet,Delayed Release (Dr/Ec) 81 mg PO DAILY RF: 0 Discontinued magnesium chloride 64 mg magnesium tablet 64 mg PO BID Qty: 60 RF: 0 Discharge Orders: Discharge Order (Routine); Ordered 04/02/21 Ordered By: Kiki Alvarez/Other Patient Handouts: High Blood Sugar (Hyperglycemia), Hypoglycemia (Low Blood Sugar), Managing Type 2 Diabetes Admission Data Admit Date/Time: 03/27/21 14:17 Attending Provider: Kiki Sin Admit Provider: Michelle Enamorado Primary Care Provider: Diann Angeles Other Providers: [facility] ; Heron Cameron ; Armando Wu ; [facility] Other Interventions: Discharge Summary Assessment (RN) Last Done: 03/30/21 09:22
== END 2021-04-02 12:56 | DRG 386 ==
LOC: ED 09:56 → SUATTDRO 14:17 → 3W 14:17 → 2S 03-28 19:26
DX: E83.39 Other disorders of phosphorus metabolism; Z79.899 Other long term (current) drug therapy; I25.10 Atherosclerotic heart disease of native coronary artery without angina pectoris; I10 Essential (primary) hypertension; Z79.890 Hormone replacement therapy; R53.1 Weakness; K50.911 Crohn's disease, unspecified, with rectal bleeding; M19.90 Unspecified osteoarthritis, unspecified site; Z82.49 Family history of ischemic heart disease and other diseases of the circulatory system; E03.9 Hypothyroidism, unspecified; E78.5 Hyperlipidemia, unspecified; D62 Acute posthemorrhagic anemia; Z88.8 Allergy status to other drugs, medicaments and biological substances; E78.00 Pure hypercholesterolemia, unspecified; Z86.19 Personal history of other infectious and parasitic diseases; L29.3 Anogenital pruritus, unspecified; Z91.041 Radiographic dye allergy status; Z88.0 Allergy status to penicillin; R09.02 Hypoxemia; R32 Unspecified urinary incontinence; K64.4 Residual hemorrhoidal skin tags; Z79.82 Long term (current) use of aspirin; R15.9 Full incontinence of feces; E83.42 Hypomagnesemia; J45.30 Mild persistent asthma, uncomplicated; Z66 Do not resuscitate; E11.9 Type 2 diabetes mellitus without complications; Z88.5 Allergy status to narcotic agent; R53.81 Other malaise; K21.9 Gastro-esophageal reflux disease without esophagitis; R29.6 Repeated falls; Z60.8 Other problems related to social environment; Z88.2 Allergy status to sulfonamides; Z87.19 Personal history of other diseases of the digestive system; E87.6 Hypokalemia; M81.0 Age-related osteoporosis without current pathological fracture

== ENCOUNTER 2021-06-29 08:21 | Inpatient (IN) ==
[2021-06-29] MEDS ORDERED: ACETAMINOPHEN 1,000 MG/100 ML VIAL IV STA (08:38)
[2021-06-29] MEDS ORDERED: CEFEPIME 2,000 MG/20 ML VIAL IV STA (08:40)
[2021-06-29] MEDS ORDERED: SODIUM CHLORIDE 0.9% 1000ML 1,000 ML IV SCH ×2 (08:45→09:45)
[2021-06-29 08:56] LABS: Hematocrit (blood only) 35.9 % (37-47); Hemoglobin 11.6 g/dL (12.0-16.0); Mean Corpuscular Hemoglobin 32.5 pg (25-34); Mean Corpuscular Hgb Conc 32.3 g/dL (32-36); Mean Corpuscular Volume 100.6 fL (80-100); RDW Coefficient of Variation 17.8 % (11.5-14.5); RDW Standard Deviation 66.3 fL (36.4-46.3); Red Blood Count 3.57 M/uL (4.2-5.4); White Blood Count 8.01 K/uL (4.8-10.8)
[2021-06-29 09:01] LABS: INR 1.1 (0.9-1.1); Partial Thromboplastin Ratio 1.1; Partial Thromboplastin Time 29.3 Seconds (21.0-31.0); Prothrombin Time 11.5 Seconds (9.0-12.0)
--- NOTE | 2021-06-29 09:07 | Emergency Department Note ---
Impression & Plan Sepsis, Diverticulitis, Abdominal pain ED Provider Note NAME: TIERA NORIEGA AGE: 86 SEX: F ARRIVES VIA: Ambulance INFORMANT: Patient ED PROVIDER(S): Vishal Cleaning MD CHIEF COMPLAINT: Weakness, fever PLAN: Disposition: Admit MEDICAL DECISION MAKING: The patient is a pleasant 86-year-old woman with a past medical history of Crohn's disease, GERD, diabetes, hypothyroidism, hyperlipidemia, hypertension, osteoarthritis, anal fissure who presents to the emergency department via EMS from her SNF at [place] for evaluation of fevers and body aches with generalized weakness over the past several days. Patient reports she fell a few days ago but denies hitting her head. She denies nausea, vomiting, urinary symptoms, cough, congestion, chest pain or shortness of breath. Patient reports she has been having weeks of a Crohn's flare but denies diarrhea. She reports she does not always have diarrhea with her flares. On arrival the patient is acute on chronically ill-appearing but no acute distress, febrile to 38.7 heart in the 110s, respiratory rate in the mid 20s and blood pressure stable. Her O2 saturation is 96% on room air. The patient appears clinically dry. She exhibits generalized abdominal tenderness with large ventral hernia all of which she reports is her recent normal. EKG without overt acute ischemia. Chest x-ray vascular prominence, nonspecific. WBC within normal limits. H/H 11.6/35.9 improved from prior. Platelets 93K specific and decreased from previous. ESR and CRP are elevated at 40 and 11. Chemistry without metabolic acidosis. BUN/creatinine> 20 consistent with the patient's clinically dry appearance. Lactic acid 0.8, within normal limits. LFTs without significant abnormality. Electrolytes without significant abnormality. Procalcitonin is not significant elevated. UA without convincing evidence of infection. CT of the abdomen pelvis demonstrates evidence of uncomplicated diverticulitis. The patient was treated empirically with cefepime and 30 cc/Kg IV fluid hydrationon arrival due to her septic presentation. IV Flagyl was added to complete treatment for diverticulitis. Given the patient's presentation with sepsis in setting of diverticulitis reasonable to meet the patient for further management. Case was discussed with Cheryl Vivas [facility] PAC with Dr. Joyner, [facility] hospitalist, who will evaluate the patient for admission. Triage Nursing notes reviewed and agree them. Prior medical records reviewed Vital Signs: reviewed and remarkable for tachycardia. Differential diagnosis: Sepsis, UTI, pneumonia, metabolic, electrolyte abnormalities, cardiac sources, intracerebral event, toxicologic, neurologic, as well as other pathologies. ER treatment provided: See below. Diagnostics interpreted by me: ECG: Sinus tachycardia, 118 bpm, PACs, no overt ST elevation or depression, QTC 454, QRS 70. Cardiac Monitoring: An order for continuous cardiac monitoring was placed and demonstrated Sinus tachycardia, 118 bpm, PACs Laboratory studies: See below Imaging studies: See below Consultation(s): Case was discussed with Cheryl Vivas [facility] PAC with Dr. Joyner, [facility] hospitalist, who will evaluate the patient for admission. HPI: The patient is a pleasant 86-year-old woman with a past medical history of Crohn's disease, GERD, diabetes, hypothyroidism, hyperlipidemia, hypertension, osteoarthritis, anal fissure who presents to the emergency department via EMS from her SNF at [place] for evaluation of fevers and body aches with generalized weakness over the past several days. Patient reports she fell a few days ago but denies hitting her head. She denies nausea, vomiting, urinary symptoms, cough, congestion, chest pain or shortness of breath. Patient reports she has been having weeks of a Crohn's flare but denies diarrhea. She reports she does not always have diarrhea with her flares. ROS: See above HPI for pertinent positives & negatives. A total of 10 systems reviewed and were otherwise negative. VITALS:See Below PHYSICAL EXAMINATION: GENERAL: Awake, alert, acute on chronically-appearing, in no distress HENT: Normocephalic, atraumatic. Oropharynx with dry mucous membranes and otherwise unremarkable. EYES: Normal conjunctiva. Sclera non-icteric. NECK: Supple. No nuchal rigidity. FROM. No JVD. RESPIRATORY: Clear to auscultation. CARDIAC: Tachycardic rate, normal rhythm. Extremities warm and well perfused. Pulses equal. ABDOMEN: Soft, non-distended. Generalized abdominal tenderness with large ventral hernia all of which she reports is her recent normal. RECTAL: Deferred. MUSCULOSKELETAL: Chest examination reveals no tenderness. The back is symmetrica l on inspection without obvious abnormality. There is no CVA tenderness to palpation. No joint edema. LOWER EXTREMITIES: Calves are equal size bilaterally and non-tender. No edema. No discoloration. NEURO: Normal sensorium. No sensory or motor deficits noted. SKIN: No rash or jaundice noted. ED COURSE: Critical Care: I have personally spent greater than 65 minutes of critical care time in the direct management of this patient. This includes bedside care, interpretation of diagnostic studies, and testing, discussion with consultants, patient, and family members, and other required patient management activities. This 65 minutes is in excess of all separately billable procedures. Vishal Cleaning MD Past Med/Surg History Medical History Anemia Arthritis Bloody diarrhea Crohn's disease Cystitis 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 Dyslipidemia Fecal incontinence Gastroesophageal reflux disease History of adenomatous polyp of colon History of diverticulitis Hypercholesterolemia Hypertension Hypertension Hypothyroidism Irritation of perirectal skin Osteoarthritis Osteoporosis Rectal pain Unable to care for self Surgical History History of incisional hernia repair History of repair of rectocele S/P laparoscopic hernia repair Total knee replacement status Family History Father , 48 Hypertension Stroke Social History Smoking Status: Never smoker Second Hand Exposure: No; Do You Dip or Chew Tobacco: No; Hx Alcohol Use: Yes Alcohol type: wine Hx Substance Use: No Preferred Language: Kiswahili Communication Ability: Effective Correspondence Clerk Required: No Beliefs That Will Affect Care: None marital status: Current Living Situation: Personal Care Facility How many Children do You have: 1 Other Information That Helps Us Care for You: No Feels Safe at Home: Yes Safety Concerns: Feels Safe At This Time Assistive Devices: Oxygen - at Night Allergies Allergies Allergy/AdvReac Type Severity Reaction Status Date / Time Iodinated Contrast Media Allergy Intermediate HIVES/BURNING Verified 06/29/21 10:16 AT IV SITE AND UP VEIN pyrilamine Allergy Intermediate VOMITING Verified 06/29/21 10:16 Sulfa (Sulfonamide Allergy Intermediate RINGS ON Verified 06/29/21 10:16 Antibiotics) SKIN simvastatin Allergy Mild RED Verified 06/29/21 10:16 CIRCLES-HAS TOLERATED LIPITOR iodine Allergy Unknown Unknown Unverified 06/29/21 10:16 amoxicillin AdvReac Intermediate CAUSED Verified 06/29/21 10:16 DIARRHEA PER [facility] MED LIST codeine AdvReac Intermediate N/V Verified 06/29/21 10:16 ether AdvReac Intermediate NAUSEA/VOMI Verified 06/29/21 10:16 TING morphine AdvReac Intermediate VOMITING Verified 06/29/21 10:16 tramadol AdvReac Intermediate NAUSEA/VOMI Verified 06/29/21 10:16 TING Home Meds Home Medications Medication Instructions Recorded Confirmed Oxygen Home #1 ea 09/20/18 12/26/18 atorvastatin 40 mg tablet 40 mg PO QAM tab 09/20/18 06/29/21 furosemide 20 mg tablet 20 mg PO QAM tab 09/20/18 06/29/21 levothyroxine 100 mcg tablet 100 mcg PO DAILYBB tab 09/20/18 06/29/21 metoprolol tartrate 25 mg tablet 25 mg PO BID tab 09/20/18 06/29/21 pantoprazole 40 mg tablet,delayed 40 mg PO QAM tab 09/20/18 06/29/21 release trazodone 50 mg tablet 50 mg PO HS PRN tab 09/20/18 06/29/21 alendronate 70 mg tablet (Fosamax) 70 mg PO WK 01/22/19 06/29/21 loratadine 10 mg tablet (Claritin) 10 mg PO QAM 01/22/19 06/29/21 montelukast 10 mg tablet 10 mg PO HS 01/22/19 06/29/21 (Singulair) cyclosporine 0.05 % eye drops in a 1 drp OPHTHALMIC (EYE) Q12H 02/23/21 06/29/21 dropperette (Restasis) Saccharomyces boulardii 250 mg 250 mg PO BID 06/29/21 06/29/21 capsule (Florastor) acetaminophen 500 mg tablet 1,000 mg PO Q8H PRN 06/29/21 06/29/21 ferrous sulfate 325 mg (65 mg 325 mg PO BID 06/29/21 06/29/21 iron) tablet fluticasone propionate 50 2 spray INTRANASAL QAM 06/29/21 06/29/21 mcg/actuation nasal spray,suspension gabapentin 100 mg capsule See Rx Instructions .ROUTE .COMPLEX 06/29/21 06/29/21 hydrocortisone acetate 25 mg 25 mg [place] BID 06/29/21 06/29/21 rectal suppository meclizine 12.5 mg tablet 12.5 mg PO DAILY PRN 06/29/21 06/29/21 menthol 0.44 %-zinc oxide 20.6 % 1 applic TOPICAL QID PRN 06/29/21 06/29/21 topical ointment in packet (Calmoseptine) metronidazole 250 mg tablet 250 mg PO TID 06/29/21 06/29/21 oxycodone 5 mg tablet 5 mg PO Q4H PRN 06/29/21 06/29/21 prednisone 10 mg tablet 30 mg PO DAILY 06/29/21 06/29/21 rifampin 300 mg capsule 600 mg PO QAM 06/29/21 06/29/21 Results & Data (ED) Vital Signs Vital Signs - 24 hr 06/29/21 08:28 06/29/21 08:35 06/29/21 08:38 Temperature 38.7 C H Temperature Source Oral Pulse Rate 119 H Pulse Rate [Apical] 117 H Respiratory Rate 29 H 25 H 26 H Respiratory Effort / Characteristics Non-Labored Spontaneous Non-Labored Spontaneous Non-Labored Spontaneous Respiratory Depth Normal Normal Blood Pressure 151/82 H Blood Pressure [Left Arm] 138/78 Blood Pressure Mean 105 Blood Pressure Mean [Left Arm] 98 Blood Pressure Position Lying Pulse Oximetry 95 93 96 Oxygen Delivery Method Room Air Room Air Room Air Oxygen Flow Rate Sepsis Recent Fever Within 48 Hours Yes Sepsis New/Unexplained Change in Mental Status No Sepsis Action Taken by Nursing No Action Required 06/29/21 08:45 06/29/21 09:00 06/29/21 09:08 Temperature Temperature Source Pulse Rate Pulse Rate [Apical] 114 H 115 H Respiratory Rate 35 H 34 H Respiratory Effort / Characteristics Non-Labored Spontaneous Non-Labored Spontaneous Non-Labored Spontaneous Respiratory Depth Normal Normal Blood Pressure Blood Pressure [Left Arm] Blood Pressure Mean Blood Pressure Mean [Left Arm] Blood Pressure Position Pulse Oximetry 95 93 Oxygen Delivery Method Room Air Room Air Room Air Oxygen Flow Rate Sepsis Recent Fever Within 48 Hours Sepsis New/Unexplained Change in Mental Status Sepsis Action Taken by Nursing 06/29/21 09:15 06/29/21 09:30 06/29/21 09:45 Temperature Temperature Source Pulse Rate Pulse Rate [Apical] 111 H 114 H 107 H Respiratory Rate 31 H 30 H 28 H Respiratory Effort / Characteristics Non-Labored Spontaneous Non-Labored Spontaneous Non-Labored Spontaneous Respiratory Depth Normal Normal Normal Blood Pressure Blood Pressure [Left Arm] 123/67 Blood Pressure Mean Blood Pressure Mean [Left Arm] 85 Blood Pressure Position Pulse Oximetry 91 93 92 Oxygen Delivery Method Room Air Room Air Room Air Oxygen Flow Rate Sepsis Recent Fever Within 48 Hours Sepsis New/Unexplained Change in Mental Status Sepsis Action Taken by Nursing 06/29/21 10:00 06/29/21 10:30 Temperature Temperature Source Pulse Rate Pulse Rate [Apical] 117 H 94 H Respiratory Rate 25 H 25 H Respiratory Effort / Characteristics Non-Labored Spontaneous Non-Labored Spontaneous Respiratory Depth Normal Normal Blood Pressure Blood Pressure [Left Arm] 130/80 122/65 Blood Pressure Mean Blood Pressure Mean [Left Arm] 96 84 Blood Pressure Position Pulse Oximetry 92 88 L Oxygen Delivery Method Room Air Room Air Oxygen Flow Rate 2 Sepsis Recent Fever Within 48 Hours Sepsis New/Unexplained Change in Mental Status Sepsis Action Taken by Nursing Laboratory Data Attestation: I reviewed the patient's lab results. Result diagrams: 06/29/21 08:27 06/29/21 08:27 Lab Results 06/29/21 06/29/21 06/29/21 Range/Units 08:27 08:27 08:27 WBC 8.01 (4.8-10.8) K/uL RBC 3.57 L (4.2-5.4) M/uL Hgb 11.6 L (12.0-16.0) g/dL Hct 35.9 L (37-47) % MCV 100.6 H (80-100) fL MCH 32.5 (25-34) pg MCHC 32.3 (32-36) g/dL RDW Std Deviation 66.3 H (36.4-46.3) fL RDW Coeff of Jluis 17.8 H (11.5-14.5) % Plt Count 93 L (130-400) K/uL MPV 9.7 (7.4-10.4) fL Immature Gran % (Auto) 0.9 % Neut % (Auto) 83.9 % Lymph % (Auto) 5.2 % Candler % (Auto) 8.9 % Eos % (Auto) 0.9 % Baso % (Auto) 0.2 % Neut # (Auto) 6.72 H (1.4-6.5) K/uL Lymph # (Auto) 0.42 L (1.2-3.4) K/uL Candler # (Auto) 0.71 H (0.11-0.59) K/uL Eos # (Auto) 0.07 (0-0.5) K/uL Baso # (Auto) 0.02 (0-0.2) K/uL Immature Gran # (Auto) 0.07 H (0.00-0.02) K/uL Platelet Estimate Decreased L (Normal) ESR (0-30) mm/hr PT 11.5 (9.0-12.0) Seconds INR 1.1 (0.9-1.1) APTT 29.3 (21.0-31.0) Seconds PTT Ratio 1.1 VBG pH (7.36-7.41) VBG pCO2 (38-50) mmHg VBG pO2 mmHg VBG HCO3 mmol/L VBG O2 Saturation % VBG Base Excess mEq/L Barometric Pressure mm/Hg Sodium 132 L (136-145) mmol/L Potassium 3.5 (3.5-5.1) mmol/L Chloride 98 (98-107) mmol/L Carbon Dioxide 27 (21-32) mmol/L Anion Gap 7 (3-11) BUN 15 (6-23) mg/dl Creatinine 0.50 L (0.6-1.2) mg/dl Est Cr Clr Drug Dosing 74.7 ml/min Est GFR ( Amer) 102.3 ml/min Est GFR (Non-Af Amer) 88.3 ml/min BUN/Creatinine Ratio 30.0 H (10-20) Glucose 166 H (70-99(Fasting)) mg/dl Lactate (0.4-2.0) mmol/L Calcium 8.5 (8.5-10.1) mg/dl Phosphorus 2.1 L (2.5-4.9) mg/dl Magnesium 1.7 (1.7-2.4) mg/dl Total Bilirubin 0.4 (0.2-1.0) mg/dl AST 12 L (13-39) U/L ALT 18 (7-52) U/L Alkaline Phosphatase 53 (34-104) U/L C-Reactive Protein (0-0.5) mg/dl Total Protein 5.8 L (6.0-8.3) gm/dl Albumin 3.2 L (3.4-5.0) gm/dl Globulin 2.6 (2.5-4.0) gm/dl Albumin/Globulin Ratio 1.2 (0.9-2) Procalcitonin (0-0.5) ng/ml SARS-CoV-2 (PCR) (Negative) Influenza Type A (PCR) (Neg) Influenza Type B (PCR) (Neg) RSV (RT-PCR) (Neg) 06/29/21 06/29/21 06/29/21 Range/Units 08:27 08:27 08:27 WBC (4.8-10.8) K/uL RBC (4.2-5.4) M/uL Hgb (12.0-16.0) g/dL Hct (37-47) % MCV (80-100) fL MCH (25-34) pg MCHC (32-36) g/dL RDW Std Deviation (36.4-46.3) fL RDW Coeff of Jluis (11.5-14.5) % Plt Count (130-400) K/uL MPV (7.4-10.4) fL Immature Gran % (Auto) % Neut % (Auto) % Lymph % (Auto) % Candler % (Auto) % Eos % (Auto) % Baso % (Auto) % Neut # (Auto) (1.4-6.5) K/uL Lymph # (Auto) (1.2-3.4) K/uL Candler # (Auto) (0.11-0.59) K/uL Eos # (Auto) (0-0.5) K/uL Baso # (Auto) (0-0.2) K/uL Immature Gran # (Auto) (0.00-0.02) K/uL Platelet Estimate (Normal) ESR 40 H (0-30) mm/hr PT (9.0-12.0) Seconds INR (0.9-1.1) APTT (21.0-31.0) Seconds PTT Ratio VBG pH (7.36-7.41) VBG pCO2 (38-50) mmHg VBG pO2 mmHg VBG HCO3 mmol/L VBG O2 Saturation % VBG Base Excess mEq/L Barometric Pressure mm/Hg Sodium (136-145) mmol/L Potassium (3.5-5.1) mmol/L Chloride (98-107) mmol/L Carbon Dioxide (21-32) mmol/L Anion Gap (3-11) BUN (6-23) mg/dl Creatinine (0.6-1.2) mg/dl Est Cr Clr Drug Dosing ml/min Est GFR ( Amer) ml/min Est GFR (Non-Af Amer) ml/min BUN/Creatinine Ratio (10-20) Glucose (70-99(Fasting)) mg/dl Lactate (0.4-2.0) mmol/L Calcium (8.5-10.1) mg/dl Phosphorus (2.5-4.9) mg/dl Magnesium (1.7-2.4) mg/dl Total Bilirubin (0.2-1.0) mg/dl AST (13-39) U/L ALT (7-52) U/L Alkaline Phosphatase (34-104) U/L C-Reactive Protein 11.77 H (0-0.5) mg/dl Total Protein (6.0-8.3) gm/dl Albumin (3.4-5.0) gm/dl Globulin (2.5-4.0) gm/dl Albumin/Globulin Ratio (0.9-2) Procalcitonin 0.13 (0-0.5) ng/ml SARS-CoV-2 (PCR) (Negative) Influenza Type A (PCR) (Neg) Influenza Type B (PCR) (Neg) RSV (RT-PCR) (Neg) 06/29/21 06/29/21 06/29/21 Range/Units 09:11 09:11 09:54 WBC (4.8-10.8) K/uL RBC (4.2-5.4) M/uL Hgb (12.0-16.0) g/dL Hct (37-47) % MCV (80-100) fL MCH (25-34) pg MCHC (32-36) g/dL RDW Std Deviation (36.4-46.3) fL RDW Coeff of Jluis (11.5-14.5) % Plt Count (130-400) K/uL MPV (7.4-10.4) fL Immature Gran % (Auto) % Neut % (Auto) % Lymph % (Auto) % Candler % (Auto) % Eos % (Auto) % Baso % (Auto) % Neut # (Auto) (1.4-6.5) K/uL Lymph # (Auto) (1.2-3.4) K/uL Candler # (Auto) (0.11-0.59) K/uL Eos # (Auto) (0-0.5) K/uL Baso # (Auto) (0-0.2) K/uL Immature Gran # (Auto) (0.00-0.02) K/uL Platelet Estimate (Normal) ESR (0-30) mm/hr PT (9.0-12.0) Seconds INR (0.9-1.1) APTT (21.0-31.0) Seconds PTT Ratio VBG pH 7.50 H (7.36-7.41) VBG pCO2 36 L (38-50) mmHg VBG pO2 38 mmHg VBG HCO3 27 mmol/L VBG O2 Saturation 73.8 % VBG Base Excess 3.7 mEq/L Barometric Pressure 727.7 mm/Hg Sodium (136-145) mmol/L Potassium (3.5-5.1) mmol/L Chloride (98-107) mmol/L Carbon Dioxide (21-32) mmol/L Anion Gap (3-11) BUN (6-23) mg/dl Creatinine (0.6-1.2) mg/dl Est Cr Clr Drug Dosing ml/min Est GFR ( Amer) ml/min Est GFR (Non-Af Amer) ml/min BUN/Creatinine Ratio (10-20) Glucose (70-99(Fasting)) mg/dl Lactate 0.8 (0.4-2.0) mmol/L Calcium (8.5-10.1) mg/dl Phosphorus (2.5-4.9) mg/dl Magnesium (1.7-2.4) mg/dl Total Bilirubin (0.2-1.0) mg/dl AST (13-39) U/L ALT (7-52) U/L Alkaline Phosphatase (34-104) U/L C-Reactive Protein (0-0.5) mg/dl Total Protein (6.0-8.3) gm/dl Albumin (3.4-5.0) gm/dl Globulin (2.5-4.0) gm/dl Albumin/Globulin Ratio (0.9-2) Procalcitonin (0-0.5) ng/ml SARS-CoV-2 (PCR) NEGATIVE (Negative) Influenza Type A (PCR) Negative (Neg) Influenza Type B (PCR) Negative (Neg) RSV (RT-PCR) Negative (Neg) Administered Medications Lactated Ringer's (Lr) 1,000 mls @ 60 mls/hr IV .[id number] TRUPTI Stop: 06/30/21 06:00 Last Admin: 06/29/21 15:17 Dose: 60 mls/hr Documented by: [id number] Valacyclovir HCl (Valacyclovir Hcl 500 Mg Tablet) 1,000 mg PO TID TRUPTI Stop: 07/06/21 15:29 Last Admin: 06/29/21 16:47 Dose: 1,000 mg Documented by: [id number] Discontinued Medications Furosemide (Furosemide Inj 20 Mg/2 Ml Vial) 20 mg IV ONE ONE Stop: 06/29/21 11:31 Last Admin: 06/29/21 14:12 Dose: 20 mg Documented by: [id number] Furosemide (Furosemide Inj 20 Mg/2 Ml Vial) Confirm Administered Dose 20 mg IV .STK-MED ONE Stop: 06/29/21 14:07 Last Admin: 06/29/21 14:13 Dose: Not Given Documented by: [id number] Sodium Chloride (Nss 1000ml) 100 mls @ 999 mls/hr IV .Q6M TRUPTI Stop: 06/29/21 10:50 Last Admin: 06/29/21 11:40 Dose: Not Given Documented by: [id number] Sodium Chloride (Nss 1000ml) 1,000 mls @ 999 mls/hr IV .Q1H1M TRUPTI Stop: 06/29/21 09:39 Last Infusion: 06/29/21 10:28 Dose: 0 mls/hr Documented by: [id number] Admin: 06/29/21 09:15 Dose: 999 mls/hr Documented by: [id number] Sodium Chloride (Nss 1000ml) 1,000 mls @ 999 mls/hr IV .Q1H1M TRUPTI Stop: 06/29/21 10:44 Last Infusion: 06/29/21 11:40 Dose: 0 mls/hr Documented by: [id number] Admin: 06/29/21 10:22 Dose: 999 mls/hr Documented by: [id number] Acetaminophen (Ofirmev) 1,000 mg in 100 mls @ 400 mls/hr IV NOW STA Stop: 06/29/21 08:52 Last Infusion: 06/29/21 09:34 Dose: 0 mls/hr Documented by: [id number] Admin: 06/29/21 09:19 Dose: 400 mls/hr Documented by: [id number] Cefepime HCl (Maxipime) 2,000 mg in 20 mls @ 5 mls/min IV NOW STA; Protocol Stop: 06/29/21 08:43 Last Admin: 06/29/21 09:15 Dose: 5 mls/min Documented by: [id number] Metronidazole (Flagyl) 500 mg in 100 mls @ 100 mls/hr IV NOW ONE Stop: 06/29/21 11:29 Last Infusion: 06/29/21 13:39 Dose: 0 mls/hr Documented by: [id number] Admin: 06/29/21 11:04 Dose: 100 mls/hr Documented by: [id number] Potassium Phosphate 9 mmol/ (Dextrose) 253 mls @ 168 mls/hr IV NOW ONE Stop: 06/29/21 15:30 Last Admin: 06/29/21 14:12 Dose: 168 mls/hr Documented by: [id number] Piperacillin Sod/Tazobactam (Sod 3.375 gm/ Dextrose) 115 mls @ 230 mls/hr IV NOW ONE; Protocol Stop: 06/29/21 14:44 Last Admin: 06/29/21 15:17 Dose: 230 mls/hr Documented by: [id number] Imaging Data Radiologist's Impression: Chest X-Ray 06/29/21 08:38 XR chest 1V portable CLINICAL HISTORY: SEPSIS TECHNIQUE: Single frontal radiograph of the chest was obtained. Comparison: Comparison is made to chest radiograph 03/27/2021 FINDINGS: No lines and tubes are seen. Calcified aortic knob is seen. Prominence and cephalization of the vasculature is seen. No evidence of pleural effusion or pneumothorax. Degenerative changes are seen in the bilateral glenohumeral joints. IMPRESSION: Mild pulmonary edema. No evidence of pneumonia. ACT 112: Negative or not required by law. Electronically signed by: Miguel Saavedra M.D. 06/29/2021 10:44 AM Abdomen/Pelvis CT 06/29/21 08:49 CT SCAN OF THE ABDOMEN AND PELVIS WITHOUT IV CONTRAST CLINICAL HISTORY: Generalized abdominal pain. Sepsis. COMPARISON STUDY: Multiple prior abdominal CT scans, most recently dated 03/27/2021. TECHNIQUE: CT scan of the abdomen and pelvis is performed from the lung bases to the proximal femora. Images are reviewed in the axial, sagittal, and coronal planes. IV contrast was not administered for this examination. The Examination is significantly suboptimal without oral and IV contrast. There is also significant streak artifact from metallic hardware. A dose lowering technique was utilized adhering to the principles of ALARA. CT DOSE: 705.90 mGycm FINDINGS: Lung bases: The heart is normal in size and without pericardial effusion. The coronary arteries and mitral annulus are densely calcified. There is a tiny hiatal hernia. There are trace pleural effusions with bibasilar scarring/at electasis. A large calcified granuloma is seen in the right middle lobe. Intraoperative septal thickening is noted at both lung bases. Liver: The unenhanced liver is normal in size, contour, and attenuation. There is no intrahepatic biliary ductal dilatation. There are scattered calcified hepatic granulomas. Gallbladder: Not identified and presumed surgically absent. Spleen: Normal in size and attenuation. There are numerous calcified splenic granulomas. Pancreas: The unenhanced pancreas is moderately atrophic and grossly unremarkable. Adrenal glands: Unremarkable. Kidneys: The unenhanced kidneys demonstrate cortical atrophy and are without hydronephrosis. There are no renal calculi identified. A 2.9 cm exophytic cyst arises from the interpolar left kidney. Abdominal vasculature: The abdominal aorta is normal in course and caliber noting advanced atherosclerotic calcification. Bowel: There is mild to moderate diverticulosis of the sigmoid colon. There is wall thickening with pericolonic inflammation and trace fluid involving the sigmoid typical for acute diverticulitis. No organized fluid collection is seen to suggest abscess. No bowel obstruction is identified. Fecal retention is seen throughout the colon. There is laxity of the ventral abdominal wall with protrusion of bowel loops. The appendix is not identified and reported surgically absent. Peritoneum: There is no intraperitoneal free air or abdominal ascites. There is evidence of previous ventral hernia repair. Lymphadenopathy: None. Pelvic viscera: The bladder is normal as visualized. The uterus is surgically absent. No adnexal lesion is seen. Skeletal structures: The skeletal structures are osteopenic. There is advanced lumbar sacral spondylosis with evidence of previous lumbar spinal fusion surgery . There are chronic compression deformities of T11 and T12 with evidence of previous vertebroplasty. Right-sided iliac bolts are in place. No lytic or blastic lesions are seen. IMPRESSION: 1. Significantly suboptimal examination without oral and IV contrast. There is also significant metallic streak artifact. 2. Sigmoid diverticulosis with evidence of mild acute sigmoid diverticulitis. 3. No intraperitoneal free air is identified and there is no evidence of organized fluid collection on this unenhanced examination to suggest abscess. 4. No bowel obstruction. 5. Trace pleural effusions. 6. Intralobular septal thickening at the lung bases could be seen with acute versus chronic congestive change. Clinical correlation will required. 7. Additional findings as above. ACT 112: Negative or not required by law. Electronically signed by: Wong Childress M.D. 06/29/2021 10:01 AM Discharge Plan Visit Data Chief Complaint: Illness Stated Complaint: DIFF. AMBULATING, FEVER, VISION OFF ED Provider: Vishal Cleaning Discharge Problem: Sepsis, Diverticulitis, Abdominal pain Patient Disposition: Admitted As Inpatient Discharge Instructions Interventions: ED Discharge Assessment Last Done: 06/29/21 11:41 Discharge Problem: Sepsis Qualifiers: Sepsis type: sepsis due to unspecified organism Sepsis acute organ dysfunction status: unspecified Qualified Code(s): A41.9 - Sepsis, unspecified organism Abdominal pain Qualifiers: Abdominal location: left lower quadrant Qualified Code(s): R10.32 - Left lower quadrant pain
[2021-06-29 09:17] LABS: Albumin Globulin Ratio 1.2 (0.9-2); Albumin Level 3.2 gm/dl (3.4-5.0); Bilirubin,Total 0.4 mg/dl (0.2-1.0); Calcium 8.5 mg/dl (8.5-10.1); Creatinine Clr Calc Pharmacy 74.7 ml/min; Est GFR (African American) 102.3 ml/min; Est GFR (Non-African American) 88.3 ml/min; Globulin 2.6 gm/dl (2.5-4.0); Magnesium 1.7 mg/dl (1.7-2.4); Phosphorus 2.1 mg/dl (2.5-4.9); Potassium 3.5 mmol/L (3.5-5.1); Total Protein 5.8 gm/dl (6.0-8.3)
[2021-06-29 09:32] LABS: Base Excess VBG 3.7 mEq/L; Oxygen Saturation VBG 73.8 %; pH VBG 7.5 (7.36-7.41)
[2021-06-29 09:41] LABS: Basophils # (auto) 0.02 K/uL (0-0.2); Basophils % (auto) 0.2 %; Eosinophils # (auto) 0.07 K/uL (0-0.5); Eosinophils % (auto) 0.9 %; Immature Granulocytes # (auto) 0.07 K/uL (0.00-0.02); Immature Granulocytes % (auto) 0.9 %; Lymphocytes # (auto) 0.42 K/uL (1.2-3.4); Lymphocytes % (auto) 5.2 %; Mean Platelet Volume 9.7 fL (7.4-10.4); Monocytes # (auto) 0.71 K/uL (0.11-0.59); Monocytes % (auto) 8.9 %; Neutrophils # (auto) 6.72 K/uL (1.4-6.5); Neutrophils % (auto) 83.9 %; Platelet Count 93 K/uL (130-400); Platelet Estimate Decreased (Normal)
--- NOTE | 2021-06-29 10:03 | CT Scan Report ---
CT SCAN OF THE ABDOMEN AND PELVIS WITHOUT IV CONTRAST CLINICAL HISTORY: Generalized abdominal pain. Sepsis. COMPARISON STUDY: Multiple prior abdominal CT scans, most recently dated 03/27/2021. TECHNIQUE: CT scan of the abdomen and pelvis is performed from the lung bases to the proximal femora. Images are reviewed in the axial, sagittal, and coronal planes. IV contrast was not administered for this examination. The Examination is significantly suboptimal without oral and IV contrast. There is also significant streak artifact from metallic hardware. A dose lowering technique was utilized adhe ring to the principles of ALARA. CT DOSE: 705.90 mGycm FINDINGS: Lung bases: The heart is normal in size and without pericardial effusion. The coronary arteries and m itral annulus are densely calcified. There is a tiny hiatal hernia. There are trace pleural effusions with bibasilar scarring/atelectasis. A large calcified granuloma is seen in the right middle lobe. I ntraoperative septal thickening is noted at both lung bases. Liver: The unenhanced liver is normal in size, contour, and attenuation. There is no intrahepatic ligia iary ductal dilatation. There are scattered calcified hepatic granulomas. Gallbladder: Not identified and presumed surgically absent. Spleen: Normal in size and attenuation. There are numerous calcified splenic granulomas. Pancreas: The unenhanced pancreas is moderately atrophic and grossly unremarkable. Adrenal glands: Unremarkable. Kidneys: The unenhanced kidneys demonstrate cortical atrophy and are without hydronephrosis. There ar e no renal calculi identified. A 2.9 cm exophytic cyst arises from the interpolar left kidney. Abdominal vasculature: The abdominal aorta is normal in course and caliber noting advanced atheroscle rotic calcification. Bowel: There is mild to moderate diverticulosis of the sigmoid colon. There is wall thickening with p ericolonic inflammation and trace fluid involving the sigmoid typical for acute diverticulitis. No or ganized fluid collection is seen to suggest abscess. No bowel obstruction is identified. Fecal retent ion is seen throughout the colon. There is laxity of the ventral abdominal wall with protrusion of amado wel loops. The appendix is not identified and reported surgically absent. Peritoneum: There is no intraperitoneal free air or abdominal ascites. There is evidence of previous ventral hernia repair. Lymphadenopathy: None. Pelvic viscera: The bladder is normal as visualized. The uterus is surgically absent. No adnexal lesi on is seen. Skeletal structures: The skeletal structures are osteopenic. There is advanced lumbar sacral spondylo sis with evidence of previous lumbar spinal fusion surgery. There are chronic compression deformities of T11 and T12 with evidence of previous vertebroplasty. Right-sided iliac bolts are in place. No ly tic or blastic lesions are seen. IMPRESSION: 1. Significantly suboptimal examination without oral and IV contrast. There is also significant metal lic streak artifact. 2. Sigmoid diverticulosis with evidence of mild acute sigmoid diverticulitis. 3. No intraperitoneal free air is identified and there is no evidence of organized fluid collection o n this unenhanced examination to suggest abscess. 4. No bowel obstruction. 5. Trace pleural effusions. 6. Intralobular septal thickening at the lung bases could be seen with acute versus chronic congestiv e change. Clinical correlation will required. 7. Additional findings as above. ACT 112: Negative or not required by law. Electronically signed by: Wong Childress M.D. 06/29/2021 10:01 AM
[2021-06-29] MEDS ORDERED: metroNIDAZOLE 500 MG/100 ML BAG IV ONE (10:30)
[2021-06-29] MEDS ORDERED: SODIUM CHLORIDE 0.9% 1000ML 100 ML IV SCH (10:45)
[2021-06-29 10:46] LABS: Influenza A virus by PCR Negative (Neg); Influenza B virus by PCR Negative (Neg); RSV by PCR Negative (Neg); SARS CoV2 RNA(COVID-19) InHosp NEGATIVE (Negative)
--- NOTE | 2021-06-29 10:46 | XRay Report ---
XR chest 1V portable CLINICAL HISTORY: SEPSIS TECHNIQUE: Single frontal radiograph of the chest was obtained. Comparison: Comparison is made to chest radiograph 03/27/2021 FINDINGS: No lines and tubes are seen. Calcified aortic knob is seen. Prominence and cephalization of the vascu lature is seen. No evidence of pleural effusion or pneumothorax. Degenerative changes are seen in the bilateral glenohumeral joints. IMPRESSION: Mild pulmonary edema. No evidence of pneumonia. ACT 112: Negative or not required by law. Electronically signed by: Miguel Saavedra M.D. 06/29/2021 10:44 AM
--- NOTE | 2021-06-29 11:28 | Electrocardiogram Report ---
Test Reason : Blood Pressure : / mmHG Vent. Rate : 118 BPM Atrial Rate : 118 BPM P-R Int : 150 ms QRS Dur : 070 ms QT Int : 324 ms P-R-T Axes : 025 -01 057 degrees QTc Int : 454 ms Poor data quality, interpretation may be adversely affected Sinus tachycardia with Premature atrial complexes Abnormal ECG When compared with ECG of 27-MAR-2021 10:06, No significant change was found Confirmed by Ambrosio Resendiz ([id number]) on 06/29/2021 11:28:09 AM Referred By: SELF Confirmed By:Nnamdi Resendiz
[2021-06-29] MEDS ORDERED: FUROSEMIDE INJ 20 MG/2 ML VIAL IV ONE ×2 (11:30→14:06)
[2021-06-29 11:36] LABS: Appearance Urine Cloudy (Clear); Bacteria Urine Automated Negative (Negative); Bilirubin Urine Negative (Negative); Blood Urine Trace (Negative); Color Urine Dark Yellow; Epithelial Cell Urine Auto >30 /lpf (0-5); Glucose Urine UA Negative (Negative); Ketones Urine Trace (Negative); Leukocyte Esterase Urine Negative (Negative); Nitrite Urine Negative (Negative); Protein Urine 2+ (Negative); Specific Gravity Urine 1.021 (1.000-1.030); Urobilinogen Urine Negative (Negative)
--- NOTE | 2021-06-29 11:53 | History & Physical Report ---
Date of Service June 29, 2021 Assessment & Plan (1) Sepsis: (2) Diverticulitis: (3) Crohn's disease: (4) Latent tuberculosis by blood test: (5) Diabetes mellitus type 2 in nonobese: (6) Volume overload: (7) Hypoxia: Plan: This is a 85-year-old female who has significant past medical history of T2DM, HTN, HLD, mild persistent asthma, arteriosclerotic cardiovascular disease, GERD, IBS, history of diverticulitis, history of C. difficile, Crohn's disease, lymph edema, incisional hernia, currently receiving treatment for LTBI who presents to ED due to fever and weakness x 1 day. Per CMS criteria patient meets for sepsis in setting of fever, tachycardia and tachypnea. She received 2 L of IV fluid in ED as well as broad-spectrum antibiotics with IV cefepime and IV Flagyl. Her lactic acid and procalcitonin WNL. Source: Likely GI, acute diverticulitis Sepsis Acute diverticulitis Crohn's disease -recent flare and hospitalization in March, colonoscopy performed revealing inflammatory ulcerations, April 2021 anal mass biopsy was also inflammatory Admit to PCU IV Zosyn N.p.o. Very cautious IV fluids at 60 cc/h due to patient appearing volume overload Antibiotics and pain medication as needed Patient remains on prednisone To start Remicade infusion after July 09 (1 month since starting rifampin for LTBI) Follows [facility], will consult to rule out additional flare Follows Colorectal surgery in [place] CRP 11.77, ESR 40 -both more elevated than previous pt to have MRI 07/13 to eval for fistula - pt daughter wishing to occur during hospitalization but will defer to GI colleagues LTBI Prior to initiating Remicade patient's QuantiFERON gold was inconclusive Evaluated by infectious disease who recommends treatment with rifampin through October 05, 2021 Hypoxia Chronic HFpEF - acute on chronic with decompensation had NST 1 year ago revealed EF 55%, previous echos in past revealed diastolic dysfunction pt with evidence of lower extremity edema and mild pulm edema on CXR requiring 2L of O2; At baseline pt only wears 2L at HS give Lasix 20mg IV x 1 now (she did take her home dose of 20mg oral this a.m.) re evaluate daily need for further IV lasix b/l venous Doppler negative Obtain echocardiogram T2DM Last A1c 5.6 on 06/01/2021 Accu-Cheks will hold on sliding scale coverage for now, if BSG consistently elevated will add Known large incisional hernia History of C. difficile DVT ppx: SCD/TEDS for now 2/2 to new thrombocytopenia and F reported BRBPR x 1 DNR/DNI PCP: FOSTER Motley Dispo: PCU, pt resides at [facility] Discussed with daughter and DAVID Hamilton whose phone number is [phone], she lives out of the area in [place] and appreciates updates Patient was seen and examined in collaboration with, Dr. Joyner , please see addendum History of Present Illness Chief Complaint: Fever and weakness x 1 day. Primary Care Provider: [facility] This is a 85-year-old female who has significant past medical history of T2DM, HTN, HLD, mild persistent asthma, arteriosclerotic cardiovascular disease, GERD, IBS, history of diverticulitis, history of C. difficile, Crohn's disease, lymphedema, incisional hernia, currently receiving treatment for LTBI who presents to ED due to fever and weakness x 1 day. Patient resides at [facility]. Patient is otherwise a poor historian. Facility reports increasing weakness over the last 2 to 3 days. She had elevated temperature at facility today. They witnessed her walking with a walker today and felt she was leaning to the right side. They overall felt she was not herself. Due to these changes they opted to send her to ED for further evaluation. They deny any reports of diarrhea, but did report a bulge at her rectum with some bright red blood noted on toilet paper. In ED patient remained hemodynamically stable although she was febrile on arrival. She also was tachycardic and tachypneic. CT abdomen pelvis was concerning for sigmoid diverticulitis. Lab work notable for stable anemia 11.6 and 35.9, new thrombocytopenia with platelet count of 93, ESR 40, sodium 132, glucose 166, Phos 2.1 and procalcitonin 0.13. Her urinalysis was negative for infection. Her SARS-CoV-2 influenza and RSV was negative as well. Chest x-ray revealed mild pulmonary edema. In ED she received 2 L of IV fluid, IV cefepime, IV F lagyl and IV Tylenol. She was afebrile during my evaluation. ROS limited from patient due to poor historian. She does report chronic rectal pain as well as generalized abdominal pain. She is unable to quantify her pain for me and states it is just, "everywhere."She does admit to feeling chills and sweats but denies any documented fever. She further denies any nausea, vomiting, URI symptoms, melena, dysuria, increased urgency or frequency with urination. She does report poor appetite the last few days as well as generalized weakness. Allergies Allergy/AdvReac Type Severity Reaction Status Date / Time Iodinated Contrast Media Allergy Intermediate HIVES/BURNING Verified 06/29/21 10:16 AT IV SITE AND UP VEIN pyrilamine Allergy Intermediate VOMITING Verified 06/29/21 10:16 Sulfa (Sulfonamide Allergy Intermediate RINGS ON Verified 06/29/21 10:16 Antibiotics) SKIN simvastatin Allergy Mild RED Verified 06/29/21 10:16 CIRCLES-HAS TOLERATED LIPITOR iodine Allergy Unknown Unknown Unverified 06/29/21 10:16 amoxicillin AdvReac Intermediate CAUSED Verified 06/29/21 10:16 DIARRHEA PER [facility] MED LIST codeine AdvReac Intermediate N/V Verified 06/29/21 10:16 ether AdvReac Intermediate NAUSEA/VOMI Verified 06/29/21 10:16 TING morphine AdvReac Intermediate VOMITING Verified 06/29/21 10:16 tramadol AdvReac Intermediate NAUSEA/VOMI Verified 06/29/21 10:16 TING Home Medications Medication Instructions Recorded Confirmed Type Oxygen Home #1 ea 09/20/18 12/26/18 History atorvastatin 40 mg tablet 40 mg PO QAM tab 09/20/18 06/29/21 History furosemide 20 mg tablet 20 mg PO QAM tab 09/20/18 06/29/21 History levothyroxine 100 mcg tablet 100 mcg PO DAILYBB tab 09/20/18 06/29/21 History metoprolol tartrate 25 mg tablet 25 mg PO BID tab 09/20/18 06/29/21 History pantoprazole 40 mg tablet,delayed 40 mg PO QAM tab 09/20/18 06/29/21 History release trazodone 50 mg tablet 50 mg PO HS PRN tab 09/20/18 06/29/21 History alendronate 70 mg tablet (Fosamax) 70 mg PO WK 01/22/19 06/29/21 History loratadine 10 mg tablet (Claritin) 10 mg PO QAM 01/22/19 06/29/21 History montelukast 10 mg tablet 10 mg PO HS 01/22/19 06/29/21 History (Singulair) cyclosporine 0.05 % eye drops in a 1 drp OPHTHALMIC (EYE) Q12H 02/23/21 06/29/21 History dropperette (Restasis) Saccharomyces boulardii 250 mg 250 mg PO BID 06/29/21 06/29/21 History capsule (Florastor) acetaminophen 500 mg tablet 1,000 mg PO Q8H PRN 06/29/21 06/29/21 History ferrous sulfate 325 mg (65 mg 325 mg PO BID 06/29/21 06/29/21 History iron) tablet fluticasone propionate 50 2 spray INTRANASAL QAM 06/29/21 06/29/21 History mcg/actuation nasal spray,suspension gabapentin 100 mg capsule See Rx Instructions .ROUTE .COMPLEX 06/29/21 06/29/21 History hydrocortisone acetate 25 mg 25 mg TX BID 06/29/21 06/29/21 History rectal suppository meclizine 12.5 mg tablet 12.5 mg PO DAILY PRN 06/29/21 06/29/21 History menthol 0.44 %-zinc oxide 20.6 % 1 applic TOPICAL QID PRN 06/29/21 06/29/21 History topical ointment in packet (Calmoseptine) metronidazole 250 mg tablet 250 mg PO TID 06/29/21 06/29/21 History oxycodone 5 mg tablet 5 mg PO Q4H PRN 06/29/21 06/29/21 History prednisone 10 mg tablet 30 mg PO DAILY 06/29/21 06/29/21 History rifampin 300 mg capsule 600 mg PO QAM 06/29/21 06/29/21 History Past Med/Surg History Medical History Anemia Arthritis Bloody diarrhea Crohn's disease Cystitis 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 Dyslipidemia Fecal incontinence Gastroesophageal reflux disease History of adenomatous polyp of colon History of diverticulitis Hypercholesterolemia Hypertension Hypertension Hypothyroidism Irritation of perirectal skin Osteoarthritis Osteoporosis Rectal pain Unable to care for self Surgical History History of incisional hernia repair History of repair of rectocele S/P laparoscopic hernia repair Total knee replacement status Family History Father , 48 Hypertension Stroke Social History (Updated 06/29/21 @ 11:50 by Cheryl Vivas PA-C) Smoking Status: Never smoker Second Hand Exposure: No; Do You Dip or Chew Tobacco: No; Hx Alcohol Use: Yes Alcohol type: wine Hx Substance Use: No Preferred Language: Tunisian Communication Ability: Effective Aco Coordinator Required: No Beliefs That Will Affect Care: None marital status: Current Living Situation: Personal Care Facility How many Children do You have: 1 Other Information That Helps Us Care for You: No Feels Safe at Home: Yes Safety Concerns: Feels Safe At This Time Assistive Devices: Oxygen - at Night Review of Systems Review of Systems: All systems reviewed & are unremarkable except as noted in HPI & below Physical Exam Physical Exam: Constitutional: Elderly, female, sitting up in bed, vitals as above, NAD, flat affect, conversing easily Head: Normocephalic, Atraumatic Eyes: PERRL, conjunctivae normal, anicteric sclerae ENMT: external ear and nose normal, oropharynx normal Neck: trachea midline, no thyromegaly normal visual inspection Respiratory: normal respiratory effort, lungs clear to auscultation, no wheeze, rales, rhonchi. Normal insp/exp effort, no accessory muscle use Cardiovascular: RRR, 2/6 JOAO noted RUSB, bilateral +1 pretibial edema, negative Homans, warmth Vessels: no JVD or carotid bruit Chest: normal inspection of chest Abdomen: normal bowel sounds, tender to palpation diffusely, no rebound, no guarding, no rigidity, no hepatosplenomegaly Musculoskeletal: no cyanosis or clubbing, extremities motor strength 5/5 Skin: no rashes, warm and dry normal turgor Neurologic: PERRL, EOMI, accommodation nl, no face palsy, no dysarthria CN's II-XI intact bilaterally and moves all extremities Psychiatric: A+Ox3, euthymic affect Lymphatic: no cervical or axillary lymphadenopathy : deferred Results & Data Results & Data ([facility]) Vital Signs (Past 12 Hours) Vital Signs Temp Pulse Pulse Resp BP BP Pulse Ox 06/29/21 11:00 18 98 06/29/21 10:45 36.8 C 89 21 98 06/29/21 10:30 94 H 25 H 122/65 88 L 06/29/21 10:00 117 H 25 H 130/80 92 06/29/21 09:45 107 H 28 H 92 06/29/21 09:30 114 H 30 H 93 06/29/21 09:15 111 H 31 H 123/67 91 06/29/21 09:00 115 H 34 H 93 06/29/21 08:45 114 H 35 H 95 06/29/21 08:38 26 H 96 06/29/21 08:35 117 H 25 H 138/78 93 06/29/21 08:28 38.7 C H 119 H 29 H 151/82 H 95 Medications Administered Medication List Discontinued Medications Sodium Chloride (Nss 1000ml) 100 mls @ 999 mls/hr IV .Q6M TRUPTI Stop: 06/29/21 10:50 Last Admin: 06/29/21 11:40 Dose: Not Given Documented by: [id number] Sodium Chloride (Nss 1000ml) 1,000 mls @ 999 mls/hr IV .Q1H1M TRUPTI Stop: 06/29/21 09:39 Last Infusion: 06/29/21 10:28 Dose: 0 mls/hr Documented by: [id number] Admin: 06/29/21 09:15 Dose: 999 mls/hr Documented by: [id number] Sodium Chloride (Nss 1000ml) 1,000 mls @ 999 mls/hr IV .Q1H1M TRUPTI Stop: 06/29/21 10:44 Last Infusion: 06/29/21 11:40 Dose: 0 mls/hr Documented by: [id number] Admin: 06/29/21 10:22 Dose: 999 mls/hr Documented by: [id number] Acetaminophen (Ofirmev) 1,000 mg in 100 mls @ 400 mls/hr IV NOW STA Stop: 06/29/21 08:52 Last Infusion: 06/29/21 09:34 Dose: 0 mls/hr Documented by: [id number] Admin: 06/29/21 09:19 Dose: 400 mls/hr Documented by: [id number] Cefepime HCl (Maxipime) 2,000 mg in 20 mls @ 5 mls/min IV NOW STA; Protocol Stop: 06/29/21 08:43 Last Admin: 06/29/21 09:15 Dose: 5 mls/min Documented by: [id number] Metronidazole (Flagyl) 500 mg in 100 mls @ 100 mls/hr IV NOW ONE Stop: 06/29/21 11:29 Last Admin: 06/29/21 11:04 Dose: 100 mls/hr Documented by: [id number] ECG Rate (beats per minute): 118 Rhythm: sinus tachycardia Findings: + PAC COVID-19 Results Results COVID-19 Adm Lab Results: RBC 3.57 M/uL (4.2-5.4) L 06/29/21 WBC 8.01 K/uL (4.8-10.8) 06/29/21 Hgb 11.6 g/dL (12.0-16.0) L 06/29/21 Hct 35.9 % (37-47) L 06/29/21 Plt Count 93 K/uL (130-400) L 06/29/21 Neutrophils (%) (Auto) 83.9 % 06/29/21 Lymphocytes (%) (Auto) 5.2 % 06/29/21 Monocytes # (Auto) 0.71 K/uL (0.11-0.59) H 06/29/21 Eosinophils # (Auto) 0.07 K/uL (0-0.5) 06/29/21 Immature Granulocyte % (Auto) 0.9 % 06/29/21 Neutrophils # (Auto) 6.72 K/uL (1.4-6.5) H 06/29/21 Lymphocytes # (Auto) 0.42 K/uL (1.2-3.4) L 06/29/21 Monocytes # (Auto) 0.71 K/uL (0.11-0.59) H 06/29/21 Eosinophils # (Auto) 0.07 K/uL (0-0.5) 06/29/21 Basophils # (Auto) 0.02 K/uL (0-0.2) 06/29/21 Immature Granulocyte # (Auto) 0.07 K/uL (0.00-0.02) H 06/29/21 Na 132 mmol/L (136-145) L 06/29/21 K 3.5 mmol/L (3.5-5.1) 06/29/21 Cl 98 mmol/L (98-107) 06/29/21 CO2 27 mmol/L (21-32) 06/29/21 Anion Gap 7 (3-11) 06/29/21 BUN 15 mg/dl (6-23) 06/29/21 Creatinine 0.50 mg/dl (0.6-1.2) L 06/29/21 BUN/Creatinine Ratio 30.0 (10-20) H 06/29/21 Glucose Level 166 mg/dl (70-99(Fasting)) H 06/29/21 Ca 8.5 mg/dl (8.5-10.1) 06/29/21 Phosphorus Level 2.1 mg/dl (2.5-4.9) L 06/29/21 Total Bilirubin 0.4 mg/dl (0.2-1.0) 06/29/21 AST/SGOT 12 U/L (13-39) L 06/29/21 ALT/SGPT 18 U/L (7-52) 06/29/21 Alkaline Phosphatase 53 U/L (34-104) 06/29/21 Total Protein 5.8 gm/dl (6.0-8.3) L 06/29/21 Albumin 3.2 gm/dl (3.4-5.0) L 06/29/21 Globulin 2.6 gm/dl (2.5-4.0) 06/29/21 Albumin/Globulin Ratio 1.2 (0.9-2) 06/29/21 CRP 11.77 mg/dl (0-0.5) H 06/29/21 Procalcitonin 0.13 ng/ml (0-0.5) 06/29/21 PTT 29.3 Seconds (21.0-31.0) 06/29/21 INR 1.1 (0.9-1.1) 06/29/21 COVID-19 PCR NEGATIVE (Negative) 06/29/21 Influenza Virus Type A (PCR) Negative (Neg) 06/29/21 Influenza Virus Type B (PCR) Negative (Neg) 06/29/21 Chest X-Ray 06/29/21 Code Status & VTE Plan Code Status DNR/DNI VTE Prophylaxis Plan VTE Prophylaxis will be ordered: Yes Supervising Physician Co-Signing Physician Notes Patient seen and examined independently at bedside. Chart reviewed, case discussed with Cheryl CASTRO and agree with the note above. In summary, this is an 86 year old female with Crohn's disease untreated until now and planned for starting remicade from 07/09 while being treated for possible latent TB with rifampin currently, h/o diverticulitis in Feb 2021 treated with zosyn, history of C diff, chronic diastolic CHF, DM, HTN, asthma, resident of [facility] who presented to the ED today with fever and weakness for the past 2-3 days. In the ED, she was febrile but hemodynamically stable. She is AAOx3 (although she doesn't know the exact date but knows it is June 2021) but a poor historian answering I do not know to multiple questions asked. States she has pain in RLQ and around the umbilicus. She in on NC 2 L at night at home but here on NC 2 L. Chest fairly clear, heart sounds regular, abdomen with tenderness in RLQ, trace LE edema. Labs reviewed. WBC 8.01, Hb 11.6, Plt 93, CRP 11, ESR 40. CT shows mild acute sigmoid diverticulitis. CXR with mild pulm edema. She was given 2 L IVF in ED along with IV antibiotics. With his CHF and edema, will avoid aggressive IVF, give iv lasixx1 today and continue his home lasix starting tomorrow. Will admit with IV zosyn, gentle IVF, bowel rest, GI eval. Also noted to have BRPBR but Hb stable, which will be trended. It is possible she is having Crohn's flare too with elevated inflammatory markers but she is already on prednisone, GI to evaluate. Continue rifampin for latent TB. Advance diet as tolerated. Patient tolerated zosyn during recent admission in Feb with no issues and no recurrence of C diff; hence will continue the same. Rest as per note above. (1) Sepsis Sepsis acute organ dysfunction status: unspecified Sepsis type: sepsis due to unspecified organism Qualified Code(s): A41.9 - Sepsis, unspecified organism
--- NOTE | 2021-06-29 12:24 | Ultrasound Report ---
ULTRASOUND BILATERAL LOWER EXTREMITY VENOUS CLINICAL HISTORY: Edema. COMPARISON STUDY: Bilateral lower extremity venous ultrasound dated 02/24/2012. TECHNIQUE: Real-time, grayscale, and color Doppler sonography of the deep veins of the right and left lower extremity was performed from the inguinal crease to the calf. Compression and augmentation wer e utilized. FINDINGS: There is no sonographic evidence of deep venous thrombosis identified in the right or left lower extremity. The common femoral, superficial femoral, and popliteal veins are patent and normally compressible bilaterally. The greater saphenous vein and the profunda femoris vein at the junction w ith the common femoral vein are clear in both legs. The visualized calf veins are patent bilaterally. IMPRESSION: There is no sonographic evidence of deep venous thrombosis identified in the right or lef t lower extremity. ACT 112: Negative or not required by law. Electronically signed by: Wong Childress M.D. 06/29/2021 12:23 PM
[2021-06-29] MEDS ORDERED: CARBOHYDRATES FOR HYPOGLYCEMIA PO PRN (13:36)
[2021-06-29] MEDS ORDERED: ACETAMINOPHEN 1,000 MG/100 ML VIAL IV PRN (13:36)
[2021-06-29] MEDS ORDERED: GLUCOSE 40% GEL 15 GM TUBE PO PRN (13:36)
[2021-06-29] MEDS ORDERED: GLUCAGON FOR INJ 1 MG VIAL SQ PRN (13:36)
[2021-06-29] MEDS ORDERED: DEXTROSE 50% 50 ML SYRINGE IV PRN (13:36)
[2021-06-29] MEDS ORDERED: POTASSIUM PHOS 3 MMOL/1 ML INFUSION IV STA (13:36)
[2021-06-29] MEDS ORDERED: GLUCOSE 10 TABS/TUBE PO PRN (13:36)
[2021-06-29] MEDS ORDERED: LACTATED RINGER'S 1,000 ML IV SCH (13:36)
[2021-06-29] MEDS ORDERED: PIPERACILL/TAZOBAC CONSULT ACTIVE PRN (13:36)
[2021-06-29] MEDS ORDERED: ONDANSETRON INJ 2 MG/ML 2 ML VIAL IV PRN (13:36)
[2021-06-29] MEDS ORDERED: POTASSIUM PHOSPHATE 9 MMOL in DEXTROSE 5% 250 ML IV ONE (14:00)
[2021-06-29] MEDS ORDERED: PIPERACILLIN/TAZOBACTAM 3.375 GM in DEXTROSE 5% 100 ML IV ONE (14:15)
[2021-06-29] MEDS: valACYclovir HCL 500 MG TABLET PO SCH ×2 (16:47→20:12)
[2021-06-29] MEDS: RESTASIS: ORDER AWAITING ACTION SCH ×2 (20:03→22:46)
[2021-06-29] MEDS: SACCHAROMYCES BOULARDII 250 MG CAP PO SCH (20:12)
[2021-06-29] MEDS: HYDROCORTISONE ACETATE 25 MG SUPP PR SCH (20:12)
[2021-06-29] MEDS: PIPERACILLIN/TAZOBACTAM 3.375 GM in DEXTROSE 5% 100 ML IV SCH (20:12)
[2021-06-29] MEDS: MONTELUKAST SODIUM 10 MG TABLET PO SCH (20:13)
[2021-06-29] MEDS: GABAPENTIN 100 MG CAP PO SCH (20:13)
[2021-06-29] MEDS: METOPROLOL TARTRATE 25 MG TAB PO SCH (20:13)
[2021-06-29] MEDS ORDERED: Nursing to Pharmacy Communication SCH (20:15)
[2021-06-30] MEDS: PIPERACILLIN/TAZOBACTAM 3.375 GM in DEXTROSE 5% 100 ML IV SCH ×3 (04:00→19:54)
[2021-06-30] MEDS: LEVOTHYROXINE SODIUM 100 MCG TABLET PO SCH (05:33)
[2021-06-30] MEDS: ACETAMINOPHEN 325 MG TAB PO PRN ×3 (06:40→19:55)
[2021-06-30 07:52] LABS: Hematocrit (blood only) 30.7 % (37-47); Hemoglobin 9.8 g/dL (12.0-16.0); Mean Corpuscular Hemoglobin 32.7 pg (25-34); Mean Corpuscular Hgb Conc 31.9 g/dL (32-36); Mean Corpuscular Volume 102.3 fL (80-100); RDW Coefficient of Variation 17.4 % (11.5-14.5); RDW Standard Deviation 65.1 fL (36.4-46.3); White Blood Count 6.67 K/uL (4.8-10.8)
--- NOTE | 2021-06-30 07:52 | Gastrointestinal Consultation ---
Date of Consultation June 30, 2021 Assessment & Plan (1) Abdominal pain: 86 year old female with T2DM, HTN, HLD, mild persistent asthma, arteriosclerotic cardiovascular disease, GERD, IBS, history of diverticulitis, history of C. difficile, Crohn's disease, lymphedema, incisional hernia, curr ently receiving treatment for LTBI admitted w/ fevers, abd pain, weakness, imaging showing diverticulitis Would treat with IV ABX and transition to PO ABX at time of discharge for a full 10 day course of therapy She will need an outpatient colonoscopy with two day prep given her last examination was suboptimal Continue therapy for latent TB Remicade dosing and timing per her outpatient providers Would keep MRE as outpatient in light of acute diverticulitis Thank you for allowing us to participate in the care of this patient. Please call with any acute changes, questions or concerns. Please see addendum below with additional recommendation from my supervising physician. Supervising Physician Co-Signing Physician Notes I saw and evaluated the patient. She presented with worsening left lower quadrant pain. She has a history of inflammatory changes within the left colon and was thought to perhaps have evidence of inflammatory bowel disease by one of my partners. The other consideration was segmental colitis associated with diverticulitis. Of note on the patient's CT scan she does have a significant amount of inflammatory changes in the sigmoid colon. She persists to have abdominal discomfort that seems to be worsening on her report this morning despite broad-spectrum antibiotic coverage. Physical examination Frail, elderly appearing female Left-sided discomfort to palpation no peritoneal or rebound noted ventral hernia noted that seems to be reducible Patient with inflammatory changes of the left colon thought to be related to inflammatory bowel disease or perhaps s segmental colitis associated with diverticulosis. Given the patient's lack of improvement with antibiotic coverage I would recommend a surgical consultation and perhaps referral to a tertiary care center as she is seeing a colorectal surgeon in the recent past. Given the recurrent nature of her symptoms and repeated admissions I wonder if the patient would be best served with surgical intervention. History of Present Illness Reason for Consultation: claudio, bleeding Requesting Physician: Anya Attending Physician: Yahir Joyner MD History of Present Illness 86 year old female with Crohn's Disease, indeterminate TB testing concerning for latent TB infection, followed by infection disease for treatment of TB before initiation of biologic for her Crohn's Disease who presented to the ED with weakness, fever admitted with diverticulitis, zoster infection. She is a poor historian. Notes she has generalized abd pain associated with fevers. She has had intermittent rectal bleeding as well. Today, no fever, chills, CP, SOB. CTAP 2021: Significantly suboptimal examination without oral and IV contrast. There is also significant metallic streak artifact. Sigmoid diverticulosis with evidence of mild acute sigmoid diverticulitis. No intraperitoneal free air is identified and there is no evidence of organized fluid collection on this unenhanced examination to suggest abscess.No bowel obstruction. Trace pleural effusions.Intralobular septal thickening at the lung bases could be seen with acute versus chronic congestive change. Clinical correlation will required. Colonoscopy 2021: Preparation of the colon was poor. - Scope only advanced to about 40 cms due to stool. - Hemorrhoids found on perianal exam. - Multiple punched out ulcers in the sigmoid colon and descending colon of unclear etiology ( viral,ischemic,inflammatory). Biopsied. - The examination was otherwise normal. Allergies Allergy/AdvReac Type Severity Reaction Status Date / Time Iodinated Contrast Media Allergy Intermediate HIVES/BURNING Verified 06/29/21 10:16 AT IV SITE AND UP VEIN pyrilamine Allergy Intermediate VOMITING Verified 06/29/21 10:16 Sulfa (Sulfonamide Allergy Intermediate RINGS ON Verified 06/29/21 10:16 Antibiotics) SKIN simvastatin Allergy Mild RED Verified 06/29/21 10:16 CIRCLES-HAS TOLERATED LIPITOR iodine Allergy Unknown Unknown Unverified 06/29/21 10:16 amoxicillin AdvReac Intermediate CAUSED Verified 06/29/21 10:16 DIARRHEA PER [facility] MED LIST codeine AdvReac Intermediate N/V Verified 06/29/21 10:16 ether AdvReac Intermediate NAUSEA/VOMI Verified 06/29/21 10:16 TING morphine AdvReac Intermediate VOMITING Verified 06/29/21 10:16 tramadol AdvReac Intermediate NAUSEA/VOMI Verified 06/29/21 10:16 TING Home Medications Medication Instructions Recorded Confirmed Type Oxygen Home #1 ea 09/20/18 12/26/18 History atorvastatin 40 mg tablet 40 mg PO QAM tab 09/20/18 06/29/21 History furosemide 20 mg tablet 20 mg PO QAM tab 09/20/18 06/29/21 History levothyroxine 100 mcg tablet 100 mcg PO DAILYBB tab 09/20/18 06/29/21 History metoprolol tartrate 25 mg tablet 25 mg PO BID tab 09/20/18 06/29/21 History pantoprazole 40 mg tablet,delayed 40 mg PO QAM tab 09/20/18 06/29/21 History release trazodone 50 mg tablet 50 mg PO HS PRN tab 09/20/18 06/29/21 History alendronate 70 mg tablet (Fosamax) 70 mg PO WK 01/22/19 06/29/21 History loratadine 10 mg tablet (Claritin) 10 mg PO QAM 01/22/19 06/29/21 History montelukast 10 mg tablet 10 mg PO HS 01/22/19 06/29/21 History (Singulair) cyclosporine 0.05 % eye drops in a 1 drp OPHTHALMIC (EYE) Q12H 02/23/21 06/29/21 History dropperette (Restasis) Saccharomyces boulardii 250 mg 250 mg PO BID 06/29/21 06/29/21 History capsule (Florastor) acetaminophen 500 mg tablet 1,000 mg PO Q8H PRN 06/29/21 06/29/21 History ferrous sulfate 325 mg (65 mg 325 mg PO BID 06/29/21 06/29/21 History iron) tablet fluticasone propionate 50 2 spray INTRANASAL QAM 06/29/21 06/29/21 History mcg/actuation nasal spray,suspension gabapentin 100 mg capsule See Rx Instructions .ROUTE .COMPLEX 06/29/21 06/29/21 History hydrocortisone acetate 25 mg 25 mg MD BID 06/29/21 06/29/21 History rectal suppository meclizine 12.5 mg tablet 12.5 mg PO DAILY PRN 06/29/21 06/29/21 History menthol 0.44 %-zinc oxide 20.6 % 1 applic TOPICAL QID PRN 06/29/21 06/29/21 History topical ointment in packet (Calmoseptine) metronidazole 250 mg tablet 250 mg PO TID 06/29/21 06/29/21 History oxycodone 5 mg tablet 5 mg PO Q4H PRN 06/29/21 06/29/21 History prednisone 10 mg tablet 30 mg PO DAILY 06/29/21 06/29/21 History rifampin 300 mg capsule 600 mg PO QAM 06/29/21 06/29/21 History Patient History Medical History Anemia Arthritis Bloody diarrhea Crohn's disease Cystitis 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 Dyslipidemia Fecal incontinence Gastroesophageal reflux disease History of adenomatous polyp of colon History of diverticulitis Hypercholesterolemia Hypertension Hypertension Hypothyroidism Irritation of perirectal skin Osteoarthritis Osteoporosis Rectal pain Unable to care for self Surgical History History of incisional hernia repair History of repair of rectocele S/P laparoscopic hernia repair Total knee replacement status Family History Father , 48 Hypertension Stroke Social History Smoking Status: Never smoker Second Hand Exposure: No; Do You Dip or Chew Tobacco: No; Hx Alcohol Use: Yes Alcohol type: wine Hx Substance Use: No Preferred Language: Nepalese Communication Ability: Effective Senior Adults Director Required: No Beliefs That Will Affect Care: None marital status: Current Living Situation: Personal Care Facility How many Children do You have: 1 Other Information That Helps Us Care for You: No Feels Safe at Home: Yes Safety Concerns: Feels Safe At This Time Assistive Devices: Oxygen - at Night Review of Systems Review of Systems: All systems reviewed & are unremarkable except as noted in HPI & below Physical Exam Constitutional: WD/WN, vitals as above Respiratory: normal respiratory effort, lungs clear to auscultation Cardiovascular: Rate/Rhythm: regular rate and regular rhythm Gastrointestinal (Abdomen): normal bowel sounds, soft, nontender, no hepatosplenomegaly Skin: no rashes, warm and dry Results & Data ([facility]) Vital Signs (Past 12 Hours) Vital Signs Temp Pulse Pulse Resp BP Pulse Ox 06/30/21 07:07 37.0 C 80 18 116/66 98 06/30/21 03:54 36.9 C 88 18 138/74 99 06/29/21 23:15 37.3 C 88 18 124/75 99 06/29/21 23:11 91 H 06/29/21 20:08 36.9 C 92 H 18 135/68 100 Laboratory Results 06/30/21 06/30/21 06/30/21 Range/Units 07:25 06:50 06:50 WBC 6.67 (4.8-10.8) K/uL RBC 3.00 L (4.2-5.4) M/uL Hgb 9.8 L (12.0-16.0) g/dL Hct 30.7 L (37-47) % MCV 102.3 H (80-100) fL MCH 32.7 (25-34) pg MCHC 31.9 L (32-36) g/dL RDW Std Deviation 65.1 H (36.4-46.3) fL RDW Coeff of Jluis 17.4 H (11.5-14.5) % Plt Count 83 L (130-400) K/uL MPV 9.4 (7.4-10.4) fL Immature Gran % (Auto) 0.6 % Neut % (Auto) 75.5 % Lymph % (Auto) 10.9 % [place] % (Auto) 11.4 % Eos % (Auto) 1.3 % Baso % (Auto) 0.3 % Neut # (Auto) 5.03 (1.4-6.5) K/uL Lymph # (Auto) 0.73 L (1.2-3.4) K/uL [place] # (Auto) 0.76 H (0.11-0.59) K/uL Eos # (Auto) 0.09 (0-0.5) K/uL Baso # (Auto) 0.02 (0-0.2) K/uL Immature Gran # (Auto) 0.04 H (0.00-0.02) K/uL Platelet Estimate (Normal) ESR (0-30) mm/hr PT (9.0-12.0) Seconds INR (0.9-1.1) APTT (21.0-31.0) Seconds PTT Ratio VBG pH (7.36-7.41) VBG pCO2 (38-50) mmHg VBG pO2 mmHg VBG HCO3 mmol/L VBG O2 Saturation % VBG Base Excess mEq/L Barometric Pressure mm/Hg Sodium 131 L (136-145) mmol/L Potassium 3.2 L (3.5-5.1) mmol/L Chloride 99 (98-107) mmol/L Carbon Dioxide 26 (21-32) mmol/L Anion Gap 6 (3-11) BUN 9 (6-23) mg/dl Creatinine 0.43 L (0.6-1.2) mg/dl Est Cr Clr Drug Dosing 87.6 ml/min Est GFR ( Amer) 107.5 ml/min Est GFR (Non-Af Amer) 92.7 ml/min BUN/Creatinine Ratio 20.9 H (10-20) Glucose 106 H (70-99(Fasting)) mg/dl POC Glucose 116 H (70-99) mg/dl Lactate (0.4-2.0) mmol/L Calcium 7.4 L (8.5-10.1) mg/dl Phosphorus (2.5-4.9) mg/dl Magnesium 1.5 L (1.7-2.4) mg/dl Total Bilirubin 0.4 (0.2-1.0) mg/dl AST 9 L (13-39) U/L ALT 12 (7-52) U/L Alkaline Phosphatase 39 (34-104) U/L C-Reactive Protein (0-0.5) mg/dl Total Protein 4.8 L D (6.0-8.3) gm/dl Albumin 2.6 L (3.4-5.0) gm/dl Globulin 2.2 L (2.5-4.0) gm/dl Albumin/Globulin Ratio 1.2 (0.9-2) Procalcitonin (0-0.5) ng/ml Urine Color Urine Appearance (Clear) Urine pH (4.5-7.5) Ur Specific [place] (1.000-1.030) Urine Protein (Negative) Urine Glucose (UA) (Negative) Urine Ketones (Negative) Urine Blood (Negative) Urine Nitrite (Negative) Urine Bilirubin (Negative) Urine Urobilinogen (Negative) Ur Leukocyte Esterase (Negative) Urine WBC (Auto) (0-5) /hpf Urine RBC (Auto) (0-4) /hpf U Hyaline Cast (Auto) (0-5) /lpf U Epithel Cells (Auto) (0-5) /lpf Urine Bacteria (Auto) (Negative) Nasal Screen MRSA (PCR) (Negative) SARS-CoV-2 (PCR) (Negative) Influenza Type A (PCR) (Neg) Influenza Type B (PCR) (Neg) RSV (RT-PCR) (Neg) 06/30/21 06/29/21 06/29/21 Range/Units 06:14 23:17 18:05 WBC (4.8-10.8) K/uL RBC (4.2-5.4) M/uL Hgb (12.0-16.0) g/dL Hct (37-47) % MCV (80-100) fL MCH (25-34) pg MCHC (32-36) g/dL RDW Std Deviation (36.4-46.3) fL RDW Coeff of Jluis (11.5-14.5) % Plt Count (130-400) K/uL MPV (7.4-10.4) fL Immature Gran % (Auto) % Neut % (Auto) % Lymph % (Auto) % [place] % (Auto) % Eos % (Auto) % Baso % (Auto) % Neut # (Auto) (1.4-6.5) K/uL Lymph # (Auto) (1.2-3.4) K/uL [place] # (Auto) (0.11-0.59) K/uL Eos # (Auto) (0-0.5) K/uL Baso # (Auto) (0-0.2) K/uL Immature Gran # (Auto) (0.00-0.02) K/uL Platelet Estimate (Normal) ESR (0-30) mm/hr PT (9.0-12.0) Seconds INR (0.9-1.1) APTT (21.0-31.0) Seconds PTT Ratio VBG pH (7.36-7.41) VBG pCO2 (38-50) mmHg VBG pO2 mmHg VBG HCO3 mmol/L VBG O2 Saturation % VBG Base Excess mEq/L Barometric Pressure mm/Hg Sodium (136-145) mmol/L Potassium (3.5-5.1) mmol/L Chloride (98-107) mmol/L Carbon Dioxide (21-32) mmol/L Anion Gap (3-11) BUN (6-23) mg/dl Creatinine (0.6-1.2) mg/dl Est Cr Clr Drug Dosing ml/min Est GFR ( Amer) ml/min Est GFR (Non-Af Amer) ml/min BUN/Creatinine Ratio (10-20) Glucose (70-99(Fasting)) mg/dl POC Glucose 118 H 111 H 129 H (70-99) mg/dl Lactate (0.4-2.0) mmol/L Calcium (8.5-10.1) mg/dl Phosphorus (2.5-4.9) mg/dl Magnesium (1.7-2.4) mg/dl Total Bilirubin (0.2-1.0) mg/dl AST (13-39) U/L ALT (7-52) U/L Alkaline Phosphatase (34-104) U/L C-Reactive Protein (0-0.5) mg/dl Total Protein (6.0-8.3) gm/dl Albumin (3.4-5.0) gm/dl Globulin (2.5-4.0) gm/dl Albumin/Globulin Ratio (0.9-2) Procalcitonin (0-0.5) ng/ml Urine Color Urine Appearance (Clear) Urine pH (4.5-7.5) Ur Specific [place] (1.000-1.030) Urine Protein (Negative) Urine Glucose (UA) (Negative) Urine Ketones (Negative) Urine Blood (Negative) Urine Nitrite (Negative) Urine Bilirubin (Negative) Urine Urobilinogen (Negative) Ur Leukocyte Esterase (Negative) Urine WBC (Auto) (0-5) /hpf Urine RBC (Auto) (0-4) /hpf U Hyaline Cast (Auto) (0-5) /lpf U Epithel Cells (Auto) (0-5) /lpf Urine Bacteria (Auto) (Negative) Nasal Screen MRSA (PCR) (Negative) SARS-CoV-2 (PCR) (Negative) Influenza Type A (PCR) (Neg) Influenza Type B (PCR) (Neg) RSV (RT-PCR) (Neg) 06/29/21 06/29/21 06/29/21 Range/Units 13:43 13:30 11:17 WBC (4.8-10.8) K/uL RBC (4.2-5.4) M/uL Hgb (12.0-16.0) g/dL Hct (37-47) % MCV (80-100) fL MCH (25-34) pg MCHC (32-36) g/dL RDW Std Deviation (36.4-46.3) fL RDW Coeff of Jluis (11.5-14.5) % Plt Count (130-400) K/uL MPV (7.4-10.4) fL Immature Gran % (Auto) % Neut % (Auto) % Lymph % (Auto) % [place] % (Auto) % Eos % (Auto) % Baso % (Auto) % Neut # (Auto) (1.4-6.5) K/uL Lymph # (Auto) (1.2-3.4) K/uL [place] # (Auto) (0.11-0.59) K/uL Eos # (Auto) (0-0.5) K/uL Baso # (Auto) (0-0.2) K/uL Immature Gran # (Auto) (0.00-0.02) K/uL Platelet Estimate (Normal) ESR (0-30) mm/hr PT (9.0-12.0) Seconds INR (0.9-1.1) APTT (21.0-31.0) Seconds PTT Ratio VBG pH (7.36-7.41) VBG pCO2 (38-50) mmHg VBG pO2 mmHg VBG HCO3 mmol/L VBG O2 Saturation % VBG Base Excess mEq/L Barometric Pressure mm/Hg Sodium (136-145) mmol/L Potassium (3.5-5.1) mmol/L Chloride (98-107) mmol/L Carbon Dioxide (21-32) mmol/L Anion Gap (3-11) BUN (6-23) mg/dl Creatinine (0.6-1.2) mg/dl Est Cr Clr Drug Dosing ml/min Est GFR ( Amer) ml/min Est GFR (Non-Af Amer) ml/min BUN/Creatinine Ratio (10-20) Glucose (70-99(Fasting)) mg/dl POC Glucose 122 H (70-99) mg/dl Lactate (0.4-2.0) mmol/L Calcium (8.5-10.1) mg/dl Phosphorus (2.5-4.9) mg/dl Magnesium (1.7-2.4) mg/dl Total Bilirubin (0.2-1.0) mg/dl AST (13-39) U/L ALT (7-52) U/L Alkaline Phosphatase (34-104) U/L C-Reactive Protein (0-0.5) mg/dl Total Protein (6.0-8.3) gm/dl Albumin (3.4-5.0) gm/dl Globulin (2.5-4.0) gm/dl Albumin/Globulin Ratio (0.9-2) Procalcitonin (0-0.5) ng/ml Urine Color Dark Yellow Urine Appearance Cloudy A (Clear) Urine pH 7.0 (4.5-7.5) Ur Specific [place] 1.021 (1.000-1.030) Urine Protein 2+ H (Negative) Urine Glucose (UA) Negative (Negative) Urine Ketones Trace H (Negative) Urine Blood Trace H (Negative) Urine Nitrite Negative (Negative) Urine Bilirubin Negative (Negative) Urine Urobilinogen Negative (Negative) Ur Leukocyte Esterase Negative (Negative) Urine WBC (Auto) 1-5 (0-5) /hpf Urine RBC (Auto) 5-10 H (0-4) /hpf U Hyaline Cast (Auto) 5-10 H (0-5) /lpf U Epithel Cells (Auto) >30 H (0-5) /lpf Urine Bacteria (Auto) Negative (Negative) Nasal Screen MRSA (PCR) Negative (Negative) SARS-CoV-2 (PCR) (Negative) Influenza Type A (PCR) (Neg) Influenza Type B (PCR) (Neg) RSV (RT-PCR) (Neg) 06/29/21 06/29/21 06/29/21 Range/Units 09:54 09:11 09:11 WBC (4.8-10.8) K/uL RBC (4.2-5.4) M/uL Hgb (12.0-16.0) g/dL Hct (37-47) % MCV (80-100) fL MCH (25-34) pg MCHC (32-36) g/dL RDW Std Deviation (36.4-46.3) fL RDW Coeff of Jluis (11.5-14.5) % Plt Count (130-400) K/uL MPV (7.4-10.4) fL Immature Gran % (Auto) % Neut % (Auto) % Lymph % (Auto) % [place] % (Auto) % Eos % (Auto) % Baso % (Auto) % Neut # (Auto) (1.4-6.5) K/uL Lymph # (Auto) (1.2-3.4) K/uL [place] # (Auto) (0.11-0.59) K/uL Eos # (Auto) (0-0.5) K/uL Baso # (Auto) (0-0.2) K/uL Immature Gran # (Auto) (0.00-0.02) K/uL Platelet Estimate (Normal) ESR (0-30) mm/hr PT (9.0-12.0) Seconds INR (0.9-1.1) APTT (21.0-31.0) Seconds PTT Ratio VBG pH 7.50 H (7.36-7.41) VBG pCO2 36 L (38-50) mmHg VBG pO2 38 mmHg VBG HCO3 27 mmol/L VBG O2 Saturation 73.8 % VBG Base Excess 3.7 mEq/L Barometric Pressure 727.7 mm/Hg Sodium (136-145) mmol/L Potassium (3.5-5.1) mmol/L Chloride (98-107) mmol/L Carbon Dioxide (21-32) mmol/L Anion Gap (3-11) BUN (6-23) mg/dl Creatinine (0.6-1.2) mg/dl Est Cr Clr Drug Dosing ml/min Est GFR ( Amer) ml/min Est GFR (Non-Af Amer) ml/min BUN/Creatinine Ratio (10-20) Glucose (70-99(Fasting)) mg/dl POC Glucose (70-99) mg/dl Lactate 0.8 (0.4-2.0) mmol/L Calcium (8.5-10.1) mg/dl Phosphorus (2.5-4.9) mg/dl Magnesium (1.7-2.4) mg/dl Total Bilirubin (0.2-1.0) mg/dl AST (13-39) U/L ALT (7-52) U/L Alkaline Phosphatase (34-104) U/L C-Reactive Protein (0-0.5) mg/dl Total Protein (6.0-8.3) gm/dl Albumin (3.4-5.0) gm/dl Globulin (2.5-4.0) gm/dl Albumin/Globulin Ratio (0.9-2) Procalcitonin (0-0.5) ng/ml Urine Color Urine Appearance (Clear) Urine pH (4.5-7.5) Ur Specific [place] (1.000-1.030) Urine Protein (Negative) Urine Glucose (UA) (Negative) Urine Ketones (Negative) Urine Blood (Negative) Urine Nitrite (Negative) Urine Bilirubin (Negative) Urine Urobilinogen (Negative) Ur Leukocyte Esterase (Negative) Urine WBC (Auto) (0-5) /hpf Urine RBC (Auto) (0-4) /hpf U Hyaline Cast (Auto) (0-5) /lpf U Epithel Cells (Auto) (0-5) /lpf Urine Bacteria (Auto) (Negative) Nasal Screen MRSA (PCR) (Negative) SARS-CoV-2 (PCR) NEGATIVE (Negative) Influenza Type A (PCR) Negative (Neg) Influenza Type B (PCR) Negative (Neg) RSV (RT-PCR) Negative (Neg) 06/29/21 06/29/21 06/29/21 Range/Units 08:27 08:27 08:27 WBC (4.8-10.8) K/uL RBC (4.2-5.4) M/uL Hgb (12.0-16.0) g/dL Hct (37-47) % MCV (80-100) fL MCH (25-34) pg MCHC (32-36) g/dL RDW Std Deviation (36.4-46.3) fL RDW Coeff of Jluis (11.5-14.5) % Plt Count (130-400) K/uL MPV (7.4-10.4) fL Immature Gran % (Auto) % Neut % (Auto) % Lymph % (Auto) % [place] % (Auto) % Eos % (Auto) % Baso % (Auto) % Neut # (Auto) (1.4-6.5) K/uL Lymph # (Auto) (1.2-3.4) K/uL [place] # (Auto) (0.11-0.59) K/uL Eos # (Auto) (0-0.5) K/uL Baso # (Auto) (0-0.2) K/uL Immature Gran # (Auto) (0.00-0.02) K/uL Platelet Estimate (Normal) ESR 40 H (0-30) mm/hr PT (9.0-12.0) Seconds INR (0.9-1.1) APTT (21.0-31.0) Seconds PTT Ratio VBG pH (7.36-7.41) VBG pCO2 (38-50) mmHg VBG pO2 mmHg VBG HCO3 mmol/L VBG O2 Saturation % VBG Base Excess mEq/L Barometric Pressure mm/Hg Sodium (136-145) mmol/L Potassium (3.5-5.1) mmol/L Chloride (98-107) mmol/L Carbon Dioxide (21-32) mmol/L Anion Gap (3-11) BUN (6-23) mg/dl Creatinine (0.6-1.2) mg/dl Est Cr Clr Drug Dosing ml/min Est GFR ( Amer) ml/min Est GFR (Non-Af Amer) ml/min BUN/Creatinine Ratio (10-20) Glucose (70-99(Fasting)) mg/dl POC Glucose (70-99) mg/dl Lactate (0.4-2.0) mmol/L Calcium (8.5-10.1) mg/dl Phosphorus (2.5-4.9) mg/dl Magnesium (1.7-2.4) mg/dl Total Bilirubin (0.2-1.0) mg/dl AST (13-39) U/L ALT (7-52) U/L Alkaline Phosphatase (34-104) U/L C-Reactive Protein 11.77 H (0-0.5) mg/dl Total Protein (6.0-8.3) gm/dl Albumin (3.4-5.0) gm/dl Globulin (2.5-4.0) gm/dl Albumin/Globulin Ratio (0.9-2) Procalcitonin 0.13 (0-0.5) ng/ml Urine Color Urine Appearance (Clear) Urine pH (4.5-7.5) Ur Specific [place] (1.000-1.030) Urine Protein (Negative) Urine Glucose (UA) (Negative) Urine Ketones (Negative) Urine Blood (Negative) Urine Nitrite (Negative) Urine Bilirubin (Negative) Urine Urobilinogen (Negative) Ur Leukocyte Esterase (Negative) Urine WBC (Auto) (0-5) /hpf Urine RBC (Auto) (0-4) /hpf U Hyaline Cast (Auto) (0-5) /lpf U Epithel Cells (Auto) (0-5) /lpf Urine Bacteria (Auto) (Negative) Nasal Screen MRSA (PCR) (Negative) SARS-CoV-2 (PCR) (Negative) Influenza Type A (PCR) (Neg) Influenza Type B (PCR) (Neg) RSV (RT-PCR) (Neg) 06/29/21 06/29/21 06/29/21 Range/Units 08:27 08:27 08:27 WBC 8.01 (4.8-10.8) K/uL RBC 3.57 L (4.2-5.4) M/uL Hgb 11.6 L (12.0-16.0) g/dL Hct 35.9 L (37-47) % MCV 100.6 H (80-100) fL MCH 32.5 (25-34) pg MCHC 32.3 (32-36) g/dL RDW Std Deviation 66.3 H (36.4-46.3) fL RDW Coeff of Jluis 17.8 H (11.5-14.5) % Plt Count 93 L (130-400) K/uL MPV 9.7 (7.4-10.4) fL Immature Gran % (Auto) 0.9 % Neut % (Auto) 83.9 % Lymph % (Auto) 5.2 % [place] % (Auto) 8.9 % Eos % (Auto) 0.9 % Baso % (Auto) 0.2 % Neut # (Auto) 6.72 H (1.4-6.5) K/uL Lymph # (Auto) 0.42 L (1.2-3.4) K/uL [place] # (Auto) 0.71 H (0.11-0.59) K/uL Eos # (Auto) 0.07 (0-0.5) K/uL Baso # (Auto) 0.02 (0-0.2) K/uL Immature Gran # (Auto) 0.07 H (0.00-0.02) K/uL Platelet Estimate Decreased L (Normal) ESR (0-30) mm/hr PT 11.5 (9.0-12.0) Seconds INR 1.1 (0.9-1.1) APTT 29.3 (21.0-31.0) Seconds PTT Ratio 1.1 VBG pH (7.36-7.41) VBG pCO2 (38-50) mmHg VBG pO2 mmHg VBG HCO3 mmol/L VBG O2 Saturation % VBG Base Excess mEq/L Barometric Pressure mm/Hg Sodium 132 L (136-145) mmol/L Potassium 3.5 (3.5-5.1) mmol/L Chloride 98 (98-107) mmol/L Carbon Dioxide 27 (21-32) mmol/L Anion Gap 7 (3-11) BUN 15 (6-23) mg/dl Creatinine 0.50 L (0.6-1.2) mg/dl Est Cr Clr Drug Dosing 74.7 ml/min Est GFR ( Amer) 102.3 ml/min Est GFR (Non-Af Amer) 88.3 ml/min BUN/Creatinine Ratio 30.0 H (10-20) Glucose 166 H (70-99(Fasting)) mg/dl POC Glucose (70-99) mg/dl Lactate (0.4-2.0) mmol/L Calcium 8.5 (8.5-10.1) mg/dl Phosphorus 2.1 L (2.5-4.9) mg/dl Magnesium 1.7 (1.7-2.4) mg/dl Total Bilirubin 0.4 (0.2-1.0) mg/dl AST 12 L (13-39) U/L ALT 18 (7-52) U/L Alkaline Phosphatase 53 (34-104) U/L C-Reactive Protein (0-0.5) mg/dl Total Protein 5.8 L (6.0-8.3) gm/dl Albumin 3.2 L (3.4-5.0) gm/dl Globulin 2.6 (2.5-4.0) gm/dl Albumin/Globulin Ratio 1.2 (0.9-2) Procalcitonin (0-0.5) ng/ml Urine Color Urine Appearance (Clear) Urine pH (4.5-7.5) Ur Specific [place] (1.000-1.030) Urine Protein (Negative) Urine Glucose (UA) (Negative) Urine Ketones (Negative) Urine Blood (Negative) Urine Nitrite (Negative) Urine Bilirubin (Negative) Urine Urobilinogen (Negative) Ur Leukocyte Esterase (Negative) Urine WBC (Auto) (0-5) /hpf Urine RBC (Auto) (0-4) /hpf U Hyaline Cast (Auto) (0-5) /lpf U Epithel Cells (Auto) (0-5) /lpf Urine Bacteria (Auto) (Negative) Nasal Screen MRSA (PCR) (Negative) SARS-CoV-2 (PCR) (Negative) Influenza Type A (PCR) (Neg) Influenza Type B (PCR) (Neg) RSV (RT-PCR) (Neg) (1) Abdominal pain Abdominal location: left lower quadrant Qualified Code(s): R10.32 - Left lower quadrant pain
[2021-06-30 08:03] LABS: Mean Platelet Volume 9.4 fL (7.4-10.4); Platelet Count 83 K/uL (130-400)
[2021-06-30 08:13] LABS: Basophils # (auto) 0.02 K/uL (0-0.2); Basophils % (auto) 0.3 %; Eosinophils # (auto) 0.09 K/uL (0-0.5); Eosinophils % (auto) 1.3 %; Immature Granulocytes # (auto) 0.04 K/uL (0.00-0.02); Immature Granulocytes % (auto) 0.6 %; Lymphocytes # (auto) 0.73 K/uL (1.2-3.4); Lymphocytes % (auto) 10.9 %; Monocytes # (auto) 0.76 K/uL (0.11-0.59); Monocytes % (auto) 11.4 %; Neutrophils # (auto) 5.03 K/uL (1.4-6.5); Neutrophils % (auto) 75.5 %
[2021-06-30 08:21] LABS: Albumin Globulin Ratio 1.2 (0.9-2); Albumin Level 2.6 gm/dl (3.4-5.0); BUN Creatinine Ratio 20.9 (10-20); Bilirubin,Total 0.4 mg/dl (0.2-1.0); Calcium 7.4 mg/dl (8.5-10.1); Creatinine Clr Calc Pharmacy 87.6 ml/min; Est GFR (African American) 107.5 ml/min; Est GFR (Non-African American) 92.7 ml/min; Globulin 2.2 gm/dl (2.5-4.0); Magnesium 1.5 mg/dl (1.7-2.4); Potassium 3.2 mmol/L (3.5-5.1); Total Protein 4.8 gm/dl (6.0-8.3)
[2021-06-30] MEDS: FUROSEMIDE 20 MG TAB PO SCH (08:46)
[2021-06-30] MEDS: ATORVASTATIN 40 MG TAB PO SCH (08:46)
[2021-06-30] MEDS: METOPROLOL TARTRATE 25 MG TAB PO SCH ×2 (08:47→19:59)
[2021-06-30] MEDS: HYDROCORTISONE ACETATE 25 MG SUPP PR SCH ×2 (08:47→19:59)
[2021-06-30] MEDS: GABAPENTIN 100 MG CAP PO SCH ×2 (08:47→20:00)
[2021-06-30] MEDS: SACCHAROMYCES BOULARDII 250 MG CAP PO SCH ×2 (08:48→19:58)
[2021-06-30] MEDS: predniSONE 10 MG TABLET PO SCH (08:48)
[2021-06-30] MEDS: valACYclovir HCL 500 MG TABLET PO SCH ×3 (08:48→19:59)
[2021-06-30] MEDS: PANTOprazole 40 MG TAB PO SCH (08:48)
[2021-06-30] MEDS: rifAMPin 300 MG CAPSULE PO SCH (08:48)
[2021-06-30] MEDS ORDERED: POTASSIUM CHLORIDE CRTAB 20 MEQ TABCR PO ONE (09:06)
[2021-06-30] MEDS: MAGNESIUM SULFATE / D5W 1 GM/100 ML BAG IV SCH ×2 (11:28→13:36)
--- NOTE | 2021-06-30 15:29 | Hospitalist Progress Note ---
Date of Service June 30, 2021 Assessment & Plan (1) Sepsis: Plan: Resuscitated, continue treatment of infection. (2) Acute heart failure with preserved ejection fraction: Plan: Mild pulmonary edema seen on chest x-ray on admission and pt is a poor historian with respect to how her symptoms developed. She did receive Lasix IV 20mg in addition to her oral dose yesterday and is doing well. Although oxygen is in place this is for comfort and her oxygen saturation is 100%. Continues on her Lasix 20 mg daily. (3) Diverticulitis: Plan: Appears to have acute diverticulitis. Continue with IV antibiotics and will treat for full 10-day course per GI recommendations. (4) Crohn's disease: Plan: Chronic left-sided colitis with recent colonoscopy in March. Possible diagnosis of Crohn's disease and questionable response to steroids as patient stopped it early without follow-up. 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 We will continue treatment for this. May be a candidate for surgical treatment option at a tertiary care facility if ultimately this is not healed. Appreciate surgeons recommendations. Cont hydrocortisone IN for rectal pain. (5) Latent tuberculosis by blood test: Plan: Continue current therapy. (6) Diabetes mellitus type 2 in nonobese: Plan: Diet controlled with an A1c of 5.6 (7) Shingles: Plan: In sacral region? cont Valtrex course. (8) DVT prophylaxis: Plan: Lovenox DNR/DNI Disposition-transfer [facility] Enamorado DO [facility] Ad[facility] and Anticipated Discharge Date Admission Date: June 29, 2021 Subjective 86-year-old female admitted with acute diverticulitis. She has a history of colonoscopy with chronic left-sided colitis consistent with possible Crohn's disease. She has been admitted and placed on IV antibiotics She is a very poor historian and cannot tell me how she got to the hospital or what was going on prior to this She does report 1 episode of bright red blood per rectum but has not seen anything further since Nurses report of blackish tarry stool however patient states this is chronic for her Denies nausea or vomiting Denies abdominal pain Some rectal pain reported Denies fevers or chills. Review of Systems Review of Systems: All systems reviewed and negative except as indicated above. Physical Exam Physical Exam: CONSTITUTIONAL: WNWD, vitals as above, generally well- appearing, NAD EYES: normal conjunctivae, no scleral icterus ENT: external ear and nose normal, MMM NECK: trachea midline RESPIRATORY: clear to auscultation bilaterally, no crackles, rales or wheezes, normal respiratory effort CARDIOVASCULAR: regular rate and rhythm, S1 and 2 heard without murmurs, gallops or rubs, no JVD, no peripheral edema, CHEST: inspection of chest was normal GASTROINTESTINAL: soft, nontender, ND, no guarding MUSCULOSKELETAL: strength 5/5 throughout, but elderly with generalized weakness in her core, head is normocephalic and atraumatic, SKIN: warm and dry, NEUROLOGIC: CN 2-12 grossly intact, no sensory deficit, normal cognition, normal speech, no tremor PSYCHIATRIC: alert cooperative and answering questions appropriately Results & Data Results & Data ([facility]) Vital Signs (Past 12 Hours) Vital Signs Temp Pulse Resp BP Pulse Ox Pulse Ox 06/30/21 14:57 36.4 C L 80 18 133/75 100 06/30/21 14:17 97 06/30/21 11:44 36.9 C 80 18 126/68 97 06/30/21 07:07 37.0 C 80 18 116/66 98 06/30/21 03:54 36.9 C 88 18 138/74 99 Laboratory Results Short CBC 06/30/21 Range/Units 06:50 WBC 6.67 (4.8-10.8) K/uL Hgb 9.8 L (12.0-16.0) g/dL Hct 30.7 L (37-47) % Plt Count 83 L (130-400) K/uL BMP 06/30/21 06:50 Sodium 131 L Potassium 3.2 L Chloride 99 Carbon Dioxide 26 BUN 9 Creatinine 0.43 L Glucose 106 H Calcium 7.4 L Liver Function 06/30/21 Range/Units 06:50 Total Bilirubin 0.4 (0.2-1.0) mg/dl AST 9 L (13-39) U/L ALT 12 (7-52) U/L Alkaline Phosphatase 39 (34-104) U/L Albumin 2.6 L (3.4-5.0) gm/dl Medications Administered Current Inpatient Medications Acetaminophen (Acetaminophen 325 Mg Tab) 650 mg PO Q4H PRN PRN Reason: Pain or Fever Stop: 07/29/21 13:35 Last Admin: 06/30/21 12:04 Dose: 650 mg Documented by: Atorvastatin Calcium ([facility]atin 40 Mg Tab) [facility] Stop: 07/30/21 08:59 Last Admin: 06/30/21 08:46 Dose: 40 mg Documented by: Dextrose (Dextrose 50% 50 Ml Syringe) 25 - 50 ml IV UD PRN; Protocol PRN Reason: Hypoglycemia Protocol Stop: 07/29/21 13:35 Furosemide (Furosemide 20 Mg Tab) [facility] Stop: 07/30/21 08:59 Last Admin: 06/30/21 08:46 Dose: 20 mg Documented by: Gabapentin (Gabapentin 100 Mg Cap) [facility] Stop: 07/30/21 08:59 Last Admin: 06/30/21 08:47 Dose: 100 mg Documented by: Gabapentin (Gabapentin 100 Mg Cap) 200 mg PO [facility] Stop: 07/29/21 20:59 Last Admin: 06/29/21 20:13 Dose: 200 mg Documented by: Glucagon (Glucagon For Inj 1 Mg Vial) 1 mg SQ UD PRN; Protocol PRN Reason: Hypoglycemia Protocol Stop: 07/29/21 13:35 Glucose (Glucose 10 Tabs/Tube) 4 - 8 tabs PO UD PRN; Protocol PRN Reason: Hypoglycemia Protocol Stop: 07/29/21 13:35 Glucose (Glucose 40% Gel 15 Gm Tube) 15 - 30 gm PO UD PRN; Protocol PRN Reason: Hypoglycemia Protocol Stop: 07/29/21 13:35 Hydrocortisone (Hydrocortisone Acetate 25 Mg Supp) 25 mg IN BID [facility] Stop: 07/29/21 20:59 Last Admin: 06/30/21 08:47 Dose: 25 mg Documented by: Acetaminophen (Ofirmev) 1,000 mg in 100 mls @ 400 mls/hr IV Q8H PRN PRN Reason: pain Stop: 07/02/21 13:35 Piperacillin Sod/Tazobactam (Sod 3.375 gm/ Dextrose) 115 mls @ 28.75 mls/hr IV Q8H [facility]; Protocol Stop: 07/09/21 13:59 Last Admin: 06/30/21 14:08 Dose: 28.8 mls/hr Documented by: Levothyroxine Sodium (Levothyroxine Sodium 100 Mcg Tablet) [facility] Stop: 07/30/21 06:29 Last Admin: 06/30/21 05:33 Dose: 100 mcg Documented by: Metoprolol Tartrate (Metoprolol Tartrate 25 Mg Tab) 25 mg PO BID [facility] Stop: 07/29/21 20:59 Last Admin: 06/30/21 08:47 Dose: 25 mg Documented by: Miscellaneous (Carbohydrates For Hypoglycemia ) 15 - 30 gm PO UD PRN PRN Reason: Hypoglycemia Protocol Stop: 07/29/21 13:35 Miscellaneous (Restasis: Order Awaiting Action) 1 ea N/A QS [facility] Stop: 07/29/21 15:59 Last Admin: 06/29/21 22:46 Dose: Not Given Documented by: Miscellaneous Information (Piperacill/Tazobac Consult Active) 1 ea N/A UD PRN PRN Reason: Consult Stop: 07/29/21 13:35 Montelukast Sodium (Montelukast Sodium 10 Mg Tablet) 10 mg PO HS [facility] Stop: 07/29/21 20:59 Last Admin: 06/29/21 20:13 Dose: 10 mg Documented by: Ondansetron HCl (Ondansetron Inj 2 Mg/Ml 2 Ml Vial) 4 mg IV Q6H PRN PRN Reason: Nausea Stop: 07/29/21 13:35 Pantoprazole Sodium (Pantoprazole 40 Mg Tab) 40 mg PO QAM [facility] Stop: 07/30/21 08:59 Last Admin: 06/30/21 08:48 Dose: 40 mg Documented by: Prednisone (Prednisone 10 Mg Tablet) 30 mg PO DAILY [facility] Stop: 07/30/21 08:59 Last Admin: 06/30/21 08:48 Dose: 30 mg Documented by: Rifampin (Rifampin 300 Mg Capsule) 600 mg PO QAM [facility] Stop: 07/07/21 08:59 Last Admin: 06/30/21 08:48 Dose: 600 mg Documented by: Saccharomyces Boulardii (Saccharomyces Boulardii 250 Mg Cap) 250 mg PO BID [facility] Stop: 07/29/21 20:59 Last Admin: 06/30/21 08:48 Dose: 250 mg Documented by: Trazodone HCl (Trazodone Hcl 50 Mg Tab) 50 mg PO HS PRN PRN Reason: Sleep Stop: 07/29/21 13:35 Valacyclovir HCl (Valacyclovir Hcl 500 Mg Tablet) 1,000 mg PO TID TRUPTI Stop: 07/06/21 15:29 Last Admin: 06/30/21 14:09 Dose: 1,000 mg Documented by: (1) Sepsis Sepsis acute organ dysfunction status: unspecified Sepsis type: sepsis due to unspecified organism Qualified Code(s): A41.9 - Sepsis, unspecified organism
[2021-06-30] MEDS: traZODone HCL 50 MG TAB PO PRN (19:55)
[2021-06-30] MEDS: MONTELUKAST SODIUM 10 MG TABLET PO SCH (19:58)
--- NOTE | 2021-06-30 20:04 | Surgery Consultation ---
Date of Consultation June 30, 2021 Assessment & Plan (1) Abdominal pain: Discussed case with my attending physician Dr. Davis we recommend proceeding as follows: For the present time continue to treat the patient for diverticulitis. She is receiving antibiotics in the form of Zosyn The patient is currently on a clear liquid diet would recommend continuing this and not advancing until she has clinical improvement of her abdominal exam The present time the patient is afebrile and hemodynamically stable. Not appear to have an acute abdomen on exam. Her white blood cell count this morning was normal as was her renal function. Therefore I do not feel emergent surgical intervention is required at this time We will continue to follow along while she is hospitalized with additional recommendations to follow Supervising Physician Co-Signing Physician Notes I personally saw and evaluated the patient with Adrian Pierre PA-C and agree with the assessment and plan. 86-year-old female with sigmoid and left-sided diverticulitis, questionable inflammatory bowel disease CT images and results personally viewed by me, mild inflammation of the sigmoid colon without any signs of intestinal obstruction Would continue clear liquid diet and IV antibiotics I do not see a need for any surgical intervention at this time Will follow History of Present Illness Reason for Consultation: Abdominal pain, diverticulitis Attending Physician: Yahir Joyner MD History of Present Illness This is an 86-year-old female with a very complicated past medical history. Patient presented to [facility] this admission secondary to some generalized abdominal pain and weakness for 2 to 3 days. There is also reported fever as an outpatient. The patient presented to [facility] where she underwent labs and diagnostics which I independent reviewed. She had a chest x-ray that was negative for pneumonia. She had a CT scan of the abdomen and pelvis that showed findings concerning for sigmoid diverticulitis. There is no evidence of perforation or abscess. There is no evidence of free air. She was noted to have a ventral hernia with bowel however no obstruction was noted. At time admission patient had a lactic acid level that was normal and not elevated. She was checked for COVID, influenza, as well as RSV all of which were negative. At time of admission her labs include a CBC her white blood cell count was normal. Her platelet count was 93,000. Hemoglobin and hematocrit were 11.6 and 35.9. Coagulation studies were noted to be normal. Chemistry profile showed sodium and potassium are 132 and 3.5. Her BUN and creatinine were nonelevated. She did not have any elevation of her LFTs. Patient was admitted to the hospital and treated for diverticulitis and has been receiving antibiotics in the form of Zosyn. The patient's records were reviewed and she does have a remote history of a diagnosis of Crohn's disease which she said was diagnosed by physician in [place]. She was seen this admission by gastroenterology who felt that patient was either suffering from segmental colitis with associated sigmoid diverticulitis or having a flare of inflammatory bowel disease. It is noted that the patient has had multiple issues with problems such as this in the past and therefore surgical evaluation was recommended. Patient's records were reviewed and she was admitted to [facility] in February of this year secondary to diverticulitis as well as an anal fissure. She was also noted to have a ventral hernia at that time without obstruction. She was seen by the [facility] general surgery group no surgical intervention was recommended and patient was treated in conservative manner and discharged home. Outpatient follow-up concerning her hernia was recommended. She was readmitted to [facility] in March of this year secondary to rectal pain and inability to care for herself. During that admission the patient underwent a colonoscopy where the prep was noted to be poor. The patient was noted to have hemorrhoids as well as multiple ulcers in her sigmoid colon. Biopsies were taken and pathology showed nonspecific colitis. Of note patient had pathology checked for cytomegalovirus as well as HSV both of which were negative. Due to the patient's reported history of Crohn's disease she was started on a prednisone taper and it was recommended the patient follow-up with GI as well as colorectal as an outpatient. At the time of my interview the patient was complaining of some generalized abdominal pain. In addition the patient does report chills and shakes. There have been no reported episodes of nausea or vomiting. She denies any shortness of breath or dysuria. Patient does note that her appetite is poor. She does n ot report any melena but does report having multiple bloody bowel movements. Other than the items noted she does not report any additional complaints. I did question her on her past surgical history concerning her abdomen and she does note that she has had a hysterectomy but could not delineate any other additional surgeries that she may have had. Allergies Allergy/AdvReac Type Severity Reaction Status Date / Time Iodinated Contrast Media Allergy Intermediate HIVES/BURNING Verified 06/29/21 10:16 AT IV SITE AND UP VEIN pyrilamine Allergy Intermediate VOMITING Verified 06/29/21 10:16 Sulfa (Sulfonamide Allergy Intermediate RINGS ON Verified 06/29/21 10:16 Antibiotics) SKIN simvastatin Allergy Mild RED Verified 06/29/21 10:16 CIRCLES-HAS TOLERATED LIPITOR iodine Allergy Unknown Unknown Unverified 06/29/21 10:16 amoxicillin AdvReac Intermediate CAUSED Verified 06/29/21 10:16 DIARRHEA PER [facility] MED LIST codeine AdvReac Intermediate N/V Verified 06/29/21 10:16 ether AdvReac Intermediate NAUSEA/VOMI Verified 06/29/21 10:16 TING morphine AdvReac Intermediate VOMITING Verified 06/29/21 10:16 tramadol AdvReac Intermediate NAUSEA/VOMI Verified 06/29/21 10:16 TING Home Medications Medication Instructions Recorded Confirmed Type Oxygen Home #1 ea 09/20/18 12/26/18 History atorvastatin 40 mg tablet 40 mg PO QAM tab 09/20/18 06/29/21 History furosemide 20 mg tablet 20 mg PO QAM tab 09/20/18 06/29/21 History levothyroxine 100 mcg tablet 100 mcg PO DAILYBB tab 09/20/18 06/29/21 History metoprolol tartrate 25 mg tablet 25 mg PO BID tab 09/20/18 06/29/21 History pantoprazole 40 mg tablet,delayed 40 mg PO QAM tab 09/20/18 06/29/21 History release trazodone 50 mg tablet 50 mg PO HS PRN tab 09/20/18 06/29/21 History alendronate 70 mg tablet (Fosamax) 70 mg PO WK 01/22/19 06/29/21 History loratadine 10 mg tablet (Claritin) 10 mg PO QAM 01/22/19 06/29/21 History montelukast 10 mg tablet 10 mg PO HS 01/22/19 06/29/21 History (Singulair) cyclosporine 0.05 % eye drops in a 1 drp OPHTHALMIC (EYE) Q12H 02/23/21 06/29/21 History dropperette (Restasis) Saccharomyces boulardii 250 mg 250 mg PO BID 06/29/21 06/29/21 History capsule (Florastor) acetaminophen 500 mg tablet 1,000 mg PO Q8H PRN 06/29/21 06/29/21 History ferrous sulfate 325 mg (65 mg 325 mg PO BID 06/29/21 06/29/21 History iron) tablet fluticasone propionate 50 2 spray INTRANASAL QAM 06/29/21 06/29/21 History mcg/actuation nasal spray,suspension gabapentin 100 mg capsule See Rx Instructions .ROUTE .COMPLEX 06/29/21 06/29/21 History hydrocortisone acetate 25 mg 25 mg CO BID 06/29/21 06/29/21 History rectal suppository meclizine 12.5 mg tablet 12.5 mg PO DAILY PRN 06/29/21 06/29/21 History menthol 0.44 %-zinc oxide 20.6 % 1 applic TOPICAL QID PRN 06/29/21 06/29/21 History topical ointment in packet (Calmoseptine) metronidazole 250 mg tablet 250 mg PO TID 06/29/21 06/29/21 History oxycodone 5 mg tablet 5 mg PO Q4H PRN 06/29/21 06/29/21 History prednisone 10 mg tablet 30 mg PO DAILY 06/29/21 06/29/21 History rifampin 300 mg capsule 600 mg PO QAM 06/29/21 06/29/21 History Patient History Medical History Anemia Arthritis Bloody diarrhea Crohn's disease Cystitis 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 Dyslipidemia Fecal incontinence Gastroesophageal reflux disease History of adenomatous polyp of colon History of diverticulitis Hypercholesterolemia Hypertension Hypertension Hypothyroidism Irritation of perirectal skin Osteoarthritis Osteoporosis Rectal pain Unable to care for self Surgical History History of incisional hernia repair History of repair of rectocele S/P laparoscopic hernia repair Total knee replacement status Family History Father , 48 Hypertension Stroke Social History Smoking Status: Never smoker Second Hand Exposure: No; Do You Dip or Chew Tobacco: No; Hx Alcohol Use: Yes Alcohol type: wine Hx Substance Use: No Preferred Language: Hebrew Communication Ability: Effective Orange Grower Required: No Beliefs That Will Affect Care: None marital status: Current Living Situation: Personal Care Facility How many Children do You have: 1 Other Information That Helps Us Care for You: No Feels Safe at Home: Yes Safety Concerns: Feels Safe At This Time Assistive Devices: Oxygen - at Night Review of Systems Constitutional: + chills Eyes: no eye pain Ear, Nose, Mouth, Throat: no hearing loss Respiratory: no cough and no dyspnea Cardiovascular: no chest pain Gastrointestinal: as per Subjective / HPI, + abdominal pain and + blood in stools; no nausea and no vomiting Genitourinary: no dysuria Musculoskeletal: no back pain Neurologic: + generalized weakness Physical Exam Constitutional: + frail appearing; no acute distress Eyes: Wears glasses ENMT: Ears: no hearing impairment and no external ear abnormality Mouth: no oropharynx abnormality Neck: trachea midline Respiratory: normal respiratory effort; no respiratory distress and no labored breathing Cardiovascular: Rate/Rhythm: regular rate and regular rhythm Gastrointestinal (Abdomen): Abdomen is soft, nonrigid, and nondistended. Bowel sounds are present. Patient has a noted ventral hernia. Patient does have generalized abdominal pain with palpation that appears to be greatest in the region of her ventral hernia. There is no skin discoloration noted in the area of the hernia. There are no hard or firm masses noted in the area of the hernia. No rebound tenderness or guarding is noted. Musculoskeletal: The patient does have generalized pain with palpation of her lower extremities Neurologic: moves all extremities Results & Data ([facility]) Vital Signs (Past 12 Hours) Vital Signs Temp Pulse Pulse Resp BP Pulse Ox Pulse Ox 06/30/21 19:00 36.9 C 80 16 138/80 100 06/30/21 16:36 79 06/30/21 14:57 36.4 C L 80 18 133/75 100 06/30/21 14:17 97 06/30/21 11:44 36.9 C 80 18 126/68 97 PG Care Time/CCT Total # of Minutes Spent Total Time Spent with Patient: Total time spent is greater than 50% in coordination of care (as documented) at patient's floor/unit and/or counseling patient: Coding Level of Care Code 01406 Inpt Consult Level 5 Diagnoses Abdominal pain R10.32 Abdominal location: left lower quadrant (1) Abdominal pain Abdominal location: left lower quadrant Qualified Code(s): R10.32 - Left lower quadrant pain
[2021-07-01] MEDS: PIPERACILLIN/TAZOBACTAM 3.375 GM in DEXTROSE 5% 100 ML IV SCH ×3 (04:39→22:07)
[2021-07-01] MEDS: LEVOTHYROXINE SODIUM 100 MCG TABLET PO SCH (07:17)
[2021-07-01] MEDS: SACCHAROMYCES BOULARDII 250 MG CAP PO SCH ×2 (08:45→21:26)
[2021-07-01] MEDS: HYDROCORTISONE ACETATE 25 MG SUPP PR SCH ×2 (08:45→20:07)
[2021-07-01] MEDS: valACYclovir HCL 500 MG TABLET PO SCH ×3 (08:45→22:03)
[2021-07-01] MEDS: GABAPENTIN 100 MG CAP PO SCH ×2 (08:45→21:24)
[2021-07-01] MEDS: PANTOprazole 40 MG TAB PO SCH (08:45)
[2021-07-01] MEDS: ATORVASTATIN 40 MG TAB PO SCH (08:45)
[2021-07-01] MEDS: rifAMPin 300 MG CAPSULE PO SCH (08:45)
[2021-07-01] MEDS: FUROSEMIDE 20 MG TAB PO SCH (08:45)
[2021-07-01] MEDS: predniSONE 10 MG TABLET PO SCH (08:45)
[2021-07-01] MEDS: METOPROLOL TARTRATE 25 MG TAB PO SCH ×2 (08:45→21:24)
--- NOTE | 2021-07-01 08:54 | Gastroenterology Progress Note ---
Date of Service July 01, 2021 Assessment & Plan (1) Abdominal pain: Plan: 86 year old female with T2DM, HTN, HLD, mild persistent asthma, arteriosclerotic cardiovascular disease, GERD, IBS, history of diverticulitis, history of C. difficile, Crohn's disease, lymphedema, incisional hernia, currently receiving treatment for LTBI admitted w/ fevers, abd pain, weakness, imaging showing diverticulitis. Concern for SCAD vs IBD Would treat with IV ABX and transition to PO ABX at time of discharge for a full 10 day course of therapy She will need an outpatient colonoscopy with two day prep given her last examination was suboptimal Continue therapy for latent TB Remicade dosing and timing per her outpatient providers Would keep MRE as outpatient in light of acute diverticulitis Consider transfer to tertiary center for colorectal evaluation Thank you for allowing us to participate in the care of this patient. Please call with any acute changes, questions or concerns. Please see addendum below with additional recommendation from my supervising physician. Admission and Anticipated Discharge Date Admission Date: June 29, 2021 Supervising Physician Co-Signing Physician Notes I saw and evaluated the patient. She reports that she does have persistent discomfort despite several days of intravenous antibiotics. Given her persistent symptoms I wonder if she would be best served with a referral to a tertiary center as she may ultimately need services from a colorectal surgeon. Subjective Pt was seen and evaluated, chart reviewed. More aware, alert today. Notes that she is feeling slightly improved Less abd pain No nausea, vomiting Last BM was yesterday, dark. She does not think she has had any further rectal bleeding AM labs are not back yet Review of Systems Review of Systems: All systems reviewed & are unremarkable except as noted in HPI & below Physical Exam Constitutional: WD/WN, vitals as above Respiratory: normal respiratory effort, lungs clear to auscultation Cardiovascular: Rate/Rhythm: regular rate and regular rhythm Gastrointestinal (Abdomen): normal bowel sounds, soft, nontender, no hepatosplenomegaly Skin: no rashes, warm and dry Results & Data ([facility]) Vital Signs (Past 12 Hours) Vital Signs Temp Pulse Pulse Resp BP Pulse Ox 07/01/21 08:17 36.8 C 89 17 147/73 H 91 07/01/21 03:55 37.6 C H 102 H 18 123/57 L 92 06/30/21 23:30 37.0 C 96 H 18 155/68 H 100 06/30/21 23:08 88 Laboratory Results 07/01/21 06/30/21 06/30/21 Range/Units 08:02 20:17 18:02 POC Glucose 128 H 103 H 161 H (70-99) mg/dl 06/30/21 Range/Units 11:27 POC Glucose 113 H (70-99) mg/dl (1) Abdominal pain Abdominal location: left lower quadrant Qualified Code(s): R10.32 - Left lower quadrant pain
--- NOTE | 2021-07-01 10:28 | Surgery Progress Note ---
Date of Service July 01, 2021 Assessment & Plan (1) Diverticulitis: Plan: She seems to be improving slowly and remains afebrile without tachycardia or leukocytosis We will keep her on clear liquids for another day and another day of IV antibiotics No need for emergent surgical intervention Discussing with her she has an element of abdominal pain at baseline over the past couple months If she fails to improve with conservative management, consideration of transfer to a tertiary care center can be entertained as she does have a history of IBD and with her recent colonoscopy up to 40 cm she had some ulcers throughout the sigmoid colon We will continue to follow along Admission and Anticipated Discharge Date Admission Date: June 29, 2021 Subjective Patient seen and examined. No acute events overnight. Afebrile. No nausea and vomiting. She is incontinent of stool. States her abdominal pain is slightly improved. Review of Systems Constitutional: no fever and no chills Physical Exam Constitutional: WD/WN, vitals as above Gastrointestinal (Abdomen): Inspection/Auscultation: + abdominal surgical scar; abdomen not distended Percussion/Palpation: + abdomen tender (Mild midline and left-sided), abdomen soft and + hernia (Easily reducible ventral without skin changes); no guarding and abdomen not rigid Results & Data ([facility]) Vital Signs (Past 12 Hours) Vital Signs Temp Pulse Pulse Resp BP Pulse Ox 07/01/21 08:17 36.8 C 89 17 147/73 H 91 07/01/21 03:55 37.6 C H 102 H 18 123/57 L 92 06/30/21 23:30 37.0 C 96 H 18 155/68 H 100 06/30/21 23:08 88 PG Care Time/CCT Total # of Minutes Spent Total Time Spent with Patient: Total time spent is greater than 50% in coordination of care (as documented) at patient's floor/unit and/or counseling patient: Coding Level of Care Code 85298 Subseq Hosp Care Lvl 2 Diagnoses Diverticulitis K57.92
--- NOTE | 2021-07-01 10:58 | Hospitalist Progress Note ---
Date of Service July 01, 2021 Assessment & Plan (1) Sepsis: Plan: Resuscitated, continue treatment of infection. (2) Acute heart failure with preserved ejection fraction: Plan: Mild pulmonary edema seen on chest x-ray on admission and pt is a poor historian with respect to how her symptoms developed. She did receive Lasix IV 20mg in addition to her oral dose on admission but is now doing well off oxygen. Appears euvolemic. Continues on her Lasix 20 mg daily. (3) Diverticulitis: Plan: Appears to have acute diverticulitis. Continue with IV antibiotics and will treat for full 10-day course per GI recommendations. (4) Crohn's disease: Plan: Chronic left-sided colitis with recent colonoscopy in March. Possible diagnosis of Crohn's disease and questionable response to steroids --remains on daily prednisone, moderate dose. 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 We will continue treatment for this. May be a candidate for surgical treatment option at a tertiary care facility if ultimately this is not healed. Appreciate surgeons recommendations. Cont hydrocortisone [place] for rectal discomfort in setting of known anal fissure (5) Latent tuberculosis by blood test: Plan: Continue Rifampin monotherapy. (6) Diabetes mellitus type 2 in nonobese: Plan: Diet controlled with an A1c of 5.6 (7) Shingles: Plan: Seen in intergluteal fold, there is nothing to culture but clinical appearance is consistent with shingles. Cont Valtrex course. (8) DVT prophylaxis: Plan: Lovenox DNR/DNI Disposition-cont hospitalization for now. Michelle Enamorado DO [facility] Hospitalist Admission and Anticipated Discharge Date Admission Date: June 29, 2021 Subjective 86-year-old female admitted with acute diverticulitis. She has a history of colonoscopy with chronic left-sided colitis consistent with possible Crohn's disease. She has been admitted and placed on IV antibiotics +abdominal pain in lower abdomen L>R afebrile rash consistent with shingles on intergluteal fold amenable to clemens removal says "it's been a hard day" refers to the pain oxycodone improved it tolerating PO-clears Review of Systems Review of Systems: All systems reviewed and negative except as indicated above. Physical Exam Physical Exam: CONSTITUTIONAL: WNWD, vitals as above, generally well- appearing, NAD EYES: normal conjunctivae, no scleral icterus ENT: external ear and nose normal, MMM NECK: trachea midline RESPIRATORY: clear to auscultation bilaterally, no crackles, rales or wheezes, normal respiratory effort CARDIOVASCULAR: regular rate and rhythm, S1 and 2 heard without murmurs, gallops or rubs, no JVD, no peripheral edema, CHEST: inspection of chest was normal GASTROINTESTINAL: soft, very mild TTP in LLQ, ND, no guarding, umbilical hernia with palpable mesh in place. MUSCULOSKELETAL: strength 5/5 throughout, but elderly with generalized weakness in her core, head is normocephalic and atraumatic, SKIN: warm and dry, NEUROLOGIC: CN 2-12 grossly intact, no sensory deficit, normal cognition, normal speech, no tremor PSYCHIATRIC: alert cooperative and answering questions appropriately Results & Data Results & Data ([facility]) Vital Signs (Past 12 Hours) Vital Signs Temp Pulse Pulse Resp BP Pulse Ox 07/01/21 08:17 36.8 C 89 17 147/73 H 91 07/01/21 03:55 37.6 C H 102 H 18 123/57 L 92 06/30/21 23:30 37.0 C 96 H 18 155/68 H 100 06/30/21 23:08 88 Medications Administered Current Inpatient Medications Acetaminophen (Acetaminophen 325 Mg Tab) 650 mg PO Q4H PRN PRN Reason: Pain or Fever Stop: 07/29/21 13:35 Last Admin: 06/30/21 19:55 Dose: 650 mg Documented by: Atorvastatin Calcium (Atorvastatin 40 Mg Tab) [facility] [place]: 07/30/21 08:59 Last Admin: 07/01/21 08:45 Dose: 40 mg Documented by: Dextrose (Dextrose 50% 50 Ml Syringe) 25 - 50 ml IV UD PRN; Protocol PRN Reason: Hypoglycemia Protocol Stop: 07/29/21 13:35 Enoxaparin Sodium (Enoxaparin Inj 40 Mg/0.4 Ml Syr) 40 mg SQ NOW ONE Stop: 07/01/21 10:55 Enoxaparin Sodium (Enoxaparin Inj 40 Mg/0.4 Ml Syr) 40 [facility] [place] Stop: 08/01/21 08:59 Furosemide (Furosemide 20 Mg Tab) 20 mg PO QAM [facility] Stop: 07/30/21 08:59 Last Admin: 07/01/21 08:45 Dose: 20 mg Documented by: Gabapentin (Gabapentin 100 Mg Cap) 100 mg PO QAM [facility] Stop: 07/30/21 08:59 Last Admin: 07/01/21 08:45 Dose: 100 mg Documented by: Gabapentin (Gabapentin 100 Mg Cap) 200 mg PO HS [facility] Stop: 07/29/21 20:59 Last Admin: 06/30/21 20:00 Dose: 200 mg Documented by: Glucagon (Glucagon For Inj 1 Mg Vial) 1 mg SQ UD PRN; Protocol PRN Reason: Hypoglycemia Protocol Stop: 07/29/21 13:35 Glucose (Glucose 10 Tabs/Tube) 4 - 8 tabs PO UD PRN; Protocol PRN Reason: Hypoglycemia Protocol Stop: 07/29/21 13:35 Glucose (Glucose 40% Gel 15 Gm Tube) 15 - 30 gm PO UD PRN; Protocol PRN Reason: Hypoglycemia Protocol Stop: 07/29/21 13:35 Hydrocortisone (Hydrocortisone Acetate 25 Mg Supp) 25 mg [place] BID [facility] Stop: 07/29/21 20:59 Last Admin: 07/01/21 08:45 Dose: 25 mg Documented by: Piperacillin Sod/Tazobactam (Sod 3.375 gm/ Dextrose) 115 mls @ 28.75 mls/hr IV Q8H [facility]; Protocol Stop: 07/09/21 13:59 Last Infusion: 07/01/21 08:39 Dose: Infused Documented by: Levothyroxine Sodium (Levothyroxine Sodium 100 Mcg Tablet) 100 mcg PO DAILYBB [facility] Stop: 07/30/21 06:29 Last Admin: 07/01/21 07:17 Dose: 100 mcg Documented by: Metoprolol Tartrate (Metoprolol Tartrate 25 Mg Tab) 25 mg PO BID [facility] Stop: 07/29/21 20:59 Last Admin: 07/01/21 08:45 Dose: 25 mg Documented by: Miscellaneous (Carbohydrates For Hypoglycemia ) 15 - 30 gm PO UD PRN PRN Reason: Hypoglycemia Protocol Stop: 07/29/21 13:35 Miscellaneous (Restasis: Order Awaiting Action) 1 ea N/A QS [facility] Stop: 07/29/21 15:59 Last Admin: 06/29/21 22:46 Dose: Not Given Documented by: Miscellaneous Information (Piperacill/Tazobac Consult Active) 1 ea N/A UD PRN PRN Reason: Consult Stop: 07/29/21 13:35 Montelukast Sodium (Montelukast Sodium 10 Mg Tablet) 10 mg PO HS [facility] Stop: 07/29/21 20:59 Last Admin: 06/30/21 19:58 Dose: 10 mg Documented by: Ondansetron HCl (Ondansetron Inj 2 Mg/Ml 2 Ml Vial) 4 mg IV Q6H PRN PRN Reason: Nausea Stop: 07/29/21 13:35 Pantoprazole Sodium (Pantoprazole 40 Mg Tab) 40 mg PO QAM [facility] Stop: 07/30/21 08:59 Last Admin: 07/01/21 08:45 Dose: 40 mg Documented by: Prednisone (Prednisone 10 Mg Tablet) 30 mg PO DAILY [facility] Stop: 07/30/21 08:59 Last Admin: 07/01/21 08:45 Dose: 30 mg Documented by: Rifampin (Rifampin 300 Mg Capsule) 600 mg PO QAM [facility] Stop: 07/07/21 08:59 Last Admin: 07/01/21 08:45 Dose: 600 mg Documented by: Saccharomyces Boulardii (Saccharomyces Boulardii 250 Mg Cap) 250 mg PO BID [facility] Stop: 07/29/21 20:59 Last Admin: 07/01/21 08:45 Dose: 250 mg Documented by: Trazodone HCl (Trazodone Hcl 50 Mg Tab) 50 mg PO HS PRN PRN Reason: Sleep Stop: 07/29/21 13:35 Last Admin: 06/30/21 19:55 Dose: 50 mg Documented by: Valacyclovir HCl (Valacyclovir Hcl 500 Mg Tablet) 1,000 mg PO TID [facility] Stop: 07/06/21 15:29 Last Admin: 07/01/21 08:45 Dose: 1,000 mg Documented by: (1) Sepsis Sepsis acute organ dysfunction status: unspecified Sepsis type: sepsis due to unspecified organism Qualified Code(s): A41.9 - Sepsis, unspecified organism
[2021-07-01] MEDS ORDERED: ENOXAPARIN INJ 40 MG/0.4 ML SYR SQ ONE (11:15)
[2021-07-01] MEDS: RESTASIS: ORDER AWAITING ACTION SCH ×2 (15:49→15:50)
[2021-07-01] MEDS: oxyCODONE HCL IR 5 MG TAB (IMMEDIATE RELEASE) PO PRN (16:53)
[2021-07-01] MEDS: MONTELUKAST SODIUM 10 MG TABLET PO SCH (21:25)
[2021-07-01] MEDS: traZODone HCL 50 MG TAB PO PRN (21:26)
[2021-07-02] MEDS: PIPERACILLIN/TAZOBACTAM 3.375 GM in DEXTROSE 5% 100 ML IV SCH (04:36)
[2021-07-02] MEDS: LEVOTHYROXINE SODIUM 100 MCG TABLET PO SCH (05:43)
[2021-07-02 06:59] LABS: Hematocrit (blood only) 33.6 % (37-47); Hemoglobin 10.9 g/dL (12.0-16.0); Mean Corpuscular Hemoglobin 32.2 pg (25-34); Mean Corpuscular Hgb Conc 32.4 g/dL (32-36); Mean Corpuscular Volume 99.1 fL (80-100); Mean Platelet Volume 10.1 fL (7.4-10.4); Platelet Count 104 K/uL (130-400); RDW Coefficient of Variation 17.2 % (11.5-14.5); Red Blood Count 3.39 M/uL (4.2-5.4); White Blood Count 6.82 K/uL (4.8-10.8)
[2021-07-02 07:19] LABS: BUN Creatinine Ratio 17.5 (10-20); Calcium 7.3 mg/dl (8.5-10.1); Creatinine Clr Calc Pharmacy 93.3 ml/min; Est GFR (African American) 110.1 ml/min; Potassium 3.1 mmol/L (3.5-5.1)
[2021-07-02] MEDS: RESTASIS: ORDER AWAITING ACTION SCH ×4 (08:25→22:25)
--- NOTE | 2021-07-02 08:39 | Gastroenterology Progress Note ---
Date of Service July 02, 2021 Assessment & Plan (1) Abdominal pain: Plan: 86 year old female with T2DM, HTN, HLD, mild persistent asthma, arteriosclerotic cardiovascular disease, GERD, IBS, history of diverticulitis, history of C. difficile, Crohn's disease, lymphedema, incisional hernia, currently receiving treatment for LTBI admitted w/ fevers, abd pain, weakness, imaging showing diverticulitis. Concern for SCAD vs IBD Would treat with IV ABX and transition to PO ABX at time of discharge for a full 10 day course of therapy She will need an outpatient colonoscopy with two day prep given her last examination was suboptimal Continue therapy for latent TB Remicade dosing and timing per her outpatient providers Outpatient MRE Consider transfer to tertiary center for colorectal evaluation pending clinical course Recall as needed. Thank you for allowing us to participate in the care of this patient. Please call with any acute changes, questions or concerns. Please see addendum below with additional recommendation from my supervising physician. Admission and Anticipated Discharge Date Admission Date: June 29, 2021 Supervising Physician Co-Signing Physician Notes I saw and evaluated the patient. She looks much improved today as compared to admission. She is up seated in a chair and seems to look less pale than several days ago. She notes that her abdominal pain is slowly improving as well. Recommendations Advance diet as tolerated Would suggest continuing intravenous antibiotic coverage, perhaps another 48 to 72 hours Please call with questions or concerns over the weekend otherwise coverage to resume on Monday Subjective Pt was seen and evaluated, chart reviewed. Notes she continues to slowly improve. Less abdominal pain. Tolerating clear liquids this AM. Denies nausea, vomiting. Review of Systems Review of Systems: All systems reviewed & are unremarkable except as noted in HPI & below Physical Exam Constitutional: WD/WN, vitals as above Neck: trachea midline, no thyromegaly Respiratory: normal respiratory effort, lungs clear to auscultation Cardiovascular: Rate/Rhythm: regular rate and regular rhythm Gastrointestinal (Abdomen): Inspection/Auscultation: abdomen normal to inspection and normal bowel sounds Percussion/Palpation: + abdomen tender and abdomen soft; no guarding, abdomen not rigid and no abdominal mass Skin: no rashes, warm and dry Results & Data ([facility]) Vital Signs (Past 12 Hours) Vital Signs Temp Pulse Resp BP Pulse Ox 07/02/21 07:48 36.7 C 92 H 16 139/74 100 07/01/21 21:23 89 163/86 H 07/01/21 21:21 36.6 C 81 16 166/79 H 97 Laboratory Results 07/02/21 07/02/21 07/02/21 Range/Units 08:12 06:34 06:34 WBC 6.82 (4.8-10.8) K/uL RBC 3.39 L (4.2-5.4) M/uL Hgb 10.9 L (12.0-16.0) g/dL Hct 33.6 L (37-47) % MCV 99.1 (80-100) fL MCH 32.2 (25-34) pg MCHC 32.4 (32-36) g/dL RDW Std Deviation 62.0 H (36.4-46.3) fL RDW Coeff of Jluis 17.2 H (11.5-14.5) % Plt Count 104 L (130-400) K/uL MPV 10.1 (7.4-10.4) fL Sodium 131 L (136-145) mmol/L Potassium 3.1 L (3.5-5.1) mmol/L Chloride 99 (98-107) mmol/L Carbon Dioxide 26 (21-32) mmol/L Anion Gap 6 (3-11) BUN 7 (6-23) mg/dl Creatinine 0.40 L (0.6-1.2) mg/dl Est Cr Clr Drug Dosing 93.3 ml/min Est GFR ( Amer) 110.1 ml/min Est GFR (Non-Af Amer) 95.0 ml/min BUN/Creatinine Ratio 17.5 (10-20) Glucose 118 H (70-99(Fasting)) mg/dl POC Glucose 129 H (70-99) mg/dl Calcium 7.3 L (8.5-10.1) mg/dl 07/02/21 07/01/21 07/01/21 Range/Units 02:16 17:07 11:22 WBC (4.8-10.8) K/uL RBC (4.2-5.4) M/uL Hgb (12.0-16.0) g/dL Hct (37-47) % MCV (80-100) fL MCH (25-34) pg MCHC (32-36) g/dL RDW Std Deviation (36.4-46.3) fL RDW Coeff of Jluis (11.5-14.5) % Plt Count (130-400) K/uL MPV (7.4-10.4) fL Sodium (136-145) mmol/L Potassium (3.5-5.1) mmol/L Chloride (98-107) mmol/L Carbon Dioxide (21-32) mmol/L Anion Gap (3-11) BUN (6-23) mg/dl Creatinine (0.6-1.2) mg/dl Est Cr Clr Drug Dosing ml/min Est GFR ( Amer) ml/min Est GFR (Non-Af Amer) ml/min BUN/Creatinine Ratio (10-20) Glucose (70-99(Fasting)) mg/dl POC Glucose 115 H 132 H 142 H (70-99) mg/dl Calcium (8.5-10.1) mg/dl (1) Abdominal pain Abdominal location: left lower quadrant Qualified Code(s): R10.32 - Left lower quadrant pain
[2021-07-02] MEDS: valACYclovir HCL 500 MG TABLET PO SCH ×3 (08:47→20:50)
[2021-07-02] MEDS: rifAMPin 300 MG CAPSULE PO SCH (08:48)
[2021-07-02] MEDS: predniSONE 10 MG TABLET PO SCH (08:48)
[2021-07-02] MEDS: SACCHAROMYCES BOULARDII 250 MG CAP PO SCH ×2 (08:48→20:51)
[2021-07-02] MEDS: PANTOprazole 40 MG TAB PO SCH (08:49)
[2021-07-02] MEDS: HYDROCORTISONE ACETATE 25 MG SUPP PR SCH ×2 (08:49→20:50)
[2021-07-02] MEDS: GABAPENTIN 100 MG CAP PO SCH ×2 (08:49→20:52)
[2021-07-02] MEDS: FUROSEMIDE 20 MG TAB PO SCH (08:49)
[2021-07-02] MEDS: METOPROLOL TARTRATE 25 MG TAB PO SCH ×2 (08:49→20:52)
[2021-07-02] MEDS: ATORVASTATIN 40 MG TAB PO SCH (08:50)
[2021-07-02] MEDS: ENOXAPARIN INJ 40 MG/0.4 ML SYR SQ SCH (08:50)
--- NOTE | 2021-07-02 09:13 | Surgery Progress Note ---
Date of Service July 02, 2021 Assessment & Plan (1) Colitis: Plan: She is improved today and remains afebrile without leukocytosis We will advance her to a low fiber diet and see how she tolerates this There is no need for emergent surgical intervention as she is not bleeding and has mild diverticulitis/colitis/IBD I do not think transfer to a tertiary care center is needed at this time as there are no indications for emergent surgery Would give her a 10 to 14-day course of p.o. antibiotics once discharged I do think given her complicated history with questionable IBD versus diverticulitis as well as a history of anal fissure, colorectal surgery as an outpatient follow-up would be the best course for her Surgery will sign off at this time, please call with any questions or concerns (2) Diverticulitis: (3) Crohn's disease: (4) Incisional hernia: Admission and Anticipated Discharge Date Admission Date: June 29, 2021 Subjective Patient seen and examined. Tolerating clear liquids without nausea and vomiting. Afebrile. States her abdominal pain is improved since yesterday. Review of Systems Constitutional: no fever and no chills Physical Exam Constitutional: WD/WN, vitals as above Gastrointestinal (Abdomen): Inspection/Auscultation: + abdominal surgical scar; abdomen not distended Percussion/Palpation: + abdomen tender (Mild midline and left-sided, improved since yesterday), abdomen soft and + hernia (Easily reducible ventral without skin changes); no guarding and abdomen not rigid Results & Data ([facility]) Vital Signs (Past 12 Hours) Vital Signs Temp Pulse Resp BP Pulse Ox 07/02/21 07:48 36.7 C 92 H 16 139/74 100 07/01/21 21:23 89 163/86 H 07/01/21 21:21 36.6 C 81 16 166/79 H 97 PG Care Time/CCT Total # of Minutes Spent Total Time Spent with Patient: Total time spent is greater than 50% in coordination of care (as documented) at patient's floor/unit and/or counseling patient: Coding Level of Care Code 33580 Subseq Hosp Care Lvl 2 Diagnoses Colitis K52.9 Diverticulitis K57.92 Crohn's disease K50.90 Incisional hernia K43.2
--- NOTE | 2021-07-02 12:01 | Hospitalist Progress Note ---
Date of Service July 02, 2021 Assessment & Plan (1) Sepsis: Plan: Resuscitated, continue treatment of infection. (2) Acute heart failure with preserved ejection fraction: Plan: Mild pulmonary edema seen on chest x-ray on admission and pt is a poor historian with respect to how her symptoms developed. She did receive Lasix IV 20mg in addition to her oral dose on admission but is now doing well off oxygen. Appears euvolemic. Continues on her Lasix 20 mg daily. (3) Diverticulitis: Plan: Appears to have acute diverticulitis. Transitioned to cipro/flagyl today to complete full 10 day course. (4) Crohn's disease: Plan: Chronic left-sided colitis with recent colonoscopy in March. Possible diagnosis of Crohn's disease and questionable response to steroids --remains on daily prednisone, moderate dose. 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 We will continue treatment for this. May be a candidate for surgical treatment option at a tertiary care facility if ultimately this is not healed. Appreciate surgeons recommendations. Cont hydrocortisone [place] for rectal discomfort in setting of known anal fissure--she reports this is helping (5) Latent tuberculosis by blood test: Plan: Continue Rifampin monotherapy. (6) Diabetes mellitus type 2 in nonobese: Plan: Diet controlled with an A1c of 5.6 (7) Shingles: Plan: Seen in intergluteal fold, there is nothing to culture but clinical appearance is consistent with shingles. Cont Valtrex course. (8) DVT prophylaxis: Plan: Lovenox DNR/DNI Disposition-cont hospitalization for now. Michelle Enamorado DO [facility] Hospitalist Admission and Anticipated Discharge Date Admission Date: June 29, 2021 Subjective 86-year-old female admitted with acute diverticulitis. She has a history of colonoscopy with chronic left-sided colitis consistent with possible Crohn's disease. She has been admitted and placed on IV antibiotics +abdominal pain -generalized, improved afebrile rash consistent with shingles on intergluteal fold-improved constipated--gave miralax Review of Systems Review of Systems: All systems reviewed and negative except as indicated above. Physical Exam Physical Exam: CONSTITUTIONAL: WNWD, vitals as above, generally well- appearing, NAD EYES: normal conjunctivae, no scleral icterus ENT: external ear and nose normal, MMM NECK: trachea midline RESPIRATORY: clear to auscultation bilaterally, no crackles, rales or wheezes, normal respiratory effort CARDIOVASCULAR: regular rate and rhythm, S1 and 2 heard without murmurs, gallops or rubs, no JVD, no peripheral edema, CHEST: inspection of chest was normal GASTROINTESTINAL: soft, NT, ND, no guarding, umbilical hernia with palpable mesh in place. MUSCULOSKELETAL: strength 5/5 throughout, but elderly with generalized weakness in her core, head is normocephalic and atraumatic, SKIN: warm and dry, NEUROLOGIC: CN 2-12 grossly intact, no sensory deficit, normal cognition, normal speech, no tremor PSYCHIATRIC: alert cooperative and answering questions appropriately Results & Data Results & Data ([facility]) Vital Signs (Past 12 Hours) Vital Signs Temp Pulse Resp BP Pulse Ox 07/02/21 07:48 36.7 C 92 H 16 139/74 100 Laboratory Results Short CBC 07/02/21 Range/Units 06:34 WBC 6.82 (4.8-10.8) K/uL Hgb 10.9 L (12.0-16.0) g/dL Hct 33.6 L (37-47) % Plt Count 104 L (130-400) K/uL BMP 07/02/21 06:34 Sodium 131 L Potassium 3.1 L Chloride 99 Carbon Dioxide 26 BUN 7 Creatinine 0.40 L Glucose 118 H Calcium 7.3 L Medications Administered Current Inpatient Medications Acetaminophen (Acetaminophen 325 Mg Tab) 650 mg PO Q4H PRN PRN Reason: Pain or Fever Stop: 07/29/21 13:35 Last Admin: 06/30/21 19:55 Dose: 650 mg Documented by: Atorvastatin Calcium (Atorvastatin 40 Mg Tab) 40 mg PO QAM [facility] Stop: 07/30/21 08:59 Last Admin: 07/02/21 08:50 Dose: 40 mg Documented by: Ciprofloxacin (Ciprofloxacin 500 Mg Tab) 500 mg PO BID [facility] Stop: 07/09/21 11:59 Dextrose (Dextrose 50% 50 Ml Syringe) 25 - 50 ml IV UD PRN; Protocol PRN Reason: Hypoglycemia Protocol Stop: 07/29/21 13:35 Enoxaparin Sodium (Enoxaparin Inj 40 Mg/0.4 Ml Syr) 40 mg SQ QAM [facility] Stop: 08/01/21 08:59 Last Admin: 07/02/21 08:50 Dose: 40 mg Documented by: Furosemide (Furosemide 20 Mg Tab) 20 mg PO QAM [facility] Stop: 07/30/21 08:59 Last Admin: 07/02/21 08:49 Dose: Not Given Documented by: Gabapentin (Gabapentin 100 Mg Cap) 100 mg PO QAM [facility] Stop: 07/30/21 08:59 Last Admin: 07/02/21 08:49 Dose: 100 mg Documented by: Gabapentin (Gabapentin 100 Mg Cap) 200 mg PO HS [facility] Stop: 07/29/21 20:59 Last Admin: 07/01/21 21:24 Dose: 200 mg Documented by: Glucagon (Glucagon For Inj 1 Mg Vial) 1 mg SQ UD PRN; Protocol PRN Reason: Hypoglycemia Protocol Stop: 07/29/21 13:35 Glucose (Glucose 10 Tabs/Tube) 4 - 8 tabs PO UD PRN; Protocol PRN Reason: Hypoglycemia Protocol Stop: 07/29/21 13:35 Glucose (Glucose 40% Gel 15 Gm Tube) 15 - 30 gm PO UD PRN; Protocol PRN Reason: Hypoglycemia Protocol Stop: 07/29/21 13:35 Hydrocortisone (Hydrocortisone Acetate 25 Mg Supp) 25 mg [place] BID [facility] Stop: 07/29/21 20:59 Last Admin: 07/02/21 08:49 Dose: 25 mg Documented by: Levothyroxine Sodium (Levothyroxine Sodium 100 Mcg Tablet) 100 mcg PO DAILYBB [facility] Stop: 07/30/21 06:29 Last Admin: 07/02/21 05:43 Dose: 100 mcg Documented by: Metoprolol Tartrate (Metoprolol Tartrate 25 Mg Tab) 25 mg PO BID [facility] Stop: 07/29/21 20:59 Last Admin: 07/02/21 08:49 Dose: 25 mg Documented by: Metronidazole (Metronidazole 500 Mg Tab) 500 mg PO Q8H [facility] Stop: 07/09/21 11:59 Miscellaneous (Carbohydrates For Hypoglycemia ) 15 - 30 gm PO UD PRN PRN Reason: Hypoglycemia Protocol Stop: 07/29/21 13:35 Miscellaneous (Restasis: Order Awaiting Action) 1 ea N/A QS [facility] Stop: 07/29/21 15:59 Last Admin: 07/02/21 08:25 Dose: Not Given Documented by: Montelukast Sodium (Montelukast Sodium 10 Mg Tablet) 10 mg PO [facility] Stop: 07/29/21 20:59 Last Admin: 07/01/21 21:25 Dose: 10 mg Documented by: Ondansetron HCl (Ondansetron Inj 2 Mg/Ml 2 Ml Vial) 4 mg IV Q6H PRN PRN Reason: Nausea Stop: 07/29/21 13:35 Oxycodone HCl (Oxycodone Hcl Ir 5 Mg Tab (Immediate Release)) 5 mg PO Q6H PRN PRN Reason: Pain Stop: 07/15/21 16:34 Last Admin: 07/01/21 16:53 Dose: 5 mg Documented by: Pantoprazole Sodium (Pantoprazole 40 Mg Tab) 40 mg PO QAM [facility] Stop: 07/30/21 08:59 Last Admin: 07/02/21 08:49 Dose: 40 mg Documented by: Potassium Chloride (Potassium Chloride Crtab 20 Meq Tabcr) 40 meq PO Q6H [facility] Stop: 07/02/21 18:01 Prednisone (Prednisone 10 Mg Tablet) 30 mg PO DAILY [facility] Stop: 07/30/21 08:59 Last Admin: 07/02/21 08:48 Dose: 30 mg Documented by: Rifampin (Rifampin 300 Mg Capsule) 600 mg PO QAM [facility] Stop: 07/07/21 08:59 Last Admin: 07/02/21 08:48 Dose: 600 mg Documented by: Saccharomyces Boulardii (Saccharomyces Boulardii 250 Mg Cap) 250 mg PO BID [facility] Stop: 07/29/21 20:59 Last Admin: 07/02/21 08:48 Dose: 250 mg Documented by: Trazodone HCl (Trazodone Hcl 50 Mg Tab) 50 mg PO HS PRN PRN Reason: Sleep Stop: 07/29/21 13:35 Last Admin: 07/01/21 21:26 Dose: 50 mg Documented by: Valacyclovir HCl (Valacyclovir Hcl 500 Mg Tablet) 1,000 mg PO TID [facility] Stop: 07/06/21 15:29 Last Admin: 07/02/21 08:47 Dose: 1,000 mg Documented by: (1) Sepsis Sepsis acute organ dysfunction status: unspecified Sepsis type: sepsis due to unspecified organism Qualified Code(s): A41.9 - Sepsis, unspecified organism
[2021-07-02] MEDS: POTASSIUM CHLORIDE CRTAB 20 MEQ TABCR PO SCH ×2 (12:40→17:27)
[2021-07-02] MEDS: metroNIDAZOLE 500 MG TAB PO SCH ×2 (12:40→20:52)
[2021-07-02] MEDS: CIPROFLOXACIN 500 MG TAB PO SCH ×2 (12:40→20:52)
[2021-07-02] MEDS ORDERED: POLYETHYLENE (MIRALAX) 17 GM PACK PO ONE (15:24)
[2021-07-02] MEDS: traZODone HCL 50 MG TAB PO PRN (20:49)
[2021-07-02] MEDS: MONTELUKAST SODIUM 10 MG TABLET PO SCH (20:52)
[2021-07-03] MEDS: LEVOTHYROXINE SODIUM 100 MCG TABLET PO SCH (05:50)
[2021-07-03] MEDS: metroNIDAZOLE 500 MG TAB PO SCH ×3 (05:50→21:03)
[2021-07-03] MEDS: oxyCODONE HCL IR 5 MG TAB (IMMEDIATE RELEASE) PO PRN (05:51)
[2021-07-03] MEDS: RESTASIS: ORDER AWAITING ACTION SCH ×3 (07:18→23:11)
[2021-07-03 08:53] LABS: BUN Creatinine Ratio 17.9 (10-20); Calcium 7.5 mg/dl (8.5-10.1); Creatinine Clr Calc Pharmacy 95.7 ml/min; Est GFR (Non-African American) 95.8 ml/min; Magnesium 1.7 mg/dl (1.7-2.4); Potassium 3.9 mmol/L (3.5-5.1)
[2021-07-03] MEDS: ATORVASTATIN 40 MG TAB PO SCH (10:07)
[2021-07-03] MEDS: ENOXAPARIN INJ 40 MG/0.4 ML SYR SQ SCH (10:07)
[2021-07-03] MEDS: CIPROFLOXACIN 500 MG TAB PO SCH ×2 (10:08→21:03)
[2021-07-03] MEDS: METOPROLOL TARTRATE 25 MG TAB PO SCH ×2 (10:08→21:01)
[2021-07-03] MEDS: HYDROCORTISONE ACETATE 25 MG SUPP PR SCH ×2 (10:08→21:09)
[2021-07-03] MEDS: GABAPENTIN 100 MG CAP PO SCH ×2 (10:08→21:02)
[2021-07-03] MEDS: rifAMPin 300 MG CAPSULE PO SCH (10:08)
[2021-07-03] MEDS: predniSONE 10 MG TABLET PO SCH (10:08)
[2021-07-03] MEDS: SACCHAROMYCES BOULARDII 250 MG CAP PO SCH ×2 (10:08→21:00)
[2021-07-03] MEDS: PANTOprazole 40 MG TAB PO SCH (10:08)
[2021-07-03] MEDS: FUROSEMIDE 20 MG TAB PO SCH (10:08)
[2021-07-03] MEDS: valACYclovir HCL 500 MG TABLET PO SCH ×3 (10:09→21:01)
--- NOTE | 2021-07-03 15:09 | Gastroenterology Progress Note ---
Date of Service July 03, 2021 Assessment & Plan (1) Abdominal pain: (2) Colitis: (3) Diverticulitis: Plan: Continue IV antibiotics, and would switch to PO on discharge for total course of 10 days. Outpatient colonoscopy as per her primary GI team Continue therapy for latent TB Remicade as per her Primary GI team as outpatient. Outpatient MRE Consider transfer to tertiary center for colorectal evaluation pending clinical course Admission and Anticipated Discharge Date Admission Date: June 29, 2021 Subjective Continues to complain of some rectal pain and Right lower quadrant pain, but much improved since her arrival at the hospital. She denies any blood in her stools, though they remain loose. She is tolerating a low-fiber diet. She denies any fevers, chills, nausea, vomiting, hematemesis, melena, or hematochezia. She has no further complaints. Review of Systems Constitutional: as per Subjective / HPI Eyes: as per Subjective / HPI Ear, Nose, Mouth, Throat: as per Subjective / HPI Respiratory: as per Subjective / HPI Cardiovascular: as per Subjective / HPI Gastrointestinal: as per Subjective / HPI Musculoskeletal: as per Subjective / HPI Integumentary: as per Subjective / HPI Neurologic: as per Subjective / HPI Psychiatric: as per Subjective / HPI Endocrine: as per Subjective / HPI Hematologic / Lymphatic: as per Subjective / HPI Allergy / Immunological: as per Subjective / HPI Physical Exam Constitutional: WD/WN, vitals as above (Chronic ill-appearing, though NAD) Respiratory: normal respiratory effort, lungs clear to auscultation Cardiovascular: RRR, no murmur, no edema Gastrointestinal (Abdomen): normal bowel sounds, soft, nontender, no hepatosplenomegaly Psychiatric: A+Ox3, euthymic affect Results & Data Results & Data ([facility]) Vital Signs (Past 12 Hours) Vital Signs Temp Pulse Resp BP Pulse Ox 07/03/21 07:45 36.6 C 75 18 132/79 100 PG Care Time/CCT Total # of Minutes Spent Total Time Spent with Patient: Total time spent is greater than 50% in coordination of care (as documented) at patient's floor/unit and/or counseling patient: Coding Level of Care Code 06007 Subseq Obs Care Lvl 3 Diagnoses Abdominal pain R10.32 Abdominal location: left lower quadrant Colitis K52.9 Diverticulitis K57.92 (1) Abdominal pain Abdominal location: left lower quadrant Qualified Code(s): R10.32 - Left lower quadrant pain
[2021-07-03] MEDS: ACETAMINOPHEN 325 MG TAB PO PRN (15:55)
--- NOTE | 2021-07-03 16:47 | Hospitalist Progress Note ---
Date of Service July 03, 2021 Assessment & Plan (1) Sepsis: Plan: Seems resolved with treatment (2) Acute heart failure with preserved ejection fraction: Plan: resolved, s/p iv lasix, now on home dose of po lasix- looks compensated (3) Diverticulitis: Plan: Appears to have acute diverticulitis. Transitioned to cipro/flagyl today to complete full 10 day course D4/10 (4) Crohn's disease: Plan: Chronic left-sided colitis with recent colonoscopy in March. Possible diagnosis of Crohn's disease and questionable response to steroids --remains on daily prednisone, moderate dose. 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 We will continue treatment for this. May be a candidate for surgical treatment option at a tertiary care facility if ultimately this is not healed. Appreciate surgeons recommendations. Cont hydrocortisone NM for rectal discomfort in setting of known anal fissure--she reports this is helping (5) Latent tuberculosis by blood test: Plan: Continue Rifampin monotherapy. (6) Diabetes mellitus type 2 in nonobese: Plan: Diet controlled with an A1c of 5.6 (7) Shingles: Plan: Seen in intergluteal fold, there is nothing to culture but clinical appearance is consistent with shingles. Continue Valtrex course. (8) DVT prophylaxis: Plan: Lovenox DNR/DNI Disposition- Awaiting C diff results given increase in diarrhea- if negative and remains stable, anticipate can be discharged tomorrow back to [place] Updated daughter over the phone Admission and Anticipated Discharge Date Admission Date: June 29, 2021 Subjective Denies any new issues. She is much improved from the time of admission. She had multiple loose bowel movements today per RN. Per daughter over the phone, she has had intermittent episodes of diarrhea from her IBD and this is nothing new to her, however considering her history of C diff and being on antibiotic, will need to rule out C diff. No fever, chills, chest pain, shortness of breath. She says she feels ready to go back to [place]. Physical Exam Physical Exam: General: Lying comfortably in bed, not in distress, on room air HEENT: EOMI, VASHTI, MMM Chest: Clear breath sounds bilaterally, no wheezes or crackles CVS: Regular rate and rhythm, normal heart sounds, no murmur Abdomen: Soft, non tender, not distended, umbilical hernia, normal bowel sounds Neuro: Awake, alert, oriented, conversing well, non focal Extremities: No cyanosis, clubbing or edema Results & Data Results & Data ([facility]) Vital Signs (Past 12 Hours) Vital Signs Temp Pulse Resp BP Pulse Ox 07/03/21 15:57 36.4 C L 79 18 164/75 H 98 07/03/21 07:45 36.6 C 75 18 132/79 100 Laboratory Results BMP 07/03/21 07:45 Sodium 130 L Potassium 3.9 D Chloride 101 Carbon Dioxide 25 BUN 7 Creatinine 0.39 L Glucose 128 H Calcium 7.5 L Medications Administered Current Inpatient Medications Acetaminophen (Acetaminophen 325 Mg Tab) 650 mg PO Q4H PRN PRN Reason: Pain or Fever Stop: 07/29/21 13:35 Last Admin: 07/03/21 15:55 Dose: 650 mg Documented by: Atorvastatin Calcium (Atorvastatin 40 Mg Tab) 40 mg PO [facility] Stop: 07/30/21 08:59 Last Admin: 07/03/21 10:07 Dose: 40 mg Documented by: Ciprofloxacin (Ciprofloxacin 500 Mg Tab) 500 mg PO BID [facility]; Protocol Stop: 07/09/21 11:59 Last Admin: 07/03/21 10:08 Dose: 500 mg Documented by: Dextrose (Dextrose 50% 50 Ml Syringe) 25 - 50 ml IV UD PRN; Protocol PRN Reason: Hypoglycemia Protocol Stop: 07/29/21 13:35 Enoxaparin Sodium (Enoxaparin Inj 40 Mg/0.4 Ml Syr) 40 mg SQ [facility] Stop: 08/01/21 08:59 Last Admin: 07/03/21 10:07 Dose: 40 mg Documented by: Furosemide ([facility]sem[facility] 20 Mg Tab) [facility] Stop: 07/30/21 08:59 Last Admin: 07/03/21 10:08 Dose: 20 mg Documented by: Gabapentin (Gabapentin 100 Mg Cap) [facility] [place] Stop: 07/30/21 08:59 Last Admin: 07/03/21 10:08 Dose: 100 mg Documented by: Gabapentin (Gabapentin 100 Mg Cap) 200 mg PO [facility] Stop: 07/29/21 20:59 Last Admin: 07/02/21 20:52 Dose: 200 mg Documented by: Glucagon (Glucagon For Inj 1 Mg Vial) 1 mg SQ UD PRN; Protocol PRN Reason: Hypoglycemia Protocol Stop: 07/29/21 13:35 Glucose (Glucose 10 Tabs/Tube) 4 - 8 tabs PO UD PRN; Protocol PRN Reason: Hypoglycemia Protocol Stop: 07/29/21 13:35 Glucose (Glucose 40% Gel 15 Gm Tube) 15 - 30 gm PO UD PRN; Protocol PRN Reason: Hypoglycemia Protocol Stop: 07/29/21 13:35 Hydrocortisone (Hydrocortisone Acetate 25 Mg Supp) 25 mg NM BID [facility] Stop: 07/29/21 20:59 Last Admin: 07/03/21 10:08 Dose: 25 mg Documented by: Levothyroxine Sodium (Levothyroxine Sodium 100 Mcg Tablet) 100 mcg PO DAILYBB [facility] Stop: 07/30/21 06:29 Last Admin: 07/03/21 05:50 Dose: 100 mcg Documented by: Metoprolol Tartrate (Metoprolol Tartrate 25 Mg Tab) 25 mg PO BID [facility] Stop: 07/29/21 20:59 Last Admin: 07/03/21 10:08 Dose: 25 mg Documented by: Metronidazole (Metronidazole 500 Mg Tab) 500 mg PO Q8H [facility]; Protocol Stop: 07/09/21 12:14 Last Admin: 07/03/21 13:21 Dose: 500 mg Documented by: Miscellaneous (Carbohydrates For Hypoglycemia ) 15 - 30 gm PO UD PRN PRN Reason: Hypoglycemia Protocol Stop: 07/29/21 13:35 Miscellaneous (Restasis: Order Awaiting Action) 1 ea N/A QS [facility] Stop: 07/29/21 15:59 Last Admin: 07/03/21 15:11 Dose: Not Given Documented by: Montelukast Sodium (Montelukast Sodium 10 Mg Tablet) 10 mg PO HS [facility] Stop: 07/29/21 20:59 Last Admin: 07/02/21 20:52 Dose: 10 mg Documented by: Ondansetron HCl (Ondansetron Inj 2 Mg/Ml 2 Ml Vial) 4 mg IV Q6H PRN PRN Reason: Nausea Stop: 07/29/21 13:35 Oxycodone HCl (Oxycodone Hcl Ir 5 Mg Tab (Immediate Release)) 5 mg PO Q6H PRN PRN Reason: Pain Stop: 07/15/21 16:34 Last Admin: 07/03/21 05:51 Dose: 5 mg Documented by: Pantoprazole Sodium (Pantoprazole 40 Mg Tab) 40 mg PO QAM [facility] Stop: 07/30/21 08:59 Last Admin: 07/03/21 10:08 Dose: 40 mg Documented by: Prednisone (Prednisone 10 Mg Tablet) 30 mg PO DAILY [facility] Stop: 07/30/21 08:59 Last Admin: 07/03/21 10:08 Dose: 30 mg Documented by: Rifampin (Rifampin 300 Mg Capsule) 600 mg PO QAM [facility] Stop: 07/07/21 08:59 Last Admin: 07/03/21 10:08 Dose: 600 mg Documented by: Saccharomyces Boulardii (Saccharomyces Boulardii 250 Mg Cap) 250 mg PO BID [facility] Stop: 07/29/21 20:59 Last Admin: 07/03/21 10:08 Dose: 250 mg Documented by: Trazodone HCl (Trazodone Hcl 50 Mg Tab) 50 mg PO HS PRN PRN Reason: Sleep Stop: 07/29/21 13:35 Last Admin: 07/02/21 20:49 Dose: 50 mg Documented by: Valacyclovir HCl (Valacyclovir Hcl 500 Mg Tablet) 1,000 mg PO TID [facility] Stop: 07/06/21 15:29 Last Admin: 07/03/21 14:18 Dose: 1,000 mg Documented by: (1) Sepsis Sepsis acute organ dysfunction status: unspecified Sepsis type: sepsis due to unspecified organism Qualified Code(s): A41.9 - Sepsis, unspecified organism
[2021-07-03] MEDS: MONTELUKAST SODIUM 10 MG TABLET PO SCH (21:01)
[2021-07-04] MEDS: metroNIDAZOLE 500 MG TAB PO SCH ×3 (05:30→20:36)
[2021-07-04] MEDS: LEVOTHYROXINE SODIUM 100 MCG TABLET PO SCH (05:30)
[2021-07-04] MEDS: RESTASIS: ORDER AWAITING ACTION SCH ×3 (07:10→23:12)
[2021-07-04] MEDS: ACETAMINOPHEN 325 MG TAB PO PRN (08:12)
[2021-07-04] MEDS: PANTOprazole 40 MG TAB PO SCH (08:13)
[2021-07-04] MEDS: CIPROFLOXACIN 500 MG TAB PO SCH ×2 (08:13→20:36)
[2021-07-04] MEDS: GABAPENTIN 100 MG CAP PO SCH ×2 (08:13→20:37)
[2021-07-04] MEDS: ENOXAPARIN INJ 40 MG/0.4 ML SYR SQ SCH (08:13)
[2021-07-04] MEDS: predniSONE 10 MG TABLET PO SCH (08:13)
[2021-07-04] MEDS: SACCHAROMYCES BOULARDII 250 MG CAP PO SCH ×2 (08:13→20:37)
[2021-07-04] MEDS: FUROSEMIDE 20 MG TAB PO SCH (08:13)
[2021-07-04] MEDS: ATORVASTATIN 40 MG TAB PO SCH (08:13)
[2021-07-04] MEDS: HYDROCORTISONE ACETATE 25 MG SUPP PR SCH ×2 (08:13→20:40)
[2021-07-04] MEDS: rifAMPin 300 MG CAPSULE PO SCH (08:13)
[2021-07-04] MEDS: METOPROLOL TARTRATE 25 MG TAB PO SCH ×2 (08:13→20:37)
[2021-07-04] MEDS: valACYclovir HCL 500 MG TABLET PO SCH ×3 (08:13→20:37)
[2021-07-04 08:23] LABS: BUN Creatinine Ratio 11.8 (10-20); Calcium 7.9 mg/dl (8.5-10.1); Creatinine Clr Calc Pharmacy 109.7 ml/min; Est GFR (African American) 116.1 ml/min; Est GFR (Non-African American) 100.2 ml/min; Magnesium 1.6 mg/dl (1.7-2.4); Phosphorus 1.9 mg/dl (2.5-4.9); Potassium 3.4 mmol/L (3.5-5.1)
[2021-07-04] MEDS: oxyCODONE HCL IR 5 MG TAB (IMMEDIATE RELEASE) PO PRN (17:12)
[2021-07-04] MEDS ORDERED: POTASSIUM CHLORIDE CRTAB 20 MEQ TABCR PO ONE (17:15)
--- NOTE | 2021-07-04 17:15 | Hospitalist Progress Note ---
Date of Service July 04, 2021 Assessment & Plan (1) Sepsis: Plan: Seems resolved with treatment (2) Acute heart failure with preserved ejection fraction: Plan: resolved, s/p iv lasix, now on home dose of po lasix- looks compensated (3) Diverticulitis: Plan: Appears to have acute diverticulitis. Transitioned to cipro/flagyl today to complete full 10 day course D5/10 (4) Crohn's disease: Plan: Chronic left-sided colitis with recent colonoscopy in March. Possible diagnosis of Crohn's disease and questionable response to steroids --remains on daily prednisone, moderate dose. 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 We will continue treatment for this. May be a candidate for surgical treatment option at a tertiary care facility if ultimately this is not healed. Appreciate surgeons recommendations. Cont hydrocortisone SC for rectal discomfort in setting of known anal fissure--she reports this is helping (5) Latent tuberculosis by blood test: Plan: Continue Rifampin monotherapy. (6) Diabetes mellitus type 2 in nonobese: Plan: Diet controlled with an A1c of 5.6 (7) Shingles: Plan: Seen in intergluteal fold, there is nothing to culture but clinical appearance is consistent with shingles. Currently on Valtrex course. Spoke to her daughter over the phone who stated she always had this lesion down there and nothing new- she doubts this is shingles and states likely from [facility] n's. Plan: Hypokalemia- repleted, recheck in am Hypomagnesemia- repleted, recheck in am Hypophosphatemia- repleted, recheck in am Hyponatremia- mild, improved, recheck in am DVT ppx- Lovenox DNR/DNI Disposition- Stable to go back but per CM, staff from her [facility] needs to come and evaluate her before she can be transferred back and unfortunately they can't come until tomorrow Updated daughter over the phone Admission and Anticipated Discharge Date Admission Date: June 29, 2021 Subjective Denies any new issues. She feels good. She feels ready to go back. Denies any fever, chills, chest pain, shortness of breath, nausea, vomiting. She does not remember her bowel movements. She is asking when tomorrow can she go back to her place. Physical Exam Physical Exam: General: Lying comfortably in bed, not in distress, on room air HEENT: EOMI, VASHTI, MMM Chest: Clear breath sounds bilaterally, no wheezes or crackles CVS: Regular rate and rhythm, normal heart sounds, no murmur Abdomen: Soft, non tender, not distended, umbilical hernia, normal bowel sounds Neuro: Awake, alert, oriented, conversing well, non focal Extremities: No cyanosis, clubbing or edema Results & Data Results & Data ([facility]) Vital Signs (Past 12 Hours) Vital Signs Temp Pulse Resp BP Pulse Ox 07/04/21 15:00 36.5 C 84 18 144/75 H 96 07/04/21 07:35 36.7 C 89 18 137/81 97 Laboratory Results BMP 07/04/21 05:41 Sodium 131 L Potassium 3.4 L Chloride 100 Carbon Dioxide 24 BUN 4 L Creatinine 0.34 L Glucose 124 H Calcium 7.9 L Medications Administered Current Inpatient Medications Acetaminophen (Acetaminophen 325 Mg Tab) 650 mg PO Q4H PRN PRN Reason: Pain or Fever Stop: 07/29/21 13:35 Last Admin: 07/04/21 08:12 Dose: 650 mg Documented by: Atorvastatin Calcium (Atorvastatin 40 Mg Tab) 40 mg PO [facility] Stop: 07/30/21 08:59 Last Admin: 07/04/21 08:13 Dose: 40 mg Documented by: Ciprofloxacin (Ciprofloxacin 500 Mg Tab) 500 mg PO BID [facility]; Protocol Stop: 07/09/21 11:59 Last Admin: 07/04/21 08:13 Dose: 500 mg Documented by: Dextrose (Dextrose 50% 50 Ml Syringe) 25 - 50 ml IV UD PRN; Protocol PRN Reason: Hypoglycemia Protocol Stop: 07/29/21 13:35 Enoxaparin Sodium (Enoxaparin Inj 40 Mg/0.4 Ml Syr) 40 mg SQ [facility] Stop: 08/01/21 08:59 Last Admin: 07/04/21 08:13 Dose: 40 mg Documented by: Furosemide (Furosemide 20 Mg Tab) 20 mg PO [facility] Stop: 07/30/21 08:59 Last Admin: 07/04/21 08:13 Dose: 20 mg Documented by: Gabapentin (Gabapentin 100 Mg Cap) 100 mg PO [facility] Stop: 07/30/21 08:59 Last Admin: 07/04/21 08:13 Dose: 100 mg Documented by: Gabapentin (Gabapentin 100 Mg Cap) 200 mg PO HS [facility] Stop: 07/29/21 20:59 Last Admin: 07/03/21 21:02 Dose: 200 mg Documented by: Glucagon (Glucagon For Inj 1 Mg Vial) 1 mg SQ UD PRN; Protocol PRN Reason: Hypoglycemia Protocol Stop: 07/29/21 13:35 Glucose (Glucose 10 Tabs/Tube) 4 - 8 tabs PO UD PRN; Protocol PRN Reason: Hypoglycemia Protocol Stop: 07/29/21 13:35 Glucose (Glucose 40% Gel 15 Gm Tube) 15 - 30 gm PO UD PRN; Protocol PRN Reason: Hypoglycemia Protocol Stop: 07/29/21 13:35 Hydrocortisone (Hydrocortisone Acetate 25 Mg Supp) 25 mg SC BID [facility] Stop: 07/29/21 20:59 Last Admin: 07/04/21 08:13 Dose: 25 mg Documented by: Levothyroxine Sodium (Levothyroxine Sodium 100 Mcg Tablet) 100 mcg PO DAILYBB [facility] Stop: 07/30/21 06:29 Last Admin: 07/04/21 05:30 Dose: 100 mcg Documented by: Magnesium Oxide (Magnesium Oxide 400 Mg Tab) 400 mg PO BID [facility] Stop: 08/03/21 20:59 Metoprolol Tartrate (Metoprolol Tartrate 25 Mg Tab) 25 mg PO BID [facility] Stop: 07/29/21 20:59 Last Admin: 07/04/21 08:13 Dose: 25 mg Documented by: Metronidazole (Metronidazole 500 Mg Tab) 500 mg PO Q8H [facility]; Protocol Stop: 07/09/21 12:14 Last Admin: 07/04/21 12:46 Dose: 500 mg Documented by: Miscellaneous (Carbohydrates For Hypoglycemia ) 15 - 30 gm PO UD PRN PRN Reason: Hypoglycemia Protocol Stop: 07/29/21 13:35 Miscellaneous (Restasis: Order Awaiting Action) 1 ea N/A QS [facility] Stop: 07/29/21 15:59 Last Admin: 07/04/21 15:07 Dose: Not Given Documented by: Montelukast Sodium (Montelukast Sodium 10 Mg Tablet) 10 mg PO [facility] Stop: 07/29/21 20:59 Last Admin: 07/03/21 21:01 Dose: 10 mg Documented by: Ondansetron HCl (Ondansetron Inj 2 Mg/Ml 2 Ml Vial) 4 mg IV Q6H PRN PRN Reason: Nausea Stop: 07/29/21 13:35 Oxycodone HCl (Oxycodone Hcl Ir 5 Mg Tab (Immediate Release)) 5 mg PO Q6H PRN PRN Reason: Pain Stop: 07/15/21 16:34 Last Admin: 07/03/21 05:51 Dose: 5 mg Documented by: Pantoprazole Sodium (Pantoprazole 40 Mg Tab) 40 mg PO QAM [facility] Stop: 07/30/21 08:59 Last Admin: 07/04/21 08:13 Dose: 40 mg Documented by: Potassium Chloride (Potassium Chloride Crtab 20 Meq Tabcr) 20 meq PO NOW ONE Stop: 07/04/21 16:59 Potassium Phosphate (Pot Phosphate Monobasic W/ Sod Tab) 2 tab PO QID [facility] Stop: 08/03/21 16:59 Prednisone (Prednisone 10 Mg Tablet) 30 mg PO DAILY [facility] Stop: 07/30/21 08:59 Last Admin: 07/04/21 08:13 Dose: 30 mg Documented by: Rifampin (Rifampin 300 Mg Capsule) 600 mg PO QAM [facility] Stop: 07/07/21 08:59 Last Admin: 07/04/21 08:13 Dose: 600 mg Documented by: Saccharomyces Boulardii (Saccharomyces Boulardii 250 Mg Cap) 250 mg PO BID [facility] Stop: 07/29/21 20:59 Last Admin: 07/04/21 08:13 Dose: 250 mg Documented by: Trazodone HCl (Trazodone Hcl 50 Mg Tab) 50 mg PO HS PRN PRN Reason: Sleep Stop: 07/29/21 13:35 Last Admin: 07/02/21 20:49 Dose: 50 mg Documented by: Valacyclovir HCl (Valacyclovir Hcl 500 Mg Tablet) 1,000 mg PO TID [facility] Stop: 07/06/21 15:29 Last Admin: 07/04/21 14:37 Dose: 1,000 mg Documented by: (1) Sepsis Sepsis acute organ dysfunction status: unspecified Sepsis type: sepsis due to unspecified organism Qualified Code(s): A41.9 - Sepsis, unspecified organism
[2021-07-04] MEDS: POT PHOSPHATE MONOBASIC W/ SOD TAB PO SCH ×2 (18:25→20:37)
[2021-07-04] MEDS: MAGNESIUM OXIDE 400 MG TAB PO SCH (20:36)
[2021-07-04] MEDS: MONTELUKAST SODIUM 10 MG TABLET PO SCH (20:37)
[2021-07-05] MEDS: metroNIDAZOLE 500 MG TAB PO SCH ×3 (05:29→20:12)
[2021-07-05] MEDS: LEVOTHYROXINE SODIUM 100 MCG TABLET PO SCH (05:29)
[2021-07-05 06:53] LABS: BUN Creatinine Ratio 13.5 (10-20); Calcium 7.5 mg/dl (8.5-10.1); Creatinine Clr Calc Pharmacy 100.8 ml/min; Est GFR (African American) 112.9 ml/min; Est GFR (Non-African American) 97.4 ml/min; Magnesium 1.4 mg/dl (1.7-2.4); Phosphorus 2.6 mg/dl (2.5-4.9); Potassium 3.4 mmol/L (3.5-5.1)
[2021-07-05] MEDS ORDERED: POTASSIUM CHLORIDE CRTAB 20 MEQ TABCR PO ONE (07:42)
--- NOTE | 2021-07-05 09:14 | Gastroenterology Progress Note ---
Date of Service July 05, 2021 Assessment & Plan (1) Abdominal pain: Plan: Pt is a 86 year old female followed for diverticulitis, rectal ulcer, pain ? IBD. - Cipro/Flagyl x 10 days total for diverticulitis - Continue Prednisone - Treatment for latent TB per primary team, currently on Rifampin - Sigmoidscopy by Dr. Webber today Plan: Attg add: I interviewed and examined pt, reviewed chart and labs. Pt with h/o Admission and Anticipated Discharge Date Admission Date: June 29, 2021 Subjective Pt still c/o rectal pain though admits improved, no n/v, abd pain. Nurse reports some mild hematochezia. Stools loose per chart Review of Systems Review of Systems: All systems reviewed & are unremarkable except as noted in HPI & below Physical Exam Constitutional: WD/WN, vitals as above well groomed, cooperative and comfortable Eyes: PERRL, conjunctivae normal, anicteric sclerae ENMT: external ear and nose normal, oropharynx normal Respiratory: normal respiratory effort, lungs clear to auscultation Cardiovascular: RRR, no murmur, no edema Gastrointestinal (Abdomen): Soft, tender on hernia (reducible), BS normal Skin: no rashes, warm and dry no jaundice Psychiatric: A+Ox3, euthymic affect Lymphatic: no lymphedema Results & Data ([facility]) Vital Signs (Past 12 Hours) Vital Signs Temp Pulse Resp BP Pulse Ox 07/05/21 07:15 36.7 C 94 H 16 142/71 H 95 07/04/21 21:39 36.6 C 80 18 167/81 H 100 (1) Abdominal pain Abdominal location: left lower quadrant Qualified Code(s): R10.32 - Left lower quadrant pain
[2021-07-05] MEDS: predniSONE 10 MG TABLET PO SCH (09:45)
[2021-07-05] MEDS: GABAPENTIN 100 MG CAP PO SCH ×2 (09:45→20:13)
[2021-07-05] MEDS: ATORVASTATIN 40 MG TAB PO SCH (09:45)
[2021-07-05] MEDS: CIPROFLOXACIN 500 MG TAB PO SCH ×2 (09:45→20:12)
[2021-07-05] MEDS: MAGNESIUM OXIDE 400 MG TAB PO SCH ×2 (09:45→20:13)
[2021-07-05] MEDS: FUROSEMIDE 20 MG TAB PO SCH (09:45)
[2021-07-05] MEDS: PANTOprazole 40 MG TAB PO SCH (09:45)
[2021-07-05] MEDS: METOPROLOL TARTRATE 25 MG TAB PO SCH ×2 (09:45→20:13)
[2021-07-05] MEDS: POT PHOSPHATE MONOBASIC W/ SOD TAB PO SCH ×4 (09:45→20:13)
[2021-07-05] MEDS: valACYclovir HCL 500 MG TABLET PO SCH ×3 (09:46→20:12)
[2021-07-05] MEDS: ENOXAPARIN INJ 40 MG/0.4 ML SYR SQ SCH (09:46)
[2021-07-05] MEDS: rifAMPin 300 MG CAPSULE PO SCH (09:46)
[2021-07-05] MEDS: SACCHAROMYCES BOULARDII 250 MG CAP PO SCH ×2 (09:46→20:12)
[2021-07-05] MEDS: RESTASIS: ORDER AWAITING ACTION SCH ×3 (09:47→22:03)
[2021-07-05] MEDS: HYDROCORTISONE ACETATE 25 MG SUPP PR SCH ×2 (10:20→20:13)
[2021-07-05] MEDS: MAGNESIUM SULFATE / D5W 1 GM/100 ML BAG IV SCH ×2 (10:27→14:56)
[2021-07-05] MEDS ORDERED: LIDOCAINE 2% JELLY 5 ML TUBE ONE (12:21)
--- NOTE | 2021-07-05 12:48 | GI REPORT ---
Patient Name: Iwona Skaggs Procedure Date: 07/05/2021 11:58 AM Date of : 1935 Admit Type: Inpatient Age: 86 Gender: Female Attending MD: Joy Webber MD Procedure: Flexible Sigmoidoscopy Providers: Joy Webber MD Referring MD: Yahir Joyner Md Indications: Abnormal CT of the GI tract Medicines: None Complications: No immediate complications. Procedure: Pre-Anesthesia Assessment: - ASA Grade Assessment: III - A patient with severe systemic disease. After obtaining informed consent, the endoscope was passed under direct vision. Throughout the procedure, the patient's blood pressure, pulse, and oxygen saturations were monitored continuously. The Endoscope was introduced through the anus and advanced to the rectosigmoid junction. The flexible sigmoidoscopy was accomplished without difficulty. The patient tolerated the procedure well. The quality of the bowel preparation was adequate. Findings: There was a midline posterior anal fissure. There was ulceration of the anal canal. There were pseudopolyps just proximal to the anal verge. There mucosa of the rectum was normal. There was marked mucosal edema, friability and marked luminal narrowing of the mucosa in the sigmoid colon. I could not identify the lumen of the colon due to edema, and the procedure was aborted. 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 Inflammatory change of the rectosigmoid with marked narrowing of the colon lumen. Recommendation: - Discharge patient to floor. - Consider pelvic MRI to eval for perial fistulizing disease, eval for diverticular stricture. - Continue antibiotics for possible diverticulitis. - Consider initiation of biologic. Scott Velasquez MD 07/05/2021 12:48:23 PM This report has been signed electronically. Note Initiated On: 07/05/2021 11:58 AM Number of Addenda: 0 I attest to the content of the Intraoperative Record and orders documented therein, exceptions below {[id number]}
--- NOTE | 2021-07-05 19:02 | Hospitalist Progress Note ---
Date of Service July 05, 2021 Assessment & Plan (1) Sepsis: Plan: Seems resolved with treatment (2) Acute heart failure with preserved ejection fraction: Plan: resolved, s/p iv lasix, now on home dose of po lasix- looks compensated (3) Diverticulitis: Plan: Appears to have acute diverticulitis. Transitioned to cipro/flagyl today to complete full 10 day course D6/10 (4) Crohn's disease: Plan: Chronic left-sided colitis with recent colonoscopy in March. Possible diagnosis of Crohn's disease and questionable response to steroids --remains on daily prednisone, moderate dose. 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 We will continue treatment for this. May be a candidate for surgical treatment option at a tertiary care facility if ultimately this is not healed. Appreciate surgeons recommendations. Cont hydrocortisone NE for rectal discomfort in setting of known anal fissure--she reports this is helping S/p sigmoidoscopy today- Findings: There was a midline posterior anal fissure. There was ulceration of the anal canal. There were pseudopolyps just proximal to the anal verge. There mucosa of the rectum was normal. There was marked mucosal edema, friability and marked luminal narrowing of the mucosa in the sigmoid colon. I could not identify the lumen of the colon due to edema, and the procedure was aborted. 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 Inflammatory change of the rectosigmoid with marked narrowing of the colon lumen. Recommendation:- Consider pelvic MRI to eval for perial fistulizing disease, eval for diverticular stricture. - Continue antibiotics for possible diverticulitis. - Consider initiation of biologic. Will order MRI pelvis per GI recommendation- Patient agrees to get MRI. (5) Latent tuberculosis by blood test: Plan: Continue Rifampin monotherapy. (6) Diabetes mellitus type 2 in nonobese: Plan: Diet controlled with an A1c of 5.6 (7) Shingles: Plan: Seen in intergluteal fold, there is nothing to culture but clinical appearance is consistent with shingles. Currently on Valtrex course. Spoke to her daughter over the phone who stated she always had this lesion down there and nothing new- she doubts this is shingles and states likely from Crohn's. Plan: Hypokalemia- repleted, recheck in am Hypomagnesemia- repleted, recheck in am Hypophosphatemia- resolved Hyponatremia- mild, recheck in am DVT ppx-sc Lovenox DNR/DNI Disposition- Patient not evaluated by her [facility] staff yet. MRI pelvis pending. Admission and Anticipated Discharge Date Admission Date: June 29, 2021 Subjective No new issues. Feels fine. Feels ready to go back. Denies any nausea, vomiting, pain, fever or chills. She had sigmoidoscopy today. Physical Exam Physical Exam: General: Lying comfortably in bed, not in distress, on room air HEENT: EOMI, VASHTI, MMM Chest: Clear breath sounds bilaterally, no wheezes or crackles CVS: Regular rate and rhythm, normal heart sounds, no murmur Abdomen: Soft, non tender, not distended, umbilical hernia, normal bowel sounds Neuro: Awake, alert, oriented, conversing well, non focal Extremities: No cyanosis, clubbing or edema Results & Data Results & Data ([facility]) Vital Signs (Past 12 Hours) Vital Signs Temp Pulse Resp BP BP Pulse Ox 07/05/21 15:23 36.6 C 100 H 16 139/74 98 07/05/21 12:32 96 H 16 154/79 H 96 07/05/21 12:09 93 H 16 159/88 H 99 07/05/21 07:15 36.7 C 94 H 16 142/71 H 95 Laboratory Results [facility] 07/05/21 06:00 Sodium 130 L Potassium 3.4 L Chloride 98 Carbon Dioxide 25 BUN 5 L Creatinine 0.37 L Glucose 127 H Calcium 7.5 L Medications Administered Current Inpatient Medications Acetaminophen (Acetaminophen 325 Mg Tab) 650 mg PO Q4H PRN PRN Reason: Pain or Fever Stop: 07/29/21 13:35 Last Admin: 07/04/21 08:12 Dose: 650 mg Documented by: Atorvastatin Calcium (Atorvastatin 40 Mg Tab) 40 mg PO QAM [facility] Stop: 07/30/21 08:59 Last Admin: 07/05/21 09:45 Dose: 40 mg Documented by: Ciprofloxacin (Ciprofloxacin 500 Mg Tab) 500 mg PO BID [facility]; Protocol Stop: 07/09/21 11:59 Last Admin: 07/05/21 09:45 Dose: 500 mg Documented by: Dextrose (Dextrose 50% 50 Ml Syringe) 25 - 50 ml IV UD PRN; Protocol PRN Reason: Hypoglycemia Protocol Stop: 07/29/21 13:35 Enoxaparin Sodium (Enoxaparin Inj 40 Mg/0.4 Ml Syr) 40 mg SQ QAM [facility] Stop: 08/01/21 08:59 Last Admin: 07/05/21 09:46 Dose: 40 mg Documented by: Furosemide (Furosemide 20 Mg Tab) 20 mg PO QAM [facility] Stop: 07/30/21 08:59 Last Admin: 07/05/21 09:45 Dose: 20 mg Documented by: Gabapentin (Gabapentin 100 Mg Cap) 100 mg PO QAM [facility] Stop: 07/30/21 08:59 Last Admin: 07/05/21 09:45 Dose: 100 mg Documented by: Gabapentin (Gabapentin 100 Mg Cap) 200 mg PO HS [facility] Stop: 07/29/21 20:59 Last Admin: 07/04/21 20:37 Dose: 200 mg Documented by: Glucagon (Glucagon For Inj 1 Mg Vial) 1 mg SQ UD PRN; Protocol PRN Reason: Hypoglycemia Protocol Stop: 07/29/21 13:35 Glucose (Glucose 10 Tabs/Tube) 4 - 8 tabs PO UD PRN; Protocol PRN Reason: Hypoglycemia Protocol Stop: 07/29/21 13:35 Glucose (Glucose 40% Gel 15 Gm Tube) 15 - 30 gm PO UD PRN; Protocol PRN Reason: Hypoglycemia Protocol Stop: 07/29/21 13:35 Hydrocortisone (Hydrocortisone Acetate 25 Mg Supp) 25 mg NE BID [facility] Stop: 07/29/21 20:59 Last Admin: 07/05/21 10:20 Dose: Not Given Documented by: Levothyroxine Sodium (Levothyroxine Sodium 100 Mcg Tablet) 100 mcg PO DAILYBB [facility] Stop: 07/30/21 06:29 Last Admin: 07/05/21 05:29 Dose: 100 mcg Documented by: Magnesium Oxide (Magnesium Oxide 400 Mg Tab) 400 mg PO BID [facility] Stop: 08/03/21 20:59 Last Admin: 07/05/21 09:45 Dose: 400 mg Documented by: Metoprolol Tartrate (Metoprolol Tartrate 25 Mg Tab) 25 mg PO BID [facility] Stop: 07/29/21 20:59 Last Admin: 07/05/21 09:45 Dose: 25 mg Documented by: Metronidazole (Metronidazole 500 Mg Tab) 500 mg PO Q8H [facility]; Protocol Stop: 07/09/21 12:14 Last Admin: 07/05/21 13:18 Dose: 500 mg Documented by: Miscellaneous (Carbohydrates For Hypoglycemia ) 15 - 30 gm PO UD PRN PRN Reason: Hypoglycemia Protocol Stop: 07/29/21 13:35 Miscellaneous (Restasis: Order Awaiting Action) 1 ea N/A QS [facility] Stop: 07/29/21 15:59 Last Admin: 07/05/21 15:52 Dose: Not Given Documented by: Montelukast Sodium (Montelukast Sodium 10 Mg Tablet) 10 mg PO HS [facility] Stop: 07/29/21 20:59 Last Admin: 07/04/21 20:37 Dose: 10 mg Documented by: Ondansetron HCl (Ondansetron Inj 2 Mg/Ml 2 Ml Vial) 4 mg IV Q6H PRN PRN Reason: Nausea Stop: 07/29/21 13:35 Last Admin: 07/04/21 20:11 Dose: 4 mg Documented by: Oxycodone HCl (Oxycodone Hcl Ir 5 Mg Tab (Immediate Release)) 5 mg PO Q6H PRN PRN Reason: Pain Stop: 07/15/21 16:34 Last Admin: 07/04/21 17:12 Dose: 5 mg Documented by: Pantoprazole Sodium (Pantoprazole 40 Mg Tab) 40 mg PO QAM [facility] Stop: 07/30/21 08:59 Last Admin: 07/05/21 09:45 Dose: 40 mg Documented by: Potassium Phosphate (Pot Phosphate Monobasic W/ Sod Tab) 2 tab PO QID [facility] Stop: 08/03/21 16:59 Last Admin: 07/05/21 17:18 Dose: 2 tab Documented by: Prednisone (Prednisone 10 Mg Tablet) 30 mg PO DAILY [facility] Stop: 07/30/21 08:59 Last Admin: 07/05/21 09:45 Dose: 30 mg Documented by: Rifampin (Rifampin 300 Mg Capsule) 600 mg PO QAM [facility] Stop: 07/07/21 08:59 Last Admin: 07/05/21 09:46 Dose: 600 mg Documented by: Saccharomyces Boulardii (Saccharomyces Boulardii 250 Mg Cap) 250 mg PO BID [facility] Stop: 07/29/21 20:59 Last Admin: 07/05/21 09:46 Dose: 250 mg Documented by: Trazodone HCl (Trazodone Hcl 50 Mg Tab) 50 mg PO HS PRN PRN Reason: Sleep Stop: 07/29/21 13:35 Last Admin: 07/02/21 20:49 Dose: 50 mg Documented by: Valacyclovir HCl (Valacyclovir Hcl 500 Mg Tablet) 1,000 mg PO TID [facility] Stop: 07/06/21 15:29 Last Admin: 07/05/21 13:18 Dose: 1,000 mg Documented by: (1) Sepsis Sepsis acute organ dysfunction status: unspecified Sepsis type: sepsis due to unspecified organism Qualified Code(s): A41.9 - Sepsis, unspecified organism
[2021-07-05] MEDS: MONTELUKAST SODIUM 10 MG TABLET PO SCH (20:12)
[2021-07-06] MEDS: metroNIDAZOLE 500 MG TAB PO SCH ×3 (03:45→21:28)
[2021-07-06] MEDS: oxyCODONE HCL IR 5 MG TAB (IMMEDIATE RELEASE) PO PRN (03:46)
[2021-07-06] MEDS: LEVOTHYROXINE SODIUM 100 MCG TABLET PO SCH (05:52)
--- NOTE | 2021-07-06 08:49 | Gastroenterology Progress Note ---
Date of Service July 06, 2021 Assessment & Plan (1) Abdominal pain: Plan: Pt is a 86 year old female followed for diverticulitis, rectal ulcer. Sigmoidoscopy performed yesterday showed anal fissure, inflammatory changes in the rectosigmoid area with marked stricturing. - Cipro/Flagyl x 10 days total for diverticulitis - Continue Prednisone - Treatment for latent TB per primary team, currently on Rifampin - Obtain MRI pelvis today to eval for strictures/fistulizing disease - Will discuss with Dr. Polanco possible start of Entyvio for Crohn's. Admission and Anticipated Discharge Date Admission Date: June 29, 2021 Supervising Physician Co-Signing Physician Notes I have personally seen and examined the patient with FOSTER Maya. Her not reflects my exam and findings. I agree with her impression and plan. Patient was completing a course of latent TB treatment recommended by ID. She should be cleared to get her 1st Remicade infusion the end of this week. Will confirm. Rick Johnson. Subjective Patient reports that she still having rectal pain. Denies abdominal pain, nausea or vomiting. Loose stools reported this morning. She is anticipating MRI study today. Review of Systems Review of Systems: All systems reviewed & are unremarkable except as noted in HPI & below Physical Exam Constitutional: WD/WN, vitals as above well groomed, cooperative and comfortable Eyes: PERRL, conjunctivae normal, anicteric sclerae ENMT: external ear and nose normal, oropharynx normal Respiratory: normal respiratory effort, lungs clear to auscultation Cardiovascular: RRR, no murmur, no edema Gastrointestinal (Abdomen): Soft, nontender except for incisional hernia area. Bowel sounds hypoactive Skin: no rashes, warm and dry no jaundice Psychiatric: A+Ox3, euthymic affect Lymphatic: no lymphedema Results & Data ([facility]) Vital Signs (Past 12 Hours) Vital Signs Temp Pulse Resp BP Pulse Ox 07/06/21 07:30 36.6 C 91 H 16 123/69 95 07/05/21 23:08 36.5 C 81 17 151/79 H 100 (1) Abdominal pain Abdominal location: left lower quadrant Qualified Code(s): R10.32 - Left lower quadrant pain
[2021-07-06 08:55] LABS: BUN Creatinine Ratio 11.1 (10-20); Calcium 7.7 mg/dl (8.5-10.1); Creatinine Clr Calc Pharmacy 103.6 ml/min; Est GFR (Non-African American) 98.3 ml/min; Magnesium 1.8 mg/dl (1.7-2.4); Potassium 3.5 mmol/L (3.5-5.1)
[2021-07-06] MEDS: rifAMPin 300 MG CAPSULE PO SCH (09:51)
[2021-07-06] MEDS: HYDROCORTISONE ACETATE 25 MG SUPP PR SCH ×2 (09:51→21:29)
[2021-07-06] MEDS: ATORVASTATIN 40 MG TAB PO SCH (09:52)
[2021-07-06] MEDS: CIPROFLOXACIN 500 MG TAB PO SCH ×2 (09:52→21:28)
[2021-07-06] MEDS: METOPROLOL TARTRATE 25 MG TAB PO SCH ×2 (09:52→21:30)
[2021-07-06] MEDS: SACCHAROMYCES BOULARDII 250 MG CAP PO SCH ×2 (09:52→21:31)
[2021-07-06] MEDS: predniSONE 10 MG TABLET PO SCH (09:52)
[2021-07-06] MEDS: PANTOprazole 40 MG TAB PO SCH (09:52)
[2021-07-06] MEDS: POT PHOSPHATE MONOBASIC W/ SOD TAB PO SCH ×2 (09:53→13:54)
[2021-07-06] MEDS: valACYclovir HCL 500 MG TABLET PO SCH ×2 (09:53→13:55)
[2021-07-06] MEDS: GABAPENTIN 100 MG CAP PO SCH ×2 (09:54→21:29)
[2021-07-06] MEDS: FUROSEMIDE 20 MG TAB PO SCH (09:54)
[2021-07-06] MEDS: ENOXAPARIN INJ 40 MG/0.4 ML SYR SQ SCH (09:55)
[2021-07-06] MEDS: MAGNESIUM OXIDE 400 MG TAB PO SCH ×2 (09:55→21:30)
[2021-07-06] MEDS: RESTASIS: ORDER AWAITING ACTION SCH ×3 (10:00→21:59)
[2021-07-06] MEDS ORDERED: GADOBUTROL 65ML VIAL IV ONE (13:26)
--- NOTE | 2021-07-06 13:27 | Hospitalist Progress Note ---
Date of Service July 06, 2021 Assessment & Plan (1) Sepsis: Plan: Seems resolved with treatment (2) Acute heart failure with preserved ejection fraction: Plan: resolved, s/p iv lasix, now on home dose of po lasix- looks compensated (3) Diverticulitis: Plan: Appears to have acute diverticulitis. S/p zosyn-> Transitioned to cipro/flagyl to complete full 10 day course D7/10 (4) Crohn's disease: Plan: Chronic left-sided colitis with recent colonoscopy in March. Possible diagnosis of Crohn's disease and questionable response to steroids --remains on daily prednisone, moderate dose. 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 We will continue treatment for this. May be a candidate for surgical treatment option at a tertiary care facility if ultimately this is not healed. Appreciate surgeons recommendations. Cont hydrocortisone [place] for rectal discomfort in setting of known anal fissure--she reports this is helping S/p sigmoidoscopy today- Findings: There was a midline posterior anal fissure. There was ulceration of the anal canal. There were pseudopolyps just proximal to the anal verge. There mucosa of the rectum was normal. There was marked mucosal edema, friability and marked luminal narrowing of the mucosa in the sigmoid colon. I could not identify the lumen of the colon due to edema, and the procedure was aborted. 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 Inflammatory change of the rectosigmoid with marked narrowing of the colon lumen. Recommendation:- Consider pelvic MRI to eval for perial fistulizing disease, eval for diverticular stricture. - Continue antibiotics for possible diverticulitis. - Consider initiation of biologic. MRI pelvis pending per GI recommendation Unclear if GI wants to start biologic inhouse. Will clarify (5) Latent tuberculosis by blood test: Plan: Continue Rifampin monotherapy. (6) Shingles: Plan: Seen in intergluteal fold, there is nothing to culture but clinical appearance is consistent with shingles. S/p Valtrex course. Spoke to her daughter over the phone who stated she always had this lesion down there and nothing new- she doubts this is shingles and states likely from Crohn's. Plan: Hypokalemia- resolved Hypomagnesemia- resolved Hypophosphatemia- resolved Hyponatremia- mild, recheck in am DVT ppx-sc Lovenox DNR/DNI Disposition- MRI pelvis pending. Unclear if GI wants to start biologic inhouse for her IBD. Admission and Anticipated Discharge Date Admission Date: June 29, 2021 Subjective She states she has not received the contrast for the MRI yet. She is asking if the MRI is going to happen or not. No new issues. No fever, chills, abd pain, chest pain. Physical Exam Physical Exam: General: Lying comfortably in bed, not in distress, on room air HEENT: EOMI, VASHTI, MMM Chest: Clear breath sounds bilaterally, no wheezes or crackles CVS: Regular rate and rhythm, normal heart sounds, no murmur Abdomen: Soft, non tender, not distended, umbilical hernia, normal bowel sounds Neuro: Awake, alert, oriented, conversing well, non focal Extremities: No cyanosis, clubbing or edema Results & Data Results & Data ([facility]) Vital Signs (Past 12 Hours) Vital Signs Temp Pulse Resp BP Pulse Ox 07/06/21 07:30 36.6 C 91 H 16 123/69 95 Laboratory Results [facility] 07/06/21 07:47 Sodium 130 L Potassium 3.5 Chloride 98 Carbon Dioxide 27 BUN 4 L Creatinine 0.36 L Glucose 128 H Calcium 7.7 L Medications Administered Current Inpatient Medications Acetaminophen (Acetaminophen 325 Mg Tab) 650 mg PO Q4H PRN PRN Reason: Pain or Fever Stop: 07/29/21 13:35 Last Admin: 07/04/21 08:12 Dose: 650 mg Documented by: Atorvastatin Calcium (Atorvastatin 40 Mg Tab) 40 mg PO QAM [facility] Stop: 07/30/21 08:59 Last Admin: 07/06/21 09:52 Dose: 40 mg Documented by: Ciprofloxacin (Ciprofloxacin 500 Mg Tab) 500 mg PO BID [facility]; Protocol Stop: 07/09/21 11:59 Last Admin: 07/06/21 09:52 Dose: 500 mg Documented by: Dextrose (Dextrose 50% 50 Ml Syringe) 25 - 50 ml IV UD PRN; Protocol PRN Reason: Hypoglycemia Protocol Stop: 07/29/21 13:35 Enoxaparin Sodium (Enoxaparin Inj 40 Mg/0.4 Ml Syr) 40 mg SQ QAM [facility] Stop: 08/01/21 08:59 Last Admin: 07/06/21 09:55 Dose: 40 mg Documented by: Furosemide (Furosemide 20 Mg Tab) 20 mg PO QAM [facility] Stop: 07/30/21 08:59 Last Admin: 07/06/21 09:54 Dose: 20 mg Documented by: Gabapentin (Gabapentin 100 Mg Cap) 100 mg PO QAM [facility] Stop: 07/30/21 08:59 Last Admin: 07/06/21 09:54 Dose: 100 mg Documented by: Gabapentin (Gabapentin 100 Mg Cap) 200 mg PO HS [facility] Stop: 07/29/21 20:59 Last Admin: 07/05/21 20:13 Dose: 200 mg Documented by: Glucagon (Glucagon For Inj 1 Mg Vial) 1 mg SQ UD PRN; Protocol PRN Reason: Hypoglycemia Protocol Stop: 07/29/21 13:35 Glucose (Glucose 10 Tabs/Tube) 4 - 8 tabs PO UD PRN; Protocol PRN Reason: Hypoglycemia Protocol Stop: 07/29/21 13:35 Glucose (Glucose 40% Gel 15 Gm Tube) 15 - 30 gm PO UD PRN; Protocol PRN Reason: Hypoglycemia Protocol Stop: 07/29/21 13:35 Hydrocortisone (Hydrocortisone Acetate 25 Mg Supp) 25 mg CA BID [facility] Stop: 07/29/21 20:59 Last Admin: 07/06/21 09:51 Dose: 25 mg Documented by: Levothyroxine Sodium (Levothyroxine Sodium 100 Mcg Tablet) 100 mcg PO DAILYBB [facility] Stop: 07/30/21 06:29 Last Admin: 07/06/21 05:52 Dose: 100 mcg Documented by: Magnesium Oxide (Magnesium Oxide 400 Mg Tab) 400 mg PO BID [facility] Stop: 08/03/21 20:59 Last Admin: 07/06/21 09:55 Dose: 400 mg Documented by: Metoprolol Tartrate (Metoprolol Tartrate 25 Mg Tab) 25 mg PO BID [facility] Stop: 07/29/21 20:59 Last Admin: 07/06/21 09:52 Dose: 25 mg Documented by: Metronidazole (Metronidazole 500 Mg Tab) 500 mg PO Q8H [facility]; Protocol Stop: 07/09/21 12:14 Last Admin: 07/06/21 12:06 Dose: 500 mg Documented by: Miscellaneous (Carbohydrates For Hypoglycemia ) 15 - 30 gm PO UD PRN PRN Reason: Hypoglycemia Protocol Stop: 07/29/21 13:35 Miscellaneous (Restasis: Order Awaiting Action) 1 ea N/A QS [facility] Stop: 07/29/21 15:59 Last Admin: 07/06/21 10:00 Dose: Not Given Documented by: Montelukast Sodium (Montelukast Sodium 10 Mg Tablet) 10 mg PO HS [facility] Stop: 07/29/21 20:59 Last Admin: 07/05/21 20:12 Dose: 10 mg Documented by: Ondansetron HCl (Ondansetron Inj 2 Mg/Ml 2 Ml Vial) 4 mg IV Q6H PRN PRN Reason: Nausea Stop: 07/29/21 13:35 Last Admin: 07/04/21 20:11 Dose: 4 mg Documented by: Oxycodone HCl (Oxycodone Hcl Ir 5 Mg Tab (Immediate Release)) 5 mg PO Q6H PRN PRN Reason: Pain Stop: 07/15/21 16:34 Last Admin: 07/06/21 03:46 Dose: 5 mg Documented by: Pantoprazole Sodium (Pantoprazole 40 Mg Tab) 40 mg PO QAM [facility] Stop: 07/30/21 08:59 Last Admin: 07/06/21 09:52 Dose: 40 mg Documented by: Prednisone (Prednisone 10 Mg Tablet) 30 mg PO DAILY [facility] Stop: 07/30/21 08:59 Last Admin: 07/06/21 09:52 Dose: 30 mg Documented by: Rifampin (Rifampin 300 Mg Capsule) 600 mg PO QAM [facility] Stop: 07/07/21 08:59 Last Admin: 07/06/21 09:51 Dose: 600 mg Documented by: Saccharomyces Boulardii (Saccharomyces Boulardii 250 Mg Cap) 250 mg PO BID [facility] Stop: 07/29/21 20:59 Last Admin: 07/06/21 09:52 Dose: 250 mg Documented by: Trazodone HCl (Trazodone Hcl 50 Mg Tab) 50 mg PO HS PRN PRN Reason: Sleep Stop: 07/29/21 13:35 Last Admin: 07/02/21 20:49 Dose: 50 mg Documented by: Valacyclovir HCl (Valacyclovir Hcl 500 Mg Tablet) 1,000 mg PO TID [facility] Stop: 07/06/21 15:29 Last Admin: 07/06/21 09:53 Dose: 1,000 mg Documented by: (1) Sepsis Sepsis acute organ dysfunction status: unspecified Sepsis type: sepsis due to unspecified organism Qualified Code(s): A41.9 - Sepsis, unspecified organism
--- NOTE | 2021-07-06 14:47 | Magnetic Resonance Report ---
MR pelvis wo/w con CLINICAL HISTORY: eval crohn's cxn- fistula, stricture etc TECHNIQUE: Multiplanar multisequence images were obtained of the abdomen with and without the adminis tration of contrast. COMPARISON: Comparison is made to MRI pelvis 05/15/2018 FINDINGS: Bowel: Multiple diverticula are seen with thickening of the sigmoid colon and mild surrounding fat st randing. No evidence of fistula or abscess formation. Lymph nodes: Unremarkable. Bladder: Unremarkable. Reproductive organs: Unremarkable. Vessels: Unremarkable. Abdominal wall: Unremarkable. Bones: Posterior spinal fixation and right sacroiliac screws are seen. Degenerative changes are seen in the spine. IMPRESSION: Findings are compatible with diverticulitis without evidence of perforation or abscess. ACT 112: Negative or not required by law. Electronically signed by: Miguel Saavedra M.D. 07/06/2021 2:45 PM
[2021-07-06] MEDS: MONTELUKAST SODIUM 10 MG TABLET PO SCH (21:30)
[2021-07-07] MEDS: oxyCODONE HCL IR 5 MG TAB (IMMEDIATE RELEASE) PO PRN ×2 (00:38→19:44)
[2021-07-07] MEDS: ACETAMINOPHEN 325 MG TAB PO PRN (04:38)
[2021-07-07] MEDS: metroNIDAZOLE 500 MG TAB PO SCH ×3 (04:39→19:43)
[2021-07-07] MEDS: LEVOTHYROXINE SODIUM 100 MCG TABLET PO SCH (06:06)
[2021-07-07] MEDS: METOPROLOL TARTRATE 25 MG TAB PO SCH ×2 (08:32→19:46)
[2021-07-07] MEDS: ENOXAPARIN INJ 40 MG/0.4 ML SYR SQ SCH (08:32)
[2021-07-07] MEDS: PANTOprazole 40 MG TAB PO SCH (08:33)
[2021-07-07] MEDS: MAGNESIUM OXIDE 400 MG TAB PO SCH ×2 (08:33→19:46)
[2021-07-07] MEDS: ATORVASTATIN 40 MG TAB PO SCH (08:34)
[2021-07-07] MEDS: FUROSEMIDE 20 MG TAB PO SCH (08:34)
[2021-07-07] MEDS: CIPROFLOXACIN 500 MG TAB PO SCH ×2 (08:34→19:45)
[2021-07-07] MEDS: GABAPENTIN 100 MG CAP PO SCH ×2 (08:34→19:46)
[2021-07-07] MEDS: SACCHAROMYCES BOULARDII 250 MG CAP PO SCH ×2 (08:35→19:47)
[2021-07-07] MEDS: predniSONE 10 MG TABLET PO SCH (08:35)
[2021-07-07] MEDS: RESTASIS: ORDER AWAITING ACTION SCH (08:36)
[2021-07-07] MEDS: HYDROCORTISONE ACETATE 25 MG SUPP PR SCH (08:36)
--- NOTE | 2021-07-07 10:14 | Gastroenterology Progress Note ---
Date of Service July 07, 2021 Assessment & Plan (1) Abdominal pain: Plan: Pt is a 86 year old female followed for diverticulitis, rectal ulcer. Sigmoidoscopy performed 07/05 showed anal fissure, inflammatory changes in the rectosigmoid area with marked stricturing. MRI pelvis consistent with diverticulitis, no fistula/abscess - Cipro/Flagyl x 10 days total for diverticulitis - Continue Prednisone - Treatment for latent TB per primary team, currently on Rifampin - Anticipating Infliximab start after 07/09 (1 month after Rifampin), however will hold of biologic start until diverticulitis is resolved - [facility] recall GI prn Admission and Anticipated Discharge Date Admission Date: June 29, 2021 Supervising Physician Co-Signing Physician Notes I have personally seen and examined the patient with FOSTER Maya. Her note reflects my exam and findings. I agree with her impression and plan. Complete antibiotic course for diverticulitis and than patient should have first infusion next week. Taper off steroids. Chidi Polanco M.D. Subjective Patient had a bowel movement this morning, recorded as formed and brown per nurses note. She denies any nausea, vomiting, abdominal cramping. Rectal pain is described as mild discomfort. Review of Systems Review of Systems: All systems reviewed & are unremarkable except as noted in HPI & below Physical Exam Constitutional: WD/WN, vitals as above well groomed, cooperative and comfortable Eyes: PERRL, conjunctivae normal, anicteric sclerae ENMT: external ear and nose normal, oropharynx normal Respiratory: normal respiratory effort, lungs clear to auscultation Cardiovascular: RRR, no murmur, no edema Gastrointestinal (Abdomen): Soft, nontender, bowel sounds active Skin: no rashes, warm and dry no jaundice Psychiatric: A+Ox3, euthymic affect Lymphatic: no lymphedema Results & Data ([facility]) Vital Signs (Past 12 Hours) Vital Signs Temp Pulse Resp BP Pulse Ox 07/07/21 08:02 36.6 C 98 H 16 114/72 95 (1) Abdominal pain Abdominal location: left lower quadrant Qualified Code(s): R10.32 - Left lower quadrant pain
[2021-07-07 11:05] LABS: BUN Creatinine Ratio 10.9 (10-20); C Reactive Protein 2.63 mg/dl (0-0.5); Creatinine Clr Calc Pharmacy 81.1 ml/min; Est GFR (African American) 105.1 ml/min; Est GFR (Non-African American) 90.7 ml/min; Potassium 3.3 mmol/L (3.5-5.1)
[2021-07-07] MEDS ORDERED: POTASSIUM CHLORIDE CRTAB 20 MEQ TABCR PO STA (11:16)
--- NOTE | 2021-07-07 16:02 | Hospitalist Progress Note ---
Date of Service July 07, 2021 Assessment & Plan (1) Sepsis: Plan: Resolved with treatment (2) Acute heart failure with preserved ejection fraction: Plan: resolved, s/p iv lasix, now on home dose of po lasix- looks compensated (3) Diverticulitis: Plan: Appears to have acute diverticulitis. S/p zosyn-> Transitioned to cipro/flagyl t o complete full 10 day course (4) Crohn's disease: Plan: Chronic left-sided colitis with recent colonoscopy in March. Possible d iagnosis of Crohn's disease and questionable response to steroids --remains on daily prednisone, moderate dose. 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 We will continue treatment for this. May be a candidate for surgical treatment option at a tertiary care facility if ultimately this is not healed. Appreciate surgeons recommendations. Cont hydrocortisone [place] for rectal discomfort in setting of known anal fissure--she reports this is helping S/p sigmoidoscopy 07/05- Findings: There was a midline posterior anal fissure. There was ulceration of the anal canal. There were pseudopolyps just proximal to the anal verge. There mucosa of the rectum was normal. There was marked mucosal edema, friability and marked luminal narrowing of the mucosa in the sigmoid colon. I could not identify the lumen of the colon due to edema, and the procedure was aborted. 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 Inflammatory change of the rectosigmoid with marked narrowing of the colon lumen. Recommendation:- Consider pelvic MRI to evaluate for perianal fistulizing disease, eval for diverticular stricture. - Continue antibiotics for possible diverticulitis. - Consider initiation of biologic. MRI pelvis 07/06- Findings are compatible with diverticulitis without evidence of perforation or abscess. GI would like to start biologics as OP when seen in the office. GI signed off (5) Latent tuberculosis by blood test: Plan: Continue Rifampin monotherapy. (6) Shingles: Plan: Seen in intergluteal fold, there is nothing to culture but clinical appearance is consistent with shingles. S/p Valtrex course. Spoke to her daughter over the phone who stated she always had this lesion down there and nothing new- she doubts this is shingles and states likely from Crohn's. Plan: Hypokalemia- repleted Hyponatremia- mild, stable DVT ppx-sc Lovenox DNR/DNI Disposition- Seen by the staff from [place] today- D/c back to [place] tomorrow Updated daughter Joy over the phone Admission and Anticipated Discharge Date Admission Date: June 29, 2021 Subjective No new issues. States her butt feels sore from the anal fissure but nothing new. She is excited that she will be going back tomorrow to [place]. She wanted me to call her daughter Joy for an update. Physical Exam Physical Exam: General: Lying comfortably in bed, not in distress, on room air HEENT: EOMI, VASHTI, MMM Chest: Clear breath sounds bilaterally, no wheezes or crackles CVS: Regular rate and rhythm, normal heart sounds, no murmur Abdomen: Soft, non tender, not distended, umbilical hernia, normal bowel sounds Neuro: Awake, alert, oriented, conversing well, non focal Extremities: No cyanosis, clubbing or edema Results & Data Results & Data ([facility]) Vital Signs (Past 12 Hours) Vital Signs Temp Pulse Resp BP BP Pulse Ox 07/07/21 15:56 36.7 C 79 16 125/73 94 07/07/21 08:02 36.6 C 98 H 16 114/72 95 Laboratory Results [facility] 07/07/21 10:12 Sodium 129 L Potassium 3.3 L Chloride 96 L Carbon Dioxide 24 BUN 5 L Creatinine 0.46 L Glucose 245 H Calcium 8.0 L Medications Administered Current Inpatient Medications Acetaminophen (Acetaminophen 325 Mg Tab) 650 mg PO Q4H PRN PRN Reason: Pain or Fever Stop: 07/29/21 13:35 Last Admin: 07/07/21 04:38 Dose: 650 mg Documented by: Atorvastatin Calcium (Atorvastatin 40 Mg Tab) 40 mg PO QAM [facility] Stop: 07/30/21 08:59 Last Admin: 07/07/21 08:34 Dose: 40 mg Documented by: Ciprofloxacin (Ciprofloxacin 500 Mg Tab) 500 mg PO BID [facility]; Protocol Stop: 07/09/21 11:59 Last Admin: 07/07/21 08:34 Dose: 500 mg Documented by: Dextrose (Dextrose 50% 50 Ml Syringe) 25 - 50 ml IV UD PRN; Protocol PRN Reason: Hypoglycemia Protocol Stop: 07/29/21 13:35 Enoxaparin Sodium (Enoxaparin Inj 40 Mg/0.4 Ml Syr) 40 mg SQ QAM [facility] Stop: 08/01/21 08:59 Last Admin: 07/07/21 08:32 Dose: 40 mg Documented by: Furosemide (Furosemide 20 Mg Tab) 20 mg PO QAM [facility] Stop: 07/30/21 08:59 Last Admin: 07/07/21 08:34 Dose: 20 mg Documented by: Gabapentin ([facility] 100 Mg Cap) [facility] [place]: 07/30/21 08:59 Last Admin: 07/07/21 08:34 Dose: 100 mg Documented by: Gabapentin (Gabapentin 100 Mg Cap) 200 mg PO [facility] Stop: 07/29/21 20:59 Last Admin: 07/06/21 21:29 Dose: 200 mg Documented by: Glucagon (Glucagon For Inj 1 Mg Vial) 1 mg SQ UD PRN; Protocol PRN Reason: Hypoglycemia Protocol Stop: 07/29/21 13:35 Glucose (Glucose 10 Tabs/Tube) 4 - 8 tabs PO UD PRN; Protocol PRN Reason: Hypoglycemia Protocol Stop: 07/29/21 13:35 Glucose (Glucose 40% Gel 15 Gm Tube) 15 - 30 gm PO UD PRN; Protocol PRN Reason: Hypoglycemia Protocol Stop: 07/29/21 13:35 Levothyroxine Sodium (Levothyroxine Sodium 100 Mcg Tablet) [facility] Stop: 07/30/21 06:29 Last Admin: 07/07/21 06:06 Dose: 100 mcg Documented by: Magnesium Oxide (Magnesium Oxide 400 Mg Tab) 400 mg PO BID [facility] Stop: 08/03/21 20:59 Last Admin: 07/07/21 08:33 Dose: 400 mg Documented by: Metoprolol Tartrate (Metoprolol Tartrate 25 Mg Tab) 25 mg PO BID [facility] Stop: 07/29/21 20:59 Last Admin: 07/07/21 08:32 Dose: 25 mg Documented by: Metronidazole (Metronidazole 500 Mg Tab) 500 mg PO Q8H [facility]; Protocol Stop: 07/09/21 12:14 Last Admin: 07/07/21 11:54 Dose: 500 mg Documented by: Miscellaneous (Carbohydrates For Hypoglycemia ) 15 - 30 gm PO UD PRN PRN Reason: Hypoglycemia Protocol Stop: 07/29/21 13:35 Montelukast Sodium (Montelukast Sodium 10 Mg Tablet) 10 mg PO [facility] Stop: 07/29/21 20:59 Last Admin: 07/06/21 21:30 Dose: 10 mg Documented by: Ondansetron HCl (Ondansetron Inj 2 Mg/Ml 2 Ml Vial) 4 mg IV Q6H PRN PRN Reason: Nausea Stop: 07/29/21 13:35 Last Admin: 07/04/21 20:11 Dose: 4 mg Documented by: Oxycodone HCl (Oxycodone Hcl Ir 5 Mg Tab (Immediate Release)) 5 mg PO Q6H PRN PRN Reason: Pain Stop: 07/15/21 16:34 Last Admin: 07/07/21 00:38 Dose: 5 mg Documented by: Pantoprazole Sodium (Pantoprazole 40 Mg Tab) 40 mg PO QAM [facility] Stop: 07/30/21 08:59 Last Admin: 07/07/21 08:33 Dose: 40 mg Documented by: Prednisone (Prednisone 20 Mg Tab) 20 mg PO DAILY [facility] Stop: 07/14/21 09:01 Prednisone (Prednisone 5 Mg Tab) 5 mg PO DAILY [facility] Stop: 07/14/21 09:01 Prednisone (Prednisone 20 Mg Tab) 20 mg PO DAILY [facility] Stop: 07/21/21 09:01 Prednisone (Prednisone 5 Mg Tab) 15 mg PO DAILY [facility]; Taper Stop: 08/12/21 08:59 Saccharomyces Boulardii (Saccharomyces Boulardii 250 Mg Cap) 250 mg PO BID [facility] Stop: 07/29/21 20:59 Last Admin: 07/07/21 08:35 Dose: 250 mg Documented by: Trazodone HCl (Trazodone Hcl 50 Mg Tab) 50 mg PO HS PRN PRN Reason: Sleep Stop: 07/29/21 13:35 Last Admin: 07/02/21 20:49 Dose: 50 mg Documented by: (1) Sepsis Sepsis acute organ dysfunction status: unspecified Sepsis type: sepsis due to unspecified organism Qualified Code(s): A41.9 - Sepsis, unspecified organism
[2021-07-07] MEDS: MONTELUKAST SODIUM 10 MG TABLET PO SCH (19:47)
[2021-07-07] MEDS: POTASSIUM CHLORIDE CRTAB 20 MEQ TABCR PO SCH (20:20)
[2021-07-08] MEDS: metroNIDAZOLE 500 MG TAB PO SCH ×2 (04:27→11:46)
[2021-07-08] MEDS: oxyCODONE HCL IR 5 MG TAB (IMMEDIATE RELEASE) PO PRN (04:29)
[2021-07-08] MEDS: LEVOTHYROXINE SODIUM 100 MCG TABLET PO SCH (04:29)
[2021-07-08] MEDS: ATORVASTATIN 40 MG TAB PO SCH (07:26)
[2021-07-08] MEDS: FUROSEMIDE 20 MG TAB PO SCH (07:26)
[2021-07-08] MEDS: PANTOprazole 40 MG TAB PO SCH (07:27)
[2021-07-08] MEDS: METOPROLOL TARTRATE 25 MG TAB PO SCH (07:27)
[2021-07-08] MEDS: CIPROFLOXACIN 500 MG TAB PO SCH (07:27)
[2021-07-08] MEDS: GABAPENTIN 100 MG CAP PO SCH (07:27)
[2021-07-08] MEDS: MAGNESIUM OXIDE 400 MG TAB PO SCH (07:27)
[2021-07-08] MEDS: SACCHAROMYCES BOULARDII 250 MG CAP PO SCH (07:27)
[2021-07-08] MEDS: ENOXAPARIN INJ 40 MG/0.4 ML SYR SQ SCH (07:28)
[2021-07-08] MEDS: POTASSIUM CHLORIDE CRTAB 20 MEQ TABCR PO SCH (07:31)
[2021-07-08] MEDS ORDERED: predniSONE 5 MG TAB PO SCH (09:00)
[2021-07-08] MEDS ORDERED: predniSONE 20 MG TAB PO SCH (09:00)
--- NOTE | 2021-07-08 17:21 | Discharge Summary ---
Date of Service July 08, 2021 Admission HPI Per Admitting Provider This is a 85-year-old female who has significant past medical history of T2DM, HTN, HLD, mild persistent asthma, arteriosclerotic cardiovascular disease, GERD, IBS, history of diverticulitis, history of C. difficile, Crohn's disease, lymphedema, incisional hernia, currently receiving treatment for LTBI who presents to ED due to fever and weakness x 1 day. Patient resides at [email or web address] Patient is otherwise a poor historian. Facility reports increasing weakness over the last 2 to 3 days. She had elevated temperature at facility today. They witnessed her walking with a walker today and felt she was leaning to the right side. They overall felt she was not herself. Due to these changes they opted to send her to ED for further evaluation. They deny any reports of diarrhea, but did report a bulge at her rectum with some bright red blood noted on toilet paper. In ED patient remained hemodynamically stable although she was febrile on arrival. She also was tachycardic and tachypneic. CT abdomen pelvis was concerning for sigmoid diverticulitis. Lab work notable for stable anemia 11.6 and 35.9, new thrombocytopenia with platelet count of 93, ESR 40, sodium 132, glucose 166, Phos 2.1 and procalcitonin 0.13. Her urinalysis was negative for infection. Her SARS-CoV-2 influenza and RSV was negative as well. Chest x-ray revealed mild pulmonary edema. In ED she received 2 L of IV fluid, IV cefepime, IV Flagyl and IV Tylenol. She was afebrile during my evaluation. ROS limited from patient due to poor historian. She does report chronic rectal pain as well as generalized abdominal pain. She is unable to quantify her pain for me and states it is just, "everywhere."She does admit to feeling chills and sweats but denies any documented fever. She further denies any nausea, vomiting, URI symptoms, melena, dysuria, increased urgency or frequency with urination. She does report poor appetite the last few days as well as generalized weakness. Admission Exam Per Admitting Provider Constitutional: Elderly, female, sitting up in bed, vitals as above, NAD, flat affect, conversing easily Head: Normocephalic, Atraumatic Eyes: PERRL, conjunctivae normal, anicteric sclerae ENMT: external ear and nose normal, oropharynx normal Neck: trachea midline, no thyromegaly normal visual inspection Respiratory: normal respiratory effort, lungs clear to auscultation, no wheeze, rales, rhonchi. Normal insp/exp effort, no accessory muscle use Cardiovascular: RRR, 2/6 JOAO noted RUSB, bilateral +1 pretibial edema, negative Homans, warmth Vessels: no JVD or carotid bruit Chest: normal inspection of chest Abdomen: normal bowel sounds, tender to palpation diffusely, no rebound, no guarding, no rigidity, no hepatosplenomegaly Musculoskeletal: no cyanosis or clubbing, extremities motor strength 5/5 Skin: no rashes, warm and dry normal turgor Neurologic: PERRL, EOMI, accommodation nl, no face palsy, no dysarthria CN's II-XI intact bilaterally and moves all extremities Psychiatric: A+Ox3, euthymic affect Lymphatic: no cervical or axillary lymphadenopathy : deferred Principal Diagnosis Acute diverticulitis, Crohn's disease, latent TB Discharge Exam General: Lying comfortably in bed, not in distress, on room air HEENT: EOMI, VASHTI, MMM Chest: Clear breath sounds bilaterally, no wheezes or crackles CVS: Regular rate and rhythm, normal heart sounds, no murmur Abdomen: Soft, non tender, not distended, umbilical hernia, normal bowel sounds Neuro: Awake, alert, oriented, conversing well, non focal Extremities: No cyanosis, clubbing or edema Discharge Data Allergies Allergy/AdvReac Type Severity Reaction Status Date / Time Iodinated Contrast Media Allergy Intermediate HIVES/BURNING Verified 06/29/21 10:16 AT IV SITE AND UP VEIN pyrilamine Allergy Intermediate VOMITING Verified 06/29/21 10:16 Sulfa (Sulfonamide Allergy Intermediate RINGS ON Verified 06/29/21 10:16 Antibiotics) SKIN simvastatin Allergy Mild RED Verified 06/29/21 10:16 CIRCLES-HAS TOLERATED LIPITOR iodine Allergy Unknown Unknown Unverified 06/29/21 10:16 amoxicillin AdvReac Intermediate CAUSED Verified 06/29/21 10:16 DIARRHEA PER [facility] MED LIST codeine AdvReac Intermediate N/V Verified 06/29/21 10:16 ether AdvReac Intermediate NAUSEA/VOMI Verified 06/29/21 10:16 TING morphine AdvReac Intermediate VOMITING Verified 06/29/21 10:16 tramadol AdvReac Intermediate NAUSEA/VOMI Verified 06/29/21 10:16 TING Consultations 06/29/21 10:31 ED Decision to Admit Stat 06/29/21 11:25 Consult Gastroenterology Routine 06/30/21 16:49 Consult General Surgery Routine Procedures Performed Operation Date: 07/05/21 16:45 Actual Procedures p Flexible Sigmoidoscopy - Joy Webber MD Ordered Studies 06/29/21 08:49 CT abd pelvis wo con Stat 06/29/21 10:59 US venous doppler LE BI Stat 07/06/21 19:20 MR pelvis wo/w con Routine Laboratory Results WBC 6.82 K/uL (4.8-10.8) 07/02/21 06:34 RBC 3.39 M/uL (4.2-5.4) L 07/02/21 06:34 Hgb 10.9 g/dL (12.0-16.0) L 07/02/21 06:34 Hct 33.6 % (37-47) L 07/02/21 06:34 MCV 99.1 fL (80-100) 07/02/21 06:34 MCH 32.2 pg (25-34) 07/02/21 06:34 MCHC 32.4 g/dL (32-36) 07/02/21 06:34 RDW Std Deviation 62.0 fL (36.4-46.3) H 07/02/21 06:34 RDW Coeff of Jluis 17.2 % (11.5-14.5) H 07/02/21 06:34 Plt Count 104 K/uL (130-400) L 07/02/21 06:34 MPV 10.1 fL (7.4-10.4) 07/02/21 06:34 Immature Gran % (Auto) 0.6 % 06/30/21 06:50 Neut % (Auto) 75.5 % 06/30/21 06:50 Lymph % (Auto) 10.9 % 06/30/21 06:50 [place] % (Auto) 11.4 % 06/30/21 06:50 Eos % (Auto) 1.3 % 06/30/21 06:50 Baso % (Auto) 0.3 % 06/30/21 06:50 Neut # (Auto) 5.03 K/uL (1.4-6.5) 06/30/21 06:50 Lymph # (Auto) 0.73 K/uL (1.2-3.4) L 06/30/21 06:50 [place] # (Auto) 0.76 K/uL (0.11-0.59) H 06/30/21 06:50 Eos # (Auto) 0.09 K/uL (0-0.5) 06/30/21 06:50 Baso # (Auto) 0.02 K/uL (0-0.2) 06/30/21 06:50 Immature Gran # (Auto) 0.04 K/uL (0.00-0.02) H 06/30/21 06:50 Platelet Estimate Decreased (Normal) L 06/29/21 08:27 ESR 33 mm/hr (0-30) H 07/07/21 10:12 PT 11.5 Seconds (9.0-12.0) 06/29/21 08:27 INR 1.1 (0.9-1.1) 06/29/21 08:27 APTT 29.3 Seconds (21.0-31.0) 06/29/21 08:27 PTT Ratio 1.1 06/29/21 08:27 VBG pH 7.50 (7.36-7.41) H 06/29/21 09:11 VBG pCO2 36 mmHg (38-50) L 06/29/21 09:11 VBG pO2 38 mmHg 06/29/21 09:11 VBG HCO3 27 mmol/L 06/29/21 09:11 VBG O2 Saturation 73.8 % 06/29/21 09:11 VBG Base Excess 3.7 mEq/L 06/29/21 09:11 Barometric Pressure 727.7 mm/Hg 06/29/21 09:11 Sodium 129 mmol/L (136-145) L 07/07/21 10:12 Potassium 3.3 mmol/L (3.5-5.1) L 07/07/21 10:12 Chloride 96 mmol/L (98-107) L 07/07/21 10:12 Carbon Dioxide 24 mmol/L (21-32) 07/07/21 10:12 Anion Gap 9 (3-11) 07/07/21 10:12 BUN 5 mg/dl (6-23) L 07/07/21 10:12 Creatinine 0.46 mg/dl (0.6-1.2) L 07/07/21 10:12 Est Cr Clr Drug Dosing 81.1 ml/min 07/07/21 10:12 Est GFR ( Amer) 105.1 ml/min 07/07/21 10:12 Est GFR (Non-Af Amer) 90.7 ml/min 07/07/21 10:12 BUN/Creatinine Ratio 10.9 (10-20) 07/07/21 10:12 Glucose 245 mg/dl (70-99(Fasting)) H 07/07/21 10:12 POC Glucose 132 mg/dl (70-99) H 07/02/21 17:14 Lactate 0.8 mmol/L (0.4-2.0) 06/29/21 09:11 Calcium 8.0 mg/dl (8.5-10.1) L 07/07/21 10:12 Ionized Calcium 1.10 mmol/L (1.12-1.32) L 07/03/21 07:45 Phosphorus 2.6 mg/dl (2.5-4.9) 07/05/21 06:00 Magnesium 1.8 mg/dl (1.7-2.4) 07/06/21 07:47 Total Bilirubin 0.4 mg/dl (0.2-1.0) 06/30/21 06:50 AST 9 U/L (13-39) L 06/30/21 06:50 ALT 12 U/L (7-52) 06/30/21 06:50 Alkaline Phosphatase 39 U/L (34-104) 06/30/21 06:50 C-Reactive Protein 2.63 mg/dl (0-0.5) H 07/07/21 10:12 Total Protein 4.8 gm/dl (6.0-8.3) L D 06/30/21 06:50 Albumin 2.6 gm/dl (3.4-5.0) L 06/30/21 06:50 Globulin 2.2 gm/dl (2.5-4.0) L 06/30/21 06:50 Albumin/Globulin Ratio 1.2 (0.9-2) 06/30/21 06:50 Procalcitonin 0.13 ng/ml (0-0.5) 06/29/21 08:27 Urine Color Dark Yellow 06/29/21 11:17 Urine Appearance Cloudy (Clear) A 06/29/21 11:17 Urine pH 7.0 (4.5-7.5) 06/29/21 11:17 Ur Specific [place] 1.021 (1.000-1.030) 06/29/21 11:17 Urine Protein 2+ (Negative) H 06/29/21 11:17 Urine Glucose (UA) Negative (Negative) 06/29/21 11:17 Urine Ketones Trace (Negative) H 06/29/21 11:17 Urine Blood Trace (Negative) H 06/29/21 11:17 Urine Nitrite Negative (Negative) 06/29/21 11:17 Urine Bilirubin Negative (Negative) 06/29/21 11:17 Urine Urobilinogen Negative (Negative) 06/29/21 11:17 Ur Leukocyte Esterase Negative (Negative) 06/29/21 11:17 Urine WBC (Auto) 1-5 /hpf (0-5) 06/29/21 11:17 Urine RBC (Auto) 5-10 /hpf (0-4) H 06/29/21 11:17 U Hyaline Cast (Auto) 5-10 /lpf (0-5) H 06/29/21 11:17 U Epithel Cells (Auto) >30 /lpf (0-5) H 06/29/21 11:17 Urine Bacteria (Auto) Negative (Negative) 06/29/21 11:17 Nasal Screen MRSA (PCR) Negative (Negative) 06/29/21 13:30 SARS-CoV-2 (PCR) NEGATIVE (Negative) 06/29/21 09:54 Influenza Type A (PCR) Negative (Neg) 06/29/21 09:54 Influenza Type B (PCR) Negative (Neg) 06/29/21 09:54 RSV (RT-PCR) Negative (Neg) 06/29/21 09:54 SARS-CoV-2, RNA, NAAT NEGATIVE (NEGATIVE) 07/08/21 09:40 Impressions Chest X-Ray 06/29/21 08:38 XR chest 1V portable CLINICAL HISTORY: SEPSIS TECHNIQUE: Single frontal radiograph of the chest was obtained. Comparison: Comparison is made to chest radiograph 03/27/2021 FINDINGS: No lines and tubes are seen. Calcified aortic knob is seen. Prominence and cephalization of the vasculature is seen. No evidence of pleural effusion or pneumothorax. Degenerative changes are seen in the bilateral glenohumeral joints. IMPRESSION: Mild pulmonary edema. No evidence of pneumonia. ACT 112: Negative or not required by law. Electronically signed by: Miguel Saavedra M.D. 06/29/2021 10:44 AM Abdomen/Pelvis CT 06/29/21 08:49 CT SCAN OF THE ABDOMEN AND PELVIS WITHOUT IV CONTRAST CLINICAL HISTORY: Generalized abdominal pain. Sepsis. COMPARISON STUDY: Multiple prior abdominal CT scans, most recently dated 03/27/2021. TECHNIQUE: CT scan of the abdomen and pelvis is performed from the lung bases to the proximal femora. Images are reviewed in the axial, sagittal, and coronal planes. IV contrast was not administered for this examination. The Examination is significantly suboptimal without oral and IV contrast. There is also significant streak artifact from metallic hardware. A dose lowering technique was utilized adhering to the principles of ALARA. CT DOSE: 705.90 mGycm FINDINGS: Lung bases: The heart is normal in size and without pericardial effusion. The coronary arteries and mitral annulus are densely calcified. There is a tiny hiatal hernia. There are trace pleural effusions with bibasilar scarring/atelectasis. A large calcified granuloma is seen in the right middle lobe. Intraoperative septal thickening is noted at both lung bases. Liver: The unenhanced liver is normal in size, contour, and attenuation. There is no intrahepatic biliary ductal dilatation. There are scattered calcified hepatic granulomas. Gallbladder: Not identified and presumed surgically absent. Spleen: Normal in size and attenuation. There are numerous calcified splenic granulomas. Pancreas: The unenhanced pancreas is moderately atrophic and grossly unremarkable. Adrenal glands: Unremarkable. Kidneys: The unenhanced kidneys demonstrate cortical atrophy and are without hydronephrosis. There are no renal calculi identified. A 2.9 cm exophytic cyst arises from the interpolar left kidney. Abdominal vasculature: The abdominal aorta is normal in course and caliber noting advanced atherosclerotic calcification. Bowel: There is mild to moderate diverticulosis of the sigmoid colon. There is wall thickening with pericolonic inflammation and trace fluid involving the sigmoid typical for acute diverticulitis. No organized fluid collection is seen to suggest abscess. No bowel obstruction is identified. Fecal retention is seen throughout the colon. There is laxity of the ventral abdominal wall with protrusion of bowel loops. The appendix is not identified and reported surgically absent. Peritoneum: There is no intraperitoneal free air or abdominal ascites. There is evidence of previous ventral hernia repair. Lymphadenopathy: None. Pelvic viscera: The bladder is normal as visualized. The uterus is surgically absent. No adnexal lesion is seen. Skeletal structures: The skeletal structures are osteopenic. There is advanced lumbar sacral spondylosis with evidence of previous lumbar spinal fusion surgery. There are chronic compression deformities of T11 and T12 with evidence of previous vertebroplasty. Right-sided iliac bolts are in place. No lytic or blastic lesions are seen. IMPRESSION: 1. Significantly suboptimal examination without oral and IV contrast. There is also significant metallic streak artifact. 2. Sigmoid diverticulosis with evidence of mild acute sigmoid diverticulitis. 3. No intraperitoneal free air is identified and there is no evidence of organized fluid collection on this unenhanced examination to suggest abscess. 4. No bowel obstruction. 5. Trace pleural effusions. 6. Intralobular septal thickening at the lung bases could be seen with acute versus chronic congestive change. Clinical correlation will required. 7. Additional findings as above. ACT 112: Negative or not required by law. Electronically signed by: Wong Childress M.D. 06/29/2021 10:01 AM Venous Doppler Study 06/29/21 10:59 ULTRASOUND BILATERAL LOWER EXTREMITY VENOUS CLINICAL HISTORY: Edema. COMPARISON STUDY: Bilateral lower extremity venous ultrasound dated 02/24/2012. TECHNIQUE: Real-time, grayscale, and color Doppler sonography of the deep veins of the right and left lower extremity was performed from the inguinal crease to the calf. Compression and augmentation were utilized. FINDINGS: There is no sonographic evidence of deep venous thrombosis identified in the right or left lower extremity. The common femoral, superficial femoral, and popliteal veins are patent and normally compressible bilaterally. The greater saphenous vein and the profunda femoris vein at the junction with the common femoral vein are clear in both legs. The visualized calf veins are patent bilaterally. IMPRESSION: There is no sonographic evidence of deep venous thrombosis identified in the right or left lower extremity. ACT 112: Negative or not required by law. Electronically signed by: Wong Childress M.D. 06/29/2021 12:23 PM Pelvis MRI 07/06/21 19:20 MR pelvis wo/w con CLINICAL HISTORY: eval crohn's cxn- fistula, stricture etc TECHNIQUE: Multiplanar multisequence images were obtained of the abdomen with and without the administration of contrast. COMPARISON: Comparison is made to MRI pelvis 05/15/2018 FINDINGS: Bowel: Multiple diverticula are seen with thickening of the sigmoid colon and mild surrounding fat stranding. No evidence of fistula or abscess formation. Lymph nodes: Unremarkable. Bladder: Unremarkable. Reproductive organs: Unremarkable. Vessels: Unremarkable. Abdominal wall: Unremarkable. Bones: Posterior spinal fixation and right sacroiliac screws are seen. Degenerative changes are seen in the spine. IMPRESSION: Findings are compatible with diverticulitis without evidence of perforation or abscess. ACT 112: Negative or not required by law. Electronically signed by: Miguel Saavedra M.D. 07/06/2021 2:45 PM Hospital Course (1) Sepsis: Resolved with treatment (2) Acute heart failure with preserved ejection fraction: resolved, s/p iv lasix, now on home dose of po lasix- looks compensated. continue home lasix (3) Diverticulitis: Appears to have acute diverticulitis. S/p zosyn-> Transitioned to cipro/flagyl to complete full 10 day course (4) Crohn's disease: - Chronic left-sided colitis with recent colonoscopy in March. Possible diagnosis of Crohn's disease and questionable response to steroids --remains on daily prednisone, moderate dose- Being tapered down by 5 mg every week as per GI recommendations- this was relayed to patient at bedside which she verbalized; and this was also adjusted at discharge. - There was consideration for putting her on immunosuppressant therapy and then latent TB was found. We will continue treatment for this. May be a candidate for surgical treatment option at a tertiary care facility if ultimately this is not healed. Appreciate surgeons recommendations. Cont hydrocortisone IN for rectal discomfort in setting of known anal fissure--she reports this is helping S/p sigmoidoscopy 07/05- Findings: There was a midline posterior anal fissure. There was ulceration of the anal canal. There were pseudopolyps just proximal to the anal verge. There mucosa of the rectum was normal. There was marked mucosal edema, friability and marked luminal narrowing of the mucosa in the sigmoid colon. I could not identify the lumen of the colon due to edema, and the procedure was aborted. 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 Inflammatory change of the rectosigmoid with marked narr owing of the colon lumen. Recommendation:- Consider pelvic MRI to evaluate for perianal fistulizing disease, eval for diverticular stricture. - Continue antibiotics for possible diverticulitis. - Consider initiation of biologic. MRI pelvis 07/06- Findings are compatible with diverticulitis without evidence of perforation or abscess. GI would like to start biologics as OP when seen in the office. 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 (6) Shingles: Seen in intergluteal fold, there is nothing to culture but clinical appearance is consistent with shingles. S/p Valtrex course. Spoke to her daughter over the phone who stated she always had this lesion down there and nothing new- she doubts this is shingles and states likely from Crohn's. Hypokalemia- on oral supplementation Hyponatremia- mild, stable Comfortable and stable to discharge back to [facility]. She is anxious to get discharged. Total Time Total Time Spent Total Time Spent (In Minutes): 42 Discharge Plan Discharge Items Patient Disposition: [facility] Reason For Visit: SEPSIS, ACUTE DIVERTICULITIS Discharge Diagnosis: Sepsis, acute diverticulitis Activity: Resume your previous activity Non-emergency contact: Primary Care Provider and [employer] Call non-emergency contact if: you have any medication questions, your symptoms worsen, your pain is concerning for you and you have a fever Follow-up/Referrals: Ami dong,[place] [Primary Care Provider] - Diet: Low Fiber Fluids: 1500ml (6 cups) Diet Texture: Dental soft (bite-sized) Addtl Attending Provider Instructions: Continue the antibiotic for 3 more days. Follow with the GI doctor to get started on the treatment for your Crohn's disease GI doctors recommended tapering the prednisone by 5 mg every week starting with 25 mg tomorrow. Your potassium is low due to the waterpill. We have started you on daily potassium supplementation Recommend repeat blood work (BMP) in the next 3-4 days. Follow up with your family doctor Pending Studies at Discharge: No Stand-Alone Forms: [employer], Smoking Cessation Skilled Items Patient informed of condition?: Yes DNR: Yes Discharge Level of Care: Other Communicable Disease: No Discharge Prognosis: Stable Lines: None Urinary Catheter: No Medications and DC Order Prescriptions: New metronidazole 500 mg Tablet 500 mg PO Q8H 3 Days Qty: 9 RF: 0 ciprofloxacin HCl 500 mg Tablet 500 mg PO BID 3 Days Qty: 6 RF: 0 potassium chloride 20 mEq tablet extended release 20 meq PO DAILY Qty: 30 RF: 0 Continued atorvastatin 40 mg tablet 40 mg PO QAM RF: 0 furosemide 20 mg tablet 20 mg PO QAM RF: 0 levothyroxine 100 mcg tablet 100 mcg PO DAILYBB RF: 0 metoprolol tartrate 25 mg tablet 25 mg PO BID RF: 0 (DME) Oxygen Home Liters Per Minute See Dose Instructions .ROUTE .MEDSUPPLY Qty: 1 RF: 0 pantoprazole 40 mg tablet,delayed release (DR/EC) 40 mg PO QAM RF: 0 trazodone 50 mg tablet 50 mg PO HS PRN (Reason: Sleep) RF: 0 alendronate [Fosamax] 70 mg tablet 70 mg PO WK RF: 0 montelukast [Singulair] 10 mg tablet 10 mg PO HS RF: 0 loratadine [Claritin] 10 mg tablet 10 mg PO QAM RF: 0 cyclosporine [Restasis] 0.05 % Dropperette 1 drp OPHTHALMIC (EYE) Q12H RF: 0 meclizine 12.5 mg tablet 12.5 mg PO DAILY PRN (Reason: Nausea) RF: 0 acetaminophen 500 mg Tablet 1,000 mg PO Q8H PRN (Reason: Pain) RF: 0 hydrocortisone acetate 25 mg suppository 25 mg IN BID RF: 0 rifampin 300 mg capsule 600 mg PO QAM RF: 0 ferrous sulfate 325 mg (65 mg iron) Tablet 325 mg PO BID RF: 0 gabapentin 100 mg capsule See Rx Instructions .ROUTE .COMPLEX RF: 0 fluticasone propionate 50 mcg/actuation spray,suspension 2 spray INTRANASAL QAM RF: 0 oxycodone 5 mg Tablet 5 mg PO Q4H PRN (Reason: Severe Pain (Scale Score 7-10)) RF: 0 Saccharomyces boulardii [Florastor] 250 mg Capsule 250 mg PO BID RF: 0 Calmoseptine 0.44-20.6 % Ointment In Packet 1 applic TOPICAL QID PRN (Reason: Rash) RF: 0 Changed prednisone 10 mg tablet 25 mg PO UD Qty: 60 RF: 0 Discontinued metronidazole 250 mg tablet 250 mg PO TID RF: 0 Discharge Orders: Discharge Order (Routine); Ordered 07/08/21 Ordered By: Yahir Alvarez/Other Patient Handouts: Low-Fiber Diet, Crohns Disease Lifestyle Changes Admission Data Admit Date/Time: 06/29/21 10:39 Attending Provider: Yahir Joyner Admit Provider: Yahir Joyner Primary Care Provider: [facility] Other Providers: Michelle Enamorado ; Yahir Joyner ; Shanda Van ; Matt Chavez Other Interventions: Discharge Summary Assessment (RN) Last Done: 07/08/21 10:03
[2021-07-15] MEDS ORDERED: predniSONE 20 MG TAB PO SCH (09:00)
[2021-07-22] MEDS ORDERED: predniSONE 5 MG TAB PO SCH (09:00)
== END 2021-07-08 13:45 | disposition home or self-care (01) | DRG 871 ==
LOC: ED 08:21 → 2S 10:39 → SUATTDRO 10:39 → 2S 11:41 → 3E 07-01 10:55
DX: B02.9 Zoster without complications; I11.0 Hypertensive heart disease with heart failure; Z88.2 Allergy status to sulfonamides; A41.9 Sepsis, unspecified organism; E11.9 Type 2 diabetes mellitus without complications; E03.9 Hypothyroidism, unspecified; K50.10 Crohn's disease of large intestine without complications; Z66 Do not resuscitate; I50.33 Acute on chronic diastolic (congestive) heart failure; K92.1 Melena; K57.32 Diverticulitis of large intestine without perforation or abscess without bleeding; D64.9 Anemia, unspecified; Z22.7 Latent tuberculosis; Z79.890 Hormone replacement therapy; Z91.041 Radiographic dye allergy status; J45.30 Mild persistent asthma, uncomplicated; Z88.5 Allergy status to narcotic agent; K21.9 Gastro-esophageal reflux disease without esophagitis; K43.2 Incisional hernia without obstruction or gangrene; J84.9 Interstitial pulmonary disease, unspecified; E87.6 Hypokalemia; K60.2 Anal fissure, unspecified; I25.10 Atherosclerotic heart disease of native coronary artery without angina pectoris; E78.5 Hyperlipidemia, unspecified; Z88.1 Allergy status to other antibiotic agents; E87.1 Hypo-osmolality and hyponatremia